=== PATIENT | female | born 1935 | race Caucasian/White ===

== ENCOUNTER → 2016-06-15 | Outpatient (CLI) | payer MEDICARE ==
[~2016-06-15] MED LIST: /ADVA50050 INH; /CELE20CA; /ESOM40CA OR; /LINE60TA; /WARF25TA; ACET65TA; ADVA115A INH; ALBU17IN2 INH; ALLO100T PO; AMLO5TAB2 PO; ASCO500T PO; ASPI1TAB PO; ASPI81TA83 PO; BABY81CH; CALC25TA PO; CALC500T49 OR; CIPR500T19; CLIN300C PO; COLA100C2; DONETAB6 PO; FERR324T5; FURO20TA2 PO; GABA-279 PO; GASTROGRAFIN SOLUTION 30ML (Q9963) As Ordered ONE; GLUC500T; GLUC500T PO; HYDR12.56 PO; HYDR25TA6 PO; ISOVUE-370 76% 100ML VIAL (Q9967) As Ordered ONE; KLON0.5T OR; KLOR10TA; LEVO25TA2 OR; LEVO50TA5 PO; LIDO5DIS TOP; LIPI80TA OR; LIPI80TA PO; LISI-542 PO; LISI2.5T3 PO; LYRI75CA OR; LYSI1000 PO; LYSINE; LYSINE PO; MECL12.575 PO; METF500T PO; MILKSUS; NEXI40CA PO; NORV5TAB OR; OXYB5TAB PO; OXYC10TA12; OXYC10TA56; OXYC10TA97; PAME10CA PO; PAME50CA OR; PERCOCET PO; POTA595T8 PO; POTA75TA PO; POTASSIUM PO; PRED20TA OR; PRED50TA OR; PROA1AER INH; RISE30TA OR; SENN8.6T14; SERT-138 PO; THERGRAN; TRAM37.53 PO; TRAM50TA2; TRAM50TA2 PO; TYL OR; ULTR50TA PO; VALS80CA OR; VICO5TAB OR; VITA-122 PO; VITA100T20 PO; VITA500T OR; ZETI10TA OR; ZETI10TA2 PO; ZOLO100T OR; [UNRECOGNIZED DRUG - OTHER]; dulcolax; tylenol#3
--- NOTE | 2016-06-15 13:27 | REP ---
CT NECK WITH CONTRAST: HISTORY: Lymphoma. CONTRAST: Isovue 370, 100 mL. COMPARISON: 03/04/2016. The naso-, dami-, and hypopharynx, larynx and subglottic trachea are normal in appearance. The patient is status post partial right parotidectomy. The left parotid , submandibular and thyroid glands are normal. Small lymph nodes less than 1 cm in size are present in the internal jugular chains, posterior triangles, and submandibular areas. There is no neck mass or adenopathy. Degenerative change is present in the cervical spine. The lung apices are clear. The visualized sinuses are clear. IMPRESSION: There is no neck mass or adenopathy. Signed by Gage Echavarria MD 06/15/2016 01:54 P
--- NOTE | 2016-06-15 13:56 | REP ---
CT ABDOMEN AND PELVIS WITHOUT AND WITH CONTRAST: 06/15/2016. Clinical history: stage III high-grade follicular non-Hodgkin's lymphoma for follow-up. Comparison: 03/04/2016. Technique: Oral Gastrografin mixture per our protocol and a bolus of 100 mL Isovue 370 scanning through the abdomen and pelvis before and after contrast with delayed views of the abdomen. Coronal and sagittal reconstructions provided. Findings: Small hiatal hernia noted. This is unchanged. There is no hepatomegaly with a 16 cm vertical diameter of the mid clavicular line. There is no splenomegaly or focal splenic lesion. There is no intrahepatic biliary dilatation or ascites. Gallbladder shows no calcified stone or mass. Tiny hypodensity in the dome of the liver represents a 3 mm cyst or small hemangioma but is unchanged from prior studies. Adrenal glands are normal. The aorta shows atherosclerotic calcifications without aneurysm. No periaortic adenopathy. Gallbladder shows no calcified stone or mass. Right kidney is absent. The left kidney shows compensatory hypertrophy. There are cortical cysts in that kidney. No solid renal mass, hydronephrosis or stone. There are small lymph nodes in the mesentery with some infiltration of adjacent fat and all of these are 4 mm or smaller. A few other nodes without associated infiltration of the fat are seen up to 5 mm with improvement in the mesenteric fat infiltration compared to the previous study. The periaortic and peripancreatic fat alike improved in its appearance with less infiltration of that fat. There is no free air or perforation in the abdomen or pelvis on all CT slices reviewed in lung windows. Small bowel loops are grossly intact. Stomach is not abnormally distended. There is some thickening of the wall of the gastric antrum as before and this may reflect some antral gastritis. I do not see other definite areas of wall thickening or mass. Bowel loops do not show wall thickening or infiltration of the pericolonic or mesentery adjacent to the small bowel. No ascites. Bone windows show degenerative disc changes throughout the lumbar spine from the L2-3 through L5- S1 with vacuum phenomenon and showing central canal stenosis only at L5-S1. There is facet arthropathy at multiple levels. Visualized ribs intact. No spondylolysis with a few millimeters of spondylolisthesis of L4 on L5. I do not see dilated left ureter or ureteral stone. CT pelvis: SI joints show sclerosis in their iliac margins. The hips show degenerative changes bilaterally without evidence for AVN, fracture, symphysis pubis, pubic rami and iliac wings intact. 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 Small bowel loops in the pelvis were unremarkable. Distal left colon and sigmoid are collapsed without signs of definite colitis or diverticulitis. The abdominal portion of the colon contrast and fluid-filled without signs of colitis or diverticulitis. There is no ventral or inguinal hernia. Inguinal nodes are seen with the largest on the left about 8 mm in short axis decreased from 11 mm on the previous study. Smaller inguinal nodes on the right up to 6 mm and 8 mm in short axis also decreased. Impression: 1. There is some improvement in mesenteric edema and infiltration of small scattered nodes in the range of 3 to 4 mm and one of up to 5 mm in the left upper quadrant. This suggests improvement in the mesenteric adenopathy and inflammatory changes adjacent to the aorta and pancreatic bed 2. Absent right kidney with the left kidney showing multiple cyst but no stone, hydronephrosis or solid mass. 3. No ureteral stone or bladder stone, ascites or adenopathy. There is no pelvic mass. The vaginal cuff intact. The distal left colon and sigmoid collapsed. No gross evidence for colitis or diverticulitis. Signed by Marco Teran MD 06/15/2016 04:25 P
--- NOTE | 2016-06-15 14:35 | REP ---
CT CHEST WITH CONTRAST: 06/15/2016. COMPARISON: 03/04/2016, 11/30/2015. CLINICAL HISTORY: Stage III high-grade follicular non-Hodgkin's lymphoma. Followup. TECHNIQUE: A bolus of 100 mL Isovue-370 and scanning through the chest. Coronal and sagittal reconstructions were provided. FINDINGS: Lung crystal are mildly hyperinflated with increased AP diameter of the chest and prominence of the retrosternal clear space. Some underlying mild interstitial lung changes are seen. Fibroatelectatic changes again seen in the lung bases, mid posterior lower lung zone, as well as the lingula but stable. There is no pleural effusion evident. No visible lung nodule or mass and no acute infiltrate. I see no pneumothorax or pneumomediastinum. Lateral to the aortic arch is a 2 x 1 x 1.6 cm lesion that previously measured 1.9 x 1.1 by 2.1 cm, slightly decreased in vertical diameter. Heart is not enlarged. There is no pericardial thickening or effusion. There is a hiatal hernia evident. The aorta has no aneurysm or dissection. There is no pathologic sized adenopathy elsewhere in the mediastinum or hilar region. The axilla and supraclavicular regions are intact. The bone windows show sternum, manubrium, medial clavicles and scapula intact. There are degenerative changes of the shoulder joints, left greater than right, with [id number] appearance of the humeral heads indicating chondromalacia on the left. Visualized ribs grossly intact. Appears to be a healing sternal fracture in the mid sternum. Thoracic kyphosis is seen. There is grade 1 superior endplate depression of T12 as a new finding compared to February. There is no malalignment. 3 mm of retropulsion of the superior endplate of T12 into the neural canal is noted with the AP canal diameter 10 mm. Degenerative osteophytes at most levels without other compression deformities or acute change. IMPRESSION: 1. Slightly smaller nick lesion, AP window, prevascular space and now 2.1 x 1.6 x 1 cm, previously 2.1 x 1.9 x 1.1 cm, so slightly smaller. 2. Interval grade 1 superior endplate compression of T12, a few millimeters of retropulsion, and a 10 mm preserved diameter. Spinal stenosis at this level is mild due to that superior endplate depression and slight retropulsion of the posterior-superior margin of the T12. 3. No aortic aneurysm or dissection. Small hiatal hernia, unchanged. COPD and some basilar fibroatelectatic changes noted and stable. Signed by Marco Teran MD 06/15/2016 04:26 P
== END ==
LOC: M RAD 11:02
PROVIDERS: ATTEND Internal Medicine Medical Oncology
DX: C85.90 Non-Hodgkin lymphoma, unspecified, unspecified site (principal); Z90.5 Acquired absence of kidney; N28.1 Cyst of kidney, acquired; K44.9 Diaphragmatic hernia without obstruction or gangrene
CPT/HCPCS: 70491; 71260; 74178; Q9963; Q9967

== ENCOUNTER → 2016-06-22 | Outpatient (REF) | payer MEDICARE ==
[~2016-06-22] MED LIST changes: -GASTROGRAFIN SOLUTION 30ML (Q9963) As Ordered ONE; -ISOVUE-370 76% 100ML VIAL (Q9967) As Ordered ONE
[2016-06-22 15:02] LABS: CORTISOL BASELINE 13.8 UG/DL (4.3-22.4)
== END ==
LOC: M LAB REF 12:50
PROVIDERS: ATTEND Internal Medicine Medical Oncology
DX: Z08 Encounter for follow-up examination after completed treatment for malignant neoplasm (principal); C82.20 Follicular lymphoma grade III, unspecified, unspecified site

== ENCOUNTER → 2016-06-29 | Outpatient (REF) | payer MEDICARE | LOC: M LAB REF 13:02 | PROVIDERS: ATTEND Internal Medicine Medical Oncology | DX: C85.90 Non-Hodgkin lymphoma, unspecified, unspecified site (principal) ==

== ENCOUNTER → 2016-07-13 | Outpatient (CLI) | payer MEDICARE ==
--- NOTE | 2016-07-15 09:02 | DEXA ---
AP SPINE L1 - L4 1.167 -0.2 1.8 LT FEMUR TOTAL 0.851 -1.2 1.1 RT FEMUR TOTAL 0.833 -1.4 0.9 TOTAL BODY TOTAL OTHER DUAL FEMUR FRAX* ASSESSMENT Risk factors: Mother hip fracture, adult fractures, chronic glucocorticoids. 10 year probability of fracture Major osteoporotic fracture 42.8 % Hip fracture 26.8 % COMMENTS: Normal bone densitometry of the spine. There is low bone density of the hips. FOLLOW-UP: Recommendation for the next bone density exam: 2 years. [facility]
== END ==
LOC: M WHC 14:39
PROVIDERS: ATTEND Internal Medicine Medical Oncology
DX: M85.851 Other specified disorders of bone density and structure, right thigh (principal); M85.852 Other specified disorders of bone density and structure, left thigh

== ENCOUNTER → 2016-12-01 | Outpatient (CLI) | payer MEDICARE ==
[~2016-12-01] MED LIST changes: +METF500T13 PO; -PROA1AER INH; +PROAAER10 INH; -ZETI10TA2 PO; +ZETI10TA30 PO
--- NOTE | 2016-12-01 13:39 | REP ---
Left shoulder three views: Comparison is 08/20/2011. There is diffuse demineralization. There is no fracture or dislocation. There are calcifications lateral to the humeral head compatible with calcific tendonitis. This was also present previously. There is glenohumeral osteoarthritis. There is mild acromioclavicular osteoarthritis. Impression: Osteoarthritis. Calcific tendonitis. Demineralization. Signed by David Morgan MD 12/01/2016 01:30 P
== END ==
LOC: M RAD 11:52
PROVIDERS: ATTEND Nurse Practitioner Family
DX: M19.012 Primary osteoarthritis, left shoulder (principal)

== ENCOUNTER → 2017-01-07 | Outpatient (CLI) | payer MEDICARE ==
[~2017-01-07] MED LIST changes: +GASTROGRAFIN SOLUTION 30ML (Q9963) As Ordered ONE; +ISOVUE-370 76% 100ML VIAL (Q9967) As Ordered ONE
--- NOTE | 2017-01-07 15:44 | REP ---
CT NECK WITH CONTRAST: HISTORY: Non-Hodgkin's lymphoma. CONTRAST: Isovue-370, 100 mL COMPARISON: 06/15/2016 The naso-, dami- and hypopharynx, larynx and subglottic trachea are normal in appearance. The patient is status post partial right parotidectomy. The left parotid, submandibular and thyroid glands are normal in density. The submandibular glands are small in size. Small lymph nodes less than 1 cm in size are present in the internal jugular chains, posterior triangles, and submandibular areas. Degenerative change is present in the cervical spine. The visualized sinuses are clear. IMPRESSION: There is no neck mass or adenopathy. Signed by Gage Echavarria MD 01/07/2017 03:49 P
--- NOTE | 2017-01-07 15:50 | REP ---
CT chest with IV contrast: History: Non-Hodgkin's lymphoma, restaging. Comparison chest CT study is from June 15 2016. There is a soft tissue density which appears to be pleural-based, but in the left upper lobe adjacent to the left mediastinum at the level of the aortopulmonary window region. This is felt to be unchanged from multiple comparison studies. It measures 1.8 cm in anteroposterior x 1.3 cm in medial to lateral x 2.3 cm in craniocaudal span. It is felt to be unchanged from June 2016 and November 30, 2015 prior studies. No other significant pulmonary parenchymal opacity is seen. There is a granulomatous calcification in the left upper lobe near by this lesion, unchanged. No hilar or mediastinal mass or adenopathy is seen. There is a moderate sized hiatal hernia. A tiny cyst is seen in the right lobe of the liver, unchanged. No bony destructive lesion is seen. No vascular abnormality is noted in the mediastinum. Impression: Stable chest CT findings. Signed by Norman Jarrett MD 01/08/2017 10:06 A
--- NOTE | 2017-01-07 16:04 | REP ---
CT abdomen and pelvis without and with IV and oral contrast: History: Restaging lymphoma. Comparison CT studies are reviewed from 06/15/2016 and 03/04/2016. CT contrast dose: 100 ml of intravenous Isovue [address] findings: There is a tiny cyst in the right lobe of the liver. No other focal liver lesion is seen. The liver and spleen are normal in size and otherwise normal in texture. A hiatal hernia is seen behind the heart. No adrenal lesion is seen on either side. Pancreas is unremarkable. The gallbladder shows no abnormality. The right kidney is surgically absent. 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 There is some cortical atrophy in the lower pole of the left kidney. The appearance of the left kidney is unchanged. No retroperitoneal mass or adenopathy of the is observed. There is a bladder diverticulum on the left. Urinary bladder is otherwise unremarkable. The appendix is surgically absent as is the uterus. No pelvic mass or adenopathy is seen. No abdominal wall defect is noted. No significant bony abnormality. Impression: Patient status post right nephrectomy and hysterectomy and appendectomy. Multiple cysts and some cortical atrophy left kidney. No mass or adenopathy seen. Hiatal hernia. Signed by Norman Jarrett MD 01/08/2017 10:06 A
== END ==
LOC: M RAD 12:30
PROVIDERS: ATTEND Internal Medicine Medical Oncology
DX: C82.90 Follicular lymphoma, unspecified, unspecified site (principal); K44.9 Diaphragmatic hernia without obstruction or gangrene; K76.89 Other specified diseases of liver; N28.1 Cyst of kidney, acquired
CPT/HCPCS: 70491; 71260; 74178; Q9963; Q9967

== ENCOUNTER → 2018-01-12 | Outpatient (CLI) | payer MEDICARE | LOC: M RAD 10:07 | DX: N28.1 Cyst of kidney, acquired (principal); M47.814 Spondylosis without myelopathy or radiculopathy, thoracic region; M48.02 Spinal stenosis, cervical region; M48.04 Spinal stenosis, thoracic region; M48.061 Spinal stenosis, lumbar region without neurogenic claudication; M54.2 Cervicalgia | CPT/HCPCS: 72148 ==

== ENCOUNTER → 2018-06-07 | Outpatient (CLI) | payer MEDICARE ==
[~2018-06-07] MED LIST changes: -AMLO5TAB2 PO; +AMLO5TAB6 PO; +GABA-1171 PO; -GABA-279 PO; -LISI2.5T3 PO; +LISI2.5T5 PO; +PROAAER10
--- NOTE | 2018-06-07 16:18 | REP ---
Clinical: Follicular non-Hodgkins lymphoma for restaging. Technique: Axial contrast enhanced images from the lung bases to the pubic symphysis using oral (per protocol) and 100 ml Isovue 370 intravenous contrast material with precontrast and delayed images of the abdomen as well as coronal and sagittal re-formations. Comparison: 08/13/2017. Findings: Lung bases are clear. Moderate hiatal hernia is unchanged. Liver, spleen, pancreas, gallbladder, bilateral adrenal glands, and left kidney are essentially normal/stable. Subcentimeter hepatic cyst at the dome of the liver along with small 1 cm cyst in the posterior right lobe and scattered left renal cysts measuring up to approximately 2.0 cm remains stable. Right kidney is absent. Subtle soft tissue surrounding the celiac axis and upper abdominal retroperitoneum is unchanged. No significant intraperitoneal or retroperitoneal adenopathy is appreciated. No mass lesions are identified. Small and large bowel is without obstruction or acute inflammatory process. Normal cecum and terminal ileum are identified in the right lower quadrant. Pelvis demonstrates relatively normal bladder with stable left-sided diverticulum and evidence of prior hysterectomy. No pelvic adenopathy or mass lesion noted. No ascites. No free air. Atherosclerotic changes of the aorta and vasculature noted without aneurysm or dissection. Musculoskeletal structures demonstrate age-related degenerative changes without focal osseous abnormality. Impression: 1. Stable low density surrounding the celiac axis and retroperitoneum of the upper abdomen unchanged. 2. Stable hepatic and left renal cysts. 3. Stable moderate hiatal hernia. 4. No ascites, adenopathy, or mass lesion appreciated to suggest recurrence/metastatic disease. Electronically Signed by Paul Downing MD 06/07/2018 04:09 P
--- NOTE | 2018-06-07 16:23 | REP ---
Clinical: Follicular non-Hodgkins lymphoma for restaging. Technique: Axial contrast enhanced images from the thoracic inlet to the upper abdomen with coronal and sagittal re-formations using 100 ml Isovue 370 intravenous contrast material. Comparison: 08/13/2017, 01/07/2017. Findings: The bilateral lung crystal are well-aerated and without acute consolidation, pleural effusion or pneumothorax. There is a stable soft tissue lesion in the medial/paramediastinal left hemithorax at the level of the thoracic arch measuring approximately 2.0 x 1.0 cm and essentially unchanged compared to examinations through 01/07/2017. No axillary, hilar, or mediastinal adenopathy is appreciated. Atherosclerotic changes to the thoracic aorta and coronary arteries noted without aortic aneurysm/dissection, cardiomegaly or pericardial effusion. Moderate hiatal hernia again noted and unchanged. Surrounding musculoskeletal structures demonstrate age-related changes without focal osseous abnormality. Impression: 1. Stable appearance to the soft tissue density abutting the superior mediastinum in the left hemithorax at the level of the thoracic aortic arch. 2. No adenopathy, consolidation, mass lesion, or effusion. 3. Stable moderate hiatal hernia. Electronically Signed by Paul Downing MD 06/07/2018 04:15 P
== END ==
LOC: M RAD 13:56
PROVIDERS: ATTEND Internal Medicine Medical Oncology
DX: C82.20 Follicular lymphoma grade III, unspecified, unspecified site (principal); K44.9 Diaphragmatic hernia without obstruction or gangrene; N28.1 Cyst of kidney, acquired; K76.89 Other specified diseases of liver
CPT/HCPCS: 71260; 74178; Q9963; Q9967

== ENCOUNTER → 2019-12-12 | Outpatient (CLI) | payer MEDICARE ==
[~2019-12-12] MED LIST changes: -/ADVA50050 INH; -/CELE20CA; -/ESOM40CA OR; -/LINE60TA; -/WARF25TA; +ADVA1AER2 INH; +AMLO1TAB24 PO; -AMLO5TAB6 PO; -ASPI1TAB PO; +ASPI81TA26 PO; +CELE1CAP4; +COUM1TAB18; +IBUP-1114 PO; -ISOVUE-370 76% 100ML VIAL (Q9967) As Ordered ONE; +ISOVUE-370 76% 100ML VIAL As Ordered ONE; +LISI2.5T2 PO; -LISI2.5T5 PO; +MAPA500T2 PO; -MECL12.575 PO; +MECL12.589 PO; +NEXI1CAP3 OR; +OXYB-54 PO; -OXYB5TAB PO; +OXYC1TAB23 PO; -PERCOCET PO; +POTA595T16 PO; -VITA100T20 PO; +VITA100T51 PO; +ZETI10TA16 PO; -ZETI10TA30 PO; +ZYVO100T; +[UNRECOGNIZED DRUG - CODE] PO
--- NOTE | 2020-01-29 10:22 | REP ---
CT OF THE CHEST WITH IV CONTRAST: COMPARISON: CT from 11/29/18 TECHNIQUE: CT of the chest is performed following the intravenous administration of 100 cc of Isovue 370. Sagittal and coronal reconstruction images are performed. FINDINGS: The lungs show no infiltrate or suspicious nodular opacity. There is minor scattered linear fibrotic scarring. The heart is mildly enlarged. The thoracic aorta is normal in caliber with no aneurysm or dissection. There is mild atherosclerotic calcification of the thoracic aorta. There is no pleural or pericardial effusion. There is a large hiatal hernia. There is no axillary adenopathy. There is focal oval soft tissue along the left lateral aspect of the aortic arch, which is stable compared to the prior study. IMPRESSION: Stable oval soft tissue along the lateral aortic arch compared to prior studies of 11/29/18 and 06/07/18. No new findings. Large hiatal hernia. MTDD
--- NOTE | 2020-01-29 10:23 | REP ---
CT OF THE ABDOMEN AND PELVIS WITH ORAL AND IV CONTRAST: COMPARISON: 06/07/18 HISTORY: Follicular lymphoma. TECHNIQUE: CT of the abdomen and pelvis is performed following administration of oral contrast as well as the intravenous administration of 100 cc of Isovue 370. Sagittal and coronal reconstruction images are performed. FINDINGS: Once again in the liver, there is a cyst in the right lobe which is stable. No new liver lesion is seen. The spleen is normal in size with no intrinsic abnormality. The adrenal glands are normal. No pancreatic mass is seen. The patient has had a prior right nephrectomy. There are several left renal cysts present, which appear similar to the prior examination. There is no abdominal aortic aneurysm with scattered atherosclerotic calcification. There is some hazy densities surrounding the aorta, which is stable. However, there is new left inguinal adenopathy. Three enhancing enlarged lymph nodes are seen, the most inferior measures 2.8 x 2.1 cm. Just above this, another lymph node measures 2.7 x 2.7 cm and there is another adjacent more medial lymph node, 1.8 x 1.7 cm. A few smaller lymph nodes are seen a little more superiorly in the left inguinal region. No bowel wall thickening is seen. There is no free air or free fluid. There is no pelvic mass. There is a left bladder diverticulum. There are degenerative changes of the spine. There is an old compression deformity of T12, which is stable. IMPRESSION: New left inguinal adenopathy is suspicious. Otherwise, there is no change in the appearance of the abdomen and pelvis compared to 06/07/18 exam. [facility]
== END ==
LOC: M RAD 16:00
PROVIDERS: ATTEND Internal Medicine Medical Oncology
DX: Z85.72 Personal history of non-Hodgkin lymphomas (principal); K44.9 Diaphragmatic hernia without obstruction or gangrene
CPT/HCPCS: 71260; 74177; Q9963; Q9967

== ENCOUNTER → 2020-03-01 | Outpatient (CLI) | payer MEDICARE ==
[~2020-03-01] MED LIST changes: -GASTROGRAFIN SOLUTION 30ML (Q9963) As Ordered ONE; -ISOVUE-370 76% 100ML VIAL As Ordered ONE
== END ==
LOC: M LABSMTC 12:28
PROVIDERS: ATTEND Anesthesiology
DX: Z01.812 Encounter for preprocedural laboratory examination (principal); Z20.828 Contact with and (suspected) exposure to other viral communicable diseases
CPT/HCPCS: C9803; U0003

== ENCOUNTER 2020-03-06 09:11 | Day surgery (SDC) | payer MEDICARE ==
[~2020-03-06] VITALS: Ht 144.8 cm; Wt 51.7 kg
[~2020-03-06 09:11] MED LIST changes: +ALBUTEROL SULFATE 2.5 MG/0.5 ML INH NEB SOLN INH ONE; +LR 1,000 ML IV ONE
[2020-03-06] MEDS ORDERED: BUPIVACAINE HCL 0.25% 30ML VIAL As Ordered ONE (10:34)
[2020-03-06] MEDS ORDERED: LIDOCAINE 1% SDV 30ML VIAL As Ordered ONE (10:34)
[2020-03-06] MEDS ORDERED: MIDAZOLAM INJ 2MG/2ML VIAL (J2250 PER 1MG) As Ordered ONE (10:36)
[2020-03-06] MEDS ORDERED: fentaNYL 100 MCG/2 ML INJECTION (J3010) As Ordered ONE ×2 (10:37→11:44)
[2020-03-06] MEDS ORDERED: LIDOCAINE 2% 100MG/5ML SDV (FOR ANES.) As Ordered ONE (10:38)
[2020-03-06] MEDS ORDERED: propofoL 200 MG/20 ML VIAL As Ordered ONE (10:38)
[2020-03-06] MEDS ORDERED: ROCURONIUM BROMIDE 50 MG/5 ML VIAL As Ordered ONE (11:43)
[2020-03-06 14:30] VITALS: BP 135/65
== END 2020-03-06 14:30 | disposition home or self-care (01) ==
LOC: M SDC 09:11
PROVIDERS: ATTEND Surgery
DX: C85.95 Non-Hodgkin lymphoma, unspecified, lymph nodes of inguinal region and lower limb (principal); C85.91 Non-Hodgkin lymphoma, unspecified, lymph nodes of head, face, and neck; I10 Essential (primary) hypertension; E11.9 Type 2 diabetes mellitus without complications; E78.00 Pure hypercholesterolemia, unspecified; J45.40 Moderate persistent asthma, uncomplicated; G47.33 Obstructive sleep apnea (adult) (pediatric); E66.3 Overweight; Z79.899 Other long term (current) drug therapy
CPT/HCPCS: 38500; 88305; J2250; J3010

== ENCOUNTER → 2020-04-01 | Outpatient (CLI) | payer MEDICARE ==
[~2020-04-01] MED LIST changes: -ALBUTEROL SULFATE 2.5 MG/0.5 ML INH NEB SOLN INH ONE; -LR 1,000 ML IV ONE
--- NOTE | 2020-04-03 13:17 | REP ---
INDICATION: RESTAGING STAGE III A FOLLICULAR LYMPHOMA. COMPARISON: CT-PET 11/28/2015, CT chest 12/12/2019, CT abdomen and pelvis 12/12/2019. TECHNIQUE: After the intravenous administration of 8.45 mCi of FDG 18 triplane whole-body PET-CT was performed from the skull base to the mid thigh. FINDINGS: The left inguinal lymphadenopathy seen on the prior CT of 12/12/2019 is again noted and is hypermetabolic with the highest SUV value of 6.22 in addition, when today's CT component is compared to the prior CT the lymphadenopathy has increased in number and size with the largest node previously measuring 2.6 cm today measures 3.9 cm. No other areas of abnormal hypermetabolic activity are seen in the neck, chest, abdomen, or pelvis. Patchy hypermetabolism is seen throughout the skeletal musculature secondary to inefficient post injection resting. IMPRESSION: Hypermetabolic lymphadenopathy as described above. No abnormal hypermetabolic activity is seen above the diaphragm. <Electronically signed by Rony Veliz > 04/03/20 [id number]
== END ==
LOC: M PLARAD 09:35
PROVIDERS: ATTEND Internal Medicine Medical Oncology
DX: C85.95 Non-Hodgkin lymphoma, unspecified, lymph nodes of inguinal region and lower limb (principal); C85.91 Non-Hodgkin lymphoma, unspecified, lymph nodes of head, face, and neck
CPT/HCPCS: 78815; A9552

== ENCOUNTER → 2020-04-11 | Outpatient (CLI) | payer MEDICARE ==
[~2020-04-11] MED LIST changes: -MECL12.589 PO; +MECL12.590 PO; +REVL20CA PO
--- NOTE | 2020-04-11 09:00 | REP ---
INDICATION: LT LEG PAIN SWELLING ? DVT COMPARISON: None. TECHNIQUE: Horne scale and color Doppler evaluation of the left lower extremity using linear high frequency transducer. FINDINGS: Ultrasound examination of the left lower extremity deep venous structures from the common femoral vein to the popliteal vein demonstrates normal compressibility flow and wave patterns in response to respiration and augmentation. There is no evidence for deep venous thrombosis. Complex hypoechoic mass lesions in the left groin measure 5.7 x 2.9 x 4.5 cm, 2.8 x 2.3 x 3.0 cm, and 2.2 x 1.2 x 1.4 cm. A mildly vascular isoechoic mass lesion is also identified in the groin measuring 3.7 x 2.0 x 3.1 cm. IMPRESSION: No evidence for deep venous thrombosis. Mass lesions in the left groin highly suspicious for adenopathy/malignancy. Correlation is required. <Electronically signed by Paul Downing > 04/11/20 [id number]
== END ==
LOC: M RAD 08:11
PROVIDERS: ATTEND Internal Medicine Medical Oncology
DX: M79.89 Other specified soft tissue disorders (principal); R19.04 Left lower quadrant abdominal swelling, mass and lump

== ENCOUNTER → 2020-07-31 | Outpatient (CLI) | payer MEDICARE ==
[~2020-07-31] MED LIST changes: -LISI-542 PO; +LISI-898 PO; +MECL-136 PO; -MECL12.590 PO
--- NOTE | 2020-08-03 03:38 | ECWPNPC ---
PATIENT NAME: TOYA AC : 1935 GENDER: FEMALE VISIT DATE: 07/31/2020 DISCHARGE DATE: 07/31/20 1525 VISIT LOCKED DATE TIME: PHYSICIAN: RAMBO YEUNG RESOURCE: RAMBO YEUNG REASON FOR APPOINTMENT 1. NECK, BACK AND SHOULDERS HISTORY OF PRESENT ILLNESS DEPRESSION SCREENING: PHQ-2 (2015 EDITION) LITTLE INTEREST OR PLEASURE IN DOING THINGS?NOT AT ALL FEELING DOWN, DEPRESSED, OR HOPELESS?NOT AT ALL TOTAL SCORE0 GENERAL: 85-YEAR-OLD FEMALE BEING REFERRED BY PRIMARY CARE, /TO EVALUATE PERSISTENT GENERALIZED BACK PAIN. CHIEF AREA OF PAIN IS NECK AND LOW BACK. 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 SHE HAS IV CHEMOTHERAPY ONCE A MONTH AND RECEIVES IS AT [facility] BY DR. GERMAIN. REPORTS A FALL INJURY IN APRIL 2020 WHERE SHE FELL BACKWARD AND LANDED ON HER BUTTOCKS. SHE WAS EVALUATED AFTER THE FALL INJURY. STATES DR. EDWARDS PUT HER ON TRAMADOL BUT SHE TOOK 1 TABLET AND DIDN'T LIKE THE WAY IT MADE HER FEEL AND DIDN'T TAKE ANY MORE. REPORTS TIGHTNESS IN NECK REGION THAT IS AGGRAVATED WITH RANGE OF JOINT MOTION OF THE NECK OR USE OF HER ARMS. PATIENT APPEARS COMFORTABLE. PATIENT IS ALERT AND ORIENTED.-. FALL RISK SCREENING: SCREENING : ONE FALL REPORTED IN THE LAST YEAR WITHOUT INJURY. PAIN SCREENING: PATIENT HAS A COMPLAINT OF ACUTE OR CHRONIC PAIN :YES LOCATION OF PAIN:NECK, BOTH SHOULDERS, LOW BACK INTENSITY OF PAIN (SCALE OF 1 TO 10):6 WHAT DOES YOUR PAIN FEEL LIKE:ACHING DURATION:CONTINOUS, CONSTANT PAIN IS INCREASED BY:ACTIVITIES PAIN IS DECREASED BY: TYLENOL NURSING NOTE: -. PAIN CENTER INTAKE QUESTIONS: DO YOU HAVE A HISTORY OF MRSA? :NO DO YOU TAKE A BLOOD THINNERS? :NO DO YOU HAVE ANY BLEEDING DISORDERS? :NO ANY NEW NUMBNESS OR WEAKNESS IN YOUR LEGS OR ARMS? :NO ANY PACEMAKER,DEFIBRILLATOR, OR DORSAL COLUMN STIMULATOR? :NO DO YOU HAVE ANY RASHES OR OPEN SORES? :NO ARE YOU ALLERGIC TO IV DYE? :NO ARE YOU DIABETIC? :YES ANY NEW PROBLEMS WITH YOUR MEDICATIONS? :NO HAVE YOU RECEIVED A VACCINE IN THE PAST 30 DAYS? :YES IF SO WHAT VACCINE AND WHEN? COVID VACCINE #1 07/2020 DO YOU PLAN TO RECEIVE A VACCINE IN THE NEXT 21 DAYS? :NO COVID VACCINE #2 08/09/20 DO YOU NEED ANY PRESCRIPTION? :NO DO YOU TAKE ANY IMMUNOSUPPRESSIVE MEDICATIONS? :NO DO YOU HAVE ANY KIDNEY OR LIVER DISEASE? :YES PT HAS 1 KIDNEY. 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 :NO ARE YOU BREAST FEEDING? :NO CURRENT MEDICATIONS TAKING TRAMADOL HCL 50 MG TABLET 1 TABLET NEEDED ORALLY ONCE A DAY TAKING ATORVASTATIN CALCIUM 40 MG TABLET 1 TABLET ORALLY ONCE A DAY TAKING DONEPEZIL HCL 10 MG TABLET 1 TABLET AT BEDTIME ORALLY ONCE A DAY TAKING EZETIMIBE 10 MG TABLET 1 TABLET ORALLY ONCE A DAY TAKING AMLODIPINE BESYLATE 5 MG TABLET 1 TABLET ORALLY ONCE A DAY TAKING LEVOTHYROXINE SODIUM 50 MCG TABLET 1 TABLET IN THE MORNING ON AN EMPTY STOMACH ORALLY ONCE A DAY TAKING SHINGRIX 50 MCG/0.5ML SUSPENSION RECONSTITUTED DIRECTED INTRAMUSCULAR TAKING PREVNAR 13 - SUSPENSION DIRECTED INTRAMUSCULAR TAKING ASPERCREME W/LIDOCAINE 4 % CREAM 1 APPLICATION EXTERNALLY THREE TIMES A DAY TAKING ESOMEPRAZOLE MAGNESIUM 40 MG CAPSULE DELAYED RELEASE 1 CAPSULE ORALLY ONCE A DAY TAKING LIDOCAINE REMI 5% OINTMENT BID LOW BACK TAKING ALLOPURINOL 300 MG TABLET 1 TABLET ORALLY ONCE A DAY TAKING VITAMIN B12 1000 MCG TABLET EXTENDED RELEASE 1 TABLET ORALLY ONCE A DAY TAKING POTASSIUM CHLORIDE ER 8 MEQ TABLET EXTENDED RELEASE 2 TABLETS WITH FOOD ORALLY TWICE A DAY TAKING VITAMIN D3 HIGH POTENCY 1000 UNITS TAKING VITAMIN C PLUS 500 MG TABLET DIRECTED ORALLY TAKING PROAIR HFA 108 (90 BASE) MCG/ACT AEROSOL SOLUTION 2 PUFFS NEEDED INHALATION QID PRN TAKING [employer] ULTRA 2 W/DEVICE KIT DIRECTED TAKING ONETOUCH LANCETS BID TAKING LISINOPRIL 2.5 MG TABLET 1 TABLET ORALLY ONCE A DAY TAKING OXYBUTYNIN CHLORIDE ER 5 MG TABLET EXTENDED RELEASE 24 HOUR 1 TABLET ORALLY ONCE A DAY TAKING NEBULIZER COMPRESSOR EVERY 4 HOURS NEEDED TAKING SERTRALINE HCL 100 MG TABLET 1 TABLET ORALLY ONCE A DAY TAKING ASPIRIN 81 81 MG TABLET DELAYED RELEASE 1 TABLET ORALLY ONCE A DAY TAKING LYSINE ACETATE 1 PO QD TAKING FUROSEMIDE 20 MG TABLET 1 TABLET ORALLY ONCE A DAY TAKING BREO ELLIPTA 200-25 MCG/INH AEROSOL POWDER BREATH ACTIVATED 1 PUFF INHALATION ONCE A DAY TAKING FUROSEMIDE 20 MG TABLET 1 TABLET ORALLY ONCE A DAY PAST MEDICAL HISTORY BENIGN ESSENTIAL HYPERTENSION SLEEP APNEA HYPERLIPIDEMIA GASTROESOPHAGEAL REFLUX DISEASE H/O TUBERCULOSIS KIDNEY INFECTION OSTEOARTHRITIS OF KNEE HYPOTHYROIDISM TYPE 2 DIABETES MELLITUS ASTHMA WITHOUT STATUS ASTHMATICUS DISORDER OF THE EYE DUE TO TYPE 2 DIABETES MELLITUS GOUT MILD DEPRESSION ESSENTIAL HYPERTENSION TRICUSPID VALVE REGURGITATION ECHO 2014 NON- HODGKINS 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 SURGICAL HISTORY TONSILLECTOMY W/ ADENOIDECTOMY, APPENDECTOMY 3X C SECTION HYSTERECTOMY REMOVAL RIGHT KIDNEY-SECONDARY TO TB AGE 20 RIGHT KNEE ARTHROPLASTY 2002 REVISION OF RIGHT TKR 2003 BILATERAL CARPAL TUNNEL RELEASE 2007 RIGHT TOTAL KNEE REVISION 11/30/2008 OU CATARACT LENS IMPLANTED 01/2011 LEFT UPPER EYELID-BLEPHAROPLASTY 05/2013 OD 07/2013 ARTHROPLASTY LEFT FIFTH TOE 09/2013 RIGHT- PAROTIDECTOMY 2015 FAMILY HISTORY FATHER: 78 YRS MOTHER: 2 BROTHER(S) . 2 SON(S) , 1 DAUGHTER(S) - HEALTHY. FATHER DUE TO CVA. SOCIAL HISTORY GENERAL: TOBACCO USE ARE YOU A:NONSMOKER LATEX QUESTIONNAIRE LATEX ALLERGY : HAVE YOU EVER DEVELOPED ANY TYPE OF REACTION AFTER HANDLING LATEX PRODUCTS SUCH RUBBER GLOVES, CONDOMS, DIAPHRAGMS, BALLOONS, SOCKS, OR UNDERWEAR?NO LATEX ALLERGY : HAVE YOU EVER DEVELOPED ANY TYPE OF REACTION DURING OR AFTER DENTAL APPOINTMENT, VAGINAL/RECTAL EXAMINATION, SURGICAL PROCEDURE, OR ANY OTHER EXPOSURE?NO LATEX RISK : HAVE YOU EVER HAD ANY DIFFICULTY BREATHING OR HIVES AFTER EATING OR HANDLING ANY FRUITS, OR VEGETABLES; SUCH KIWI, BANANAS, STONE FRUITS, OR CHESTNUTSNO LATEX RISK : DO YOU HAVE A PREVIOUS PERSONAL HISTORY OF MORE THAN NINE SURGERIES, SPINA BIFIDA, OR REPEATED CATHERIZATIONS? NO LATEX RISK : ARE YOU FREQUENTLY EXPOSED TO LATEX PRODUCTS IN YOUR OCCUPATION?NO DATE ASKED : 07/31/2020 ALCOHOL USE: NO. ALCOHOL SCREENING DID YOU HAVE A DRINK CONTAINING ALCOHOL IN THE PAST YEAR?NO POINTS0 INTERPRETATIONNEGATIVE RECREATIONAL DRUG USE DRUG USE?NO LEARNING BARRIERS / SPECIAL NEEDS BARRIERS TO LEARNING?NO HEARING IMPAIRED?YES :HEARING AIDES VISION IMPAIRED?YES :CORRECTIVE LENSES COGNITIVELY IMPAIRED?NO READINESS TO LEARN?YES LEARNING PREFERENCES?NO LEARNING CAPABILITIES PRESENT?YES EMOTIONAL BARRIERS?NO SPECIAL DEVICES?YES :WALKER MARITAL STATUS: . HOSPITALIZATION/MAJOR DIAGNOSTIC PROCEDURE SEE ABOVE REVIEW OF SYSTEMS CONSTITUTIONAL: ANY RECENT FEVER NO . CHILLS NO . WEIGHT CHANGE OF UNKNOWN REASONS NO . GASTROENTEROLOGY: NEW UNEXPLAINABLE CHANGES IN BOWEL CONTROL NO . CONSTIPATION NO . GENITOURINARY: ANY NEW CHANGE IN BLADDER CONTROL? NO . NEUROLOGY: NEW ONSET DIZZINESS OR NEUROLOGICAL CHANGES NOT MENTIONED NO . NEW NUMBNESS OR PAIN PATTERNS NOT MENTIONED AND PERTINENT TO TODAY'S VISIT NO . CARDIOLOGY: NEW CHEST PRESSURE NO . PATIENT DENIES NO . RESPIRATORY: UNEXPLAINABLE COUGH NO . NEW SHORTNESS OF BREATH NO . VITAL SIGNS WT 112 LBS, HT 59 IN, BMI 22.62 INDEX, BP 119/64 MM HG, HR 75 /MIN, RR 18 /MIN, TEMP 98.4 F, OXYGEN SAT % 96%, SAFE IN ENV? (Y/N) Y, NA INITIALS SC 14:28, REVIEWED BY: EM. EXAMINATION GENERAL EXAMINATION: GENERALNO ACUTE DISTRESS, WELL NOURISHED AND HYDRATED. PSYCHAPPROPRIATE MOOD AND AFFECT . FACE:UNREMARKABLE. NECK:NO LYMPHADENOPATHY, SUPPLE. LUNGS:CLEAR TO AUSCULTATION BILATERALLY, NO WHEEZES, RHONCHI, RALES. HEART:NO MURMURS, REGULAR RATE AND RHYTHM. MUSCULOSKELETAL: MUSCLE STRENGTH TESTING 5/5 BILATERAL UPPER AND LOWER EXTREMITY. LUMBAR: TRIGGER POINTS: ELICITED WITH PALPATION OVER LUMBAR PARAVERTEBRAL MUSCLES. PAIN IS AGGRAVATED WITH RANGE OF JOINT MOTION OF THE SPINE.. CERVICAL: TRIGGER POINTS: ELICITED WITH PALPATION OVER CERVICAL SPINOUS PROCESSES AND ACROSS THE TRAPEZIUS MUSCLES BILATERALLY. RESTRICTION OF ROM IS NOTED.. NEUROLOGIC EXAM:INTACT, NO DEFICITS. ASSESSMENTS MYALGIA, OTHER SITE - M79.18 (PRIMARY) ARTHROPATHY - M12.9 TREATMENT MYALGIA, OTHER SITE START MELOXICAM TABLET, 7.5 MG, 1 TABLET, ORALLY, ONCE A DAY, 30 DAY(S), 30, REFILLS 2 NOTES: START PT 2XWK X6WK FOR MYOFASCIAL RELEASE FOR NECK START MELOXICAM 7.5MG TAB ONE DAILY USE TYLENOL ARTHRITIS 1 CAP TWICE DAILY IF NEEDED FOR PAIN CONTINUE WITH USE OF ASPERCREAM NEEDED FOR NECK PAIN/LOW BACK PAIN. REFERRAL TO:PHYSICAL THERAPIST REASON:2XWK X 6 WKS,MASSAGE,MYOFASCIAL RELEASE,EVALUATE AND TREAT OTHERS NOTES: MELOXICAM MATERIAL WAS PRINTED, REVIEWED AND GIVEN TO PT. EM. PROCEDURE CODES FA211 ESTABILISHED PATIENT [facility] CHARGE DISPOSITION & COMMUNICATION FOLLOW UP 10 WKS F/U PT (REASON: NECK PAIN F/U PT/NEW MED MELOXICAM) ELECTRONICALLY SIGNED BY MARCIAL ZAMORA ON 08/02/2020 AT 01:29 PM EDT DISCLAIMER : THIS IS A VISIT SUMMARY EXTRACTED FROM THE [email or web address] CHART. IT IS NOT A COPY OF THE [email or web address] PROGRESS NOTE. KHOA
== END ==
LOC: M PAIN 14:00
PROVIDERS: ATTEND Nurse Practitioner Family
DX: M79.18 Myalgia, other site (principal); M12.9 Arthropathy, unspecified; E11.9 Type 2 diabetes mellitus without complications; G47.30 Sleep apnea, unspecified; K21.9 Gastro-esophageal reflux disease without esophagitis; E03.9 Hypothyroidism, unspecified; J45.40 Moderate persistent asthma, uncomplicated; Z86.59 Personal history of other mental and behavioral disorders; Z96.651 Presence of right artificial knee joint; Z79.51 Long term (current) use of inhaled steroids; Z79.82 Long term (current) use of aspirin; Z79.899 Other long term (current) drug therapy

== ENCOUNTER → 2020-08-19 | Outpatient (CLI) | payer MEDICARE ==
[~2020-08-19] MED LIST changes: +E-Z-GAS II EFFERVESCENT PACKET (SODIUM BICARB./CITRIC ACID/SIMETHICONE) As Ordered ONE; +E-Z-HD 98% w/w 340GM SUSP BTL As Ordered ONE; +E-Z-PAQUE 96% w/w SUSP 176GM BTL As Ordered ONE; +ISOVUE-370 76% 100ML VIAL As Ordered ONE; +MAPA500C PO; +ZOLO100T PO
--- NOTE | 2020-08-19 09:43 | REP ---
INDICATION: CHRONIC LARYNGITIS. COMPARISON: CT neck with contrast 11/29/2018 TECHNIQUE: Axial CT images with multiplanar reformations with contrast. FINDINGS: Nasopharynx: Normal. Oropharynx: Normal. No significant tonsillar enlargement. Hypopharynx: Normal. Larynx: Normal. Normal epiglottis. Retropharyngeal space: Normal. Submandibular/Parotid glands: Normal. Glands are normal in size. Thyroid: Normal. No enlarged or calcified nodules. Lymph nodes: There are small jugular lymph nodes measuring less than 8 mm in short axis. No enlarged lymph nodes. Trachea: Visualized trachea is unremarkable. Lungs: Normal as visualized. Bones/joints: There are degenerative changes of the cervical spine. No fracture. No focal osseous lesion. Soft tissues: Normal. No significant soft tissue swelling. IMPRESSION: Normal examination. No mass lesions or evidence of lymphadenopathy. No significant changes. <Electronically signed by Amandeep Agarwal > 08/19/20 0903
--- NOTE | 2020-08-19 17:23 | REP ---
INDICATION: CHRONIC LARYNGITIS. COMPARISON: None. TECHNIQUE: This procedure was performed under the direct supervision of Dr. Horne. Images were reviewed with Dr. Horne. Liquid barium and gas producing granules were given in the erect position as well as liquid barium in the prone oblique positions in order to perform a double contrast esophagram examination. 0.7 minutes of fluoro time was utilized for this procedure. FINDINGS: A single view PA chest x-ray is submitted as a fixed assets accountant film. There is no change compared to a previous chest x-ray performed on 05/13/2015. During the oral and pharyngeal stages of deglutition there is laryngeal penetration. During esophageal transport are tertiary waves demonstrated. There is no esophagitis stricture mucosal ring. There is a fixed hiatal hernia. There is gastroesophageal reflux demonstrated to the level of the stefano. IMPRESSION: 1. There is laryngeal penetration. 2. Tertiary waves. 3. There is a fixed hiatal hernia. There is gastroesophageal reflux demonstrated to the level of the stefano. <Electronically signed by Sloan Cortes > 08/19/20 1618 <Electronically signed by David Horne > 08/19/20 1725
== END ==
LOC: M RAD 08:45
PROVIDERS: ATTEND Otolaryngology
DX: J37.0 Chronic laryngitis (principal); K21.9 Gastro-esophageal reflux disease without esophagitis; K44.9 Diaphragmatic hernia without obstruction or gangrene
CPT/HCPCS: 70491; 74220; Q9967

== ENCOUNTER → 2020-09-02 | Outpatient (CLI) | payer MEDICARE ==
[~2020-09-02] MED LIST changes: +ALBU8.5H; +BREO1INH3 INH; +COVI100V IM; +DONE10TA90; -E-Z-GAS II EFFERVESCENT PACKET (SODIUM BICARB./CITRIC ACID/SIMETHICONE) As Ordered ONE; -E-Z-HD 98% w/w 340GM SUSP BTL As Ordered ONE; -E-Z-PAQUE 96% w/w SUSP 176GM BTL As Ordered ONE; +ESOM40CA35 PO; +EZET10TA21 PO; -ISOVUE-370 76% 100ML VIAL As Ordered ONE; +MELO7.5T35 PO; +RITU10VLL IV; +ZYLO300T6 PO
== END ==
LOC: M LABSMTC 11:22
PROVIDERS: ATTEND Anesthesiology
DX: Z01.818 Encounter for other preprocedural examination (principal); Z20.822 Contact with and (suspected) exposure to COVID-19

== ENCOUNTER 2020-09-05 06:27 | Day surgery (SDC) | payer MEDICARE ==
[~2020-09-05] VITALS: Ht 144.8 cm; Wt 50.1 kg
[2020-09-05] MEDS ORDERED: LR 1,000 ML IV ONE (07:00)
[2020-09-05] MEDS ORDERED: dexameTHASONE 4 MG/ML 1ML VIAL (J1100 PER 1MG) IV ONE (07:00)
[2020-09-05] MEDS ORDERED: fentaNYL 100 MCG/2 ML INJECTION (J3010) As Ordered ONE (07:59)
[2020-09-05] MEDS ORDERED: ROCURONIUM BROMIDE 50 MG/5 ML VIAL As Ordered ONE (07:59)
[2020-09-05] MEDS ORDERED: LIDOCAINE 2% 100MG/5ML SDV (FOR ANES.) As Ordered ONE (07:59)
[2020-09-05] MEDS ORDERED: propofoL 200 MG/20 ML VIAL As Ordered ONE (07:59)
[2020-09-05] MEDS ORDERED: MIDAZOLAM INJ 2MG/2ML VIAL (J2250 PER 1MG) As Ordered ONE (08:00)
[2020-09-05] MEDS ORDERED: LIDOCAINE W/EPINEPHRINE 1% 20ML VIAL As Ordered ONE (09:02)
[2020-09-05] MEDS ORDERED: CETACAINE SPRAY 5GM As Ordered ONE (09:02)
[2020-09-05] MEDS ORDERED: METHYLENE BLUE 0.5% (5MG/ML) 10 ML AMP (PROVAYBLUE) As Ordered ONE (09:02)
[2020-09-05] MEDS ORDERED: OXYMETAZOLINE 0.05% NASAL SPRAY (AFRIN) As Ordered ONE (09:02)
[2020-09-05] MEDS ORDERED: dexameTHASONE 4 MG/ML 1ML VIAL (J1100 PER 1MG) As Ordered ONE (09:45)
[2020-09-05] MEDS ORDERED: GLYCOPYRROLATE INJ 0.2 MG/ML 2 ML VIAL As Ordered ONE (09:54)
[2020-09-05] MEDS ORDERED: ETOMIDATE INJ 20MG/10ML VIAL As Ordered ONE (10:04)
[2020-09-05] MEDS ORDERED: ONDANSETRON 4MG/2ML VIAL As Ordered ONE (10:07)
[2020-09-05] MEDS ORDERED: fentaNYL 100 MCG/2 ML INJECTION (J3010) IV PRN (11:10)
[2020-09-05] MEDS ORDERED: LR 1,000 ML IV SCH ×2 (11:10→11:15)
[2020-09-05] MEDS ORDERED: ONDANSETRON 4MG/2ML VIAL IV PRN (11:10)
[2020-09-05] MEDS ORDERED: PERCOCET 5MG/325MG TAB PO PRN (11:10)
[2020-09-05] MEDS ORDERED: ACETAMINOPHEN 325 MG/10.15 ML UDC PO ONE (11:50)
[2020-09-05 14:10] VITALS: BP 158/74
== END 2020-09-05 14:35 | disposition home or self-care (01) ==
LOC: M SDC 06:27
PROVIDERS: ATTEND Otolaryngology
DX: J38.1 Polyp of vocal cord and larynx (principal); J37.0 Chronic laryngitis; I10 Essential (primary) hypertension; E78.5 Hyperlipidemia, unspecified; J45.909 Unspecified asthma, uncomplicated; E11.9 Type 2 diabetes mellitus without complications; K21.9 Gastro-esophageal reflux disease without esophagitis; M10.9 Gout, unspecified; F41.9 Anxiety disorder, unspecified; F32.9 Major depressive disorder, single episode, unspecified; Z79.82 Long term (current) use of aspirin; Z79.84 Long term (current) use of oral hypoglycemic drugs; Z79.899 Other long term (current) drug therapy
CPT/HCPCS: 31535; 88305; J1100; J2405; J3010; Q9968

== ENCOUNTER → 2020-09-17 | Outpatient (CLI) | payer MEDICARE ==
[~2020-09-17] MED LIST changes: +GASTROGRAFIN SOLUTION 30ML (Q9963) As Ordered ONE; +ISOVUE-370 76% 100ML VIAL As Ordered ONE
--- NOTE | 2020-09-17 16:34 | REP ---
INDICATION: LYMPHOMA COMPARISON: Multiple the latest 12/12/2019 TECHNIQUE: Standard helical technique after the intravenous administration of 100 cc Isovue 370 FINDINGS: The middle mediastinal soft tissue density seen along the left lateral wall of the aortic arch is unchanged. No new mediastinal mass or hilar adenopathy has developed. There are no pleural or pericardial effusions. Note is again made of a large hiatal hernia. Evaluation of the osseous structures shows no changes from the prior exam. There is an unchanged T12 compression deformity. Evaluation of the lung crystal shows no new abnormal nodules, masses, or opacities. IMPRESSION: Stable CT examination of the chest with findings as described above. <Electronically signed by Rony Veliz > 09/17/20 1912
--- NOTE | 2020-09-17 17:13 | REP ---
INDICATION: LYMPHOMA. COMPARISON: Multiple latest a 420 TECHNIQUE: Standard helical technique after the intravenous administration of 100 cc Isovue 370 and oral bowel preparatory contrast administration FINDINGS: There is a large hiatal hernia status quo. There is no significant change in appearance of the liver, gallbladder, spleen, pancreas, adrenal glands, or left kidney. There is no significant change in appearance of the abdominal aorta or para-aortic regions. Nonenlarged para-aortic lymph nodes are again noted. There is no significant change in appearance of the bowel loops or the mesenteries. Small mesenteric lymph nodes are again noted status quo. There is no free fluid or free air. There is no change in the osseous structures. There is an unchanged low-density oval-shaped structure in the left hemipelvis abutting the left urinary bladder wall. There is a new large low-density 4 cm sized left inguinal cystic appearing mass which has slightly higher than water density Hounsfield unit readings. Just medial to this there is a smaller 1.6 cm sized lesion of same imaging characteristics. There are multiple nonenlarged pelvic sidewall lymph nodes which appear stable. IMPRESSION: 1. New large left inguinal cystic mass with an adjacent new smaller cystic mass as described above. Exact etiology uncertain. Necrotic lymph nodes cannot be ruled out. 2. Unchanged oval-shaped left lindsay pelvic cystic structure abutting the left urinary bladder wall. 3. Other findings and chronic changes as described above. <Electronically signed by Rony Veliz > 09/17/20 [id number]
== END ==
LOC: M RAD 13:43
PROVIDERS: ATTEND Internal Medicine Medical Oncology
DX: D50.9 Iron deficiency anemia, unspecified (principal); K44.9 Diaphragmatic hernia without obstruction or gangrene
CPT/HCPCS: 71260; 74177; Q9963; Q9967

== ENCOUNTER → 2020-10-03 | Outpatient (CLI) | payer MEDICARE ==
[~2020-10-03] MED LIST changes: -GASTROGRAFIN SOLUTION 30ML (Q9963) As Ordered ONE; -ISOVUE-370 76% 100ML VIAL As Ordered ONE
--- NOTE | 2020-10-03 16:05 | REP ---
INDICATION: LT GROIN CYST/LYMPHADENOPATHY COMPARISON: None. TECHNIQUE: Grayscale and color B-mode ultrasound examination using curved array transducer. FINDINGS: Directed ultrasound examination of the left groin demonstrates a 6.4 x 3.4 x 4.1 cm bilobed cystic lesion. IMPRESSION: Large simple appearing cystic lesion in the left groin. Finding is essentially unchanged compared to CT dated 09/17/2020 and is nonspecific. Differential diagnosis includes lymphocele and seroma. <Electronically signed by Paul Downing > 10/03/20 3446
== END ==
LOC: M RAD 13:07
PROVIDERS: ATTEND Internal Medicine Medical Oncology
DX: R59.0 Localized enlarged lymph nodes (principal)

== ENCOUNTER → 2020-10-14 | Outpatient (CLI) | payer MEDICARE ==
[~2020-10-14] MED LIST changes: -ALBU8.5H; +ALBU8.5H INH; +MELA5TAB47 PO
--- NOTE | 2020-10-18 00:57 | ECWPNPC ---
PATIENT NAME: TOYA AC : 1935 GENDER: FEMALE VISIT DATE: 10/14/2020 DISCHARGE DATE: 10/14/20 1437 VISIT LOCKED DATE TIME: PHYSICIAN: RAMBO YEUNG RESOURCE: RAMBO YEUNG REASON FOR APPOINTMENT 1. NECK PAIN F/U PT/NEW MED MELOXICAM HISTORY OF PRESENT ILLNESS GENERAL: HERE FOR FOLLOW-UP OF CHRONIC NECK PAIN. STARTED ON MOBIC 7.5 MG DAILY AT HER LAST VISIT. FINDS IT HELPFUL BUT IT DOESN'T LAST ALL DAY. WILL BE FINISHING UP HER LAST CHEMOTHERAPY FOR LYMPHOMA THIS MONTH. ALSO IS SCHEDULED TO HAVE POLYPS REMOVED FROM HER ESOPHAGUS. ATTENDING PHYSICAL THERAPY WITH SOME IMPROVEMENT PER OUR ORDER. -. FALL RISK SCREENING: SCREENING ONE FALL THIS YEAR NO MAJOR INJURIES, PATIENT STATED THAT SHE DID NOT GO O THE ER. PAIN SCREENING: PATIENT HAS A COMPLAINT OF ACUTE OR CHRONIC PAIN :YES LOCATION OF PAIN:NECK INTENSITY OF PAIN (SCALE OF 1 TO 10):2 WHAT DOES YOUR PAIN FEEL LIKE:INTERMITTENT, SORE DURATION:INTERMITTENT PAIN IS INCREASED BY:ACTIVITIES, PROLONGED STANDING PAIN IS DECREASED BY:USE OF PAIN MEDICATIONS NURSING NOTE: -. PAIN CENTER INTAKE QUESTIONS: DO YOU HAVE A HISTORY OF MRSA? :NO DO YOU TAKE A BLOOD THINNERS? :NO ASPIRIN 81 81 MG DO YOU HAVE ANY BLEEDING DISORDERS? :NO ANY NEW NUMBNESS OR WEAKNESS IN YOUR LEGS OR ARMS? :NO BOTH LEGS, BUT THE LEFT LEG MOSTLY IS SWELLING ANY PACEMAKER,DEFIBRILLATOR, OR DORSAL COLUMN STIMULATOR? :NO DO YOU HAVE ANY RASHES OR OPEN SORES? :NO ARE YOU ALLERGIC TO IV DYE? :NO ARE YOU DIABETIC? :YES ANY NEW PROBLEMS WITH YOUR MEDICATIONS? :NO HAVE YOU RECEIVED A VACCINE IN THE PAST 30 DAYS? :YES IF SO WHAT VACCINE AND WHEN? COVID VACCINE #1 07/2020 DO YOU PLAN TO RECEIVE A VACCINE IN THE NEXT 21 DAYS? :NO COVID VACCINE #2 08/09/20 DO YOU NEED ANY PRESCRIPTION? :NO DO YOU TAKE ANY IMMUNOSUPPRESSIVE MEDICATIONS? :NO DO YOU HAVE ANY KIDNEY OR LIVER DISEASE? :YES PT HAS 1 KIDNEY. OTHER KIDNEY WAS REMOED FOR TUBERCULOSIS OF THE KIDNEY IN 5 IS THERE A CHANCE YOU COULD BE ? :NO ARE YOU BREAST FEEDING? :NO CURRENT MEDICATIONS TAKING ATORVASTATIN CALCIUM 40 MG TABLET 1 TABLET ORALLY ONCE A DAY TAKING DONEPEZIL HCL 10 MG TABLET 1 TABLET AT BEDTIME ORALLY ONCE A DAY TAKING EZETIMIBE 10 MG TABLET 1 TABLET ORALLY ONCE A DAY TAKING AMLODIPINE BESYLATE 5 MG TABLET 1 TABLET ORALLY ONCE A DAY TAKING LEVOTHYROXINE SODIUM 50 MCG TABLET 1 TABLET IN THE MORNING ON AN EMPTY STOMACH ORALLY ONCE A DAY TAKING SHINGRIX 50 MCG/0.5ML SUSPENSION RECONSTITUTED DIRECTED INTRAMUSCULAR TAKING PREVNAR 13 - SUSPENSION DIRECTED INTRAMUSCULAR TAKING ASPERCREME W/LIDOCAINE 4 % CREAM 1 APPLICATION EXTERNALLY THREE TIMES A DAY TAKING ESOMEPRAZOLE MAGNESIUM 40 MG CAPSULE DELAYED RELEASE 1 CAPSULE ORALLY ONCE A DAY TAKING LIDOCAINE REMI 5% OINTMENT BID LOW BACK TAKING ALLOPURINOL 300 MG TABLET 1 TABLET ORALLY ONCE A DAY TAKING VITAMIN B12 1000 MCG TABLET EXTENDED RELEASE 1 TABLET ORALLY ONCE A DAY TAKING POTASSIUM CHLORIDE ER 8 MEQ TABLET EXTENDED RELEASE 2 TABLETS WITH FOOD ORALLY TWICE A DAY TAKING VITAMIN D3 HIGH POTENCY 1000 UNITS TAKING VITAMIN C PLUS 500 MG TABLET DIRECTED ORALLY TAKING PROAIR HFA 108 (90 BASE) MCG/ACT AEROSOL SOLUTION 2 PUFFS NEEDED INHALATION QID PRN TAKING [employer] ULTRA 2 W/DEVICE KIT DIRECTED TAKING ONETOUCH LANCETS BID TAKING LISINOPRIL 2.5 MG TABLET 1 TABLET ORALLY ONCE A DAY TAKING OXYBUTYNIN CHLORIDE ER 5 MG TABLET EXTENDED RELEASE 24 HOUR 1 TABLET ORALLY ONCE A DAY TAKING NEBULIZER COMPRESSOR EVERY 4 HOURS NEEDED TAKING SERTRALINE HCL 100 MG TABLET 1 TABLET ORALLY ONCE A DAY TAKING ASPIRIN 81 81 MG TABLET DELAYED RELEASE 1 TABLET ORALLY ONCE A DAY TAKING LYSINE ACETATE 1 PO QD TAKING FUROSEMIDE 20 MG TABLET 1 TABLET ORALLY ONCE A DAY TAKING BREO ELLIPTA 200-25 MCG/INH AEROSOL POWDER BREATH ACTIVATED 1 PUFF INHALATION ONCE A DAY TAKING FUROSEMIDE 20 MG TABLET 1 TABLET ORALLY ONCE A DAY TAKING MELOXICAM 7.5 MG TABLET 1 TABLET ORALLY ONCE A DAY NOT-TAKING TRAMADOL HCL 50 MG TABLET 1 TABLET NEEDED ORALLY ONCE A DAY MEDICATION LIST REVIEWED AND RECONCILED WITH THE PATIENT PAST MEDICAL HISTORY BENIGN ESSENTIAL HYPERTENSION SLEEP APNEA HYPERLIPIDEMIA GASTROESOPHAGEAL REFLUX DISEASE H/O TUBERCULOSIS KIDNEY INFECTION OSTEOARTHRITIS OF KNEE HYPOTHYROIDISM TYPE 2 DIABETES MELLITUS ASTHMA WITHOUT STATUS ASTHMATICUS DISORDER OF THE EYE DUE TO TYPE 2 DIABETES MELLITUS GOUT MILD DEPRESSION ESSENTIAL HYPERTENSION TRICUSPID VALVE REGURGITATION ECHO 2013 NON- HODGKINS LYMPHOMA CLINICAL MODERATE PERSISTENT ASTHMA NONPROLIFERATIVE DIABETIC RETINOPATHY OU NO MACULAR EDEMA TYPE 2 DIABETES MELLITUS LAST CHEMOTHERAPY FOR LYMPHOMA THIS 10/14/2020 ALLERGIES N.K.D.A. SOCIAL HISTORY GENERAL: TOBACCO USE ARE YOU A:NONSMOKER LATEX QUESTIONNAIRE LATEX ALLERGY : HAVE YOU EVER DEVELOPED ANY TYPE OF REACTION AFTER HANDLING LATEX PRODUCTS SUCH RUBBER GLOVES, CONDOMS, DIAPHRAGMS, BALLOONS, SOCKS, OR UNDERWEAR?NO LATEX ALLERGY : HAVE YOU EVER DEVELOPED ANY TYPE OF REACTION DURING OR AFTER DENTAL APPOINTMENT, VAGINAL/RECTAL EXAMINATION, SURGICAL PROCEDURE, OR ANY OTHER EXPOSURE?NO LATEX RISK : HAVE YOU EVER HAD ANY DIFFICULTY BREATHING OR HIVES AFTER EATING OR HANDLING ANY FRUITS, OR VEGETABLES; SUCH KIWI, BANANAS, STONE FRUITS, OR CHESTNUTSNO LATEX RISK : DO YOU HAVE A PREVIOUS PERSONAL HISTORY OF MORE THAN NINE SURGERIES, SPINA BIFIDA, OR REPEATED CATHERIZATIONS? NO LATEX RISK : ARE YOU FREQUENTLY EXPOSED TO LATEX PRODUCTS IN YOUR OCCUPATION?NO DATE ASKED : 10/14/2020 ALCOHOL USE: NO. ALCOHOL SCREENING DID YOU HAVE A DRINK CONTAINING ALCOHOL IN THE PAST YEAR?NO POINTS0 INTERPRETATIONNEGATIVE RECREATIONAL DRUG USE DRUG USE?NO LANGUAGE LANGUAGES SPOKEN:ARGENTINE LEARNING BARRIERS / SPECIAL NEEDS BARRIERS TO LEARNING?NO HEARING IMPAIRED?YES :HEARING AIDES VISION IMPAIRED?YES :CORRECTIVE LENSES COGNITIVELY IMPAIRED?NO READINESS TO LEARN?YES LEARNING PREFERENCES?NO LEARNING CAPABILITIES PRESENT?YES EMOTIONAL BARRIERS?NO SPECIAL DEVICES?YES :CANE, WALKER DIRECTOR PACKAGING NEEDED?NO MARITAL STATUS: . REVIEW OF SYSTEMS CONSTITUTIONAL: ANY RECENT FEVER NO . CHILLS NO . WEIGHT CHANGE OF UNKNOWN REASONS NO . GASTROENTEROLOGY: NEW UNEXPLAINABLE CHANGES IN BOWEL CONTROL NO . CONSTIPATION NO . GENITOURINARY: ANY NEW CHANGE IN BLADDER CONTROL? NO . NEUROLOGY: NEW ONSET DIZZINESS OR NEUROLOGICAL CHANGES NOT MENTIONED NO . NEW NUMBNESS OR PAIN PATTERNS NOT MENTIONED AND PERTINENT TO TODAY'S VISIT NO . CARDIOLOGY: NEW CHEST PRESSURE NO . PATIENT DENIES NO . RESPIRATORY: UNEXPLAINABLE COUGH NO . NEW SHORTNESS OF BREATH NO . VITAL SIGNS WT 113.8 LBS, HT 59 IN, BMI 22.98 INDEX, BP 142/60 MM HG, HR 62 /MIN, RR 16 /MIN, TEMP 97.9 F, OXYGEN SAT % 95%, SAFE IN ENV? (Y/N) YES, NA INITIALS MT 14:06T.ARNOLDO NUNN. EXAMINATION GENERAL EXAMINATION: GENERALAWAKE,ALERT ,PLEASANT . PSYCHAFFECT NORMAL . LUNGS:LUNG VELASCO ARE CLEAR TO AUSCULTATION BILATERALLY. GOOD MOVEMENT OF AIR . HEART:S1, S2 IN A REGULAR RATE AND RHYTHM. NO SIGNIFICANT MURMURS, RUBS OR GALLOPS NOTED . ASSESSMENTS MYALGIA, OTHER SITE - M79.18 (PRIMARY) ARTHROPATHY - M12.9 TREATMENT MYALGIA, OTHER SITE NOTES: TODAY WE WILL INCREASE MOBIC 7.5MG TO TWICE DAILY WITH FOOD.CONTINUE PT. FOLLOW-UP IS SCHEDULED IN 2 MONTHS. PROCEDURE CODES FA211 ESTABILISHED PATIENT [facility] CHARGE DISPOSITION & COMMUNICATION FOLLOW UP 2 MONTHS (REASON: FOLLOW-UP ON MELOXICAM INCREASE /CONTINUE PHYSICAL THERAPY FOLLOW-UP) ELECTRONICALLY SIGNED BY MARCIAL ZAMORA ON 10/17/2020 AT 08:41 AM EDT DISCLAIMER : THIS IS A VISIT SUMMARY EXTRACTED FROM THE [employer] CHART. IT IS NOT A COPY OF THE [employer] PROGRESS NOTE. KHOA
== END ==
LOC: M PAIN 13:45
PROVIDERS: ATTEND Nurse Practitioner Family
DX: M79.18 Myalgia, other site (principal); M12.9 Arthropathy, unspecified; E11.9 Type 2 diabetes mellitus without complications; G47.30 Sleep apnea, unspecified; K21.9 Gastro-esophageal reflux disease without esophagitis; E03.9 Hypothyroidism, unspecified; J45.909 Unspecified asthma, uncomplicated; Z86.59 Personal history of other mental and behavioral disorders; Z79.51 Long term (current) use of inhaled steroids; Z79.82 Long term (current) use of aspirin; Z79.899 Other long term (current) drug therapy

== ENCOUNTER → 2020-10-19 | Outpatient (CLI) | payer MEDICARE | LOC: M LABSMTC 08:30 | PROVIDERS: ATTEND Anesthesiology | DX: Z20.828 Contact with and (suspected) exposure to other viral communicable diseases (principal); Z11.59 Encounter for screening for other viral diseases ==

== ENCOUNTER 2020-10-24 11:33 | Observation (INO) | payer MEDICARE ==
[~2020-10-24] VITALS: Ht 144.8 cm; Wt 49.8 kg
[~2020-10-24 11:33] MED LIST changes: +LR 1,000 ML IV ONE; +dexameTHASONE 4 MG/ML 1ML VIAL (J1100 PER 1MG) IV ONE
[2020-10-24] MEDS ORDERED: propofoL 200 MG/20 ML VIAL As Ordered ONE (12:39)
[2020-10-24] MEDS ORDERED: LIDOCAINE 2% 100MG/5ML SDV (FOR ANES.) As Ordered ONE (12:39)
[2020-10-24] MEDS ORDERED: ROCURONIUM BROMIDE 50 MG/5 ML VIAL As Ordered ONE (12:40)
[2020-10-24] MEDS ORDERED: dexameTHASONE 4 MG/ML 1ML VIAL (J1100 PER 1MG) As Ordered ONE ×2 (12:40→13:06)
[2020-10-24] MEDS ORDERED: ONDANSETRON 4MG/2ML VIAL As Ordered ONE (12:40)
[2020-10-24] MEDS ORDERED: fentaNYL 100 MCG/2 ML INJECTION (J3010) As Ordered ONE (12:40)
[2020-10-24] MEDS ORDERED: LIDOCAINE W/EPINEPHRINE 1% 20ML VIAL As Ordered ONE (13:06)
[2020-10-24] MEDS ORDERED: EPINEPHrine 1MG/ML INJ 30ML MD-VIAL As Ordered ONE (13:06)
[2020-10-24] MEDS ORDERED: METHYLENE BLUE 0.5% (5MG/ML) 10 ML AMP (PROVAYBLUE) As Ordered ONE ×2 (13:06→13:54)
[2020-10-24] MEDS ORDERED: CETACAINE SPRAY 5GM As Ordered ONE (13:10)
[2020-10-24] MEDS ORDERED: ETOMIDATE INJ 20MG/10ML VIAL As Ordered ONE (13:28)
[2020-10-24] MEDS ORDERED: OXYMETAZOLINE 0.05% NASAL SPRAY (AFRIN) As Ordered ONE (13:38)
[2020-10-24] MEDS ORDERED: ACETAMINOPHEN 1000MG 100ML IV BTL (OFIRMEV) (J0131 PER 10MG) As Ordered ONE (14:07)
[2020-10-24] MEDS ORDERED: SUGAMMADEX SODIUM 500 MG/5 ML VIAL (BRIDION) As Ordered ONE (14:11)
[2020-10-24] MEDS ORDERED: ePHEDrine SULFATE 25 MG/5 ML(5MG/ML) SYRINGE As Ordered ONE (14:37)
[2020-10-24] MEDS ORDERED: ONDANSETRON 4MG/2ML VIAL IV PRN ×2 (15:15→18:00)
[2020-10-24] MEDS ORDERED: fentaNYL 100 MCG/2 ML INJECTION (J3010) IV PRN (15:15)
[2020-10-24] MEDS ORDERED: LR 1,000 ML IV SCH ×2 (15:15)
[2020-10-24] MEDS ORDERED: LEVALBUTEROL 1.25 MG/0.5 ML CONCENTRATE NEB INH ONE (16:20)
[2020-10-24] MEDS ORDERED: IPRATROPIUM 0.5MG/ALBUTEROL 2.5MG INH SOL UD 3ML (DUONEB) NEB PRN (18:00)
[2020-10-24] MEDS ORDERED: ACETAMINOPHEN TAB 650MG DOSE (2X325MG) PO PRN (18:05)
[2020-10-24] MEDS ORDERED: GLUCAGON INJ 1MG VIAL SC PRN (18:10)
[2020-10-24] MEDS ORDERED: GLUCOSE 4GM CHEW TABLET PO PRN (18:10)
[2020-10-24] MEDS ORDERED: DEXTROSE 50% 50 ML SYRINGE IV PRN (18:10)
--- NOTE | 2020-10-24 18:22 | HPEPDOC ---
General Date of Admission Oct 24, 2020 Date of Service: Oct 24, 2020 Chief Complaint The patient is a 85-year-old female admitted with a reason for visit of Direct Suspension Microlaryngoscopy With C02 Laser. Source: Patient History of Present Illness Mr. Medellin is an 85 year old female with COPD and diabetes mellitus had elective CO2 laser ablation of right vocal cord polyp. Patient has been having a husky voice with a sore throat. She was evaluated by ENT who found to her to have vocal cord polyp. Today, she had ablation of the polyp by Dr. Mack, but post surgery she had hypoxia and wheezing. Patient had malaise and hospitalist w as requested for admission. When I saw patient, she did not feel well. She was fatigued and her throat was sore. On examination, I did not hear wheezing but she does have bibasilar crackles. Patient will be place in observation for post op hypoxia and malaise. Home Medications Scheduled Albuterol Sulfate (Albuterol Sulfate Hfa) 8.5 Gm Hfa.aer.ad, INH PRN, (Reported) Allopurinol (Zyloprim) 300 Mg Tablet, 1 TAB PO DAILY, (Reported) Amlodipine Besylate (Amlodipine Besylate) 5 Mg Tab, 5 MG PO DAILY, (Reported) Ascorbic Acid (Ascorbic Acid) 500 Mg Tab, 500 MG PO DAILY, (Reported) Aspirin (Aspirin EC) 81 Mg Tab, 81 MG PO DAILY, (Reported) Atorvastatin Calcium (Lipitor) 80 Mg Tab, 40 MG PO QHS, (Reported) Cholecalciferol (Vitamin D3) (Vitamin D3) 10 Mcg Tab.chew, 25 MCG PO DAILY, (Reported) Cyanocobalamin (Vitamin B-12) (Vitamin B-12) 100 Mcg Tab, 500 MCG PO DAILY, (R eported) Esomeprazole Magnesium (Esomeprazole Magnesium Dr) 40 Mg Capsule.dr, 1 TAB PO DAILY, (Reported) Ezetimibe (Ezetimibe) 10 Mg Tablet, 1 TAB PO DAILY, (Reported) Fluticasone/Vilanterol (Breo Ellipta 200-25 Mcg INH) 1 Each Blst.w.dev, 1 PUFF INH DAILY, (Reported) Furosemide (Furosemide) 20 Mg Tab, 20 MG PO QAM, (Reported) Levothyroxine Sodium (Levothyroxine Sodium) 50 Mcg Tab, 50 MCG PO DAILY, (Reported) Lisinopril (Lisinopril) 2.5 Mg Tablet, 0.5 TAB PO DAILY, (Reported) Lysine (Lysine) 1,000 Mg Tab, 500 MG PO DAILY, (Reported) Melatonin (Melatonin) 5 Mg Tab.chew, 5 MG PO QHS, (Reported) Meloxicam (Meloxicam) 7.5 Mg Tablet, 1 TAB PO DAILY, (Reported) Metformin HCl (Metformin HCl) 500 Mg Tab, 500 MG PO DAILY, (Reported) Oxybutynin Chloride (Oxybutynin Chloride ER) 5 Mg Tab, 5 MG PO QHS, (Reported) Potassium Gluconate (Potassium) 600 Mg Tablet, 1,000 MG PO DAILY, (Reported) Rituximab (Rituxan) 10 Mg/1 Ml Vial, 100 MG IV QMONTH, (Reported) Allergies Coded Allergies: adhesive tape (Verified Allergy, Intermediate, rash, 10/17/20) Past Medical History Medical History 1. Hypertension 2. Sleep apnea 3. Hyperlipidemia 4. GERD 5. Osteoarthritis of the knee 6. History of tuberculosis 7. Hypothyroidism 8. Diabetes mellitus type 2 9. COPD 10. Gout 11. Depression 12. Non-Hodgkin's lymphoma 13. Nonproliferative diabetic retinopathy Surgical History 1. Bilateral cataracts 2. Tonsillectomy and adenoidectomy 3. Hysterectomy 4. C-sections 3 5. Bilateral carpal tunnel 6. Right knee replacement Family History Brother had prostate cancer. A different brother had bone cancer Social History * Smoker: non-smoker Alcohol: Denies Drugs: denies A-FIB/CHADSVASC A-FIB History Current/History of A-Fib/PAF?: No Review of Systems Constitutional: Reports: Malaise Eyes: Denies: Vision change ENT: Reports: Sore Throat Skin: Denies: Rash Pulmonary: Reports: Dyspnea, Cough Cardiovascular: Denies: Chest Pain Gastrointestinal: Denies: Nausea, Abdominal Pain, Diarrhea Genitourinary: Denies: Dysuria Hematologic: Denies: Bruising Neurological: Denies: Numbness Psych: Reports: Anxiety Physical Examination General Exam: Positive: Cooperative, Mild Distress Eye Exam: Positive: EOMI; Negative: Sclera icteric ENT Exam: Positive: Atraumatic Neck Exam: Positive: Supple Chest Exam: Positive: Other (bibasilar crackles) Heart Exam: Positive: Rate Normal, Regular Rhythm Abdomen Exam: Positive: Normal bowel sounds, Soft; Negative: Tenderness Extremity Exam: Positive: Edema (bilateral pitting edema) Neuro Exam: Positive: Normal Speech, Cranial Nerves 3-12 NL Psych Exam: Positive: Mental status NL, Mood NL Vital Signs Vital Signs Date Time Temp Pulse Resp B/P (MAP) Pulse Ox O2 Delivery O2 Flow Rate FiO2 10/24/20 17:15 98.7 62 18 122/58 (79) 91 Room Air 10/24/20 15:05 12.0 Laboratory Data Labs 24H Laboratory Tests 2 10/24/20 13:22: Bedside Glucose (Misc Panel) 93 Assessment/Plan Mr. Medellin is an 85 year old female with COPD and diabetes mellitus had elective CO2 laser ablation of right vocal cord polyp. After surgery she had hypoxia and was not feeling well. ENT recommended overnight observation with Decadron 8mg q8hrs x3. Plan / VTE VTE Prophylaxis Ordered?: Yes Plan Plan 1. Post op hypoxia and dyspnea -Patient has history of COPD -Will order CXR to evaluate -ENT recommended Decadron 8mg q8hs x3 2. COPD -Continue ICS/LAMA -Added duonebs as needed -On Decadron 3. Diabetes mellitus -Sliding scale insulin 4. Gout -Continue allopurinol 5. Hypertension -Hold lisinopril -Continue amlodipine 6. Gout -Continue allopurinol 7. Hypothyroidism -Continue levothyroxine 8. GERD -Switch esomeprazole to Protonix 9. DVT ppx -SCD and TEDs Disposition: Pending clinical improvement KVNG BROWER DO Oct 24, 2020 18:22
[2020-10-24 18:26] LABS: HEMATOCRIT 39.5 % (36.0-47.0); HEMOGLOBIN 12.7 g/dl (12.0-15.5); MEAN CORPUSCULAR HEMOGLOBIN 29.3 pg (27.0-33.0); MEAN CORPUSCULAR HGB CONC 32.2 g/dl (32.0-36.5); PLATELET COUNT, AUTOMATED 174 10^3/uL (150-450); RED BLOOD COUNT 4.34 10^6/uL (4.00-5.40); WHITE BLOOD COUNT 8.5 10^3/uL (4.0-10.0)
[2020-10-24 18:40] LABS: INR 1.12; PROTHROMBIN TIME 14.6 SECONDS (12.5-14.3)
[2020-10-24 18:41] LABS: PARTIAL THROMBOPLASTIN TIME 29.6 SECONDS (24.2-38.5)
[2020-10-24 18:42] LABS: ALBUMIN 3.6 GM/DL (3.2-5.2); ALT/SGPT 39 U/L (12-78); BILIRUBIN,TOTAL 0.3 MG/DL (0.2-1.0); BLOOD UREA NITROGEN 25 MG/DL (7-18); CALCIUM LEVEL 9.3 MG/DL (8.8-10.2); CARBON DIOXIDE LEVEL 27 MEQ/L (21-32); CHLORIDE LEVEL 109 MEQ/L (98-107); GLOMERULAR FILTRATION RATE > 60.0 (>32); GLUCOSE, FASTING 157 MG/DL (70-100); POTASSIUM SERUM 4.1 MEQ/L (3.5-5.1); SODIUM LEVEL 141 MEQ/L (136-145); TOTAL PROTEIN 5.7 GM/DL (6.4-8.2)
[2020-10-24 18:50] VITALS: BP 116/59
[2020-10-24] MEDS ORDERED: ADVAIR HFA 115/21MCG INHALER INH SCH (20:00)
[2020-10-24 21:00] VITALS: O2SAT 96
[2020-10-24] MEDS ORDERED: ATORVASTATIN 20 MG TAB PO SCH (21:00)
[2020-10-24] MEDS ORDERED: HumaLOG INSULIN (NovoLOG) PER UNIT SC SCH (21:00)
[2020-10-24 21:06] VITALS: BP 124/64
[2020-10-24] MEDS: dexameTHASONE 4 MG/ML 1ML VIAL (J1100 PER 1MG) IV SCH (22:36)
[2020-10-25 01:49] VITALS: BP 123/72
[2020-10-25 04:38] VITALS: BP 138/66
[2020-10-25] MEDS: dexameTHASONE 4 MG/ML 1ML VIAL (J1100 PER 1MG) IV SCH ×2 (05:07→13:24)
[2020-10-25] MEDS ORDERED: LEVOTHYROXINE 50MCG TABLET (0.05MG) PO SCH (06:00)
[2020-10-25 07:14] LABS: HEMATOCRIT 37.9 % (36.0-47.0); HEMOGLOBIN 12.2 g/dl (12.0-15.5); MEAN CORPUSCULAR HEMOGLOBIN 28.9 pg (27.0-33.0); MEAN CORPUSCULAR HGB CONC 32.2 g/dl (32.0-36.5); MEAN CORPUSCULAR VOLUME 89.8 fl (80.0-96.0); PLATELET COUNT, AUTOMATED 170 10^3/uL (150-450); RED BLOOD COUNT 4.22 10^6/uL (4.00-5.40); WHITE BLOOD COUNT 6.6 10^3/uL (4.0-10.0)
[2020-10-25 07:30] LABS: BLOOD UREA NITROGEN 22 MG/DL (7-18); CALCIUM LEVEL 9.1 MG/DL (8.8-10.2); CARBON DIOXIDE LEVEL 27 MEQ/L (21-32); CHLORIDE LEVEL 109 MEQ/L (98-107); CREATININE FOR GFR 0.53 MG/DL (0.55-1.30); GLOMERULAR FILTRATION RATE > 60.0 (>32); GLUCOSE, FASTING 146 MG/DL (70-100); POTASSIUM SERUM 4.4 MEQ/L (3.5-5.1); SODIUM LEVEL 142 MEQ/L (136-145)
[2020-10-25] MEDS: HumaLOG INSULIN (NovoLOG) PER UNIT SC SCH ×2 (08:59→13:24)
[2020-10-25 09:00] VITALS: BP 130/72
[2020-10-25] MEDS ORDERED: ASPIRIN 81MG ENTERIC TABLET PO SCH (09:00)
[2020-10-25] MEDS ORDERED: allopurinoL 300 MG TAB PO SCH (09:00)
[2020-10-25] MEDS ORDERED: PANTOPRAZOLE 40MG TAB (PROTONIX) PO SCH (09:00)
[2020-10-25] MEDS ORDERED: ASCORBIC ACID 500 MG TAB PO SCH (09:00)
[2020-10-25] MEDS ORDERED: EZETIMIBE 10 MG TAB (ZETIA) PO SCH (09:00)
[2020-10-25] MEDS ORDERED: amLODIPine 5 MG TAB PO SCH (09:00)
[2020-10-25] MEDS ORDERED: FUROSEMIDE 20 MG TAB PO SCH (09:00)
--- NOTE | 2020-10-25 09:52 | REP ---
INDICATION: hypoxia and dyspnea. COMPARISON: 05/13/2015. TECHNIQUE: Single portable AP view of the chest was performed. FINDINGS: There is mild cardiomegaly. There is mild left base atelectasis/infiltrate with small left effusion. The right lung is clear. The mediastinal silhouette is unchanged. There are degenerative changes at the left shoulder with high riding humeral head consistent with a rotator cuff tear. IMPRESSION: Mild cardiomegaly. Mild left base atelectasis/infiltrate and small left effusion. <Electronically signed by David Horne > 10/25/20 0949
[2020-10-25 10:00] VITALS: BP 121/51
--- NOTE | 2020-10-25 11:02 | ECGEPIP ---
[facility] Test Date: 2020-10-25 Pat Name: TOYA AC Department: Room: [place] [address] Gender: Female Clinical Data Abstractor: adela : [id number] Requested By: KVNG Irvin Order Number: [id number] Reading MD: Elizabeth Foreman Measurements Intervals [place] Rate: 66 P: 44 DC: 130 QRS: -20 QRSD: 74 T: 21 QT: 432 QTc: 452 Interpretive Statements Sinus rhythm with premature atrial complexes PRWP LEFT AXIS DEVIATION SHORT DC NEW BORDERLINE LOW VOLTAGE LIMB LEADS // PAC NEW C/W 05/23/15 Electronically Signed on 10-25-2020 11:01:49 EDT by Elizabeth Foreman
[2020-10-25 14:00] VITALS: BP 121/52
--- NOTE | 2020-10-25 22:57 | DS.PDOC ---
Discharge Summary General Date of Admission Oct 24, 2020 Date of Discharge Oct 25, 2020 Discharge Summary PROCEDURES PERFORMED DURING STAY: CO2 laser ablation of right vocal cord polyp on 10/24/[address] Mack ADMITTING DIAGNOSES: 1. Post op hypoxia and dyspnea 2. COPD 3. Diabetes mellitus 4. Gout 5. Hypertension 6. Gout 7. Hypothyroidism 8. GERD DISCHARGE DIAGNOSES: 1. Post op hypoxia and dyspnea 2. COPD 3. Diabetes mellitus 4. Gout 5. Hypertension 6. Gout 7. Hypothyroidism 8. GERD COMPLICATIONS/CHIEF COMPLAINT: Direct Suspension Microlaryngoscopy With C02 Laser. HISTORY OF PRESENT ILLNESS: Mr. Medellin is an 85 year old female with COPD and diabetes mellitus had elective CO2 laser ablation of right vocal cord polyp. Patient has been having a husky voice with a sore throat. She was evaluated by ENT who found to her to have vocal cord polyp. Today, she had ablation of the polyp by Dr. Mack, but post surgery she had hypoxia and wheezing. Patient had malaise and hospitalist was requested for admission. When I saw patient, she did not feel well. She was fatigued and her throat was sore. On examination, I did not hear wheezing but she does have bibasilar crackles. Patient will be place in observation for post op hypoxia and malaise. HOSPITAL COURSE: Patient was started on Decadron. The following morning, she was feeling much better. The soreness of her throat was improved and her voice was sounding better. She felt ready for home and was subsequently discharged home. DISCHARGE MEDICATIONS: Please see below. ALLERGIES: Please see below. PHYSICAL EXAMINATION ON DISCHARGE: VITAL SIGNS: Please see below. GENERAL: Comfortable, in no apparent distress HEENT: Head normocephalic, atraumatic NECK: Supple CARDIOVASCULAR EXAMINATION: Regular rate and rhythm RESPIRATORY EXAMINATION: Lungs clear to auscultation bilaterally ABDOMINAL EXAMINATION: Soft, non-tender, normal bowel sounds EXTREMITIES: Bilateral pitting edema NEUROLOGICAL EXAMINATION: CN 3-12 grossly intact PSYCHIATRIC EXAMINATION: Normal mood and affect LABORATORY DATA: Please see below. PROGNOSIS: Good ACTIVITY: As tolerated. DIET: Consistent carbohydrate DISCHARGE PLAN: Home DISPOSITION: Home DISCHARGE INSTRUCTIONS: 1. Follow up with ENT on 10/31/20 2. Follow up with your PCP in 1 week DISCHARGE CONDITION: Stable Total time spent on discharge planning, discharge summary, and medication reconciliation: 40 minutes Vital Signs/I&Os Vital Signs Date Time Temp Pulse Resp B/P (MAP) Pulse Ox O2 Delivery O2 Flow Rate FiO2 10/25/20 14:00 98.8 75 16 121/52 (75) 92 Nasal Cannula 2.0 I&O- Last 24 Hours up to 6 AM 10/25/20 06:00 Intake Total 1260 ml Output Total 250 ml Balance 1010 ml Laboratory Data Labs 24H Laboratory Tests 2 10/25/20 06:02: Bedside Glucose (Misc Panel) 144H 10/25/20 06:33: Nucleated Red Blood Cells % (auto) 0.0, Anion Gap 6L, Glomerular Filtration Rate > 60.0, Calcium Level 9.1 10/25/20 11:38: Bedside Glucose (Misc Panel) 207H CBC/BMP Laboratory Tests 10/25/20 06:33 FSBS Laboratory Tests Test 10/25/20 06:02 10/25/20 11:38 Range/Units Bedside Glucose (Misc Panel) 144 207 83-110 MG/DL Discharge Medications Scheduled Albuterol Sulfate (Albuterol Sulfate Hfa) 8.5 Gm Hfa.aer.ad, INH PRN, (Reported) Allopurinol (Zyloprim) 300 Mg Tablet, 1 TAB PO DAILY, (Reported) Amlodipine Besylate (Amlodipine Besylate) 5 Mg Tab, 5 MG PO DAILY, (Reported) Ascorbic Acid (Ascorbic Acid) 500 Mg Tab, 500 MG PO DAILY, (Reported) Aspirin (Aspirin EC) 81 Mg Tab, 81 MG PO DAILY, (Reported) Atorvastatin Calcium (Lipitor) 80 Mg Tab, 40 MG PO QHS, (Reported) Cholecalciferol (Vitamin D3) (Vitamin D3) 10 Mcg Tab.chew, 25 MCG PO DAILY, ( Reported) Cyanocobalamin (Vitamin B-12) (Vitamin B-12) 100 Mcg Tab, 500 MCG PO DAILY, (Reported) Esomeprazole Magnesium (Esomeprazole Magnesium Dr) 40 Mg Capsule.dr, 1 TAB PO DAILY, (Reported) Ezetimibe (Ezetimibe) 10 Mg Tablet, 1 TAB PO DAILY, (Reported) Fluticasone/Vilanterol (Breo Ellipta 200-25 Mcg INH) 1 Each Blst.w.dev, 1 PUFF INH DAILY, (Reported) Furosemide (Furosemide) 20 Mg Tab, 20 MG PO QAM, (Reported) Levothyroxine Sodium (Levothyroxine Sodium) 50 Mcg Tab, 50 MCG PO DAILY, (Reported) Lisinopril (Lisinopril) 2.5 Mg Tablet, 0.5 TAB PO DAILY, (Reported) Lysine (Lysine) 1,000 Mg Tab, 500 MG PO DAILY, (Reported) Melatonin (Melatonin) 5 Mg Tab.chew, 5 MG PO QHS, (Reported) Meloxicam (Meloxicam) 7.5 Mg Tablet, 1 TAB PO DAILY, (Reported) Metformin HCl (Metformin HCl) 500 Mg Tab, 500 MG PO DAILY, (Reported) Oxybutynin Chloride (Oxybutynin Chloride ER) 5 Mg Tab, 5 MG PO QHS, (Reported) Potassium Gluconate (Potassium) 600 Mg Tablet, 1,000 MG PO DAILY, (Reported) Rituximab (Rituxan) 10 Mg/1 Ml Vial, 100 MG IV QMONTH, (Reported) Allergies Coded Allergies: adhesive tape (Verified Allergy, Intermediate, rash, 10/17/20) KVNG BROWER DO Oct 25, 2020 22:57
== END 2020-10-25 15:30 | disposition home or self-care (01) ==
LOC: M SDC 11:33 → M MS5PR 17:55 → M SDC 10-25 15:30
PROVIDERS: ADMIT Internal Medicine; ATTEND Otolaryngology
DX: J38.1 Polyp of vocal cord and larynx (principal); J95.821 Acute postprocedural respiratory failure; E03.9 Hypothyroidism, unspecified; E11.319 Type 2 diabetes mellitus with unspecified diabetic retinopathy without macular edema; E78.5 Hyperlipidemia, unspecified; F32.9 Major depressive disorder, single episode, unspecified; I10 Essential (primary) hypertension; J44.9 Chronic obstructive pulmonary disease, unspecified; G47.30 Sleep apnea, unspecified; M10.9 Gout, unspecified; M17.9 Osteoarthritis of knee, unspecified; Z79.890 Hormone replacement therapy; Z79.899 Other long term (current) drug therapy; Z80.42 Family history of malignant neoplasm of prostate; Z80.8 Family history of malignant neoplasm of other organs or systems; Z86.11 Personal history of tuberculosis; Z91.048 Other nonmedicinal substance allergy status; Z96.1 Presence of intraocular lens; Z96.653 Presence of artificial knee joint, bilateral; K21.9 Gastro-esophageal reflux disease without esophagitis; C85.99 Non-Hodgkin lymphoma, unspecified, extranodal and solid organ sites; Z79.84 Long term (current) use of oral hypoglycemic drugs; Z79.82 Long term (current) use of aspirin
CPT/HCPCS: 31541; 36415; 71045; 80048; 80053; 85027; 85610; 85730; 93005; 94664; 96374; 96376; G0378; J0131; J1100; J2405; J3010; Q9968

== ENCOUNTER → 2020-11-18 | Outpatient (CLI) | payer MEDICARE ==
[~2020-11-18] MED LIST changes: -LR 1,000 ML IV ONE; -dexameTHASONE 4 MG/ML 1ML VIAL (J1100 PER 1MG) IV ONE
--- NOTE | 2020-11-19 09:24 | REP ---
INDICATION: RESTAGING LYMPHOMA. Follicular lymphoma. Non-Hodgkin's lymphoma diagnosed November 2015 treated with chemotherapy COMPARISON: Comparison PET-CT studies are dated November 28, 2015 and April 01, 2020.. TECHNIQUE: Sixty-eight minutes following the intravenous injection of a 8.14 mCi dose of F-18 FDG, three-dimensional PET scintigraphy is acquired from the skull base to the proximal thighs. Triplanar noncontrast CT scanning is acquired through the same anatomic range for attenuation correction, and image registration with scan parameters optimized to minimize radiation exposure to the patient. PET scintigraphy and CT datasets were fused and displayed on a workstation with multiplanar and projection display capability. FINDINGS: HEAD AND NECK SOFT TISSUES ARE UNREMARKABLE. NO ABNORMAL MARYANN UPTAKE. There is no abnormal hypermetabolic uptake within the thorax. No abnormal uptake is seen in the pulmonary parenchyma or in hilar or mediastinal maryann foci. In the abdomen and pelvis, normal hepatic, splenic, gastrointestinal, and genitourinary uptake is seen. No abnormal hypermetabolic uptake is seen in the abdomen or pelvis. There is a thin walled homogeneous cystic structure in the left groin measuring 6.1 cm in greatest craniocaudal diameter by 3.9 cm in greatest transverse dimension. This is the location where patient originally had a lymphadenectomy and is felt to consider be consistent with a lymphocele. It is a little larger than on the April 01, 2020 prior PET-CT but not a new finding. There is no abnormal uptake associated with this or adjacent to this. There is a normal-sized lymph node in the left inguinal lymph node chain on today's PET-CT. However, this is not hypermetabolic. Maximum standard uptake value is 1.11. Maximum standard uptake value in the cystic lesion is 1.01. No abnormal skeletal uptake. Incidental findings include prior right nephrectomy, hiatal hernia, and vascular calcification. IMPRESSION: No abnormal hypermetabolic uptake. 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 No abnormal uptake is seen associated with this. <Electronically signed by Slade Jarrett > 11/19/20 [id number]
== END ==
LOC: M PLARAD 13:31
PROVIDERS: ATTEND Internal Medicine Medical Oncology
DX: R59.0 Localized enlarged lymph nodes (principal); C82.80 Other types of follicular lymphoma, unspecified site
CPT/HCPCS: 78815; A9552

== ENCOUNTER 2020-12-02 13:10 | Outpatient (RCR) | payer MEDICARE ==
[~2020-12-02 13:10] MED LIST changes: +DONE-1 PO; -DONETAB6 PO; -LISI-898 PO; -LISI2.5T2 PO; +LISI2.5T9 PO; +LISI5TAB11 PO
[2020-12-23] MEDS ORDERED: ALLO300T2 PO (11:24)
== END 2020-12-07 | disposition still patient (30) ==
LOC: M PT 13:10
PROVIDERS: ATTEND Family Medicine
DX: I89.0 Lymphedema, not elsewhere classified (principal)

== ENCOUNTER → 2020-12-18 | Outpatient (CLI) | payer MEDICARE ==
[~2020-12-18] MED LIST changes: +BARIUM SULFATE 700 MG TABLET (E-Z-DISK) As Ordered ONE; -DONE-1 PO; +DONETAB6 PO; +E-Z-PAQUE 96% w/w SUSP 176GM BTL As Ordered ONE; +LISI-898 PO; -LISI5TAB11 PO; +VARIBAR NECTAR 40% w/v 240ML SUSP BTL As Ordered ONE; +VARIBAR PUDDING 40% w/v 230ML TUBE As Ordered ONE
--- NOTE | 2020-12-19 08:50 | REP ---
INDICATION: DYSPHAGIA, UNSPECIFIED. COMPARISON: NONE TECHNIQUE: The procedure was performed under the direct supervision of . The procedure was performed with Davida Zheng from speech pathology present. 1.5 minutes of fluoroscopy time was utilized for this procedure. FINDINGS: The patient was assessed upon entering the room. The patient is in an upright position and conversing appropriately. A video pharyngo esophagram was then performed. Various consistencies of barium were then given. Thin consistency: Patient was directed to take a drink from a cup. Patient was able to form a bolus by cupping the tongue and initiating deglutition without delay. There is minimal delayed triggering. The patient was then instructed to take another swallow from the cup. There is delayed triggering with pooling in the vallecula and flash laryngeal penetration. This clears immediately. The patient was then instructed to take a smaller drink from a cup. There is minimal delayed triggering with pooling in the vallecula and laryngeal penetration. Again, this clears immediately. With all attempts of the thin liquid, Passavant's pad huang slightly and failed to adequately shift posteriorly which caused barium to advanced to the level of the apex of Passavant's pad causing near pharyngo nasal reflux. [place] consistency: The patient was instructed to take a drink from the cup. Again the patient was able to formal bolus by cupping of the tongue and manipulated the bolus well. Passavant's pad huang slightly and failed to adequately shift posteriorly which caused barium to advanced to the level of the apex of Passavant's pad causing near pharyngo nasal reflux. Pudding consistency: A 5 cc aliquot was given with a spoon. The patient was able to form a bolus by cupping of the tongue and manipulated the bolus well. There is delayed triggering and pooling in the vallecular. There is no evidence of laryngeal penetration. Passavant's pad huang slightly and failed to adequately shift posteriorly which cause barium to advanced to the level of the apex of Passavant's pad causing near pharyngo nasal reflux. Soft consistency: The patient was then instructed to take a bite of a piece of bread with barium paste. The patient was able to form a bolus by cupping of the tongue and manipulated the bolus well. There is minimal delay in triggering..Passavant's pad huang slightly and failed to adequately shift posteriorly which cause barium to advanced to the level of the apex of Passavant's pad causing near pharyngo nasal reflux. Mixed fruit consistency: The patient was able to form a bolus by cupping of the tongue and manipulated the bolus well. There is delayed triggering and pooling in the vallecular. There is no evidence of laryngeal penetration. Passavant's pad huang slightly and failed to adequately shift posteriorly which cause barium to advanced to the level of the apex of Passavant's pad causing near pharyngo nasal reflux. Solid consistency: The patient was then given a short bread cookie with barium paste. The patient was able to form a bolus by cupping of the tongue and manipulated the bolus well. There is a delay in triggering. There is no evidence of laryngeal penetration. Passavant's pad huang slightly and failed to adequately shift posteriorly which cause barium to advanced to the level of the apex of Passavant's pad causing near pharyngo nasal reflux. Thin consistency: The patient was then instructed to take another drink from the cup. There is minimal delay of triggering with pooling in the vallecula and laryngeal penetration. This clears immediately. Passavant's pad huang slightly and failed to adequately shift posteriorly which cause barium to advanced to the level of the apex of Passavant's pad causing near pharyngo nasal reflux. The patient was then given a barium pill with applesauce. Patient chewed the pill and was able to form a bolus by cup in the tongue and initiating deglutition without delay. There is minimum delay in triggering. Passavant's pad huang slightly and failed to adequately shift posteriorly which cause barium to advanced to the level of the apex of Passavant's pad causing near pharyngo nasal reflux. IMPRESSION: The patient is able to have all consistencies of food. However the patient is at risk due to intermittent delayed triggering and pooling in the vallecular. With all consistencies of barium Passavant's pad huang slightly and failed to adequately shift posteriorly which caused barium to advanced to the level of the apex of Passavant's pad causing near pharyngo nasal reflux. . RECOMMENDATION: As above <Electronically signed by Sloan Cortes > 12/18/20 [id number] <Electronically signed by Rony Veliz > 12/19/20 [id number]
== END ==
LOC: M RAD 12-13 11:59
PROVIDERS: ATTEND Otolaryngology
DX: R13.10 Dysphagia, unspecified (principal)

== ENCOUNTER 2021-01-12 14:58 | Inpatient (IN) | payer MEDICARE ==
[~2021-01-12] VITALS: Ht 144.8 cm; Wt 50.0 kg
[~2021-01-12 14:58] MED LIST changes: +ALLO300T2 PO; -BARIUM SULFATE 700 MG TABLET (E-Z-DISK) As Ordered ONE; +DONE-1 PO; -DONETAB6 PO; -E-Z-PAQUE 96% w/w SUSP 176GM BTL As Ordered ONE; -LISI-898 PO; +LISI5TAB11 PO; -VARIBAR NECTAR 40% w/v 240ML SUSP BTL As Ordered ONE; -VARIBAR PUDDING 40% w/v 230ML TUBE As Ordered ONE
[2021-01-12] MEDS ORDERED: ONDANSETRON 4MG/2ML VIAL IV ONE (15:15)
[2021-01-12] MEDS ORDERED: MORPHINE 2 MG/ML 1ML VIAL (J2270) IV PRN (15:15)
[2021-01-12 17:29] LABS: BASO % 0.4 % (0.0-1.0); EOS # 0.2 10^3/uL (0.0-0.5); EOS % 1.8 % (0.0-3.0); HEMATOCRIT 36.6 % (36.0-47.0); HEMOGLOBIN 12.1 g/dl (12.0-15.5); LYMPH % 9.9 % (24.0-44.0); MEAN CORPUSCULAR HGB CONC 33.1 g/dl (32.0-36.5); MEAN CORPUSCULAR VOLUME 93.8 fl (80.0-96.0); MONO # 1.1 10^3/uL (0.0-0.8); MONO % 10.8 % (2.0-8.0); NEUTROPHILS % 76.8 % (36.0-66.0); PLATELET COUNT, AUTOMATED 181 10^3/uL (150-450); WHITE BLOOD COUNT 10.4 10^3/uL (4.0-10.0)
[2021-01-12] MEDS ORDERED: ONDANSETRON 4MG/2ML VIAL IV PRN (17:45)
[2021-01-12 17:47] LABS: INR 1.19; PROTHROMBIN TIME 15.5 SECONDS (12.7-14.5)
[2021-01-12] MEDS ORDERED: ZOLO100T PO (17:48)
[2021-01-12] MEDS ORDERED: DONE10TA90 PO (17:48)
[2021-01-12 17:51] LABS: BLOOD UREA NITROGEN 28 MG/DL (7-18); CALCIUM LEVEL 9.3 MG/DL (8.8-10.2); CARBON DIOXIDE LEVEL 28 MEQ/L (21-32); CHLORIDE LEVEL 109 MEQ/L (98-107); CREATININE FOR GFR 0.66 MG/DL (0.55-1.30); GLOMERULAR FILTRATION RATE > 60.0 (>32); GLUCOSE, FASTING 111 MG/DL (70-100); POTASSIUM SERUM 3.8 MEQ/L (3.5-5.1); SODIUM LEVEL 142 MEQ/L (136-145)
[2021-01-12] MEDS ORDERED: D 10CHW PO (18:05)
[2021-01-12] MEDS ORDERED: HOME MED LIST COMPLETE! XX SCH (18:05)
[2021-01-12 18:14] LABS: RSV AMPLIFICATION NEGATIVE (NEGATIVE)
[2021-01-12] MEDS ORDERED: ALBUTEROL 90 MCG/ACT 8GM HFA INHALER INH PRN (18:15)
[2021-01-12 19:30] VITALS: BP 118/65
[2021-01-12] MEDS: oxyBUTYnin *DITROPAN XL* 5 MG TABCR PO SCH (21:06)
[2021-01-12] MEDS: ATORVASTATIN 20 MG TAB PO SCH (21:06)
[2021-01-12] MEDS: MORPHINE 2 MG/ML 1ML VIAL (J2270) IV PRN (21:07)
[2021-01-12] MEDS: amLODIPine 5 MG TAB PO SCH (21:07)
[2021-01-13] MEDS: LEVOTHYROXINE 50MCG TABLET (0.05MG) PO SCH (05:42)
[2021-01-13] MEDS: MORPHINE 2 MG/ML 1ML VIAL (J2270) IV PRN ×2 (05:51→20:29)
[2021-01-13 06:00] VITALS: BP 110/58
[2021-01-13 07:03] LABS: HEMATOCRIT 36.1 % (36.0-47.0); HEMOGLOBIN 12.2 g/dl (12.0-15.5); MEAN CORPUSCULAR HGB CONC 33.8 g/dl (32.0-36.5); MEAN CORPUSCULAR VOLUME 94.8 fl (80.0-96.0); PLATELET COUNT, AUTOMATED 187 10^3/uL (150-450); RED BLOOD COUNT 3.81 10^6/uL (4.00-5.40); WHITE BLOOD COUNT 8.4 10^3/uL (4.0-10.0)
[2021-01-13 07:22] LABS: BLOOD UREA NITROGEN 28 MG/DL (7-18); CALCIUM LEVEL 9.4 MG/DL (8.8-10.2); CARBON DIOXIDE LEVEL 28 MEQ/L (21-32); CHLORIDE LEVEL 109 MEQ/L (98-107); CREATININE FOR GFR 0.72 MG/DL (0.55-1.30); GLOMERULAR FILTRATION RATE > 60.0 (>32); GLUCOSE, FASTING 103 MG/DL (70-100); POTASSIUM SERUM 4.3 MEQ/L (3.5-5.1); SODIUM LEVEL 141 MEQ/L (136-145)
[2021-01-13] MEDS: allopurinoL 300 MG TAB PO SCH (08:17)
[2021-01-13] MEDS: ASCORBIC ACID 500 MG TAB PO SCH (08:17)
[2021-01-13] MEDS: amLODIPine 5 MG TAB PO SCH (08:31)
[2021-01-13] MEDS: EZETIMIBE 10MG TABLET (ZETIA) PO SCH (08:33)
[2021-01-13 14:00] VITALS: BP 122/64
[2021-01-13 20:08] VITALS: BP 101/50
[2021-01-13] MEDS: oxyBUTYnin *DITROPAN XL* 5 MG TABCR PO SCH (20:28)
[2021-01-13] MEDS: ATORVASTATIN 20 MG TAB PO SCH (20:28)
[2021-01-13 23:00] VITALS: BP 110/52
[2021-01-14] MEDS: LEVOTHYROXINE 50MCG TABLET (0.05MG) PO SCH (05:32)
[2021-01-14] MEDS: MORPHINE 2 MG/ML 1ML VIAL (J2270) IV PRN (05:32)
[2021-01-14 06:33] VITALS: BP 112/52
[2021-01-14 06:37] LABS: HEMOGLOBIN 11.2 g/dl (12.0-15.5); MEAN CORPUSCULAR HEMOGLOBIN 30.9 pg (27.0-33.0); MEAN CORPUSCULAR HGB CONC 32.9 g/dl (32.0-36.5); MEAN CORPUSCULAR VOLUME 93.9 fl (80.0-96.0); PLATELET COUNT, AUTOMATED 163 10^3/uL (150-450); RED BLOOD COUNT 3.62 10^6/uL (4.00-5.40); WHITE BLOOD COUNT 8.6 10^3/uL (4.0-10.0)
[2021-01-14 07:01] LABS: BLOOD UREA NITROGEN 26 MG/DL (7-18); CALCIUM LEVEL 8.8 MG/DL (8.8-10.2); CARBON DIOXIDE LEVEL 28 MEQ/L (21-32); CHLORIDE LEVEL 110 MEQ/L (98-107); CREATININE FOR GFR 0.57 MG/DL (0.55-1.30); GLOMERULAR FILTRATION RATE > 60.0 (>32); GLUCOSE, FASTING 99 MG/DL (70-100); POTASSIUM SERUM 4.2 MEQ/L (3.5-5.1); SODIUM LEVEL 143 MEQ/L (136-145)
[2021-01-14] MEDS: EZETIMIBE 10MG TABLET (ZETIA) PO SCH (08:36)
[2021-01-14] MEDS: ENOXAPARIN 40MG/0.4ML SYRINGE (J1650 PER 10MG) SC SCH (08:36)
[2021-01-14] MEDS: ASCORBIC ACID 500 MG TAB PO SCH (08:38)
[2021-01-14] MEDS: amLODIPine 5 MG TAB PO SCH (08:38)
[2021-01-14] MEDS: allopurinoL 300 MG TAB PO SCH (08:38)
[2021-01-14] MEDS: LISINOPRIL *2.5 MG* TAB PO SCH (11:00)
[2021-01-14] MEDS: FUROSEMIDE 20 MG TAB PO SCH (11:00)
[2021-01-14] MEDS ORDERED: PILL CUTTER 1 EACH XX PRN (11:30)
[2021-01-14 14:00] VITALS: BP 111/55
[2021-01-14] MEDS: PERCOCET 5MG/325MG TAB PO PRN ×2 (18:25→22:28)
[2021-01-14] MEDS: oxyBUTYnin *DITROPAN XL* 5 MG TABCR PO SCH (20:00)
[2021-01-14] MEDS: ATORVASTATIN 20 MG TAB PO SCH (20:01)
[2021-01-15] MEDS: LEVOTHYROXINE 50MCG TABLET (0.05MG) PO SCH (05:12)
[2021-01-15] MEDS: PERCOCET 5MG/325MG TAB PO PRN ×2 (05:18→23:53)
[2021-01-15 06:00] VITALS: BP 119/53
[2021-01-15 06:14] LABS: HEMATOCRIT 34.4 % (36.0-47.0); HEMOGLOBIN 11.1 g/dl (12.0-15.5); MEAN CORPUSCULAR HEMOGLOBIN 30.8 pg (27.0-33.0); MEAN CORPUSCULAR HGB CONC 32.3 g/dl (32.0-36.5); MEAN CORPUSCULAR VOLUME 95.6 fl (80.0-96.0); PLATELET COUNT, AUTOMATED 169 10^3/uL (150-450); WHITE BLOOD COUNT 7.9 10^3/uL (4.0-10.0)
[2021-01-15 06:39] LABS: BLOOD UREA NITROGEN 31 MG/DL (7-18); CALCIUM LEVEL 8.9 MG/DL (8.8-10.2); CARBON DIOXIDE LEVEL 29 MEQ/L (21-32); CHLORIDE LEVEL 107 MEQ/L (98-107); CREATININE FOR GFR 0.55 MG/DL (0.55-1.30); GLOMERULAR FILTRATION RATE > 60.0 (>32); GLUCOSE, FASTING 108 MG/DL (70-100); MAGNESIUM LEVEL 2.1 MG/DL (1.8-2.4); POTASSIUM SERUM 4.4 MEQ/L (3.5-5.1); SODIUM LEVEL 139 MEQ/L (136-145)
[2021-01-15] MEDS: LISINOPRIL *2.5 MG* TAB PO SCH (09:00)
[2021-01-15] MEDS: FUROSEMIDE 20 MG TAB PO SCH (09:00)
[2021-01-15] MEDS: amLODIPine 5 MG TAB PO SCH (09:00)
[2021-01-15] MEDS: ASCORBIC ACID 500 MG TAB PO SCH (09:57)
[2021-01-15] MEDS: ENOXAPARIN 40MG/0.4ML SYRINGE (J1650 PER 10MG) SC SCH (09:57)
[2021-01-15] MEDS: allopurinoL 300 MG TAB PO SCH (09:57)
[2021-01-15] MEDS: EZETIMIBE 10MG TABLET (ZETIA) PO SCH (09:57)
[2021-01-15 14:00] VITALS: BP 109/58
[2021-01-15] MEDS: oxyBUTYnin *DITROPAN XL* 5 MG TABCR PO SCH (21:36)
[2021-01-15] MEDS: ATORVASTATIN 20 MG TAB PO SCH (21:36)
[2021-01-15] MEDS: ACETAMINOPHEN TAB 650MG DOSE (2X325MG) PO PRN (21:41)
[2021-01-15 22:00] VITALS: BP 114/60
[2021-01-16 06:00] VITALS: BP 121/61
[2021-01-16] MEDS: LEVOTHYROXINE 50MCG TABLET (0.05MG) PO SCH (06:16)
[2021-01-16] MEDS: ENOXAPARIN 40MG/0.4ML SYRINGE (J1650 PER 10MG) SC SCH (07:47)
[2021-01-16] MEDS: LISINOPRIL *2.5 MG* TAB PO SCH (07:49)
[2021-01-16] MEDS: PERCOCET 5MG/325MG TAB PO PRN ×3 (07:49→21:18)
[2021-01-16] MEDS: EZETIMIBE 10MG TABLET (ZETIA) PO SCH (07:50)
[2021-01-16] MEDS: ASCORBIC ACID 500 MG TAB PO SCH (07:50)
[2021-01-16] MEDS: allopurinoL 300 MG TAB PO SCH (07:50)
[2021-01-16] MEDS: FUROSEMIDE 20 MG TAB PO SCH (07:51)
[2021-01-16] MEDS: amLODIPine 5 MG TAB PO SCH (07:51)
[2021-01-16 09:23] LABS: HEMATOCRIT 33.8 % (36.0-47.0); HEMOGLOBIN 11.1 g/dl (12.0-15.5); MEAN CORPUSCULAR HEMOGLOBIN 31.1 pg (27.0-33.0); MEAN CORPUSCULAR HGB CONC 32.8 g/dl (32.0-36.5); MEAN CORPUSCULAR VOLUME 94.7 fl (80.0-96.0); PLATELET COUNT, AUTOMATED 186 10^3/uL (150-450); RED BLOOD COUNT 3.57 10^6/uL (4.00-5.40); WHITE BLOOD COUNT 7.7 10^3/uL (4.0-10.0)
[2021-01-16 09:52] LABS: BLOOD UREA NITROGEN 24 MG/DL (7-18); CALCIUM LEVEL 9.3 MG/DL (8.8-10.2); CARBON DIOXIDE LEVEL 29 MEQ/L (21-32); CHLORIDE LEVEL 112 MEQ/L (98-107); CREATININE FOR GFR 0.51 MG/DL (0.55-1.30); GLOMERULAR FILTRATION RATE > 60.0 (>32); GLUCOSE, FASTING 115 MG/DL (70-100); MAGNESIUM LEVEL 2.1 MG/DL (1.8-2.4); POTASSIUM SERUM 3.9 MEQ/L (3.5-5.1); SODIUM LEVEL 144 MEQ/L (136-145)
[2021-01-16 14:00] VITALS: BP 112/75
[2021-01-16 20:59] VITALS: BP 124/73
[2021-01-16] MEDS: ATORVASTATIN 20 MG TAB PO SCH (21:17)
[2021-01-16] MEDS: oxyBUTYnin *DITROPAN XL* 5 MG TABCR PO SCH (21:17)
[2021-01-17 05:25] VITALS: BP 133/73
[2021-01-17] MEDS: LEVOTHYROXINE 50MCG TABLET (0.05MG) PO SCH (06:09)
[2021-01-17 07:28] LABS: HEMATOCRIT 35.1 % (36.0-47.0); HEMOGLOBIN 11.5 g/dl (12.0-15.5); MEAN CORPUSCULAR HEMOGLOBIN 31.2 pg (27.0-33.0); MEAN CORPUSCULAR HGB CONC 32.8 g/dl (32.0-36.5); MEAN CORPUSCULAR VOLUME 95.1 fl (80.0-96.0); PLATELET COUNT, AUTOMATED 198 10^3/uL (150-450); RED BLOOD COUNT 3.69 10^6/uL (4.00-5.40); WHITE BLOOD COUNT 6.4 10^3/uL (4.0-10.0)
[2021-01-17 07:40] LABS: BLOOD UREA NITROGEN 23 MG/DL (7-18); CALCIUM LEVEL 9.1 MG/DL (8.8-10.2); CARBON DIOXIDE LEVEL 27 MEQ/L (21-32); CHLORIDE LEVEL 113 MEQ/L (98-107); CREATININE FOR GFR 0.47 MG/DL (0.55-1.30); GLOMERULAR FILTRATION RATE > 60.0 (>32); GLUCOSE, FASTING 89 MG/DL (70-100); POTASSIUM SERUM 4.5 MEQ/L (3.5-5.1); SODIUM LEVEL 144 MEQ/L (136-145)
[2021-01-17] MEDS: PERCOCET 5MG/325MG TAB PO PRN ×3 (08:04→22:04)
[2021-01-17] MEDS: ASCORBIC ACID 500 MG TAB PO SCH (08:04)
[2021-01-17] MEDS: allopurinoL 300 MG TAB PO SCH (08:04)
[2021-01-17] MEDS: FUROSEMIDE 20 MG TAB PO SCH (08:04)
[2021-01-17] MEDS: ENOXAPARIN 40MG/0.4ML SYRINGE (J1650 PER 10MG) SC SCH (08:09)
[2021-01-17] MEDS: EZETIMIBE 10MG TABLET (ZETIA) PO SCH (08:09)
[2021-01-17] MEDS: amLODIPine 5 MG TAB PO SCH (08:09)
[2021-01-17] MEDS: LISINOPRIL *2.5 MG* TAB PO SCH (08:10)
[2021-01-17] MEDS: oxyBUTYnin *DITROPAN XL* 5 MG TABCR PO SCH (20:10)
[2021-01-17] MEDS: ATORVASTATIN 20 MG TAB PO SCH (20:10)
[2021-01-17 22:00] VITALS: BP 141/63
[2021-01-18] MEDS: LEVOTHYROXINE 50MCG TABLET (0.05MG) PO SCH (05:53)
[2021-01-18 06:00] VITALS: BP 131/73
[2021-01-18] MEDS: PERCOCET 5MG/325MG TAB PO PRN ×2 (06:00→20:18)
[2021-01-18] MEDS: ENOXAPARIN 40MG/0.4ML SYRINGE (J1650 PER 10MG) SC SCH (08:44)
[2021-01-18] MEDS: allopurinoL 300 MG TAB PO SCH (08:44)
[2021-01-18] MEDS: ASCORBIC ACID 500 MG TAB PO SCH (08:45)
[2021-01-18] MEDS: FUROSEMIDE 20 MG TAB PO SCH (08:46)
[2021-01-18] MEDS: EZETIMIBE 10MG TABLET (ZETIA) PO SCH (08:46)
[2021-01-18] MEDS: LISINOPRIL *2.5 MG* TAB PO SCH (08:47)
[2021-01-18] MEDS: amLODIPine 5 MG TAB PO SCH (08:47)
[2021-01-18 10:09] LABS: HEMATOCRIT 34.3 % (36.0-47.0); HEMOGLOBIN 11.3 g/dl (12.0-15.5); MEAN CORPUSCULAR HEMOGLOBIN 30.7 pg (27.0-33.0); MEAN CORPUSCULAR HGB CONC 32.9 g/dl (32.0-36.5); MEAN CORPUSCULAR VOLUME 93.2 fl (80.0-96.0); PLATELET COUNT, AUTOMATED 226 10^3/uL (150-450); RED BLOOD COUNT 3.68 10^6/uL (4.00-5.40); WHITE BLOOD COUNT 7.7 10^3/uL (4.0-10.0)
[2021-01-18 10:28] LABS: BLOOD UREA NITROGEN 25 MG/DL (7-18); CALCIUM LEVEL 9.2 MG/DL (8.8-10.2); CARBON DIOXIDE LEVEL 29 MEQ/L (21-32); CHLORIDE LEVEL 109 MEQ/L (98-107); CREATININE FOR GFR 0.58 MG/DL (0.55-1.30); GLOMERULAR FILTRATION RATE > 60.0 (>32); GLUCOSE, FASTING 100 MG/DL (70-100); POTASSIUM SERUM 4.2 MEQ/L (3.5-5.1); SODIUM LEVEL 142 MEQ/L (136-145)
[2021-01-18] MEDS: oxyBUTYnin *DITROPAN XL* 5 MG TABCR PO SCH (20:16)
[2021-01-18] MEDS: ATORVASTATIN 20 MG TAB PO SCH (20:16)
[2021-01-18] MEDS: OMEPRAZOLE 20MG CAP PO SCH (20:33)
[2021-01-19] MEDS: LEVOTHYROXINE 50MCG TABLET (0.05MG) PO SCH (05:47)
[2021-01-19 06:00] VITALS: BP 146/65
[2021-01-19 07:04] LABS: HEMATOCRIT 32.2 % (36.0-47.0); HEMOGLOBIN 10.8 g/dl (12.0-15.5); MEAN CORPUSCULAR HEMOGLOBIN 31.4 pg (27.0-33.0); MEAN CORPUSCULAR HGB CONC 33.5 g/dl (32.0-36.5); MEAN CORPUSCULAR VOLUME 93.6 fl (80.0-96.0); PLATELET COUNT, AUTOMATED 217 10^3/uL (150-450); RED BLOOD COUNT 3.44 10^6/uL (4.00-5.40); WHITE BLOOD COUNT 7.7 10^3/uL (4.0-10.0)
[2021-01-19 07:30] LABS: BLOOD UREA NITROGEN 26 MG/DL (7-18); CALCIUM LEVEL 9.4 MG/DL (8.8-10.2); CARBON DIOXIDE LEVEL 29 MEQ/L (21-32); CHLORIDE LEVEL 108 MEQ/L (98-107); CREATININE FOR GFR 0.59 MG/DL (0.55-1.30); GLOMERULAR FILTRATION RATE > 60.0 (>32); GLUCOSE, FASTING 88 MG/DL (70-100); MAGNESIUM LEVEL 2.1 MG/DL (1.8-2.4); POTASSIUM SERUM 4.3 MEQ/L (3.5-5.1); SODIUM LEVEL 141 MEQ/L (136-145)
[2021-01-19] MEDS: ENOXAPARIN 40MG/0.4ML SYRINGE (J1650 PER 10MG) SC SCH (08:43)
[2021-01-19] MEDS: PERCOCET 5MG/325MG TAB PO PRN ×2 (08:44→20:29)
[2021-01-19] MEDS: EZETIMIBE 10MG TABLET (ZETIA) PO SCH (08:45)
[2021-01-19] MEDS: amLODIPine 5 MG TAB PO SCH (08:45)
[2021-01-19] MEDS: OMEPRAZOLE 20MG CAP PO SCH (08:45)
[2021-01-19] MEDS: allopurinoL 300 MG TAB PO SCH (08:46)
[2021-01-19] MEDS: ASCORBIC ACID 500 MG TAB PO SCH (08:46)
[2021-01-19] MEDS: FUROSEMIDE 20 MG TAB PO SCH (08:46)
[2021-01-19] MEDS: LISINOPRIL *2.5 MG* TAB PO SCH (08:47)
[2021-01-19] MEDS: ATORVASTATIN 20 MG TAB PO SCH (20:28)
[2021-01-19] MEDS: oxyBUTYnin *DITROPAN XL* 5 MG TABCR PO SCH (20:28)
[2021-01-19] MEDS: ACETAMINOPHEN TAB 650MG DOSE (2X325MG) PO PRN (22:05)
[2021-01-20] MEDS: PERCOCET 5MG/325MG TAB PO PRN (05:23)
[2021-01-20] MEDS: LEVOTHYROXINE 50MCG TABLET (0.05MG) PO SCH (05:23)
[2021-01-20 06:00] VITALS: BP 104/55
[2021-01-20] MEDS: amLODIPine 5 MG TAB PO SCH (09:00)
[2021-01-20] MEDS: LISINOPRIL *2.5 MG* TAB PO SCH (09:00)
[2021-01-20] MEDS: FUROSEMIDE 20 MG TAB PO SCH (09:00)
[2021-01-20] MEDS: ASCORBIC ACID 500 MG TAB PO SCH (09:26)
[2021-01-20] MEDS: EZETIMIBE 10MG TABLET (ZETIA) PO SCH (09:26)
[2021-01-20] MEDS: allopurinoL 300 MG TAB PO SCH (09:28)
[2021-01-20] MEDS: OMEPRAZOLE 20MG CAP PO SCH (09:28)
[2021-01-20] MEDS: ENOXAPARIN 40MG/0.4ML SYRINGE (J1650 PER 10MG) SC SCH (09:28)
[2021-01-20 09:31] VITALS: BP 109/58
[2021-01-20 20:26] VITALS: BP 120/64
[2021-01-20] MEDS: ATORVASTATIN 20 MG TAB PO SCH (21:46)
[2021-01-20] MEDS: oxyBUTYnin *DITROPAN XL* 5 MG TABCR PO SCH (21:46)
[2021-01-20] MEDS: ACETAMINOPHEN TAB 650MG DOSE (2X325MG) PO PRN (21:47)
[2021-01-21 05:06] VITALS: BP 115/55
[2021-01-21] MEDS: LEVOTHYROXINE 50MCG TABLET (0.05MG) PO SCH (05:18)
[2021-01-21] MEDS: LISINOPRIL *2.5 MG* TAB PO SCH (09:00)
[2021-01-21] MEDS: amLODIPine 5 MG TAB PO SCH (09:00)
[2021-01-21] MEDS: ENOXAPARIN 40MG/0.4ML SYRINGE (J1650 PER 10MG) SC SCH (09:13)
[2021-01-21] MEDS: FUROSEMIDE 20 MG TAB PO SCH (09:14)
[2021-01-21] MEDS: OMEPRAZOLE 20MG CAP PO SCH (09:14)
[2021-01-21] MEDS: ASCORBIC ACID 500 MG TAB PO SCH (09:14)
[2021-01-21] MEDS: allopurinoL 300 MG TAB PO SCH (09:15)
[2021-01-21] MEDS: EZETIMIBE 10MG TABLET (ZETIA) PO SCH (09:15)
[2021-01-21] MEDS: PERCOCET 5MG/325MG TAB PO PRN ×2 (09:15→22:12)
[2021-01-21] MEDS: oxyBUTYnin *DITROPAN XL* 5 MG TABCR PO SCH (19:56)
[2021-01-21] MEDS: ATORVASTATIN 20 MG TAB PO SCH (19:57)
[2021-01-21 20:00] VITALS: BP 115/74
[2021-01-21 22:00] VITALS: BP 115/74
[2021-01-22] MEDS: PERCOCET 5MG/325MG TAB PO PRN ×2 (03:53→21:02)
[2021-01-22] MEDS: LEVOTHYROXINE 50MCG TABLET (0.05MG) PO SCH (05:36)
[2021-01-22 06:30] VITALS: BP 115/56
[2021-01-22] MEDS: ENOXAPARIN 40MG/0.4ML SYRINGE (J1650 PER 10MG) SC SCH (08:05)
[2021-01-22] MEDS: EZETIMIBE 10MG TABLET (ZETIA) PO SCH (08:05)
[2021-01-22] MEDS: LISINOPRIL *2.5 MG* TAB PO SCH (08:06)
[2021-01-22] MEDS: FUROSEMIDE 20 MG TAB PO SCH (08:06)
[2021-01-22] MEDS: OMEPRAZOLE 20MG CAP PO SCH (08:06)
[2021-01-22] MEDS: amLODIPine 5 MG TAB PO SCH (08:06)
[2021-01-22] MEDS: allopurinoL 300 MG TAB PO SCH (08:06)
[2021-01-22] MEDS: ASCORBIC ACID 500 MG TAB PO SCH (08:06)
[2021-01-22 08:50] LABS: BASO # 0.1 10^3/uL (0.0-0.2); BASO % 0.6 % (0.0-1.0); EOS # 0.3 10^3/uL (0.0-0.5); EOS % 3.5 % (0.0-3.0); HEMATOCRIT 37.6 % (36.0-47.0); HEMOGLOBIN 12.3 g/dl (12.0-15.5); LYMPH # 1.8 10^3/uL (1.5-5.0); LYMPH % 21.3 % (24.0-44.0); MEAN CORPUSCULAR HEMOGLOBIN 31.1 pg (27.0-33.0); MEAN CORPUSCULAR HGB CONC 32.7 g/dl (32.0-36.5); MEAN CORPUSCULAR VOLUME 94.9 fl (80.0-96.0); MONO # 0.9 10^3/uL (0.0-0.8); MONO % 10.2 % (2.0-8.0); NEUTROPHILS # 5.3 10^3/uL (1.5-8.5); NEUTROPHILS % 63.7 % (36.0-66.0); PLATELET COUNT, AUTOMATED 272 10^3/uL (150-450); RED BLOOD COUNT 3.96 10^6/uL (4.00-5.40); WHITE BLOOD COUNT 8.4 10^3/uL (4.0-10.0)
[2021-01-22 09:13] LABS: ALT/SGPT 54 U/L (12-78); BILIRUBIN,TOTAL 0.4 MG/DL (0.2-1.0); BLOOD UREA NITROGEN 27 MG/DL (7-18); CALCIUM LEVEL 9.8 MG/DL (8.8-10.2); CARBON DIOXIDE LEVEL 27 MEQ/L (21-32); CHLORIDE LEVEL 109 MEQ/L (98-107); CREATININE FOR GFR 0.61 MG/DL (0.55-1.30); GLOMERULAR FILTRATION RATE > 60.0 (>32); GLUCOSE, FASTING 119 MG/DL (70-100); MAGNESIUM LEVEL 2.1 MG/DL (1.8-2.4); POTASSIUM SERUM 4.4 MEQ/L (3.5-5.1); SODIUM LEVEL 141 MEQ/L (136-145); TOTAL PROTEIN 5.6 GM/DL (6.4-8.2)
[2021-01-22] MEDS: oxyBUTYnin *DITROPAN XL* 5 MG TABCR PO SCH (21:02)
[2021-01-22] MEDS: ATORVASTATIN 20 MG TAB PO SCH (21:02)
[2021-01-23 06:00] VITALS: BP 113/58
[2021-01-23] MEDS: LEVOTHYROXINE 50MCG TABLET (0.05MG) PO SCH (06:09)
[2021-01-23] MEDS: amLODIPine 5 MG TAB PO SCH (09:00)
[2021-01-23] MEDS: OMEPRAZOLE 20MG CAP PO SCH (09:33)
[2021-01-23] MEDS: FUROSEMIDE 20 MG TAB PO SCH (09:33)
[2021-01-23] MEDS: allopurinoL 300 MG TAB PO SCH (09:34)
[2021-01-23] MEDS: EZETIMIBE 10MG TABLET (ZETIA) PO SCH (09:34)
[2021-01-23] MEDS: ENOXAPARIN 40MG/0.4ML SYRINGE (J1650 PER 10MG) SC SCH (09:35)
[2021-01-23] MEDS: ASCORBIC ACID 500 MG TAB PO SCH (09:35)
[2021-01-23] MEDS: PERCOCET 5MG/325MG TAB PO PRN ×3 (09:36→22:04)
[2021-01-23] MEDS: LISINOPRIL *2.5 MG* TAB PO SCH (09:36)
[2021-01-23] MEDS: oxyBUTYnin *DITROPAN XL* 5 MG TABCR PO SCH (20:01)
[2021-01-23] MEDS: ATORVASTATIN 20 MG TAB PO SCH (20:01)
[2021-01-24] MEDS: PERCOCET 5MG/325MG TAB PO PRN (05:13)
[2021-01-24] MEDS: LEVOTHYROXINE 50MCG TABLET (0.05MG) PO SCH (05:14)
[2021-01-24 09:00] VITALS: BP 121/59
[2021-01-24] MEDS: amLODIPine 5 MG TAB PO SCH (09:00)
[2021-01-24] MEDS: LISINOPRIL *2.5 MG* TAB PO SCH (09:00)
[2021-01-24] MEDS: EZETIMIBE 10MG TABLET (ZETIA) PO SCH (09:33)
[2021-01-24] MEDS: ENOXAPARIN 40MG/0.4ML SYRINGE (J1650 PER 10MG) SC SCH (09:33)
[2021-01-24] MEDS: OMEPRAZOLE 20MG CAP PO SCH (09:33)
[2021-01-24] MEDS: FUROSEMIDE 20 MG TAB PO SCH (09:34)
[2021-01-24] MEDS: ASCORBIC ACID 500 MG TAB PO SCH (09:34)
[2021-01-24] MEDS: allopurinoL 300 MG TAB PO SCH (09:34)
[2021-01-24] MEDS ORDERED: ALBU8.5H INH (10:37)
[2021-01-24] MEDS ORDERED: ACET1TAB55 PO (10:37)
[2021-01-24] MEDS ORDERED: BREO1INH3 INH (10:37)
[2021-01-24] MEDS ORDERED: PERCOCET PO (10:37)
== END 2021-01-24 14:00 | disposition home health service (06) | DRG 536 ==
LOC: M ED 14:58 → EDBD 14:58 → M ED INP 17:41 → ENRESERVDT 18:23 → ENRESERVTM 18:23 → M MS5PR 18:50
PROVIDERS: ADMIT Family Medicine; ATTEND Family Medicine
DX: S72.115A Nondisplaced fracture of greater trochanter of left femur, initial encounter for closed fracture (principal); Z85.72 Personal history of non-Hodgkin lymphomas; W01.0XXA Fall on same level from slipping, tripping and stumbling without subsequent striking against object, initial encounter; Y92.009 Unspecified place in unspecified non-institutional (private) residence as the place of occurrence of the external cause; I10 Essential (primary) hypertension; G47.33 Obstructive sleep apnea (adult) (pediatric); E78.5 Hyperlipidemia, unspecified; K21.9 Gastro-esophageal reflux disease without esophagitis; M17.0 Bilateral primary osteoarthritis of knee; E03.9 Hypothyroidism, unspecified; J44.9 Chronic obstructive pulmonary disease, unspecified; M10.9 Gout, unspecified; F32.9 Major depressive disorder, single episode, unspecified; E11.3299 Type 2 diabetes mellitus with mild nonproliferative diabetic retinopathy without macular edema, unspecified eye; Z98.41 Cataract extraction status, right eye; Z98.42 Cataract extraction status, left eye; Z90.49 Acquired absence of other specified parts of digestive tract; Z90.79 Acquired absence of other genital organ(s); Z96.651 Presence of right artificial knee joint; Z20.822 Contact with and (suspected) exposure to COVID-19; Z79.82 Long term (current) use of aspirin; Z79.84 Long term (current) use of oral hypoglycemic drugs; Z79.899 Other long term (current) drug therapy; Z91.040 Latex allergy status

== ENCOUNTER → 2021-02-21 | Outpatient (CLI) | payer MEDICARE ==
[~2021-02-21] MED LIST changes: +ACET1TAB55 PO; +D 10CHW PO; -DONE-1 PO; +DONE10TA90 PO; +DONETAB6 PO; +LISI-898 PO; -LISI5TAB11 PO; +PERCOCET PO
--- NOTE | 2021-02-21 14:54 | REP ---
INDICATION: UNSP TROCHANTERIC FX OF LT FEMUR COMPARISON: None. TECHNIQUE: AP and frog-lateral views of the left hip FINDINGS: Known nondisplaced fracture of the greater trochanter is again appreciated and essentially unchanged. Underlying age-related osteopenia and degenerative changes including sclerosis to the acetabular roof with joint space narrowing again noted. IMPRESSION: Stable appearance to the nondisplaced greater trochanter fracture and underlying age-related degenerative changes. <Electronically signed by Paul Downing > 02/21/21 [id number]
== END ==
LOC: M SOG 11:53
PROVIDERS: ATTEND Orthopaedic Surgery Adult Reconstructive Orthopaedic Surgery
DX: S72.102A Unspecified trochanteric fracture of left femur, initial encounter for closed fracture (principal); X58.XXXA Exposure to other specified factors, initial encounter; Y92.89 Other specified places as the place of occurrence of the external cause; Y93.9 Activity, unspecified; Y99.9 Unspecified external cause status

== ENCOUNTER → 2021-04-08 | Outpatient (RCR) | payer MEDICARE ==
[~2021-04-08] MED LIST changes: +DONE-1 PO; -DONETAB6 PO; -LISI-898 PO; +LISI5TAB11 PO
== END | disposition still patient (30) ==
LOC: M ST 03-24 10:10
PROVIDERS: ATTEND Otolaryngology
DX: R13.10 Dysphagia, unspecified (principal)

== ENCOUNTER → 2021-04-08 | Outpatient (RCR) | payer MEDICARE | LOC: M PT 03-21 15:03 | PROVIDERS: ATTEND Surgery | DX: I89.0 Lymphedema, not elsewhere classified (principal) ==

== ENCOUNTER 2021-04-15 15:29 | Emergency (ER) | payer MEDICARE ==
[~2021-04-15] VITALS: Ht 144.8 cm; Wt 50.0 kg
[~2021-04-15 15:29] MED LIST changes: -DONE-1 PO; +DONETAB6 PO; +LISI-898 PO; -LISI5TAB11 PO
[2021-04-15 17:39] LABS: BASO % 0.4 % (0.0-1.0); EOS # 0.2 10^3/uL (0.0-0.5); EOS % 2.1 % (0.0-3.0); HEMATOCRIT 42.6 % (36.0-47.0); HEMOGLOBIN 13.8 g/dl (12.0-15.5); LYMPH # 1.2 10^3/uL (1.5-5.0); LYMPH % 12.7 % (24.0-44.0); MEAN CORPUSCULAR HEMOGLOBIN 30.6 pg (27.0-33.0); MEAN CORPUSCULAR HGB CONC 32.4 g/dl (32.0-36.5); MEAN CORPUSCULAR VOLUME 94.5 fl (80.0-96.0); MONO # 0.9 10^3/uL (0.0-0.8); MONO % 9.6 % (2.0-8.0); NEUTROPHILS % 74.8 % (36.0-66.0); PLATELET COUNT, AUTOMATED 240 10^3/uL (150-450); RED BLOOD COUNT 4.51 10^6/uL (4.00-5.40); WHITE BLOOD COUNT 9.4 10^3/uL (4.0-10.0)
[2021-04-15 18:04] LABS: CK-MB VALUE MASS 1.9 NG/ML (<3.6); MB/CK RELATIVE INDEX 1.6 (< OR =4)
[2021-04-15 18:10] LABS: RSV AMPLIFICATION NEGATIVE (NEGATIVE)
[2021-04-15 18:11] LABS: ALBUMIN 3.6 GM/DL (3.2-5.2); ALT/SGPT 30 U/L (12-78); BILIRUBIN,DIRECT 0.1 MG/DL (0.0-0.2); BILIRUBIN,TOTAL 0.3 MG/DL (0.2-1.0); BLOOD UREA NITROGEN 23 MG/DL (7-18); CALCIUM LEVEL 10.2 MG/DL (8.8-10.2); CARBON DIOXIDE LEVEL 29 MEQ/L (21-32); CHLORIDE LEVEL 110 MEQ/L (98-107); CREATININE FOR GFR 0.66 MG/DL (0.55-1.30); FREE T4 0.97 NG/DL (0.76-1.46); GLOMERULAR FILTRATION RATE > 60.0 (>32); GLUCOSE, FASTING 102 MG/DL (70-100); POTASSIUM SERUM 4.5 MEQ/L (3.5-5.1); SODIUM LEVEL 143 MEQ/L (136-145); TOTAL PROTEIN 6.4 GM/DL (6.4-8.2)
[2021-04-15] MEDS ORDERED: ISOVUE-370 76% 100ML VIAL As Ordered ONE (18:18)
--- NOTE | 2021-04-15 19:12 | REPVR ---
PROCEDURE INFORMATION: Exam: CT Head Without Contrast Exam date and time: 04/15/2021 6:43 PM Age: 86 years old Clinical indication: Injury or trauma; Fall; Blunt trauma (contusions or hematomas) TECHNIQUE: Imaging protocol: Computed tomography of the head without contrast. Radiation optimization: All CT scans at this facility use at least one of these dose optimization techniques: automated exposure control; mA and/or kV adjustment per patient size (includes targeted exams where dose is matched to clinical indication); or iterative reconstruction. COMPARISON: MRI-Brain W/O FOLL BY WITH 12/04/2015 6:17 PM FINDINGS: Brain: Decreased attenuation of the supratentorial white matter is likely secondary to chronic microvascular ischemia. Superior right cerebral convexity acute subdural hemorrhage measures up to 6 mm. Left cerebral convexity mixed density subdural hemorrhage measures up to 6 mm. Mild hyperdense blood products are demonstrated on the coronal images. No significant midline shift. Cerebral ventricles: Ventricular and subarachnoid spaces are age appropriate. Paranasal sinuses: Visualized sinuses are unremarkable. No fluid levels. Mastoid air cells: Visualized mastoid air cells are well aerated. Vasculature: Intracranial vascular calcification. Bones/joints: See "Brain" finding. Soft tissues: Unremarkable. IMPRESSION: 1. Superior right cerebral convexity acute subdural hemorrhage measures up to 6 mm. 2. Mixed density left cerebral convexity subdural hemorrhage measures 6 mm with predominately hypodense/chronic blood products and small volume of hyperdense acute blood products best demonstrated on the coronal images. Electronically signed by: Margarito Saenz On 04/15/2021 19:12:06 PM
--- NOTE | 2021-04-15 19:15 | REPVR ---
PROCEDURE INFORMATION: Exam: CT Cervical Spine Without Contrast Exam date and time: 04/15/2021 6:43 PM Age: 86 years old Clinical indication: Injury or trauma; Fall; Blunt trauma TECHNIQUE: Imaging protocol: Computed tomography images of the cervical spine without contrast. Radiation optimization: All CT scans at this facility use at least one of these dose optimization techniques: automated exposure control; mA and/or kV adjustment per patient size (includes targeted exams where dose is matched to clinical indication); or iterative reconstruction. COMPARISON: PT PET/CT Skull/mid thigh 11/18/2020 3:35 PM FINDINGS: Bones/joints: Moderate to severe levoconvex scoliosis. Trace retrolisthesis of C3 on C4. Grade 1 anterolisthesis of C6 on C7. Vertebral body heights are preserved. Moderate degenerative change about the dens. Mild to moderate prevertebral osteophytosis. There are bilateral facet joint degenerative changes. No acute cervical spine fracture. Discs/Spinal canal/Neural foramina: No definite high-grade central canal stenosis within limitations of technique. Multilevel cervical foraminal stenoses. Lungs: Lung apices are normal. Pleural spaces: No visible pneumothorax. Vasculature: Vascular calcification. Soft tissues: Unremarkable. IMPRESSION: No acute cervical spine fracture. Electronically signed by: Margarito Saenz On 04/15/2021 19:14:31 PM
--- NOTE | 2021-04-15 19:26 | REPVR ---
PROCEDURE INFORMATION: Exam: CT Lumbar Spine Without Contrast Exam date and time: 04/15/2021 6:43 PM Age: 86 years old Clinical indication: Injury or trauma; Fall; Blunt trauma (contusions or hematomas) TECHNIQUE: Imaging protocol: Computed tomography images of the lumbar spine without contrast. Radiation optimization: All CT scans at this facility use at least one of these dose optimization techniques: automated exposure control; mA and/or kV adjustment per patient size (includes targeted exams where dose is matched to clinical indication); or iterative reconstruction. COMPARISON: PT PET/CT Skull/mid thigh 11/18/2020 3:35 PM FINDINGS: Vertebrae: Fracture of the left L2 transverse process, with minimal cortical step-off. Cortical discontinuity of the right L4 transverse process, and nondisplaced fracture is considered. There is mild cortical regularity of the right L1 transverse process, although fracture is not definitive. The lumbar vertebral bodies are normal in height. A moderate compression fracture is again visualized at the T12 vertebral level. Mild retropulsion. Mild retrolisthesis of L1 on L2 and L2 on L3. Grade 1 anterolisthesis of L5 on S1. Discs/Spinal canal/Neural foramina: Vacuum disc phenomena are identified diffusely within the lumbar and visualized lower thoracic spine. Degenerative changes are identified diffusely within the lumbar spine, with disc bulge/osteophyte complexes. Additional degenerative changes are seen within the lower thoracic spine. Moderate spinal canal stenosis at L3-L4, with severe spinal canal stenosis at L4-L5 and L5-S1. Mild spinal canal stenosis at L2-L3. Varying degrees of neural foraminal narrowing seen bilaterally at these levels. Sacrum/coccyx: Bilateral sacroiliac arthropathy. A vacuum phenomena is seen within the sacroiliac joints. Soft tissues: Soft tissue swelling posteriorly. Posterior paraspinal muscle atrophy of the level of the lower lumbar and sacral spine. Other findings: For discussion of findings involving the abdomen and pelvis, refer to the abdomen/pelvis CT report from the same day. IMPRESSION: 1. Fracture of the left L2 transverse process. Cortical discontinuity of the right L4 transverse process, and nondisplaced fracture is considered. Clinical correlation recommended. 2. A moderate chronic compression fracture is again visualized at the T12 vertebral level. Mild retropulsion. 3. Mild retrolisthesis of L1 on L2 and L2 on L3. Grade 1 anterolisthesis of L5 on S1. 4. Degenerative changes are identified diffusely within the lumbar spine. Additional degenerative changes are seen within the lower thoracic spine. 5. Moderate spinal canal stenosis at L3-L4, with severe spinal canal stenosis at L4-L5 and L5-S1. Mild spinal canal stenosis at L2-L3. Varying degrees of neural foraminal narrowing seen bilaterally at these levels. These findings can be further evaluated with MRI. 6. Soft tissue swelling posteriorly. 7. Additional findings described above. Electronically signed by: Rober Nrei On 04/15/2021 19:25:46 PM
--- NOTE | 2021-04-15 19:28 | REPVR ---
PROCEDURE INFORMATION: Exam: CT Abdomen And Pelvis With Contrast Exam date and time: 04/15/2021 6:43 PM Age: 86 years old Clinical indication: Injury or trauma; Fall; Blunt; Generalized TECHNIQUE: Imaging protocol: Computed tomography of the abdomen and pelvis with contrast. Radiation optimization: All CT scans at this facility use at least one of these dose optimization techniques: automated exposure control; mA and/or kV adjustment per patient size (includes targeted exams where dose is matched to clinical indication); or iterative reconstruction. Contrast material: ISO 370; Contrast volume: 100 ml; Contrast route: INTRAVENOUS (IV); COMPARISON: 1. PT PET/CT Skull/mid thigh 11/18/2020 3:35 PM 2. MRI-Hip WITHOUT CONTRAST 01/13/2021 12:40:[address] ABD PELVIS WITH CONTRAST 09/17/2020 3:38:43 PM FINDINGS: Diaphragm: Large hiatal hernia again visualized. Liver: There is hypodense fatty infiltration of the liver. No visualized hepatic laceration. Gallbladder and bile ducts: No calcified stones. No ductal dilation. Pancreas: Atrophy of the body of the pancreas. Spleen: No visualized splenic laceration. No splenomegaly. Adrenal glands: No mass. Kidneys and ureters: The right kidney is absent. There is enlargement/hypertrophy of the left kidney. A mildly complex cyst is identified at the lower pole of the left kidney with mild wall thickening. This measures 1.7 cm in diameter. Additional simple appearing left renal cysts are visualized. No hydronephrosis of the left kidney. Stomach and bowel: Significant fecal material within the right hemicolon and rectum. Evaluation of bowel is limited by the absence of oral contrast. No visualized small bowel obstruction. Appendix: The appendix is not visualized. Intraperitoneal space: No free air. Vasculature: No aneurysm or dissection of the abdominal aorta. There is atherosclerotic calcification of the abdominal aorta and iliac arteries. Lymph nodes: No significantly enlarged lymph nodes. Urinary bladder: Abnormal contour of the bladder, likely contributed by the adjacent cecum. Within the left side of the pelvis, there is a cystic collection of fluid again visualized abutting the bladder. A diverticulum is within the differential. This measures 2.6 x 1.9 cm. Reproductive: The uterus is small in size or absent. Bones/joints: Comminuted fracture of the left greater trochanter, with displacement. A similar finding is visualized on the previous MRI left hip. Vacuum phenomenon within the bilateral sacroiliac joints. For discussion of findings involving the lumbar spine, refer to the CT lumbar spine report from the same day. Mild levoscoliosis of the lumbar spine. Hypertrophic degenerative changes are noted involving the spine. Soft tissues: A multiloculated fluid collection is identified within the left inguinal region measuring 4.0 x 2.9 cm. This has slightly decreased in size compared to the previous CT. Soft tissue swelling posteriorly. Other findings: For discussion of findings within the chest, refer to the chest CT report from the same day. IMPRESSION: 1. Comminuted fracture of the left greater trochanter, with displacement. A similar finding is visualized on the previous MRI left hip. 2. Soft tissue swelling posteriorly. 3. A multiloculated fluid collection is identified within the left inguinal region measuring 4.0 x 2.9 cm. This has slightly decreased in size compared to the previous CT. 4. Large hiatal hernia again visualized. 5. The right kidney is absent. There is enlargement/hypertrophy of the left kidney. A mildly complex cyst is identified at the lower pole of the left kidney with mild wall thickening. This is stable in size compared to the previous CT. Additional simple appearing left renal cysts are visualized. Follow-up ultrasonography recommended. 6. There is hypodense fatty infiltration of the liver. 7. Within the left side of the pelvis, there is a cystic collection of fluid again visualized abutting the bladder. A diverticulum is within the differential. 8. Additional findings described above. COMMENTS: Consistent with the [employer]'s Incidental Findings Committee white paper (J Am Yumiko Radiol 2018): Any incidental renal lesion less than 1 cm or classified as too small to characterize, or any incidental cystic renal lesion characterized as simple-appearing, is likely benign. No follow-up imaging is recommended for these lesions per consensus recommendations based on imaging criteria. Electronically signed by: Rober Neri On 04/15/2021 19:28:26 PM
--- OUTSIDE RECORDS SUMMARY | 2021-04-15 19:47 | CCD | Continuity of Care Document ---
Author Author Allyn NEWMAN MD Organization Unknown Address [address] , [facility] [place] [address] Phone [phone] Care Team Providers Care Die Baker Name Role Phone Myles Leon D.O. AUTM [phone] Mahnaz Farah M.D. 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 Onset: 09/30/2016 Cough Rickie Live D.O. Onset: 4 Chest pain Rickie Live D.O. Onset: 4 Body mass index 25-29 - overweight Rickie Live D.O. O nset: 08/24/2012 Overweight Rickie Live D.O. Onset: 3 Dyspnea Rickie Live D.O. Onset: 2 Obstructive sleep apnea syndrome Rickie Live D.O. Ons et: 03/24/2010 Allergic rhinitis Rickie Live D.O. Onset: 0 Type 2 diabetes mellitus Jono Martin MD Onset: 03/05 Dysphonia Silvestre Mack MD Onset: 08/02/2020 Social History Type Date Description Comments Sex Unknown ETOH Use Denies alcohol use Recreational Drug Use Denies Drug Use Tobacco Use Start: Unknown Denies Smoking Smoking Status Reviewed: 02/21/21 Denies Smoking Allergies and adverse reactions Active Allergies Criticality Reaction | Severity Comments Date NKDA Unable to assess criticality 09/18/2015 Adhesives Unable to assess criticality SKIN RASH Large Amount s 02/21/2013 Medications Active Medications SIG Qnty Indications Ordering Provide r Date Albuterol Sulfate HFA 108(90Base) mcg/Act Aerosol 2 puffs four times a day as needed 25.5gm Rickie Live D.O 12/10/2020 Breo Ellipta 200-25mcg/Inh Aerosol one inhalation daily 60units Rickie Live D.O 6 Ezetimibe-Simvastatin 10-10mg Tabl ets 1 by mouth every day Unknown Metformin HCL 500mg Tablets Myles Leon D.O. Meloxicam 7.5mg Tablets Aniyah Villegas N.P. Vitamin D3 25mcg (1000 Ut) Tablets 2 Tabs PO qd Unknown Vitamin C 500mg Tablets every day Unknown Melatonin 5mg Capsules 1 tab by mouth at bedtime Unknown Vitamin B-12 500mcg Tablets 2 by mouth every day Unknown Lisinopril 2.5mg Tablets 1/2 tab every day Unknown Oxybutynin Chloride 5mg Tablets 1 by mouth every day Unknown Zoloft 100mg Tablets 1 po qd Unknown Nexium 40mg Capsules DR 1 po qd 30caps Unknown Norvasc 5mg Tablets 1 po qd Unknown Lipitor 40mg Tablets 1 po qd Unknown L-Lysine 500mg Tablets 1 po q d Unknown Levothyroxine Sodium 50mcg Tablets 1 po qd Unknown Zetia 10mg Tablets 1 po qd 30tabs Unknown Aspirin 81mg Tablets 1 po qd Unknown Potassium Gluconate 595(99K) mg Ta blets 1 po every day Unknown Allopurinol 300mg Tablets 1 p o qd Unknown Furosemide 20mg Tablets 1 by mouth every day Unknown Immunizations CPT Code Status Date Vaccine Lot # [id number] Given 03/04/2016 Influenza Virus Split 3 Yrs And Above For Intramuscular Use 42167 Given 03/13/2015 Influenza Virus Split 3 Yrs And Above For Intramuscular Use 70931 Given 03/21/2014 Influenza Virus Split 3 Yrs And Above For Intramuscular Use Q2036 Given 02/15/2013 Influenza Vaccine 3 Years Of Age Or Older (Flulaval) Q2036 Given 02/09/2012 Influenza Vaccine 3 Years Of Age Or Older (Flulaval) Q2036 Given 04/01/2011 Influenza Vaccine 3 Years Of Age Or Older (Flulaval) 39751 Given 03/18/2011 Pneumococcal PPSV23 62151 Given 02/19/2010 Influenza Virus Split 3 Yrs And Above For Intramuscular Use Vital Signs Date Vital Result Comment 02/21/2021 1:54pm Body Temperature 97.5 F 01/09/2021 10:38am BP Systolic 104 mmHg BP Diastolic 58 mmHg Heart Rate 81 /min O2 % BldC Oximetry 97 % Height 57 inches 4'9" Weight 114.00 lb BMI (Body Mass Index) 24.7 kg/m2 [place] Body Weight 100 lb Weight 51.710 kg BSA (Body Surface Area) 1.42 m2 Results Test Acquired Date Facility Test Result H/L Range Note FVL/Neche 01/09/2021 [employer] [facility]eport SEE IMAGE FVC-Pred 1.48 L FVC-Pre 1.29 L FVC-%Pred-Pre 87 L FVC-LLN 0.93 L Fev1-Pred 1.06 L Fev1-Pre 1.07 L Fev1-%Pred-Pre 101 L Fev1-LLN 0.60 L Fev6-Pred 1.36 L Fev6-Pre 1.28 L Fev6-%Pred-Pre 93 L Fev6-LLN 0.82 L Dad2eup-Wvrq 72 % Cuj9iaz-Zna 83 % Qrs0pdk-%Pred-Pre 114 % Fug4gaf-LTC 62 % Tua3xqg-Vgpz 92 % Jht4mor-Zqj 99 % Ipr2qpe-%Pred-Pre 107 % FEFMax-Pred 3.05 L/E/sec FEFMax-Pre 2.00 L/E/sec FEFMax-%Pred-Pre 65 L/E/sec FEFMax-LLN 1.69 L/E/sec Ckr1216-Xyer 0.66 L/E/sec Peg6067-Onw 1.16 L/E/sec Qtv2582-%Pred-Pre 176 L/E/sec Aqw1866-QNE -0.32 L/E/sec ExpTime-Pre 6.54 sec Cke2ypn1-Zzjd 77 % Iug7bzr5-Cyt 84 % Woy1lbu0-%Pred-Pre 109 % Gdv3ofk1-KQQ 68 % Laboratory test finding 10/25/2020 [facility] [address] [place] [address] [id number] [phone] Bedside Glucose 207 mg/dL High 83-110 Complete Blood Count 10/25/2020 [facility] [address] [place] [address] [phone] White Blood Count 6.6 10 Normal 4.0-10.0 Red Blood Count 4.22 10 Normal 4.00-5.40 Hemoglobin 12.2 g/dL Normal 12.0-15.5 Hematocrit 37.9 % Normal 36.0-47.0 Mean Corpuscular Volume 89.8 fl Normal 80.0-96.0 Mean Corpuscular Hemoglobin 28.9 pg Normal 27.0-33.0 Mean Corpuscular HGB Conc 32.2 g/dL Normal 32.0-36.5 Red Cell Distribution Width 21.2 % High 11.5-14.5 Platelet Count, Automated 170 10 Normal 150-450 Nucleated Red Blood Cell % 0.0 % Normal 0-0 Basic Metabolic Profile 10/25/2020 [facility] [address] [place] [address] [phone] Glucose, Fasting 146 mg/dL High 70-100 Blood Urea Nitrogen 22 mg/dL High 7-18 Creatinine For GFR 0.53 mg/dL Low 0.55-1.30 Glomerular Filtration Rate > 60.0 Normal >32 1 Sodium Level 142 mEq/L Normal 136-145 Potassium Serum 4.4 mEq/L Normal 3.5-5.1 Chloride Level 109 mEq/L High 98-107 Carbon Dioxide Level 27 mEq/L Normal 21-32 Anion Gap 6 mEq/L Low 8-16 Calcium Level 9.1 mg/dL Normal 8.8-10.2 Laboratory test finding 10/25/2020 [facility] [address] [place], [place] [phone] [phone] Bedside Glucose 144 mg/dL High 83-110 Laboratory test finding 10/24/2020 [facility] [address] [place] [phone] Bedside Glucose 141 mg/dL High 83-110 Complete Blood Count 10/24/2020 [facility] [address] [place] [phone] White Blood Count 8.5 10 Normal 4.0-10.0 Red Blood Count 4.34 10 Normal 4.00-5.40 Hemoglobin 12.7 g/dL Normal 12.0-15.5 Hematocrit 39.5 % Normal 36.0-47.0 Mean Corpuscular Volume 91.0 fl Normal 80.0-96.0 Mean Corpuscular Hemoglobin 29.3 pg Normal 27.0-33.0 Mean Corpuscular HGB Conc 32.2 g/dL Normal 32.0-36.5 Red Cell Distribution Width 21.1 % High 11.5-14.5 Platelet Count, Automated 174 10 Normal 150-450 Nucleated Red Blood Cell % 0.0 % Normal 0-0 Prothrombin Time/Inr 10/24/2020 [facility] [address] [place] [address] [phone] Prothrombin Time 14.6 seconds High 12.5-14.3 Inr 1.12 Normal 2 Laboratory test finding 10/24/2020 [facility] [address] [place] [phone] Partial Thromboplastin Time 29.6 seconds Normal 24 .2-38.5 3 Comprehensive Metabolic Profil 10/24/2020 [facility] [address] [place], [place] [phone] Glucose, Fasting 157 mg/dL High 70-100 Blood Urea Nitrogen 25 mg/dL High 7-18 Creatinine For GFR 0.60 mg/dL Normal 0.55-1.30 Glomerular Filtration Rate > 60.0 Normal >32 4 Sodium Level 141 mEq/L Normal 136-145 Potassium Serum 4.1 mEq/L Normal 3.5-5.1 Chloride Level 109 mEq/L High 98-107 Carbon Dioxide Level 27 mEq/L Normal 21-32 Anion Gap 5 mEq/L Low 8-16 Calcium Level 9.3 mg/dL Normal 8.8-10.2 Ast/Sgot 19 U/L Normal 7-37 Alt/SGPT 39 U/L Normal 12-78 Alkaline Phosphatase 110 U/L Normal 45-117 Bilirubin,Total 0.3 mg/dL Normal 0.2-1.0 Total Protein 5.7 GM/DL Low 6.4-8.2 Albumin 3.6 GM/DL Normal 3.2-5.2 Albumin/Globulin Ratio 1.7 Normal 1.2-2.2 Laboratory test finding 10/24/2020 [facility] [address] [place], [place] [phone] Bedside Glucose 93 mg/dL Normal 83-110 Laboratory test finding 09/05/2020 [facility] [address] [place], [place] [phone] Bedside Glucose 103 mg/dL Normal 83-110 5 Laboratory test finding 09/04/2020 [facility] [address] [place] [address] [phone] Pathology Request For Service (SEE NOTE) 6 1 Units are mL/min/1.73 m2 Chronic Kidney Disease Staging per NKF: Stage I & II GFR >=60 Normal to Mildly Decreased Stage III GFR 30-59 Moderately Decreased Stage IV GFR 15-29 Severely Decreased Stage V GFR <15 Very Little GFR Left ESRD GFR <15 on CANDY STARCH MOLD PRINTER 2 THERAPUTIC HUMAN INR VALUES INDICATIONS NORMAL RANGES PROPHYLAXIS/TREATMENT OF: VENOUS THROMBOSIS 2.0-3.0 PULMONARY EMBOLISM 2.0-3.0 PREVENTION OF SYSTEMIC EMBOLISM FROM: TISSUE HEART VALVES 2.0-3.0 ACUTE MYOCARDIAL INFARCTION 2.0-3.0 VALVULAR HEART DISEASE 2.0-3.0 ATRIAL FIBRILLATION 2.0-3.0 MECHANICAL VALVES(HIGH RISK) 2.5-3.5 RECURRENT MYOCARDIAL INFARCTION 2.5-3.5 3 *Is patient on Anticoagulant s? N 4 Units are mL/min/1.73 m2 Chronic Kidney Disease Staging per NKF: Stage I & II GFR >=60 Normal to Mildly Decreased Stage III GFR 30-59 Moderately Decreased Stage IV GFR 15-29 Severely Decreased Stage V GFR <15 Very Little GFR Left ESRD GFR <15 on CANDY STARCH MOLD PRINTER 5 Doctor Notified 6 FINAL DIAGNOSIS Vocal cord, right, biopsy: Fragments of vocal cord polyp. No evidence for malignancy. 09/06/2020 - 1111 CLINICAL DIAGNOSIS Dysphonia, chronic laryngitis 09/05/2020 - 1430 GROSS DIAGNOSIS Received in formalin labeled "right vocal cord biopsy" and consists of multiple minute fragments of jacinto tissue measuring 0.2 x 0.1 x 0.1 cm. in aggregate. All in one. -SV 09/05/2020 - 1430 Signed RADHA DE LUNA MD 09/06/2020 1151 Procedures Date Code Description Status 02/21/2021 10738 Office/Outpatient New Low MDM 30 -44 Minutes Completed 01/09/2021 34026 Office/Outpatient Established Lo w MDM 20-29 Min Completed 01/09/2021 82228 Spirometry Completed 12/24/2020 77767 Office/Outpatient Established Lo w MDM 20-29 Min Completed 11/12/2020 73339 Office/Outpatient Established Lo w MDM 20-29 Min Completed 11/12/2020 50748 Fine Needle Aspiration Biopsy In lcd Ultrasound Guidance Completed 11/01/2020 25201 Office/Outpatient Established Lo w MDM 20-29 Min Completed 10/24/2020 37398 Laryngoscopy Flexibl e W/ Ablation/Destruct Lesion(S) Laser Unilat Completed 09/16/2020 17395 Office/Outpatient Established Lo w MDM 20-29 Min Completed 09/05/2020 79567 Laryngoscopy Direct Biopsy W/Ope rating Microscope Completed Medical Devices Description No Information Available Encounters Type Date Location Provider Dx Diagnosis Office Visit 02/21/2021 2:00p [facility] Rickie Newman MD S72.102A Unsp trochanteric fracture of left femur, init for clos fx Office Visit 01/09/2021 10:30a [facility] Pulmonary/Thoracic Piero JeffreyO J45.40 Moderate persistent asthma, uncomplicated Office Visit 12/24/2020 1:00p [facility] Surgery Practice Fransisco Martin MD L76.34 Postproc seroma of skin, sub cu following other procedure Office Visit 11/01/2020 11:00a [facility] ENT Practice Silvestre Mack MD R13.10 Dysphagia, unspecified R49.0 Dysphonia K21.9 Gastro-esophageal reflux dis ease without esophagitis Office Visit 09/16/2020 2:30p [facility]NT [facility] Silvestre Mack MD R13.10 Dysphagia, unspecified R49.0 Dysphonia R07.0 Pain in throat Assessments Date Code Description Provider 02/21/2021 S72.102A Unspecified trochant zeke fracture of left femur, initial encounter for closed fracture Rickie Nemwan MD 01/09/2021 J45.40 Moderate persistent asthma, unco mplicated Piero WileyO 12/24/2020 L76.34 Postprocedural serom a of skin and subcutaneous tissue following other procedure Jono Martin MD 11/12/2020 L76.34 Postprocedural serom a of skin and subcutaneous tissue following other procedure Jono Martin MD 11/01/2020 R13.10 Dysphagia, unspecified Silevstre laws MD 11/01/2020 R49.0 Dysphonia Silvestre Mack MD 11/01/2020 K21.9 Gastro-esophageal reflux disease without esophagitis Silvestre Mack MD 10/24/2020 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 T janneth Mack MD 09/16/2020 R13.10 Dysphagia, unspecified Silvestre laws MD 09/16/2020 R49.0 Dysphonia Silvestre Mack MD 09/16/2020 R07.0 Pain in throat Silvestre Mack MD 09/05/2020 J37.0 Chronic laryngitis Silvestre Mack MD 09/05/2020 R49.0 Dysphonia Silvestre Mack MD 09/05/2020 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 There is been no significant displacement. The patient will continue with weightbearing as tolerated and able to fully weigh t-bear. She was advised to utilize her walker at all times for balance. She may have a Trendelenburg type gait as a result of hip abductor weakness. I would not begin strengthening at this point as the fracture is still healing. * Follow up:* 2 months with repeat x-ray imaging left hip greater trochanteric fracture Functional Status Description No Information Available Mental Status Description No Information Available Referrals Description No Information Available
--- OUTSIDE RECORDS SUMMARY | 2021-04-15 19:47 | CCD | Continuity of Care Document ---
Author Author Allyn MACK MD Organization Unknown Address [address] [facility] [address] [place] [address] Phone [phone] Care Team Providers Care Director Of Sales Name Role Phone Edward Myles Wan D.O. AUTM [phone] Mahnaz Farah M.D. AUTM [phone] Central Scheduling AUTM [phone] Sdio AUTM [phone] [facility]PT,Oc,St AUTM AUTM Unavailable Problems Active Problems Provider Date [...] Comments Date NKDA Unable to assess criticality 03/17/2021 Adhesives Unable to assess criticality SKIN RASH Large Amount s 02/21/2013 Inactive Allergies NKDA Unable to assess criticality 09/18/2015 Medications Active Medications SIG Qnty Indications Ordering [...] CPT Code Status Date Vaccine Lot # 40061 Given 03/04/2016 Influenza Virus Split 3 Yrs And Above For Intramuscular Use 69299 Given 03/13/2015 Influenza Virus Split 3 Yrs And Above For Intramuscular Use 91236 Given 03/21/2014 Influenza Virus Split 3 Yrs And Above For Intramuscular Use Q2036 Given 02/15/2013 Influenza Vaccine 3 Years Of Age Or Older (Flulaval) Q2036 Given 02/09/2012 Influenza Vaccine 3 Years Of Age Or Older (Flulaval) Q2036 Given 04/01/2011 Influenza Vaccine 3 Years Of Age Or Older (Flulaval) 44585 Given 03/18/2011 Pneumococcal PPSV23 55837 Given 02/19/2010 Influenza Virus Split 3 Yrs And Above For Intramuscular Use Vital Signs Date Vital Result Comment 03/17/2021 9:18am Weight 115.00 lb Weight 52.164 kg 02/21/2021 1:54pm Body Temperature 97.5 F Results Test Acquired Date Facility Test Result H/L Range Note FVL/[place] 01/09/2021 [facility] SEE IMAGE FVC-Pred 1.48 L FVC-Pre 1.29 L FVC-%Pred-Pre 87 L FVC-LLN 0.93 L Fev1-Pred 1.06 L Fev1-Pre 1.07 L Fev1-%Pred-Pre 101 L Fev1-LLN 0.60 L Fev6-Pred 1.36 L Fev6-Pre 1.28 L Fev6-%Pred-Pre 93 L Fev6-LLN 0.82 L Fpv9sxz-Ceif 72 % Jqe9mhr-Iil 83 % Vbq5kcx-%Pred-Pre 114 % Sqx6jfw-FWL 62 % Med7msk-Fnch 92 % Gxy3mqf-Pgg 99 % Wir0jki-%Pred-Pre 107 % FEFMax-Pred 3.05 L/E/sec FEFMax-Pre 2.00 L/E/sec FEFMax-%Pred-Pre 65 L/E/sec FEFMax-LLN 1.69 L/E/sec Fvg9492-Xncc 0.66 L/E/sec Smz6456-Kll 1.16 L/E/sec Utd8644-%Pred-Pre 176 L/E/sec Npc4017-WWN -0.32 L/E/sec ExpTime-Pre 6.54 sec Jlw8zvs1-Oitr 77 % Nbo3kis7-Lgq 84 % Kbx1ldq4-%Pred-Pre 109 % Gmv2khl2-BJT 68 % Laboratory test finding 10/25/2020 [facility] Main Lab [address] [place] [address] [id number] [phone] Bedside Glucose 207 mg/dL High 83-110 Complete Blood Count 10/25/2020 [facility] Main Lab [address] [place] [address] [id number] [phone] White Blood Count 6.6 10 Normal 4.0-10.0 [...] % Normal 0-0 Basic Metabolic Profile 10/25/2020 [facility] Main Lab [address] [place] [address] [id number] [phone] Glucose, Fasting 146 mg/dL High 70-100 Blood [...] mg/dL Normal 8.8-10.2 Laboratory test finding 10/25/2020 [facility] Main Lab [address] [place], [place] 4175358 [phone] Bedside Glucose 144 mg/dL High 83-110 Laboratory test finding 10/24/2020 [facility] Main Lab [address] [place], [place] 2887546 [phone] Bedside Glucose 141 mg/dL High 83-110 Complete Blood Count 10/24/2020 [facility] Main Lab [address] [place] [address] [id number] [phone] White Blood Count 8.5 10 Normal 4.0-10.0 [...] 0.0 % Normal 0-0 Prothrombin Time/Inr 10/24/2020 [facility] Main Lab [address] [place] [address] [id number] [phone] Prothrombin Time 14.6 seconds High 12.5-14.3 Inr 1.12 Normal 2 Laboratory test finding 10/24/2020 [facility] Main Lab [address] [place] [address] 90752 [phone] Partial Thromboplastin Time 29.6 seconds Normal 24 .2-38.5 3 Comprehensive Metabolic Profil 10/24/2020 [facility] Main Lab [address] [place] [address] 7417608 [phone] Glucose, Fasting 157 mg/dL High 70-100 Blood [...] 1.7 Normal 1.2-2.2 Laboratory test finding 10/24/2020 [facility] Main Lab [address] [place], [place] [id number] [phone] Bedside Glucose 93 mg/dL Normal 83-110 1 Units are mL/min/1.73 m2 Chronic Kidney Disease Staging per NKF: Stage I & II GFR >=60 Normal to Mildly Decreased Stage III GFR 30-59 Moderately Decreased Stage IV GFR 15-29 Severely Decreased Stage V GFR <15 Very Little GFR Left ESRD GFR <15 on FIRE BOSS 2 THERAPUTIC HUMAN INR VALUES INDICATIONS NORMAL [...] Little GFR Left ESRD GFR <15 on FIRE BOSS Procedures Date Code Description Status 03/17/2021 05192 Office/Outpatient Established Mo d MDM 30-39 Min Completed 03/17/2021 49470 Laryngoscopy Flexible Fiberoptic Diagnostic Completed 02/21/2021 09366 Office/Outpatient New Low MDM 30 -44 Minutes Completed 01/09/2021 43842 Office/Outpatient Established Lo w MDM 20-29 Min Completed 01/09/2021 09875 Spirometry Completed 12/24/2020 91164 Office/Outpatient Established Lo w MDM 20-29 Min Completed 11/12/2020 82875 Office/Outpatient Established Lo w MDM 20-29 Min Completed 11/12/2020 27108 Fine Needle Aspiration Biopsy In lcd Ultrasound Guidance Completed 11/01/2020 82392 Office/Outpatient Established Lo w MDM 20-29 Min Completed 10/24/2020 44496 Laryngoscopy Flexibl e W/ Ablation/Destruct Lesion(S) Laser Unilat Completed Medical Devices Description No Information Available Encounters Type Date Location Provider Dx Diagnosis Office Visit 03/17/2021 9:15a [facility] ENT Practice Silvestre Mack MD R49.0 Dysphonia K21.9 Gastro-esophageal reflux dis ease without esophagitis R13.10 Dysphagia, unspecified Office Visit 02/21/2021 2:00p [facility] Orthopedics Rickie Shukla MD S72.102A Unsp trochanteric fracture of left femur, init for clos fx Office Visit 01/09/2021 10:30a [facility] Pulmonary/Thoracic D christopher Live D.O J45.40 Moderate persistent asthma, uncomplicated Office Visit 12/24/2020 1:00p [facility] Surgery Practice Fransisco Martin MD L76.34 Postproc seroma of skin, sub cu following other procedure Office Visit 11/12/2020 1:45p [facility] Surgery Practice Fransisco Martin MD L76.34 Postproc seroma of skin, sub cu following other procedure Office Visit 11/01/2020 11:00a [facility] ENT Practice Silvestre Mack MD R13.10 Dysphagia, unspecified R49.0 Dysphonia K21.9 Gastro-esophageal reflux dis ease without esophagitis Assessments Date Code Description Provider 03/17/2021 R49.0 Dysphonia Silvestre Mack MD 03/17/2021 K21.9 Gastro-esophageal reflux disease without esophagitis Silvestre Mack MD 03/17/2021 R13.10 Dysphagia, unspecified Silvestre laws MD 02/21/2021 S72.102A Unspecified trochant zeke fracture of left femur, initial encounter for closed fracture Rickie Shukla MD 01/09/2021 J45.40 Moderate persistent asthma, unco mplicated Rickie Live D.O 12/24/2020 L76.34 Postprocedural serom a of skin and subcutaneous tissue following other procedure Jono Martin MD 11/12/2020 L76.34 Postprocedural serom a of skin and subcutaneous tissue following other procedure Jono Martin MD 11/01/2020 R13.10 Dysphagia, unspecified Silvestre laws MD 11/01/2020 R49.0 Dysphonia Silvestre Mack MD 11/01/2020 K21.9 Gastro-esophageal reflux disease without esophagitis Silvestre Mack MD 10/24/2020 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 T janneth Mack MD Plan of Treatment Future Appointment(s):* 01/13/2022 10:00 am - Rickie Live D.O at [facility] Pulmonary/Thoracic * 04/23/2021 2:30 pm - Rickie Shukla MD at [facility] Orthopedics 03/17/2021 - Silvestre Mack MD* R49.0 Dysphonia* Follow up:* 3 months * K21.9 Gastro-esophageal reflux disease without esophagitis * R13.10 Dysphagia, unspecified* Referral:* [facility] Rehab, Functional Status Description No Information Available Mental Status Description No Information Available Referrals Refer to Reason for Referral Status Appt Date [facility] Rehab pls provide rehab for voice and swallowing. Chandra justice PT/OT/Rehab [address] [place] [address] [phone]"
--- OUTSIDE RECORDS SUMMARY | 2021-04-15 19:47 | CCD | Continuity of Care Document ---
Author Author JOHN SPENCER, Allyn Mclaughlin Organization Unknown Address [address] [facility] [address] [place] [address] Phone [phone] Care Team Providers Care Product Craftsman Name Role Phone Edward Myles Wan D.O. AUTM [phone] Mahnaz Farah M.D. AUTM [phone] Central Scheduling AUTM [phone] Sdio AUTM [phone] [facility] Rehab/PT,Oc,St AUTM [phone] AUTM Unavailable Problems Active Problems Provider [...] Live D.O. Onset: 3 Dyspnea Rickie Live D.OReal Onset: 2 Obstructive sleep apnea syndrome Rickie [...] CPT Code Status Date Vaccine Lot # 54986 Given 03/04/2016 Influenza Virus Split 3 Yrs And Above For Intramuscular Use 67435 Given 03/13/2015 Influenza Virus Split 3 Yrs And Above For Intramuscular Use 08345 Given 03/21/2014 Influenza Virus Split 3 Yrs And Above For Intramuscular Use Q2036 Given 02/15/2013 Influenza Vaccine 3 Years Of Age Or Older (Flulaval) Q2036 Given 02/09/2012 Influenza Vaccine 3 Years Of Age Or Older (Flulaval) Q2036 Given 04/01/2011 Influenza Vaccine 3 Years Of Age Or Older (Flulaval) 68381 Given 03/18/2011 Pneumococcal PPSV23 92054 Given 02/19/2010 Influenza Virus Split 3 Yrs And Above For Intramuscular Use Vital Signs Date Vital Result Comment 02/21/2021 1:54pm Body Temperature 97.5 F 01/09/2021 10:38am BP Systolic 104 mmHg BP Diastolic 58 mmHg Heart Rate 81 /min O2 % BldC Oximetry 97 % Height 57 inches 4'9" Weight 114.00 lb BMI (Body Mass Index) 24.7 kg/m2 [place] Body Weight 100 lb Weight 51.710 kg BSA (Body Surface Area) 1.42 m2 Results Test Acquired Date Facility Test Result H/L Range Note FVL/[place] 01/09/2021 [facility] PD[facility] SEE IMAGE FVC-Pred 1.48 L FVC-Pre 1.29 L FVC-%Pred-Pre 87 L FVC-LLN 0.93 L Fev1-Pred 1.06 L Fev1-Pre 1.07 L Fev1-%Pred-Pre 101 L Fev1-LLN 0.60 L Fev6-Pred 1.36 L Fev6-Pre 1.28 L Fev6-%Pred-Pre 93 L Fev6-LLN 0.82 L Wmr6dmt-Fsyj 72 % Sga8cbh-Jxe 83 % Dxu7bjf-%Pred-Pre 114 % Odj4tcu-KZI 62 % Rig5fqr-Afxs 92 % Zjv0ubm-Kwa 99 % Btx9llb-%Pred-Pre 107 % FEFMax-Pred 3.05 L/E/sec FEFMax-Pre 2.00 L/E/sec FEFMax-%Pred-Pre 65 L/E/sec FEFMax-LLN 1.69 L/E/sec Zxv9873-Hsqf 0.66 L/E/sec Dzy8837-Pzu 1.16 L/E/sec Tak6651-%Pred-Pre 176 L/E/sec Uky5864-SRR -0.32 L/E/sec ExpTime-Pre 6.54 sec Fsa2hln7-Vycf 77 % Omv4kgw5-Gkr 84 % Zce8gvi0-%Pred-Pre 109 % Cyg0skr6-SKF 68 % Laboratory test finding 10/25/2020 [facility] Main Lab [address] [place], [place] 2416898 [phone] Bedside Glucose 207 mg/dL High 83-110 Complete Blood Count 10/25/2020 [facility] Main Lab [address] [place] [address] [id number] [phone] White Blood Count 6.6 10 Normal 4.0-10.0 [...] % Normal 0-0 Basic Metabolic Profile 10/25/2020 [facility] Main Lab [address] [place] [address] [phone] Glucose, Fasting 146 mg/dL High 70-100 Blood [...] mg/dL Normal 8.8-10.2 Laboratory test finding 10/25/2020 [facility] Main Lab [address] [place], [place] [id number] [phone] Bedside Glucose 144 mg/dL High 83-110 Laboratory test finding 10/24/2020 [facility] Main Lab [address] [place] [address] 35713 [phone] Bedside Glucose 141 mg/dL High 83-110 Complete Blood Count 10/24/2020 [facility] Main Lab [address] [place] [address] 80261 [phone] White Blood Count 8.5 10 Normal 4.0-10.0 [...] 0.0 % Normal 0-0 Prothrombin Time/Inr 10/24/2020 [facility] Main Lab [address] [place] [address] 01051 [phone] Prothrombin Time 14.6 seconds High 12.5-14.3 Inr 1.12 Normal 2 Laboratory test finding 10/24/2020 [facility] Main Lab [address] [place] [address] 05534 [phone] Partial Thromboplastin Time 29.6 seconds Normal 24 .2-38.5 3 Comprehensive Metabolic Profil 10/24/2020 [facility] Main Lab [address] [place], [place] 3656478 [phone] Glucose, Fasting 157 mg/dL High 70-100 Blood [...] 1.7 Normal 1.2-2.2 Laboratory test finding 10/24/2020 [facility] Main Lab [address] [place], [place] 3360222 [phone] Bedside Glucose 93 mg/dL Normal 83-110 Laboratory test finding 09/05/2020 [facility] Main Lab [address] [place] [address] 9889496 [phone] Bedside Glucose 103 mg/dL Normal 83-110 5 Laboratory test finding 09/04/2020 [facility] Main Lab [address] [place] [address] [id number] [phone] Pathology Request For Service (SEE NOTE) 6 1 Units are mL/min/1.73 m2 Chronic Kidney Disease Staging per NKF: Stage I & II GFR >=60 Normal to Mildly Decreased Stage III GFR 30-59 Moderately Decreased Stage IV GFR 15-29 Severely Decreased Stage V GFR <15 Very Little GFR Left ESRD GFR <15 on A AND P MECHANIC 2 THERAPUTIC HUMAN INR VALUES INDICATIONS NORMAL [...] Little GFR Left ESRD GFR <15 on A AND P MECHANIC 5 Doctor Notified 6 FINAL DIAGNOSIS Vocal [...] 1151 Procedures Date Code Description Status 02/21/2021 19383 Office/Outpatient New Low MDM 30 -44 Minutes Completed 01/09/2021 72661 Office/Outpatient Established Lo w MDM 20-29 Min Completed 01/09/2021 82485 Spirometry Completed 12/24/2020 95887 Office/Outpatient Established Lo w MDM 20-29 Min Completed 11/12/2020 71324 Office/Outpatient Established Lo w MDM 20-29 Min Completed 11/12/2020 26178 Fine Needle Aspiration Biopsy In lcd Ultrasound Guidance Completed 11/01/2020 92604 Office/Outpatient Established Lo w MDM 20-29 Min Completed 10/24/2020 68798 Laryngoscopy Flexibl e W/ Ablation/Destruct Lesion(S) Laser Unilat Completed 09/16/2020 73925 Office/Outpatient Established Lo w MDM 20-29 Min Completed 09/05/2020 88564 Laryngoscopy Direct Biopsy W/Ope rating Microscope Completed Medical Devices Description No Information Available Encounters Type Date Location Provider Dx Diagnosis Office Visit 02/21/2021 2:00p [facility] Shukla, MD S72.102A Unsp trochanteric fracture of left femur, init for clos fx Office Visit 01/09/2021 10:30a [facility] Pulmonary/Thoracic D Piero CornellO J45.40 Moderate persistent asthma, uncomplicated Office Visit 12/24/2020 1:00p [facility] Surgery Practice Fransisco Martin MD L76.34 Postproc seroma of skin, sub cu following other procedure Office Visit 11/12/2020 1:45p [facility] Surgery Practice Fransisco Martin MD L76.34 Postproc seroma of skin, sub cu following other procedure Office Visit 11/01/2020 11:00a [facility] ENT Practice Silvestre Mack MD R13.10 Dysphagia, unspecified R49.0 Dysphonia K21.9 Gastro-esophageal reflux dis ease without esophagitis Office Visit 09/16/2020 2:30p [facility] ENT Practice Silvestre Mack MD R13.10 [...] Future Appointment(s):* 04/23/2021 2:30 pm - Rickie Shkula MD at [facility] 02/21/2021 - Rickie Shukla MD* S72.102A Unspecified trochanteric fracture of left [...]
--- OUTSIDE RECORDS SUMMARY | 2021-04-15 19:47 | CCD | Continuity of Care Document ---
Author Author Allyn MACK MD Organization Unknown Address [address] [facility] [address] [place] [address] Phone [phone] Care Team Providers Care Clinical Services Assistant Name Role Phone Edward Myles Wan D.O. AUTM [phone] Mahnaz Farah M.D. AUTM [phone] Central Scheduling AUTM [phone] Sdio AUTM [phone] [facility] - Rehab/PT,Oc,St AUTM AUTM Unavailable [...] CPT Code Status Date Vaccine Lot # 48396 Given 03/04/2016 Influenza Virus Split 3 Yrs And Above For Intramuscular Use 10759 Given 03/13/2015 Influenza Virus Split 3 Yrs And Above For Intramuscular Use 08281 Given 03/21/2014 Influenza Virus Split 3 Yrs And Above For Intramuscular Use Q2036 Given 02/15/2013 Influenza Vaccine 3 Years Of Age Or Older (Flulaval) Q2036 Given 02/09/2012 Influenza Vaccine 3 Years Of Age Or Older (Flulaval) Q2036 Given 04/01/2011 Influenza Vaccine 3 Years Of Age Or Older (Flulaval) 74185 Given 03/18/2011 Pneumococcal PPSV23 25972 Given 02/19/2010 Influenza Virus Split 3 Yrs And Above For Intramuscular Use Vital Signs Date Vital Result Comment 03/17/2021 10:29am Height 60 inches 5'0" Weight 357.00 lb BMI (Body Mass Index) 69.7 kg/m2 [place] Body Weight 100 lb Weight 161.935 kg BSA (Body Surface Area) 2.45 m2 03/17/2021 9:18am Weight 115.00 lb Weight 52.164 kg Results Test Acquired Date Facility Test Result H/L Range Note FVL/[place] 01/09/2021 [facility] PD[facility] SEE IMAGE FVC-Pred 1.48 L FVC-Pre 1.29 L FVC-%Pred-Pre 87 L FVC-LLN 0.93 L Fev1-Pred 1.06 L Fev1-Pre 1.07 L Fev1-%Pred-Pre 101 L Fev1-LLN 0.60 L Fev6-Pred 1.36 L Fev6-Pre 1.28 L Fev6-%Pred-Pre 93 L Fev6-LLN 0.82 L Mjm0mvm-Pysi 72 % Ghf1xce-Bsk 83 % Vnw0dag-%Pred-Pre 114 % Pin2gfh-JSK 62 % Poi0cbq-Pogt 92 % Wvk9uwd-Bfl 99 % Dwz2tmj-%Pred-Pre 107 % FEFMax-Pred 3.05 L/E/sec FEFMax-Pre 2.00 L/E/sec FEFMax-%Pred-Pre 65 L/E/sec FEFMax-LLN 1.69 L/E/sec Sbm8366-Ulte 0.66 L/E/sec Taq9724-Ayb 1.16 L/E/sec Loo5055-%Pred-Pre 176 L/E/sec Bhu1546-RCM -0.32 L/E/sec ExpTime-Pre 6.54 sec Frw9lon1-Vcty 77 % Qdc8fyc7-Oig 84 % Tol0igb2-%Pred-Pre 109 % Rfz2iln1-WBK 68 % Laboratory test finding 10/25/2020 [facility] Main Lab [address] [place] [address] [phone] Bedside Glucose 207 mg/dL High 83-110 Complete Blood Count 10/25/2020 [facility] Main Lab [address] [place] [address] [phone] White Blood Count 6.6 10 Normal 4.0-10.0 [...] % Normal 0-0 Basic Metabolic Profile 10/25/2020 [facility] Main Lab [address] [place] [address] 1634231 [phone] Glucose, Fasting 146 mg/dL High 70-100 Blood [...] mg/dL Normal 8.8-10.2 Laboratory test finding 10/25/2020 [facility] Main Lab [address] [place] [address] [phone] Bedside Glucose 144 mg/dL High 83-110 Laboratory test finding 10/24/2020 [facility] Main Lab [address] [place] [address] [id number] [phone] Bedside Glucose 141 mg/dL High 83-110 Complete Blood Count 10/24/2020 [facility] enter Main Lab [address] [place] [address] [phone] White Blood Count 8.5 10 Normal 4.0-10.0 [...] 0.0 % Normal 0-0 Prothrombin Time/Inr 10/24/2020 [facility] enter Main Lab [address] [place], [place] 2570801 [phone] Prothrombin Time 14.6 seconds High 12.5-14.3 Inr 1.12 Normal 2 Laboratory test finding 10/24/2020 [facility] Main Lab [address] [place], [place] 7998159 [phone] Partial Thromboplastin Time 29.6 seconds Normal 24 .2-38.5 3 Comprehensive Metabolic Profil 10/24/2020 [facility] Main Lab [address] [place], [place] 7373923 [phone] Glucose, Fasting 157 mg/dL High 70-100 Blood [...] 1.7 Normal 1.2-2.2 Laboratory test finding 10/24/2020 [facility] Main Lab [address] [place] [address] [phone] Bedside Glucose 93 mg/dL Normal 83-110 1 Units are mL/min/1.73 m2 Chronic Kidney Disease Staging per NKF: Stage I & II GFR >=60 Normal to Mildly Decreased Stage III GFR 30-59 Moderately Decreased Stage IV GFR 15-29 Severely Decreased Stage V GFR <15 Very Little GFR Left ESRD GFR <15 on INSURANCE UNDERWRITING ASSISTANT 2 THERAPUTIC HUMAN INR VALUES INDICATIONS NORMAL [...] Little GFR Left ESRD GFR <15 on INSURANCE UNDERWRITING ASSISTANT Procedures Date Code Description Status 03/17/2021 59894 Office/Outpatient Established Mo d MDM 30-39 Min Completed 03/17/2021 58971 Laryngoscopy Flexible Fiberoptic Diagnostic Completed 02/21/2021 23030 Office/Outpatient New Low MDM 30 -44 Minutes Completed 01/09/2021 92707 Office/Outpatient Established Lo w MDM 20-29 Min Completed 01/09/2021 78134 Spirometry Completed 12/24/2020 00873 Office/Outpatient Established Lo w MDM 20-29 Min Completed 11/12/2020 29406 Office/Outpatient Established Lo w MDM 20-29 Min Completed 11/12/2020 48662 Fine Needle Aspiration Biopsy In lcd Ultrasound Guidance Completed 11/01/2020 64636 Office/Outpatient Established Lo w MDM 20-29 Min Completed 10/24/2020 33595 Laryngoscopy Flexibl e W/ Ablation/Destruct Lesion(S) Laser Unilat Completed 09/16/2020 02605 Office/Outpatient Established Lo w MDM 20-29 Min Completed Medical Devices Description No Information Available Encounters Type Date Location Provider Dx Diagnosis Office Visit 03/17/2021 9:15a [facility] ENT Practice Silvestre Mack MD R49.0 Dysphonia K21.9 Gastro-esophageal reflux dis ease without esophagitis R13.10 Dysphagia, unspecified Office Visit 02/21/2021 2:00p [facility] Orthopedics Rickie Shukla MD S72.102A Unsp trochanteric fracture of left femur, init for clos fx Office Visit 01/09/2021 10:30a [facility] Pulmonary/Thoracic D christopher Live D.O J45.40 Moderate persistent asthma, uncomplicated Office Visit 12/24/2020 1:00p [facility] Surgery Practice Fransisco Martin MD L76.34 Postproc seroma of skin, sub cu following other procedure Office Visit 11/12/2020 1:45p [facility] Surgery Practice Fransisco Martin MD L76.34 Postproc seroma of skin, sub cu following other procedure Office Visit 11/01/2020 11:00a [facility] ENT Practice Silvestre Mack MD R13.10 Dysphagia, unspecified R49.0 Dysphonia K21.9 Gastro-esophageal reflux dis ease without esophagitis Office Visit 09/16/2020 2:30p [facility] ENT Practice Silvestre Mack MD R13.10 Dysphagia, unspecified R49.0 Dysphonia R07.0 Pain in throat Assessments Date Code Description Provider 03/17/2021 R49.0 Jaunonia Silvestre Mack MD 03/17/2021 K21.9 Gastro-esophageal reflux [...] R07.0 Pain in throat Silvestre Mack MD Plan of Treatment Future Appointment(s):* 01/13/2022 10:00 am - Piero WileyO at [facility] Pulmonary/Thoracic * 04/23/2021 2:30 pm - Rickie Shukla MD at [facility] Orthopedics 03/17/2021 - Silvestre Mack MD* R49.0 Dysphonia* Follow up:* 3 months * K21.9 Gastro-esophageal reflux disease without esophagitis * R13.10 Dysphagia, unspecified* Referral:* [facility] Rehab, Functional Status Description No Information Available Mental Status Description No Information Available Referrals Refer to Reason for Referral Status Appt Date [facility] Rehab pls provide rehab for voice and swallowing. [facility]Re[facility] [address] [place] [address] [phone]
--- OUTSIDE RECORDS SUMMARY | 2021-04-15 19:48 | CCD | Continuity of Care Document ---
Author Author Allyn NEWMAN MD Organization Unknown Address [address] , [facility] [place] [address] Phone [phone] Care Team Providers Care Composite Mechanic Name Role Phone Myles Leon D.O. AUTM [phone] Mahnaz Farah M.D. AUTM [phone] Central Scheduling AUTM [phone] Sdio AUTM [phone] [facility]St AUTM AUTM Unavailable [...] CPT Code Status Date Vaccine Lot # [id number] Given 03/04/2016 Influenza Virus Split 3 Yrs And Above For Intramuscular Use 80303 Given 03/13/2015 Influenza Virus Split 3 Yrs And Above For Intramuscular Use 15175 Given 03/21/2014 Influenza Virus Split 3 Yrs And Above For Intramuscular Use Q2036 Given 02/15/2013 Influenza Vaccine 3 Years Of Age Or Older (Flulaval) Q2036 Given 02/09/2012 Influenza Vaccine 3 Years Of Age Or Older (Flulaval) Q2036 Given 04/01/2011 Influenza Vaccine 3 Years Of Age Or Older (Flulaval) 62171 Given 03/18/2011 Pneumococcal PPSV23 80131 Given 02/19/2010 Influenza Virus Split 3 Yrs And Above For Intramuscular Use Vital Signs Date Vital Result Comment 02/21/2021 1:54pm Body Temperature 97.5 F 01/09/2021 10:38am BP Systolic 104 mmHg BP Diastolic 58 mmHg Heart Rate 81 /min O2 % BldC Oximetry 97 % Height 57 inches 4'9" Weight 114.00 lb BMI (Body Mass Index) 24.7 kg/m2 [place] Body Weight 100 lb Weight 51.710 kg BSA (Body Surface Area) 1.42 m2 Results Test Acquired Date Facility Test Result H/L Range Note FVL/[place] 01/09/2021 [facility] PD[facility] SEE IMAGE FVC-Pred 1.48 L FVC-Pre 1.29 L FVC-%Pred-Pre 87 L FVC-LLN 0.93 L Fev1-Pred 1.06 L Fev1-Pre 1.07 L Fev1-%Pred-Pre 101 L Fev1-LLN 0.60 L Fev6-Pred 1.36 L Fev6-Pre 1.28 L Fev6-%Pred-Pre 93 L Fev6-LLN 0.82 L Mvt6eub-Vvgt 72 % Szk4eet-Ydi 83 % Nqs4buw-%Pred-Pre 114 % Mfz8yko-PRL 62 % Gaj8hjn-Ulwj 92 % Ajg0snz-Tpa 99 % Bhe1mxs-%Pred-Pre 107 % FEFMax-Pred 3.05 L/E/sec FEFMax-Pre 2.00 L/E/sec FEFMax-%Pred-Pre 65 L/E/sec FEFMax-LLN 1.69 L/E/sec Tab6189-Dmmt 0.66 L/E/sec Qdh5189-Lhj 1.16 L/E/sec Gbz2064-%Pred-Pre 176 L/E/sec Hwj9462-KRR -0.32 L/E/sec ExpTime-Pre 6.54 sec Jaa6aor2-Nvgl 77 % Ysv5ked9-Hxs 84 % Nbe4hvk0-%Pred-Pre 109 % Est7zta8-KEZ 68 % Laboratory test finding 10/25/2020 [facility] Main Lab [address] [place] [address] [id number] [phone] Bedside Glucose 207 mg/dL High 83-110 Complete Blood Count 10/25/2020 [facility] Main Lab [address] [place] [address] [phone] [phone] White Blood Count 6.6 10 Normal 4.0-10.0 [...] % Normal 0-0 Basic Metabolic Profile 10/25/2020 [facility] Main Lab [address] [place] [address] [id number] [phone] Glucose, Fasting 146 mg/dL High 70-100 Blood [...] mg/dL Normal 8.8-10.2 Laboratory test finding 10/25/2020 [facility] Main Lab [address] [place], [place] 8841261 [phone] Bedside Glucose 144 mg/dL High 83-110 Laboratory test finding 10/24/2020 [facility] Main Lab [address] [place] [address] 329[address] [phone] Bedside Glucose 141 mg/dL High 83-110 Complete Blood Count 10/24/2020 [facility] Main Lab [address] [place] [address] [phone] White Blood Count 8.5 10 Normal 4.0-10.0 [...] 0.0 % Normal 0-0 Prothrombin Time/Inr 10/24/2020 [facility] Main Lab [address] [place] [address] [phone] Prothrombin Time 14.6 seconds High 12.5-14.3 Inr 1.12 Normal 2 Laboratory test finding 10/24/2020 [facility] Main Lab [address] [place] [address] 95493 [phone] Partial Thromboplastin Time 29.6 seconds Normal 24 .2-38.5 3 Comprehensive Metabolic Profil 10/24/2020 [facility] Main Lab [address] [place], [place] 2840035 [phone] Glucose, Fasting 157 mg/dL High 70-100 Blood [...] 1.7 Normal 1.2-2.2 Laboratory test finding 10/24/2020 [facility] Main Lab [address] [place], [place] 3073595 [phone] Bedside Glucose 93 mg/dL Normal 83-110 Laboratory test finding 09/05/2020 [facility] Main Lab [address] [place], [place] 0389233 [phone] Bedside Glucose 103 mg/dL Normal 83-110 5 Laboratory test finding 09/04/2020 [facility] Main Lab [address] [place] [address] [id number] [phone] Pathology Request For Service (SEE NOTE) 6 1 Units are mL/min/1.73 m2 Chronic Kidney Disease Staging per NKF: Stage I & II GFR >=60 Normal to Mildly Decreased Stage III GFR 30-59 Moderately Decreased Stage IV GFR 15-29 Severely Decreased Stage V GFR <15 Very Little GFR Left ESRD GFR <15 on CISCO CERTIFIED NETWORK PROFESSIONAL 2 THERAPUTIC HUMAN INR VALUES INDICATIONS NORMAL [...] Little GFR Left ESRD GFR <15 on [employer] CERTIFIED NETWORK PROFESSIONAL 5 Doctor Notified 6 FINAL DIAGNOSIS Vocal [...] 1151 Procedures Date Code Description Status 02/21/2021 11469 Office/Outpatient New Moderate M DM 45-59 Minutes Completed 01/09/2021 68581 Office/Outpatient Established Lo w MDM 20-29 Min Completed 01/09/2021 71822 Spirometry Completed 12/24/2020 04300 Office/Outpatient Established Lo w MDM 20-29 Min Completed 11/12/2020 39056 Office/Outpatient Established Lo w MDM 20-29 Min Completed 11/01/2020 47186 Office/Outpatient Established Lo w MDM 20-29 Min Completed 10/24/2020 88155 Laryngoscopy Flexibl e W/ Ablation/Destruct Lesion(S) Laser Unilat Completed 09/16/2020 16132 Office/Outpatient Established Lo w MDM 20-29 Min Completed 09/05/2020 35820 Laryngoscopy Direct Biopsy W/Ope rating Microscope Completed Medical Devices Description No Information Available Encounters Type Date Location Provider Dx Diagnosis Office Visit 02/21/2021 2:00p [facility] Rickie Newman MD S72.102A Unsp trochanteric fracture of left femur, init for clos fx Office Visit 01/09/2021 10:30a [facility] Pulmonary/Thoracic D Piero CornellO J45.40 Moderate persistent asthma, uncomplicated Office Visit 12/24/2020 1:00p [facility] Fransisco Martin MD L76.34 Postproc seroma of skin, sub cu following other procedure Office Visit 11/01/2020 11:00a [facility] Silvestre Mack MD R13.10 Dysphagia, unspecified R49.0 Dysphonia K21.9 Gastro-esophageal reflux dis ease without esophagitis Office Visit 09/16/2020 2:30p [facility] Silvestre Mack MD R13.10 Dysphagia, unspecified R49.0 Dysphonia R07.0 Pain in throat Assessments Date Code Description Provider 02/21/2021 S72.102A Unspecified trochant zeke fracture of left femur, initial encounter for closed fracture Rickie Newman MD 01/09/2021 J45.40 Moderate persistent asthma, unco [...] 2:30 pm - Rickie Newman MD at [facility] 02/21/2021 - Rickie Newman MD* S72.102A Unspecified trochanteric fracture of left femur, initial encounter for closed fracture* New Xrays:* XR Hip 2-3 Views Left, Ordered: 02/21/21 * Comments:* The patient demonstrates a minimally displaced left greater trochanteric hip fracture with some mild comminution. There is been no significant displacement. The patient will continue with weightbearing as tolerated and able to fully weight-bear. She was advised to utilize her walker [...]
--- OUTSIDE RECORDS SUMMARY | 2021-04-15 19:48 | CCD ---
Continuity of Care Document (CCD) Created on: 01/21/2021 ChavaAllyn External Reference #: [id number] : [id number] Sex: Female Author Author Allyn LIVE DO Organization Unknown Address [address] [place] [address] Phone [phone] Care Team Providers Care Dramatic Agent Name Role Phone Myles Leon D.O. AUTM [phone] Mahnaz Farah M.D. AUTM [phone] Central Scheduling AUTM [phone] Sdio AUTM [phone] [facility]St AUTM [phone] Problems Active Problems Provider Date Allergic asthma [...] Start: Unknown Denies Smoking Smoking Status Reviewed: 01/10/20 Denies Smoking Allergies, Adverse Reactions, Alerts Active Allergies Criticality Reaction | Severity Comments Date NKDA Unable to assess criticality 09/18/2015 Adhesives Unable to assess criticality SKIN RASH Large Amount s 02/21/2013 Medications Active Medications SIG Qnty Indications Ordering Provide r Date Albuterol Sulfate HFA 108(90Base) mcg/Act Aerosol 2 puffs four times a day as needed 25.5gm Rickie Live, DO 12/10/2020 Breo Ellipta 200-25mcg/Inh Aerosol one inhalation daily 60units Rickie Live, DO 03/23/2016 Vitamin D3 25mcg (1000 Ut) Tablets 2 [...] CPT Code Status Date Vaccine Lot # [id number] Given 03/04/2016 Influenza Virus Split 3 Yrs And Above For Intramuscular Use 85318 Given 03/13/2015 Influenza Virus Split 3 Yrs And Above For Intramuscular Use 51060 Given 03/21/2014 Influenza Virus Split 3 Yrs And Above For Intramuscular Use Q2036 Given 02/15/2013 Influenza Vaccine 3 Years Of Age Or Older (Flulaval) Q2036 Given 02/09/2012 Influenza Vaccine 3 Years Of Age Or Older (Flulaval) Q2036 Given 04/01/2011 Influenza Vaccine 3 Years Of Age Or Older (Flulaval) 17618 Given 03/18/2011 Pneumococcal PPSV23 46801 Given 02/19/2010 Influenza Virus Split 3 Yrs And Above For Intramuscular Use Vital Signs Date Vital Result Comment 01/09/2021 10:38am BP Systolic 104 mmHg BP Diastolic 58 mmHg Heart Rate 81 /min O2 % BldC Oximetry 97 % Height 57 inches 4'9" Weight 114.00 lb BMI (Body Mass Index) 24.7 kg/m2 [place] Body Weight 100 lb Weight 51.710 kg BSA (Body Surface Area) 1.42 m2 12/24/2020 1:08pm BP Systolic 120 mmHg BP Diastolic 73 mmHg Body Temperature 98.7 F Height 57 inches 4'9" Weight 114.38 lb BMI (Body Mass Index) 24.7 kg/m2 [place] Body Weight 100 lb Weight 51.880 kg BSA (Body Surface Area) 1.42 m2 Results Test Acquired Date Facility Test Result H/L Range Note FVL/[place] 01/09/2021 [employer] PD[facility]eport SEE IMAGE FVC-Pred 1.48 L FVC-Pre 1.29 L FVC-%Pred-Pre 87 L FVC-LLN 0.93 L Fev1-Pred 1.06 L Fev1-Pre 1.07 L Fev1-%Pred-Pre 101 L Fev1-LLN 0.60 L Fev6-Pred 1.36 L Fev6-Pre 1.28 L Fev6-%Pred-Pre 93 L Fev6-LLN 0.82 L Vbc7brs-Xtba 72 % Jva2cdk-Csy 83 % Pfj0zvh-%Pred-Pre 114 % Txc0elo-OJO 62 % Kbp8isj-Tlvu 92 % Mym0mng-Ipb 99 % Rom8ufy-%Pred-Pre 107 % FEFMax-Pred 3.05 L/E/sec FEFMax-Pre 2.00 L/E/sec FEFMax-%Pred-Pre 65 L/E/sec FEFMax-LLN 1.69 L/E/sec Iph2908-Qnik 0.66 L/E/sec Dyy2158-Lie 1.16 L/E/sec Giu8485-%Pred-Pre 176 L/E/sec Ffw5173-EUJ -0.32 L/E/sec ExpTime-Pre 6.54 sec Hvs0aro8-Ctns 77 % Oxw7klw2-Zkn 84 % Fyl0lrj7-%Pred-Pre 109 % Rbn1epv8-DKK 68 % Laboratory test finding 10/25/2020 [facility] Main Lab [address] [place] [address] [phone] [phone] Bedside Glucose 207 mg/dL High 83-110 Complete Blood Count 10/25/2020 [facility] Main Lab [address] [place] [address] [id number] [phone] White Blood Count 6.6 10 Normal 4.0-10.0 [...] % Normal 0-0 Basic Metabolic Profile 10/25/2020 [facility] Main Lab [address] [place] [address] [phone] Glucose, Fasting 146 mg/dL High 70-100 Blood [...] mg/dL Normal 8.8-10.2 Laboratory test finding 10/25/2020 [facility] Main Lab [address] [place] [address] [phone] Bedside Glucose 144 mg/dL High 83-110 Laboratory test finding 10/24/2020 [facility] Main Lab [address] [place] [address] [phone] [phone] Bedside Glucose 141 mg/dL High 83-110 Complete Blood Count 10/24/2020 [facility] Main Lab [address] [place] [address] [phone] White Blood Count 8.5 10 Normal 4.0-10.0 [...] 0.0 % Normal 0-0 Prothrombin Time/Inr 10/24/2020 [facility] Main Lab [address] [place], [place] [phone] Prothrombin Time 14.6 seconds High 12.5-14.3 Inr 1.12 Normal 2 Laboratory test finding 10/24/2020 [facility] Main Lab [address] [place] [address] [phone] Partial Thromboplastin Time 29.6 seconds Normal 24 .2-38.5 3 Comprehensive Metabolic Profil 10/24/2020 [facility] Main Lab [address] [place], [place] 0679566 [phone] Glucose, Fasting 157 mg/dL High 70-100 Blood [...] 1.7 Normal 1.2-2.2 Laboratory test finding 10/24/2020 [facility] Main Lab [address] [place], [place] 0960650 [phone] Bedside Glucose 93 mg/dL Normal 83-110 Laboratory test finding 09/05/2020 [facility] Main Lab [address] [place], [place] 4641171 [phone] Bedside Glucose 103 mg/dL Normal 83-110 5 Laboratory test finding 09/04/2020 [facility] Main Lab [address] [place] [address] [phone] Pathology Request For Service (SEE NOTE) 6 1 Units are mL/min/1.73 m2 Chronic Kidney Disease Staging per NKF: Stage I & II GFR >=60 Normal to Mildly Decreased Stage III GFR 30-59 Moderately Decreased Stage IV GFR 15-29 Severely Decreased Stage V GFR <15 Very Little GFR Left ESRD GFR <15 on SHEARER OPERATOR 2 THERAPUTIC HUMAN INR VALUES INDICATIONS NORMAL [...] Little GFR Left ESRD GFR <15 on SHEARER OPERATOR 5 Doctor Notified 6 FINAL DIAGNOSIS Vocal [...] 09/06/2020 1151 Procedures Date Code Description Status 01/09/2021 74653 Office/Outpatient Established Lo w MDM 20-29 Min Completed 01/09/2021 33488 Spirometry Completed 11/01/2020 18357 Office/Outpatient Established Lo w MDM 20-29 Min Completed 10/24/2020 51113 Laryngoscopy Flexibl e W/ Ablation/Destruct Lesion(S) Laser Unilat Completed 09/16/2020 14356 Office/Outpatient Established Lo w MDM 20-29 Min Completed 09/05/2020 18520 Laryngoscopy Direct Biopsy W/Ope rating Microscope Completed 08/02/2020 30512 Office/Outpatient New Moderate M DM 45-59 Minutes Completed 08/02/2020 95039 Laryngoscopy Flexible Fiberoptic Diagnostic Completed Medical Devices Description No Information Available Encounters Type Date Location Provider Dx Diagnosis Office Visit 01/09/2021 10:30a [facility] Pulmonary/Thoracic D christopher Live DO J45.40 Moderate persistent asthma, uncomplicated Office Visit 11/01/2020 11:00a [facility] Silvestre Mack MD R13.10 Dysphagia, unspecified R49.0 Dysphonia K21.9 Gastro-esophageal reflux dis ease without esophagitis Office Visit 09/16/2020 2:30p [facility] Silvestre Mack MD R13.10 Dysphagia, unspecified R49.0 Dysphonia R07.0 Pain in throat Office Visit 08/02/2020 1:00p [facility] Silvestre Mack MD R49.0 Dysphonia K21.9 Gastro-esophageal reflux dis ease without esophagitis J37.0 Chronic laryngitis R05 Cough Assessments Date Code Description Provider 01/09/2021 J45.40 Moderate persistent asthma, unco mplicated Rickie Live, 11/12/2020 L76.34 Postprocedural serom a of skin and subcutaneous tissue following other procedure Jono Martin MD 11/01/2020 R13.10 Dysphagia, unspecified Silvestre laws MD 11/01/2020 R49.0 Dysphonia Silvestre Mack MD 11/01/2020 K21.9 Gastro-esophageal reflux disease without esophagitis Silvestre Mack MD 10/24/2020 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 Katelynn Mack MD 09/16/2020 R13.10 Dysphagia, unspecified Silvestre laws MD 09/16/2020 R49.0 Dysphonia Silvestre Mack MD 09/16/2020 R07.0 Pain in throat Silvestre Mack MD 09/05/2020 J37.0 Chronic laryngwaylon Mack MD 09/05/2020 R49.0 Shante Mack MD 09/05/2020 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 We discussed the importance of infection surveillance. She is fully vaccinated against COVID- 19, and will obtain a flu shot in the fall. Follow-up will be scheduled in one year. She will call earlier if new symptoms intervene. * Follow up:* 01/09/21 OFFICE VISIT (page 2 of 2) Follow up in a year with Spirometry/FVL please. HIPPA to send notes to Dr. Farah. Functional Status Description No Information Available Mental Status Description No Information Available Referrals Description No Information Available
--- OUTSIDE RECORDS SUMMARY | 2021-04-15 19:48 | CCD | Continuity of Care Document ---
Author Author Allyn NEWMAN MD Organization Unknown Address [address] , [facility] [place] [address] Phone [phone] Care Team Providers Care Woodworking Bench Carpenter Name Role Phone Myles Leon D.O. AUTM [phone] Mahnaz Farah M.D. AUTM [phone] Central Scheduling AUTM [phone] Sdio AUTM [phone] [facility]PT[facility]Oc,St AUTM AUTM Unavailable [...] CPT Code Status Date Vaccine Lot # [id number] Given 03/04/2016 Influenza Virus Split 3 Yrs And Above For Intramuscular Use 31989 Given 03/13/2015 Influenza Virus Split 3 Yrs And Above For Intramuscular Use 00015 Given 03/21/2014 Influenza Virus Split 3 Yrs And Above For Intramuscular Use Q2036 Given 02/15/2013 Influenza Vaccine 3 Years Of Age Or Older (Flulaval) Q2036 Given 02/09/2012 Influenza Vaccine 3 Years Of Age Or Older (Flulaval) Q2036 Given 04/01/2011 Influenza Vaccine 3 Years Of Age Or Older (Flulaval) 92648 Given 03/18/2011 Pneumococcal PPSV23 13160 Given 02/19/2010 Influenza Virus Split 3 Yrs And Above For Intramuscular Use Vital Signs Date Vital Result Comment 02/21/2021 1:54pm Body Temperature 97.5 F 01/09/2021 10:38am BP Systolic 104 mmHg BP Diastolic 58 mmHg Heart Rate 81 /min O2 % BldC Oximetry 97 % Height 57 inches 4'9" Weight 114.00 lb BMI (Body Mass Index) 24.7 kg/m2 [place] Body Weight 100 lb Weight 51.710 kg BSA (Body Surface Area) 1.42 m2 Results Test Acquired Date Facility Test Result H/L Range Note FVL/[place] 01/09/2021 [employer] PD[facility]eport SEE IMAGE FVC-Pred 1.48 L FVC-Pre 1.29 L FVC-%Pred-Pre 87 L FVC-LLN 0.93 L Fev1-Pred 1.06 L Fev1-Pre 1.07 L Fev1-%Pred-Pre 101 L Fev1-LLN 0.60 L Fev6-Pred 1.36 L Fev6-Pre 1.28 L Fev6-%Pred-Pre 93 L Fev6-LLN 0.82 L Rfb0wfx-Wlfh 72 % Wtk6evz-Hro 83 % Xri3fzp-%Pred-Pre 114 % Qss0vgs-MES 62 % Pre6fdj-Doqe 92 % Add5grs-Nyj 99 % Nsp1ifm-%Pred-Pre 107 % FEFMax-Pred 3.05 L/E/sec FEFMax-Pre 2.00 L/E/sec FEFMax-%Pred-Pre 65 L/E/sec FEFMax-LLN 1.69 L/E/sec Ott4672-Yrkd 0.66 L/E/sec Icl5900-Usq 1.16 L/E/sec Vow2265-%Pred-Pre 176 L/E/sec Mel1650-YSC -0.32 L/E/sec ExpTime-Pre 6.54 sec Hqj0xdk5-Bszz 77 % Vkl0lcw6-Gxv 84 % Nov1urr9-%Pred-Pre 109 % Gvo6sfp5-APN 68 % Laboratory test finding 10/25/2020 [facility] Main Lab [address] [place] [address] [phone] Bedside Glucose 207 mg/dL High 83-110 Complete Blood Count 10/25/2020 [facility] Main Lab [address] [place] [address] [id number] [phone] White Blood Count 6.6 10 Normal 4.0-10.0 [...] % Normal 0-0 Basic Metabolic Profile 10/25/2020 [facility] Main Lab [address] [place] [address] [id number] [phone] Glucose, Fasting 146 mg/dL High 70-100 Blood [...] mg/dL Normal 8.8-10.2 Laboratory test finding 10/25/2020 [facility] Main Lab [address] [place], [place] [id number] [phone] Bedside Glucose 144 mg/dL High 83-110 Laboratory test finding 10/24/2020 [facility] Main Lab [address] [place] [address] 02364 [phone] Bedside Glucose 141 mg/dL High 83-110 Complete Blood Count 10/24/2020 [facility] Main Lab [address] [place] [address] 76957 [phone] White Blood Count 8.5 10 Normal 4.0-10.0 [...] 0.0 % Normal 0-0 Prothrombin Time/Inr 10/24/2020 [facility] Main Lab [address] [place] [address] [phone] Prothrombin Time 14.6 seconds High 12.5-14.3 Inr 1.12 Normal 2 Laboratory test finding 10/24/2020 [facility] Main Lab [address] [place] [address] 77574 [phone] Partial Thromboplastin Time 29.6 seconds Normal 24 .2-38.5 3 Comprehensive Metabolic Profil 10/24/2020 [facility] Main Lab [address] [place], [place] [id number] [phone] Glucose, Fasting 157 mg/dL High 70-100 Blood [...] 1.7 Normal 1.2-2.2 Laboratory test finding 10/24/2020 [facility] Main Lab [address] [place], [place] 2142904 [phone] Bedside Glucose 93 mg/dL Normal 83-110 Laboratory test finding 09/05/2020 [facility] Main Lab [address] [place], [place] 0570350 [phone] Bedside Glucose 103 mg/dL Normal 83-110 5 Laboratory test finding 09/04/2020 [facility] Main Lab [address] [place] [address] [id number] [phone] Pathology Request For Service (SEE NOTE) 6 1 Units are mL/min/1.73 m2 Chronic Kidney Disease Staging per NKF: Stage I & II GFR >=60 Normal to Mildly Decreased Stage III GFR 30-59 Moderately Decreased Stage IV GFR 15-29 Severely Decreased Stage V GFR <15 Very Little GFR Left ESRD GFR <15 on SUPERVISOR LUMP ROOM 2 THERAPUTIC HUMAN INR VALUES INDICATIONS NORMAL [...] Little GFR Left ESRD GFR <15 on SUPERVISOR LUMP ROOM 5 Doctor Notified 6 FINAL DIAGNOSIS Vocal [...] 1151 Procedures Date Code Description Status 02/21/2021 43873 Office/Outpatient New Moderate M DM 45-59 Minutes Completed 01/09/2021 95717 Office/Outpatient Established Lo w MDM 20-29 Min Completed 01/09/2021 95017 Spirometry Completed 12/24/2020 12812 Office/Outpatient Established Lo w MDM 20-29 Min Completed 11/12/2020 87382 Office/Outpatient Established Lo w MDM 20-29 Min Completed 11/01/2020 74514 Office/Outpatient Established Lo w MDM 20-29 Min Completed 10/24/2020 28961 Laryngoscopy Flexibl e W/ Ablation/Destruct Lesion(S) Laser Unilat Completed 09/16/2020 91627 Office/Outpatient Established Lo w MDM 20-29 Min Completed 09/05/2020 39220 Laryngoscopy Direct Biopsy W/Ope rating Microscope Completed Medical Devices Description No Information Available Encounters Type Date Location Provider Dx Diagnosis Office Visit 02/21/2021 2:00p [facility] Rickie Newman MD S72.102A Unsp trochanteric fracture of left femur, init for clos fx Office Visit 01/09/2021 10:30a [facility] Pulmonary/Thoracic D Piero CornellO J45.40 Moderate persistent asthma, uncomplicated Office Visit 12/24/2020 1:00p [facility] Fransisco Martin MD L76.34 Postproc seroma of skin, sub cu following other procedure Office Visit 11/01/2020 11:00a [facility] Silvestre Mack MD R13.10 Dysphagia, unspecified R49.0 Dysphonia K21.9 Gastro-esophageal reflux dis ease without esophagitis Office Visit 09/16/2020 2:30p [facility] Silvestre Mack MD R13.10 [...] 2:30 pm - Rickie Newman MD at [facility] 02/21/2021 - Rickie Newman MD* S72.102A Unspecified [...]
--- OUTSIDE RECORDS SUMMARY | 2021-04-15 19:48 | CCD | Continuity of Care Document ---
Author Author JOHN SPENCER, Allyn Mclaughlin Organization Unknown Address [address] [place] [address] Phone [phone] Care Team Providers Care Internet Marketing Coordinator Name Role Phone Myles Leon D.O. AUTM [phone] Mahnaz Farah M.D. AUTM [phone] Central Scheduling AUTM [phone] Sdio AUTM [phone] [facility]St AUTM [phone] Problems Active Problems Provider Date Allergic asthma [...] Smoking Smoking Status Reviewed: 01/10/20 Denies Smoking Allergies and adverse reactions Active [...] inhalation daily 60units Rickie Live D.O 6 Vitamin D3 25mcg (1000 Ut) Tablets 2 [...] CPT Code Status Date Vaccine Lot # 29622 Given 03/04/2016 Influenza Virus Split 3 Yrs And Above For Intramuscular Use 34071 Given 03/13/2015 Influenza Virus Split 3 Yrs And Above For Intramuscular Use 26129 Given 03/21/2014 Influenza Virus Split 3 Yrs And Above For Intramuscular Use Q2036 Given 02/15/2013 Influenza Vaccine 3 Years Of Age Or Older (Flulaval) Q2036 Given 02/09/2012 Influenza Vaccine 3 Years Of Age Or Older (Flulaval) Q2036 Given 04/01/2011 Influenza Vaccine 3 Years Of Age Or Older (Flulaval) 90212 Given 03/18/2011 Pneumococcal PPSV23 92879 Given 02/19/2010 Influenza Virus Split 3 Yrs And Above For Intramuscular Use Vital Signs Date Vital Result Comment 01/09/2021 10:38am BP Systolic 104 mmHg BP Diastolic 58 mmHg Heart Rate 81 /min O2 % BldC Oximetry 97 % Height 57 inches 4'9" Weight 114.00 lb BMI (Body Mass Index) 24.7 kg/m2 [place] Body Weight 100 lb Weight 51.710 kg BSA (Body Surface Area) 1.42 m2 12/24/2020 1:08pm BP Systolic 120 mmHg BP Diastolic 73 mmHg Body Temperature 98.7 F Height 57 inches 4'9" Weight 114.38 lb BMI (Body Mass Index) 24.7 kg/m2 [place] Body Weight 100 lb Weight 51.880 kg BSA (Body Surface Area) 1.42 m2 Results Test Acquired Date Facility Test Result H/L Range Note FVL/Ty 01/09/2021 [facility] PD[facility]eport SEE IMAGE FVC-Pred 1.48 L FVC-Pre 1.29 L FVC-%Pred-Pre 87 L FVC-LLN 0.93 L Fev1-Pred 1.06 L Fev1-Pre 1.07 L Fev1-%Pred-Pre 101 L Fev1-LLN 0.60 L Fev6-Pred 1.36 L Fev6-Pre 1.28 L Fev6-%Pred-Pre 93 L Fev6-LLN 0.82 L Mqd2cth-Zlvp 72 % Gxz3hth-Vnc 83 % Vcn1kvl-%Pred-Pre 114 % Lbk8fwa-AZK 62 % Wgl3xqt-Ucqu 92 % Dkp2dyv-Ycc 99 % Zgl3vdp-%Pred-Pre 107 % FEFMax-Pred 3.05 L/E/sec FEFMax-Pre 2.00 L/E/sec FEFMax-%Pred-Pre 65 L/E/sec FEFMax-LLN 1.69 L/E/sec Thd3313-Vbbw 0.66 L/E/sec Srp6795-Zdw 1.16 L/E/sec Oui3071-%Pred-Pre 176 L/E/sec Xwq7023-VRN -0.32 L/E/sec ExpTime-Pre 6.54 sec Iig4una9-Lymy 77 % Ynv5pnr1-Fed 84 % Trj3avp1-%Pred-Pre 109 % Xwg5ymk3-BEK 68 % Laboratory test finding 10/25/2020 [facility] Main Lab [address] [place] [address] [id number] [phone] Bedside Glucose 207 mg/dL High 83-110 Complete Blood Count 10/25/2020 [facility] Main Lab [address] [place] [address] [id number] [phone] White Blood Count 6.6 10 Normal 4.0-10.0 [...] % Normal 0-0 Basic Metabolic Profile 10/25/2020 [facility] Main Lab [address] [place] [address] [id number] [phone] Glucose, Fasting 146 mg/dL High 70-100 Blood [...] mg/dL Normal 8.8-10.2 Laboratory test finding 10/25/2020 [facility] Main Lab [address] [place], [place] 7777773 [phone] Bedside Glucose 144 mg/dL High 83-110 Laboratory test finding 10/24/2020 [facility] Main Lab [address] [place], [place] 2299504 [phone] Bedside Glucose 141 mg/dL High 83-110 Complete Blood Count 10/24/2020 [facility] enter Main Lab [address] [place], [place] 3305385 [phone] White Blood Count 8.5 10 Normal 4.0-10.0 [...] 0.0 % Normal 0-0 Prothrombin Time/Inr 10/24/2020 [facility] enter Main Lab [address] [place], [place] 2312293 [phone] Prothrombin Time 14.6 seconds High 12.5-14.3 Inr 1.12 Normal 2 Laboratory test finding 10/24/2020 [facility] Main Lab [address] [place] [address] [phone] Partial Thromboplastin Time 29.6 seconds Normal 24 .2-38.5 3 Comprehensive Metabolic Profil 10/24/2020 [facility] Main Lab [address] [place], [place] 4778827 [phone] Glucose, Fasting 157 mg/dL High 70-100 Blood [...] 1.7 Normal 1.2-2.2 Laboratory test finding 10/24/2020 [facility] Main Lab [address] [place], [place] 2944134 [phone] Bedside Glucose 93 mg/dL Normal 83-110 Laboratory test finding 09/05/2020 [facility] Main Lab [address] [place], [place] 7518862 [phone] Bedside Glucose 103 mg/dL Normal 83-110 5 Laboratory test finding 09/04/2020 [facility] Main Lab [address] [place] [address] [id number] [phone] Pathology Request For Service (SEE NOTE) 6 1 Units are mL/min/1.73 m2 Chronic Kidney Disease Staging per NKF: Stage I & II GFR >=60 Normal to Mildly Decreased Stage III GFR 30-59 Moderately Decreased Stage IV GFR 15-29 Severely Decreased Stage V GFR <15 Very Little GFR Left ESRD GFR <15 on ASSISTANT FITNESS MANAGER 2 THERAPUTIC HUMAN INR VALUES INDICATIONS NORMAL [...] Little GFR Left ESRD GFR <15 on ASSISTANT FITNESS MANAGER 5 Doctor Notified 6 FINAL DIAGNOSIS Vocal [...] 1151 Procedures Date Code Description Status 01/09/2021 17074 Office/Outpatient Established Lo w MDM 20-29 Min Completed 01/09/2021 28687 Spirometry Completed 12/24/2020 77777 Office/Outpatient Established Lo w MDM 20-29 Min Completed 11/12/2020 83451 Office/Outpatient Established Lo w MDM 20-29 Min Completed 11/01/2020 47126 Office/Outpatient Established Lo w MDM 20-29 Min Completed 10/24/2020 21444 Laryngoscopy Flexibl e W/ Ablation/Destruct Lesion(S) Laser Unilat Completed 09/16/2020 37118 Office/Outpatient Established Lo w MDM 20-29 Min Completed 09/05/2020 76106 Laryngoscopy Direct Biopsy W/Ope rating Microscope Completed Medical Devices Description No Information Available Encounters Type Date Location Provider Dx Diagnosis Office Visit 01/09/2021 10:30a [facility] Pulmonary/Thoracic D christopher Live D.O J45.40 Moderate persistent asthma, uncomplicated Office Visit 12/24/2020 1:00p [facility] Surgery Practice Edu tiana Martin MD L76.34 Postproc seroma of skin, sub cu following other procedure Office Visit 11/01/2020 11:00a [facility] ENT Practice Silvestre Mack MD R13.10 Dysphagia, unspecified R49.0 Dysphonia K21.9 Gastro-esophageal reflux dis ease without esophagitis Office Visit 09/16/2020 2:30p [facility] ENT Practice Silvestre Mack MD R13.10 Dysphagia, unspecified R49.0 Dysphonia R07.0 Pain in throat Assessments Date Code Description Provider 01/09/2021 J45.40 [...] K21.9 Gastro-esophageal reflux disease without esophagitis Silvestre Makc MD 10/24/2020 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
--- OUTSIDE RECORDS SUMMARY | 2021-04-15 19:48 | CCD ---
Continuity of Care Document (CCD) Created on: 02/21/2021 Allyn Larsen External Reference #: [id number] : [id number] Sex: Female Author Author Allyn NEWMAN MD Organization Unknown Address [address] , [facility] [address] Phone [phone] Care Team Providers Care Manager Administrative Services Name Role Phone Myles Leon D.O. AUTM [phone] Mahnaz Farah M.D. AUTM [phone] Central Scheduling AUTM [phone] Sdio AUTM [phone] [facility]PT[facility],St AUTM AUTM Unavailable [...] CPT Code Status Date Vaccine Lot # 20951 Given 03/04/2016 Influenza Virus Split 3 Yrs And Above For Intramuscular Use 08423 Given 03/13/2015 Influenza Virus Split 3 Yrs And Above For Intramuscular Use 44409 Given 03/21/2014 Influenza Virus Split 3 Yrs And Above For Intramuscular Use Q2036 Given 02/15/2013 Influenza Vaccine 3 Years Of Age Or Older (Flulaval) Q2036 Given 02/09/2012 Influenza Vaccine 3 Years Of Age Or Older (Flulaval) Q2036 Given 04/01/2011 Influenza Vaccine 3 Years Of Age Or Older (Flulaval) 00059 Given 03/18/2011 Pneumococcal PPSV23 41319 Given 02/19/2010 Influenza Virus Split 3 Yrs And Above For Intramuscular Use Vital Signs Date Vital Result Comment 02/21/2021 1:54pm Body Temperature 97.5 F 01/09/2021 10:38am BP Systolic 104 mmHg BP Diastolic 58 mmHg Heart Rate 81 /min O2 % BldC Oximetry 97 % Height 57 inches 4'9" Weight 114.00 lb BMI (Body Mass Index) 24.7 kg/m2 [place] Body Weight 100 lb Weight 51.710 kg BSA (Body Surface Area) 1.42 m2 Results Test Acquired Date Facility Test Result H/L Range Note FVL/[place] 01/09/2021 [facility] PDFReport SEE IMAGE FVC-Pred 1.48 L FVC-Pre 1.29 L FVC-%Pred-Pre 87 L FVC-LLN 0.93 L Fev1-Pred 1.06 L Fev1-Pre 1.07 L Fev1-%Pred-Pre 101 L Fev1-LLN 0.60 L Fev6-Pred 1.36 L Fev6-Pre 1.28 L Fev6-%Pred-Pre 93 L Fev6-LLN 0.82 L Kja4yky-Kgxx 72 % Lvs5des-Yvv 83 % Abh6mtn-%Pred-Pre 114 % Nuc4bgc-LYS 62 % Veb7oyv-Qwpu 92 % Qvo6tnn-Jxi 99 % Zxj5ddo-%Pred-Pre 107 % FEFMax-Pred 3.05 L/E/sec FEFMax-Pre 2.00 L/E/sec FEFMax-%Pred-Pre 65 L/E/sec FEFMax-LLN 1.69 L/E/sec Bmv7986-Zzyz 0.66 L/E/sec Hde9635-Cvm 1.16 L/E/sec Zsc7803-%Pred-Pre 176 L/E/sec Msz0515-BBC -0.32 L/E/sec ExpTime-Pre 6.54 sec Sor0jlb9-Oiti 77 % Eza8kru0-Iyk 84 % Snz9vdu3-%Pred-Pre 109 % Obo4rph8-YWW 68 % Laboratory test finding 10/25/2020 [facility] Main Lab [address] [place] [address] 7502471 [phone] Bedside Glucose 207 mg/dL High 83-110 Complete Blood Count 10/25/2020 [facility] Main Lab [address] [place] [address] 4170090 [phone] White Blood Count 6.6 10 Normal 4.0-10.0 [...] % Normal 0-0 Basic Metabolic Profile 10/25/2020 [facility] Main Lab [address] [place] [address] 1653777 [phone] Glucose, Fasting 146 mg/dL High 70-100 Blood [...] mg/dL Normal 8.8-10.2 Laboratory test finding 10/25/2020 [facility] Main Lab [address] [place], [place] 5251882 [phone] Bedside Glucose 144 mg/dL High 83-110 Laboratory test finding 10/24/2020 [facility] Main Lab [address] [place] [address] [phone] Bedside Glucose 141 mg/dL High 83-110 Complete Blood Count 10/24/2020 [facility] Main Lab [address] [place] [address] 67146 [phone] White Blood Count 8.5 10 Normal 4.0-10.0 [...] 0.0 % Normal 0-0 Prothrombin Time/Inr 10/24/2020 [facility] Main Lab [address] [place] [address] [phone] Prothrombin Time 14.6 seconds High 12.5-14.3 Inr 1.12 Normal 2 Laboratory test finding 10/24/2020 [facility] Main Lab [address] [place] [address] 52863 [phone] Partial Thromboplastin Time 29.6 seconds Normal 24 .2-38.5 3 Comprehensive Metabolic Profil 10/24/2020 [facility] Main Lab [address] [place], [place] 4584856 [phone] Glucose, Fasting 157 mg/dL High 70-100 Blood [...] 1.7 Normal 1.2-2.2 Laboratory test finding 10/24/2020 [facility] Main Lab [address] [place], [place] 8342434 [phone] Bedside Glucose 93 mg/dL Normal 83-110 Laboratory test finding 09/05/2020 [facility] Main Lab [address] [place], [place] 9222566 [phone] Bedside Glucose 103 mg/dL Normal 83-110 5 Laboratory test finding 09/04/2020 [facility] Main Lab [address] [place] [address] [id number] [phone] Pathology Request For Service (SEE NOTE) 6 1 Units are mL/min/1.73 m2 Chronic Kidney Disease Staging per NKF: Stage I & II GFR >=60 Normal to Mildly Decreased Stage III GFR 30-59 Moderately Decreased Stage IV GFR 15-29 Severely Decreased Stage V GFR <15 Very Little GFR Left ESRD GFR <15 on STREETCAR DISPATCHER 2 THERAPUTIC HUMAN INR VALUES INDICATIONS NORMAL [...] Little GFR Left ESRD GFR <15 on STREETCAR DISPATCHER 5 Doctor Notified 6 FINAL DIAGNOSIS Vocal [...] 1151 Procedures Date Code Description Status 02/21/2021 69737 Office/Outpatient New Moderate M DM 45-59 Minutes Completed 01/09/2021 38445 Office/Outpatient Established Lo w MDM 20-29 Min Completed 01/09/2021 41533 Spirometry Completed 12/24/2020 77099 Office/Outpatient Established Lo w MDM 20-29 Min Completed 11/12/2020 30718 Office/Outpatient Established Lo w MDM 20-29 Min Completed 11/01/2020 96549 Office/Outpatient Established Lo w MDM 20-29 Min Completed 10/24/2020 25107 Laryngoscopy Flexibl e W/ Ablation/Destruct Lesion(S) Laser Unilat Completed 09/16/2020 93171 Office/Outpatient Established Lo w MDM 20-29 Min Completed 09/05/2020 34736 Laryngoscopy Direct Biopsy W/Ope rating Microscope Completed Medical Devices Description No Information Available Encounters Type Date Location Provider Dx Diagnosis Office Visit 02/21/2021 2:00p [facility] Orthopedics Rickie Newman MD S72.102A Unsp trochanteric fracture of left femur, init for clos fx Office Visit 01/09/2021 10:30a [facility] Pulmonary/Thoracic D Piero CornellO J45.40 Moderate persistent asthma, uncomplicated Office Visit 12/24/2020 1:00p [facility] Surgery Practice Fransisco Martin MD L76.34 Postproc seroma of skin, sub cu following other procedure Office Visit 11/01/2020 11:00a [facility] ENT Practice Silvestre Mack MD R13.10 Dysphagia, unspecified R49.0 Dysphonia K21.9 Gastro-esophageal reflux dis ease without esophagitis Office Visit 09/16/2020 2:30p [facility] ENT Practice Silvestre Mack MD R13.10 Dysphagia, [...] Polyp of vocal cord and larynx T ajnneth Mack MD 09/16/2020 R13.10 Dysphagia, unspecified Silvestre laws MD 09/16/2020 R49.0 Dysphonia Silvestre Mack MD 09/16/2020 R07.0 Pain in throat Silvestre Mack MD 09/05/2020 J37.0 Chronic laryngitis Silvestre Mack MD 09/05/2020 R49.0 Dysphonia Silvestre Mack MD 09/05/2020 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
--- OUTSIDE RECORDS SUMMARY | 2021-04-15 19:48 | CCD | Continuity of Care Document ---
Author Author Allyn NEWMAN MD Organization Unknown Address [address] , [facility] [place] [address] Phone [phone] Care Team Providers Care Skiing Teacher Name Role Phone Myles Leon D.O. AUTM [phone] Mahnaz Farah M.D. AUTM [phone] Central Scheduling AUTM [phone] Sdio AUTM [phone] [facility]hab[facility]PT,Oc,St AUTM AUTM Unavailable [...] CPT Code Status Date Vaccine Lot # [id number] Given 03/04/2016 Influenza Virus Split 3 Yrs And Above For Intramuscular Use 01591 Given 03/13/2015 Influenza Virus Split 3 Yrs And Above For Intramuscular Use 58128 Given 03/21/2014 Influenza Virus Split 3 Yrs And Above For Intramuscular Use Q2036 Given 02/15/2013 Influenza Vaccine 3 Years Of Age Or Older (Flulaval) Q2036 Given 02/09/2012 Influenza Vaccine 3 Years Of Age Or Older (Flulaval) Q2036 Given 04/01/2011 Influenza Vaccine 3 Years Of Age Or Older (Flulaval) 83688 Given 03/18/2011 Pneumococcal PPSV23 57533 Given 02/19/2010 Influenza Virus Split 3 Yrs And Above For Intramuscular Use Vital Signs Date Vital Result Comment 02/21/2021 1:54pm Body Temperature 97.5 F 01/09/2021 10:38am BP Systolic 104 mmHg BP Diastolic 58 mmHg Heart Rate 81 /min O2 % BldC Oximetry 97 % Height 57 inches 4'9" Weight 114.00 lb BMI (Body Mass Index) 24.7 kg/m2 [place] Body Weight 100 lb Weight 51.710 kg BSA (Body Surface Area) 1.42 m2 Results Test Acquired Date Facility Test Result H/L Range Note FVL/[place] 01/09/2021 [place] PDFReport SEE IMAGE FVC-Pred 1.48 L FVC-Pre 1.29 L FVC-%Pred-Pre 87 L FVC-LLN 0.93 L Fev1-Pred 1.06 L Fev1-Pre 1.07 L Fev1-%Pred-Pre 101 L Fev1-LLN 0.60 L Fev6-Pred 1.36 L Fev6-Pre 1.28 L Fev6-%Pred-Pre 93 L Fev6-LLN 0.82 L Hry6sqn-Ncgl 72 % Wte1dtc-Naa 83 % Wys9xck-%Pred-Pre 114 % Wra0wke-RGJ 62 % Kpy0smg-Xrij 92 % Iog0hin-Gha 99 % Jjl1nnx-%Pred-Pre 107 % FEFMax-Pred 3.05 L/E/sec FEFMax-Pre 2.00 L/E/sec FEFMax-%Pred-Pre 65 L/E/sec FEFMax-LLN 1.69 L/E/sec Osz8378-Xswn 0.66 L/E/sec Nnu5227-Uxs 1.16 L/E/sec Bjg4348-%Pred-Pre 176 L/E/sec Vcf9749-NJO -0.32 L/E/sec ExpTime-Pre 6.54 sec Xzo5ukt7-Qpwx 77 % Yan6wxj1-Dwq 84 % Soq9taw8-%Pred-Pre 109 % Rhn1dek8-BBQ 68 % Laboratory test finding 10/25/2020 [facility] Main Lab [address] [place] [address] [id number] [phone] Bedside Glucose 207 mg/dL High 83-110 Complete Blood Count 10/25/2020 [facility] Main Lab [address] [place] [address] [id number] [phone] White Blood Count 6.6 10 Normal 4.0-10.0 [...] % Normal 0-0 Basic Metabolic Profile 10/25/2020 [facility] Main Lab [address] [place] [address] [id number] [phone] Glucose, Fasting 146 mg/dL High 70-100 Blood [...] mg/dL Normal 8.8-10.2 Laboratory test finding 10/25/2020 [facility] Main Lab [address] [place], [place] 6434498 [phone] Bedside Glucose 144 mg/dL High 83-110 Laboratory test finding 10/24/2020 [facility] Main Lab [address] [place] [address] 46[address] [phone] Bedside Glucose 141 mg/dL High 83-110 Complete Blood Count 10/24/2020 [facility] Main Lab [address] [place] [address] 34085 [phone] White Blood Count 8.5 10 Normal 4.0-10.0 [...] 0.0 % Normal 0-0 Prothrombin Time/Inr 10/24/2020 [facility] Main Lab [address] [place] [address] [phone] Prothrombin Time 14.6 seconds High 12.5-14.3 Inr 1.12 Normal 2 Laboratory test finding 10/24/2020 [facility] Main Lab [address] [place] [address] 46789 [phone] Partial Thromboplastin Time 29.6 seconds Normal 24 .2-38.5 3 Comprehensive Metabolic Profil 10/24/2020 [facility] Main Lab [address] [place], [place] 9116278 [phone] Glucose, Fasting 157 mg/dL High 70-100 Blood [...] 1.7 Normal 1.2-2.2 Laboratory test finding 10/24/2020 [facility] Main Lab [address] [place], [place] 0603588 [phone] Bedside Glucose 93 mg/dL Normal 83-110 Laboratory test finding 09/05/2020 [facility] Main Lab [address] [place], [place] 7652080 [phone] Bedside Glucose 103 mg/dL Normal 83-110 5 Laboratory test finding 09/04/2020 [facility] Main Lab [address] [place] [address] [id number] [phone] Pathology Request For Service (SEE NOTE) 6 1 Units are mL/min/1.73 m2 Chronic Kidney Disease Staging per NKF: Stage I & II GFR >=60 Normal to Mildly Decreased Stage III GFR 30-59 Moderately Decreased Stage IV GFR 15-29 Severely Decreased Stage V GFR <15 Very Little GFR Left ESRD GFR <15 on OPERATOR GROUND BASED AIR DEFENCE 2 THERAPUTIC HUMAN INR VALUES INDICATIONS NORMAL [...] Little GFR Left ESRD GFR <15 on OPERATOR GROUND BASED AIR DEFENCE 5 Doctor Notified 6 FINAL DIAGNOSIS Vocal [...] 1151 Procedures Date Code Description Status 02/21/2021 66358 Office/Outpatient New Moderate M DM 45-59 Minutes Completed 01/09/2021 93650 Office/Outpatient Established Lo w MDM 20-29 Min Completed 01/09/2021 51358 Spirometry Completed 12/24/2020 66077 Office/Outpatient Established Lo w MDM 20-29 Min Completed 11/12/2020 90042 Office/Outpatient Established Lo w MDM 20-29 Min Completed 11/01/2020 55349 Office/Outpatient Established Lo w MDM 20-29 Min Completed 10/24/2020 95269 Laryngoscopy Flexibl e W/ Ablation/Destruct Lesion(S) Laser Unilat Completed 09/16/2020 48620 Office/Outpatient Established Lo w MDM 20-29 Min Completed 09/05/2020 73633 Laryngoscopy Direct Biopsy W/Ope rating Microscope Completed Medical Devices Description No Information Available Encounters Type Date Location Provider Dx Diagnosis Office Visit 02/21/2021 2:00p [facility] Orthopedics Rickie Newman MD S72.102A Unsp trochanteric fracture of left femur, init for clos fx Office Visit 01/09/2021 10:30a [facility] Pulmonary/Thoracic D Piero CornellO J45.40 Moderate persistent asthma, uncomplicated Office Visit 12/24/2020 1:00p [facility] Surgery Practice Fransisco Martin MD L76.34 Postproc seroma of skin, sub cu following other procedure Office Visit 11/01/2020 11:00a [facility] ENT Practice Silvestre Mack MD R13.10 Dysphagia, unspecified R49.0 Dysphonia K21.9 Gastro-esophageal reflux dis ease without esophagitis Office Visit 09/16/2020 2:30p [facility] ENT Practice Silvestre Mack MD [...] 2:30 pm - Rickie Newman MD at [facility] 02/21/2021 - Rickie Newman MD* S72.102A [...]
--- OUTSIDE RECORDS SUMMARY | 2021-04-15 19:48 | CCD | Continuity of Care Document ---
Author Author Allyn LIVE DO Organization Unknown Address [address] [place] [address] Phone [phone] Care Team Providers Care Receiving Barn Custodian Name Role Phone Myles Leon D.O. AUTM [phone] Mahnaz Farah M.D. AUTM [phone] Central Scheduling AUTM [phone] Sdio AUTM [phone] [facility]PT[facility]c,St AUTM Problems Active Problems Provider Date Allergic asthma [...] CPT Code Status Date Vaccine Lot # 97570 Given 03/04/2016 Influenza Virus Split 3 Yrs And Above For Intramuscular Use 01277 Given 03/13/2015 Influenza Virus Split 3 Yrs And Above For Intramuscular Use 74137 Given 03/21/2014 Influenza Virus Split 3 Yrs And Above For Intramuscular Use Q2036 Given 02/15/2013 Influenza Vaccine 3 Years Of Age Or Older (Flulaval) Q2036 Given 02/09/2012 Influenza Vaccine 3 Years Of Age Or Older (Flulaval) Q2036 Given 04/01/2011 Influenza Vaccine 3 Years Of Age Or Older (Flulaval) 40350 Given 03/18/2011 Pneumococcal PPSV23 47380 Given 02/19/2010 Influenza Virus Split 3 Yrs And Above For Intramuscular Use Vital Signs Date Vital Result Comment 01/09/2021 10:38am BP Systolic 104 mmHg BP Diastolic 58 mmHg Heart Rate 81 /min O2 % BldC Oximetry 97 % Height 57 inches 4'9" Weight 114.00 lb BMI (Body Mass Index) 24.7 kg/m2 [place] Body Weight 100 lb Weight 51.710 kg BSA (Body Surface Area) 1.42 m2 12/24/2020 1:08pm BP Systolic 120 mmHg BP Diastolic 73 mmHg Body Temperature 98.7 F Height 57 inches 4'9" Weight 114.38 lb BMI (Body Mass Index) 24.7 kg/m2 [place] Body Weight 100 lb Weight 51.880 kg BSA (Body Surface Area) 1.42 m2 Results Test Acquired Date Facility Test Result H/L Range Note FVL/[place] 01/09/2021 [employer] PDFReport SEE IMAGE FVC-Pred 1.48 L FVC-Pre 1.29 L FVC-%Pred-Pre 87 L FVC-LLN 0.93 L Fev1-Pred 1.06 L Fev1-Pre 1.07 L Fev1-%Pred-Pre 101 L Fev1-LLN 0.60 L Fev6-Pred 1.36 L Fev6-Pre 1.28 L Fev6-%Pred-Pre 93 L Fev6-LLN 0.82 L Mcm0icb-Dplk 72 % Vqf1pot-Awz 83 % Wuc6nlq-%Pred-Pre 114 % Wrr7hfo-JYM 62 % Cqi9aos-Dwpl 92 % Fwq6srt-Tuk 99 % Dcd6iee-%Pred-Pre 107 % FEFMax-Pred 3.05 L/E/sec FEFMax-Pre 2.00 L/E/sec FEFMax-%Pred-Pre 65 L/E/sec FEFMax-LLN 1.69 L/E/sec Hoi2833-Zunb 0.66 L/E/sec Zfi2619-Xiq 1.16 L/E/sec Kbh4070-%Pred-Pre 176 L/E/sec Qpt1549-XEO -0.32 L/E/sec ExpTime-Pre 6.54 sec Amx0pnw1-Pjzu 77 % Fdd5orj0-Twb 84 % Dwn8tce9-%Pred-Pre 109 % Szx8wrv8-HFO 68 % Laboratory test finding 10/25/2020 [facility] Main [facility] [address] [place] [address] [id number] [phone] Bedside Glucose 207 mg/dL High 83-110 Complete Blood Count 10/25/2020 [facility] Main Lab [address] [place] [address] [id number] [phone] White Blood Count 6.6 10 Normal 4.0-10.0 [...] % Normal 0-0 Basic Metabolic Profile 10/25/2020 [facility] [address] [place] [address] [id number] [phone] Glucose, Fasting 146 mg/dL High 70-100 Blood [...] mg/dL Normal 8.8-10.2 Laboratory test finding 10/25/2020 [facility] Lab [address] [place] [address] [phone] Bedside Glucose 144 mg/dL High 83-110 Laboratory test finding 10/24/2020 [facility] [address] [place] [address] [id number] [phone] Bedside Glucose 141 mg/dL High 83-110 Complete Blood Count 10/24/2020 [facility] Main Lab [address] [place] [address] [id number] [phone] White Blood Count 8.5 10 Normal 4.0-10.0 [...] Prothrombin Time/Inr 10/24/2020 [facility] enter Main Lab [address] [place], [place] [id number] [phone] Prothrombin Time 14.6 seconds High 12.5-14.3 Inr 1.12 Normal 2 Laboratory test finding 10/24/2020 [facility] [address] [place] [address] [id number] [phone] Partial Thromboplastin Time 29.6 seconds Normal 24 .2-38.5 3 Comprehensive Metabolic Profil 10/24/2020 [facility] Lab [address] [place], [place] [id number] [phone] Glucose, Fasting 157 mg/dL High 70-100 Blood [...] 1.7 Normal 1.2-2.2 Laboratory test finding 10/24/2020 [facility] Lab [address] [place], [place] [id number] [phone] Bedside Glucose 93 mg/dL Normal 83-110 Laboratory test finding 09/05/2020 [facility] Lab [address] [place], [place] [id number] [phone] Bedside Glucose 103 mg/dL Normal 83-110 5 Laboratory test finding 09/04/2020 [facility] [address] [place] [address] [id number] [phone] Pathology Request For Service (SEE NOTE) 6 1 Units are mL/min/1.73 m2 Chronic Kidney Disease Staging per NKF: Stage I & II GFR >=60 Normal to Mildly Decreased Stage III GFR 30-59 Moderately Decreased Stage IV GFR 15-29 Severely Decreased Stage V GFR <15 Very Little GFR Left ESRD GFR <15 on PIT TANNER 2 THERAPUTIC HUMAN INR VALUES INDICATIONS NORMAL [...] Little GFR Left ESRD GFR <15 on PIT TANNER 5 Doctor Notified 6 FINAL DIAGNOSIS Vocal [...] 1151 Procedures Date Code Description Status 01/09/2021 17729 Office/Outpatient Established Mo d MDM 30-39 Min Completed 01/09/2021 22935 Spirometry Completed 11/01/2020 32025 Office/Outpatient Established Lo w MDM 20-29 Min Completed 10/24/2020 40325 Laryngoscopy Flexibl e W/ Ablation/Destruct Lesion(S) Laser Unilat Completed 09/16/2020 24851 Office/Outpatient Established Lo w MDM 20-29 Min Completed 09/05/2020 81221 Laryngoscopy Direct Biopsy W/Ope rating Microscope Completed 08/02/2020 35007 Office/Outpatient New Moderate M DM 45-59 Minutes Completed 08/02/2020 03578 Laryngoscopy Flexible Fiberoptic Diagnostic Completed Medical Devices Description No Information Available Encounters Type Date Location Provider Dx Diagnosis Office Visit 11/01/2020 11:00a [facility] Silvestre Mack MD R13.10 Dysphagia, unspecified R49.0 Dysphonia K21.9 Gastro-esophageal reflux dis ease without esophagitis Office Visit 09/16/2020 2:30p [facility] Silvestre Mack MD R13.10 Dysphagia, unspecified R49.0 Dysphonia R07.0 Pain in throat Office Visit 08/02/2020 1:00p [facility] Silvestre Mack MD R49.0 Dysphonia K21.9 Gastro-esophageal reflux dis ease without esophagitis J37.0 Chronic laryngitis R05 Cough Assessments Date Code Description Provider 01/09/2021 J45.40 Moderate persistent asthma, unco mplicated Rickie Live, 11/01/2020 R13.10 Dysphagia, unspecified Silvestre laws MD [...] and larynx Katelynn Mack MD 08/02/2020 R49.0 Shante Mack MD 08/02/2020 K21.9 Gastro-esophageal reflux disease without esophagitis Silvestre Mack MD 08/02/2020 J37.0 Chronic laryngitis Silvestre Mack MD 08/02/2020 R05 Cough Silvestre Mack MD Plan of Treatment Future Appointment(s):* 01/20/2021 1:15 pm - Silvestre Mack MD at [facility] 01/09/2021 - Rickie Live, DO* J45.40 Moderate persistent asthma, uncomplicated * * New Labs:* FVL/[place], Ordered: 01/09/21 * Follow up:* Follow up in a year with Spirometry/FVL please. HIPPA to send notes to Dr. Farah Functional Status Description No Information Available Mental Status Description No Information Available Referrals Refer to Dr Reason for Referral Status Appt Date Silvestre Mack MD voice hoarseness Closed [address] [place] [address] [phone]
--- OUTSIDE RECORDS SUMMARY | 2021-04-15 19:48 | CCD | Continuity of Care Document ---
Author Author Allyn NEWMAN MD Organization Unknown Address [address] , [facility] [place] [address] Phone [phone] Care Team Providers Care Fur Scraper Name Role Phone Myles Leon D.O. AUTM [phone] Mahnaz Farah M.D. AUTM [phone] Central Scheduling AUTM [phone] Sdio AUTM [phone] [facility]PT,[facility],St AUTM AUTM Unavailable [...] CPT Code Status Date Vaccine Lot # 60555 Given 03/04/2016 Influenza Virus Split 3 Yrs And Above For Intramuscular Use 71265 Given 03/13/2015 Influenza Virus Split 3 Yrs And Above For Intramuscular Use 72521 Given 03/21/2014 Influenza Virus Split 3 Yrs And Above For Intramuscular Use Q2036 Given 02/15/2013 Influenza Vaccine 3 Years Of Age Or Older (Flulaval) Q2036 Given 02/09/2012 Influenza Vaccine 3 Years Of Age Or Older (Flulaval) Q2036 Given 04/01/2011 Influenza Vaccine 3 Years Of Age Or Older (Flulaval) 63430 Given 03/18/2011 Pneumococcal PPSV23 23174 Given 02/19/2010 Influenza Virus Split 3 Yrs And Above For Intramuscular Use Vital Signs Date Vital Result Comment 02/21/2021 1:54pm Body Temperature 97.5 F 01/09/2021 10:38am BP Systolic 104 mmHg BP Diastolic 58 mmHg Heart Rate 81 /min O2 % BldC Oximetry 97 % Height 57 inches 4'9" Weight 114.00 lb BMI (Body Mass Index) 24.7 kg/m2 [place] Body Weight 100 lb Weight 51.710 kg BSA (Body Surface Area) 1.42 m2 Results Test Acquired Date Facility Test Result H/L Range Note FVL/[place] 01/09/2021 [employer] PDFReport SEE IMAGE FVC-Pred 1.48 L FVC-Pre 1.29 L FVC-%Pred-Pre 87 L FVC-LLN 0.93 L Fev1-Pred 1.06 L Fev1-Pre 1.07 L Fev1-%Pred-Pre 101 L Fev1-LLN 0.60 L Fev6-Pred 1.36 L Fev6-Pre 1.28 L Fev6-%Pred-Pre 93 L Fev6-LLN 0.82 L Gpr4cyg-Ejzl 72 % Eta5bdm-Jna 83 % Aax1dar-%Pred-Pre 114 % Axa1vjm-MJJ 62 % Byi6dot-Bxds 92 % Kwy7quj-Hce 99 % Ipq8tpn-%Pred-Pre 107 % FEFMax-Pred 3.05 L/E/sec FEFMax-Pre 2.00 L/E/sec FEFMax-%Pred-Pre 65 L/E/sec FEFMax-LLN 1.69 L/E/sec Tap4548-Lwtb 0.66 L/E/sec Nyv4152-Rrr 1.16 L/E/sec Fgi9686-%Pred-Pre 176 L/E/sec Nfp6580-RNJ -0.32 L/E/sec ExpTime-Pre 6.54 sec Alm2unj7-Eerx 77 % Cwi1buz3-Wlt 84 % Dlp9isp1-%Pred-Pre 109 % Rzh1rqb4-OZU 68 % Laboratory test finding 10/25/2020 [facility] Main Lab [address] [place] [address] [id number] [phone] Bedside Glucose 207 mg/dL High 83-110 Complete Blood Count 10/25/2020 [facility] Main Lab [address] [place] [address] [id number] [phone] White Blood Count 6.6 10 Normal 4.0-10.0 [...] % Normal 0-0 Basic Metabolic Profile 10/25/2020 [facility] [address] [place] [address] [phone] [phone] Glucose, Fasting 146 mg/dL High 70-100 Blood [...] mg/dL Normal 8.8-10.2 Laboratory test finding 10/25/2020 [facility] Main Lab [address] [place], [place] [id number] [phone] Bedside Glucose 144 mg/dL High 83-110 Laboratory test finding 10/24/2020 [facility] [address] [place] [address] [phone] Bedside Glucose 141 mg/dL High 83-110 Complete Blood Count 10/24/2020 [facility] Lab [address] [place] [address] [phone] White Blood Count 8.5 10 Normal 4.0-10.0 [...] 0.0 % Normal 0-0 Prothrombin Time/Inr 10/24/2020 [facility] Main Lab [address] [place] [address] [phone] Prothrombin Time 14.6 seconds High 12.5-14.3 Inr 1.12 Normal 2 Laboratory test finding 10/24/2020 [facility] [address] [place] [address] [phone] Partial Thromboplastin Time 29.6 seconds Normal 24 .2-38.5 3 Comprehensive Metabolic Profil 10/24/2020 [facility] Lab [address] [place], [place] [id number] [phone] Glucose, Fasting 157 mg/dL High 70-100 Blood [...] 1.7 Normal 1.2-2.2 Laboratory test finding 10/24/2020 [facility] Lab [address] [place], [place] [id number] [phone] Bedside Glucose 93 mg/dL Normal 83-110 Laboratory test finding 09/05/2020 [facility] [address] [place], [place] [id number] [phone] Bedside Glucose 103 mg/dL Normal 83-110 5 Laboratory test finding 09/04/2020 [facility] Lab [address] [place] [address] [id number] [phone] Pathology Request For Service (SEE NOTE) 6 1 Units are mL/min/1.73 m2 Chronic Kidney Disease Staging per NKF: Stage I & II GFR >=60 Normal to Mildly Decreased Stage III GFR 30-59 Moderately Decreased Stage IV GFR 15-29 Severely Decreased Stage V GFR <15 Very Little GFR Left ESRD GFR <15 on IC DESIGNER STANDARD CELLS 2 THERAPUTIC HUMAN INR VALUES INDICATIONS NORMAL [...] Little GFR Left ESRD GFR <15 on IC DESIGNER STANDARD CELLS 5 Doctor Notified 6 FINAL DIAGNOSIS Vocal [...] 1151 Procedures Date Code Description Status 02/21/2021 82965 Office/Outpatient New Moderate M DM 45-59 Minutes Completed 01/09/2021 68041 Office/Outpatient Established Lo w MDM 20-29 Min Completed 01/09/2021 96805 Spirometry Completed 12/24/2020 14317 Office/Outpatient Established Lo w MDM 20-29 Min Completed 11/12/2020 79401 Office/Outpatient Established Lo w MDM 20-29 Min Completed 11/01/2020 96217 Office/Outpatient Established Lo w MDM 20-29 Min Completed 10/24/2020 98491 Laryngoscopy Flexibl e W/ Ablation/Destruct Lesion(S) Laser Unilat Completed 09/16/2020 33114 Office/Outpatient Established Lo w MDM 20-29 Min Completed 09/05/2020 83696 Laryngoscopy Direct Biopsy W/Ope rating Microscope Completed Medical Devices Description No Information Available Encounters Type Date Location Provider Dx Diagnosis Office Visit 02/21/2021 2:00p [facility] Rickie Newman MD S72.102A Unsp trochanteric fracture of left femur, init for clos fx Office Visit 01/09/2021 10:30a [facility] Pulmonary/Thoracic D Piero CornellO J45.40 Moderate persistent asthma, uncomplicated Office Visit 12/24/2020 1:00p [facility] Fransisco Martin MD L76.34 Postproc seroma of skin, sub cu following other procedure Office Visit 11/01/2020 11:00a [facility] Silvestre Mack MD R13.10 Dysphagia, unspecified R49.0 Dysphonia K21.9 Gastro-esophageal reflux dis ease without esophagitis Office Visit 09/16/2020 2:30p [facility] Silvestre Mack MD R13.10 Dysphagia, [...] 2:30 pm - Rickie Newman MD at [facility] 02/21/2021 - Rickie Newman MD* [...]
--- OUTSIDE RECORDS SUMMARY | 2021-04-15 19:49 | CCD ---
Author Author [facility] Organization [facility] Address Unknown Phone Unavailable Care Team Providers Care Stringed Instrument Tuner Name Role Phone Jason Damon MD Unavailable Unavailable Jason Damon MD Unavailable Unavailable Jason Damon MD Unavailable Unavailable Jason Damon MD Unavailable Unavailable Jason Damon MD Unavailable Unavailable Jason Damon MD Unavailable Unavailable Christina LOPEZ MD Unavailable Unavailable Christina LOPEZ MD Unavailable Unavailable Christina LOPEZ MD Unavailable Unavailable Christina LOPEZ MD Unavailable Unavailable Christina LOPEZ MD Unavailable Unavailable Christina LOPEZ MD Unavailable Unavailable Christina LOPEZ MD Unavailable Unavailable Christina LOPEZ MD Unavailable Unavailable Christina LOPEZ MD Unavailable Unavailable Christina LOPEZ MD Unavailable Unavailable Christina LOPEZ MD Unavailable Unavailable Christina LOPEZ MD Unavailable Unavailable Christina LOPEZ MD Unavailable Unavailable Christina LOPEZ MD Unavailable Unavailable Christina LOPEZ MD Unavailable Unavailable Christina LOPEZ MD Unavailable Unavailable Christina LOPEZ MD Unavailable Unavailable Christina LOPEZ MD Unavailable Unavailable Christina LOPEZ MD Unavailable Unavailable Christina LOPEZ MD Unavailable Unavailable Christina LOPEZ MD Unavailable Unavailable Christina LOPEZ MD Unavailable Unavailable Christina LOPEZ MD Unavailable Unavailable Christina LOPEZ MD Unavailable Unavailable Christina LOPEZ MD Unavailable Unavailable Christina LOPEZ MD Unavailable Unavailable Christina LOPEZ MD Unavailable Unavailable Christina LOPEZ MD Unavailable Unavailable Christina LOPEZ MD Unavailable Unavailable Christina LOPEZ MD Unavailable Unavailable Christina LOPEZ MD Unavailable Unavailable Christina LOPEZ MD Unavailable Unavailable Christina LOPEZ MD Unavailable Unavailable Christina LOPEZ MD Unavailable Unavailable Christina LOPEZ MD Unavailable Unavailable CHARITYUGAChristina MD Unavailable Unavailable Barraclough, M Ruth PA Unavailable Unavailable Barraclough, M Ruth PA Unavailable Unavailable Barraclough, M Ruth PA Unavailable Unavailable Barraclough, M Ruth PA Unavailable Unavailable Barraclough, M Ruth PA Unavailable Unavailable Barraclough, M Ruth PA Unavailable Unavailable Barraclough, M Ruth PA Unavailable Unavailable Katelynn DAS MD Unavailable Unavailable Katelynn DAS MD Unavailable Unavailable Katelynn DAS MD Unavailable Unavailable Katelynn DAS MD Unavailable Unavailable Katelynn DAS MD Unavailable Unavailable Katelynn DAS MD Unavailable Unavailable Katelynn DAS MD Unavailable Unavailable Katelynn DAS MD Unavailable Unavailable Katelynn DAS MD Unavailable Unavailable Katelynn DAS MD Unavailable Unavailable Katelynn DAS MD Unavailable Unavailable Katelynn DAS MD Unavailable Unavailable Katelynn DAS MD Unavailable Unavailable Katelynn DAS MD Unavailable Unavailable Katelynn DAS MD Unavailable Unavailable Katelynn DAS MD Unavailable Unavailable Katelynn DAS MD Unavailable Unavailable Katelynn DAS MD Unavailable Unavailable Katelynn DAS MD Unavailable Unavailable Katelynn DAS MD Unavailable Unavailable Katelynn DAS MD Unavailable Unavailable Katelynn DAS MD Unavailable Unavailable DAS, Katelynn NEGRO MD Unavailable Unavailable DAS, Katelynn NEGRO MD Unavailable Unavailable DAS, Katelynn NEGRO MD Unavailable Unavailable DAS, Katelynn NEGRO MD Unavailable Unavailable DAS, Katelynn NEGRO MD Unavailable Unavailable DAS, Katelynn NEGRO MD Unavailable Unavailable DAS, Katelynn NEGRO MD Unavailable Unavailable DAS, Katelynn NEGRO MD Unavailable Unavailable DAS, Katelynn NEGRO MD Unavailable Unavailable DAS, Katelynn NEGRO MD Unavailable Unavailable DAS, Katelynn NEGRO MD Unavailable Unavailable DAS, Katelynn NEGRO MD Unavailable Unavailable DAS, Katelynn NEGRO MD Unavailable Unavailable DAS, Katelynn NEGRO MD Unavailable Unavailable DAS, Katelynn NEGRO MD Unavailable Unavailable DAS, Katelynn NEGRO MD Unavailable Unavailable DAS, Katelynn NEGRO MD Unavailable Unavailable DAS, Katelynn NEGRO MD Unavailable Unavailable DAS, Katelynn NEGRO MD Unavailable Unavailable DAS, Katelynn NEGRO MD Unavailable Unavailable DAS, Katelynn NEGRO MD Unavailable Unavailable DAS, Katelynn NEGRO MD Unavailable Unavailable DAS, Katelynn NEGRO MD Unavailable Unavailable DAS, Katelynn NEGRO MD Unavailable Unavailable DAS, Katelynn NEGRO MD Unavailable Unavailable DAS, Katelynn NEGRO MD Unavailable Unavailable DAS, Katelynn NEGRO MD Unavailable Unavailable DAS, Katelynn NEGRO MD Unavailable Unavailable DAS, Katelynn NEGRO MD Unavailable Unavailable DAS, Katelynn NEGRO MD Unavailable Unavailable DAS, Katelynn NEGRO MD Unavailable Unavailable DAS, Katelynn NEGRO MD Unavailable Unavailable DAS, Katelynn NEGRO MD Unavailable Unavailable DAS, Katelynn NEGRO MD Unavailable Unavailable DAS, Katelynn NEGRO MD Unavailable Unavailable DAS, Katelynn NEGRO MD Unavailable Unavailable DAS, Katelynn NEGRO MD Unavailable Unavailable DAS, Katelynn NEGRO MD Unavailable Unavailable DAS, Katelynn NEGRO MD Unavailable Unavailable DAS, Katelynn NEGRO MD Unavailable Unavailable DAS, Katelynn NEGRO MD Unavailable Unavailable DAS, Katelynn NEGRO MD Unavailable Unavailable DAS, Katelynn NEGRO MD Unavailable Unavailable DAS, Katelynn NEGRO MD Unavailable Unavailable DAS, Katelynn NEGRO MD Unavailable Unavailable DAS, Katelynn NEGRO MD Unavailable Unavailable DAS, Katelynn NEGRO MD Unavailable Unavailable DAS, Katelynn NEGRO MD Unavailable Unavailable ADS, Katelynn NEGRO MD Unavailable Unavailable DAS, Katelynn NEGRO MD Unavailable Unavailable DAS, Katelynn NEGRO MD Unavailable Unavailable DAS, Katelynn NEGRO MD Unavailable Unavailable DAS, Katelynn NEGRO MD Unavailable Unavailable DAS, Katelynn NEGRO MD Unavailable Unavailable DAS, Katelynn NEGRO MD Unavailable Unavailable DAS, Katelynn NEGRO MD Unavailable Unavailable DAS, Katelynn NEGRO MD Unavailable Unavailable DAS, Katelynn NEGRO MD Unavailable Unavailable DAS, Katelynn NEGRO MD Unavailable Unavailable DAS, Katelynn NEGRO MD Unavailable Unavailable DAS, Katelynn NEGRO MD Unavailable Unavailable DAS, Katelynn NEGRO MD Unavailable Unavailable DAS, Katelynn NEGRO MD Unavailable Unavailable DAS, Katelynn NEGRO MD Unavailable Unavailable DAS, Katelynn NEGRO MD Unavailable Unavailable DAS, Katelynn NEGRO MD Unavailable Unavailable DAS, Katelynn NEGRO MD Unavailable Unavailable DAS, Katelynn NEGRO MD Unavailable Unavailable DAS, Katelynn NEGRO MD Unavailable Unavailable DAS, Katelynn NEGRO MD Unavailable Unavailable DAS, Katelynn NEGRO MD Unavailable Unavailable DAS, Katelynn NEGRO MD Unavailable Unavailable DAS, Katelynn NEGRO MD Unavailable Unavailable DAS, Katelynn NEGRO MD Unavailable Unavailable DAS, Katelynn NEGRO MD Unavailable Unavailable DAS, Katelynn NEGRO MD Unavailable Unavailable DAS, Katelynn NEGRO MD Unavailable Unavailable DAS, Katelynn NEGRO MD Unavailable Unavailable DAS, Katelynn NEGRO MD Unavailable Unavailable DAS, Katelynn NEGRO MD Unavailable Unavailable DAS, Katelynn NEGRO MD Unavailable Unavailable DAS, Katelynn NEGRO MD Unavailable Unavailable DAS, Katelynn NEGRO MD Unavailable Unavailable DAS, Katelynn NEGRO MD Unavailable Unavailable DAS, Katelynn NEGRO MD Unavailable Unavailable DAS, Katelynn NEGRO MD Unavailable Unavailable DAS, Katelynn NEGRO MD Unavailable Unavailable DAS, Katelynn NEGRO MD Unavailable Unavailable DAS, Katleynn NEGRO MD Unavailable Unavailable DAS, Katelynn NEGRO MD Unavailable Unavailable DAS, Katelynn NEGRO MD Unavailable Unavailable DAS, Katelynn NEGRO MD Unavailable Unavailable DAS, Katelynn NEGRO MD Unavailable Unavailable DAS, Katelynn NEGRO MD Unavailable Unavailable DAS, Katelynn NEGRO MD Unavailable Unavailable Rounds, M ASHLEY BELT WEAVER Unavailable Unavailable Rounds, M ASHLEY BELT WEAVER Unavailable Unavailable Rounds, M ASHLEY BELT WEAVER Unavailable Unavailable Rounds, M ASHLEY BELT WEAVER Unavailable Unavailable Rounds, M ASHLEY BELT WEAVER Unavailable Unavailable Rounds, M ASHLEY BELT WEAVER Unavailable Unavailable Rounds, M ASHLEY BELT WEAVER Unavailable Unavailable Rounds, M ASHLEY BELT WEAVER Unavailable Unavailable Rounds, M ASHLEY BELT WEAVER Unavailable Unavailable Rounds, M ASHLEY BELT WEAVER Unavailable Unavailable Rounds, M ASHLEY BELT WEAVER Unavailable Unavailable Rounds, M ASHLEY BELT WEAVER Unavailable Unavailable Rounds, M ASHLEY BELT WEAVER Unavailable Unavailable Rounds, M ASHLEY BELT WEAVER Unavailable Unavailable Rounds, M ASHLEY BELT WEAVER Unavailable Unavailable Rounds, M ASHLEY BELT WEAVER Unavailable Unavailable Rounds, M ASHLEY BELT WEAVER Unavailable Unavailable Rounds, M ASHLEY BELT WEAVER Unavailable Unavailable Rounds, M ASHLEY BELT WEAVER Unavailable Unavailable Rounds, M ASHLEY BELT WEAVER Unavailable Unavailable Rounds, M ASHLEY BELT WEAVER Unavailable Unavailable Rounds, M ASHLEY BELT WEAVER Unavailable Unavailable Rounds, M ASHLEY BELT WEAVER Unavailable Unavailable Rounds, M ASHLEY BELT WEAVER Unavailable Unavailable Rounds, M ASHLEY BELT WEAVER Unavailable Unavailable Rounds, M ASHLEY BELT WEAVER Unavailable Unavailable Rounds, M ASHLEY BELT WEAVER Unavailable Unavailable Rounds, M ASHLEY BELT WEAVER Unavailable Unavailable Rounds, M ASHLEY BELT WEAVER Unavailable Unavailable Rounds, M ASHLEY BELT WEAVER Unavailable Unavailable Rounds, M ASHLEY BELT WEAVER Unavailable Unavailable Rounds, M ASHLEY BELT WEAVER Unavailable Unavailable Rounds, M ASHLEY BELT WEAVER Unavailable Unavailable Rounds, M ASHLEY BELT WEAVER Unavailable Unavailable Rounds, M ASHLEY BELT WEAVER Unavailable Unavailable Rounds, M ASHLEY BELT WEAVER Unavailable Unavailable Rounds, M ASHLEY BELT WEAVER Unavailable Unavailable Rounds, M ASHLEY BELT WEAVER Unavailable Unavailable Rounds, M ASHLEY BELT WEAVER Unavailable Unavailable Rounds, M ASHLEY BELT WEAVER Unavailable Unavailable Rounds, M ASHLEY BELT WEAVER Unavailable Unavailable Rounds, M ASHLEY BELT WEAVER Unavailable Unavailable Rounds, M ASHLEY BELT WEAVER Unavailable Unavailable Rounds, M ASHLEY BELT WEAVER Unavailable Unavailable Rounds, M ASHLEY BELT WEAVER Unavailable Unavailable Rounds, M ASHLEY BELT WEAVER Unavailable Unavailable Rounds, M ASHLEY BELT WEAVER Unavailable Unavailable Rounds, M ASHLEY BELT WEAVER Unavailable Unavailable Rounds, M ASHLEY BELT WEAVER Unavailable Unavailable Rounds, M ASHLEY BELT WEAVER Unavailable Unavailable Rounds, M ASHLEY BELT WEAVER Unavailable Unavailable Rounds, M ASHLEY BELT WEAVER Unavailable Unavailable Rounds, M ASHLEY BELT WEAVER Unavailable Unavailable Rounds, M ASHLEY BELT WEAVER Unavailable Unavailable Rounds, M ASHLEY BELT WEAVER Unavailable Unavailable Rounds, M ASHLEY BELT WEAVER Unavailable Unavailable Rounds, M ASHLEY BELT WEAVER Unavailable Unavailable Rounds, M ASHLEY BELT WEAVER Unavailable Unavailable Rounds, M ASHLEY BELT WEAVER Unavailable Unavailable Rounds, M ASHLEY BELT WEAVER Unavailable Unavailable Rounds, M ASHLEY BELT WEAVER Unavailable Unavailable Rounds, M ASHLEY BELT WEAVER Unavailable Unavailable Rounds, M ASHLEY BELT WEAVER Unavailable Unavailable Shukla, Rickie SPENCER Unavailable Unavailable Shukla, Rickie SPENCER Unavailable Unavailable Shukla, Rickie SPENCER Unavailable Unavailable Shukla, Rickie SPENCER Unavailable Unavailable Shukla, Rickie SPENCER Unavailable Unavailable Shukla, Rickie SPENCER Unavailable Unavailable Shukla, Rickie SPENCER Unavailable Unavailable Shukla, Rickie SPENCER Unavailable Unavailable Shukla, Rickie SPENCER Unavailable Unavailable Shukla, Rickie SPENCER Unavailable Unavailable Shukla, Rickie SPENCER Unavailable Unavailable Rechlin, P Rickie DO Unavailable Unavailable Rechlin, P Rickie DO Unavailable Unavailable Rechlin, P Rickie DO Unavailable Unavailable Rechlin, P Rickie DO Unavailable Unavailable Rechlin, P Rickie DO Unavailable Unavailable Rechlin, P Rickie DO Unavailable Unavailable Rechlin, P Rickie DO Unavailable Unavailable Rechlin, P Rickie DO Unavailable Unavailable Rechlin, P Rickie DO Unavailable Unavailable Rechlin, P Rickie DO Unavailable Unavailable Rechlin, P Rickie DO Unavailable Unavailable Rechlin, P Rickie DO Unavailable Unavailable Rechlin, P Rickie DO Unavailable Unavailable Rechlin, P Rickie DO Unavailable Unavailable Rechlin, P Rickie DO Unavailable Unavailable Rechlin, P Rickie DO Unavailable Unavailable Rechlin, P Rickie DO Unavailable Unavailable Rechlin, P Rickie DO Unavailable Unavailable Rechlin, P Rickie DO Unavailable Unavailable Rechlin, P Rickie DO Unavailable Unavailable Rechlin, P Rickie DO Unavailable Unavailable Rechlin, P Rickie DO Unavailable Unavailable Rechlin, P Rickie DO Unavailable Unavailable Rechlin, P Rickie DO Unavailable Unavailable Rechlin, P Rickie DO Unavailable Unavailable Rechlin, P Rickie DO Unavailable Unavailable Rechlin, P Rickie DO Unavailable Unavailable Rechlin, P Rickie DO Unavailable Unavailable Rechlin, P Rickie DO Unavailable Unavailable Rechlin, P Rickie DO Unavailable Unavailable Rechlin, P Rickie DO Unavailable Unavailable Rechlin, P Rickie DO Unavailable Unavailable Rechlin, P Rickie DO Unavailable Unavailable Rechlin, P Rickie DO Unavailable Unavailable Rechlin, P Rickie DO Unavailable Unavailable Rechlin, P Rickie DO Unavailable Unavailable Rechlin, P Rickie DO Unavailable Unavailable Rechlin, P Rickie DO Unavailable Unavailable Rechlin, P Rickie DO Unavailable Unavailable Rechlin, P Rickie DO Unavailable Unavailable Rechlin, P Rickie DO Unavailable Unavailable Rechlin, P Rickie DO Unavailable Unavailable Rechlin, P Rickie DO Unavailable Unavailable Rechlin, P Rickie DO Unavailable Unavailable Rechlin, P Rickie DO Unavailable Unavailable Rechlin, P Rickie DO Unavailable Unavailable Rechlin, P Rickie DO Unavailable Unavailable Rechlin, P Rickie DO Unavailable Unavailable Rechlin, P Rickie DO Unavailable Unavailable Rechlin, P Rickie DO Unavailable Unavailable Rechlin, P Rickie DO Unavailable Unavailable Scozzari, K Briseida PA Unavailable Unavailable Scozzari, K Briseida PA Unavailable Unavailable Scozzari, K Briseida PA Unavailable Unavailable Scozzari, K Briseida PA Unavailable Unavailable Scozzari, K Briseida PA Unavailable Unavailable Scozzari, K Briseida PA Unavailable Unavailable Scozzari, K Briseida PA Unavailable Unavailable Scozzari, K Briseida PA Unavailable Unavailable Scozzari, K Briseida PA Unavailable Unavailable Scozzari, K Briseida PA Unavailable Unavailable Scozzari, K Briseida PA Unavailable Unavailable Scozzari, K Briseida PA Unavailable Unavailable Scozzari, K Briseida PA Unavailable Unavailable Scozzari, K Briseida PA Unavailable Unavailable Scozzari, K Briseida PA Unavailable Unavailable Scozzari, K Briseida PA Unavailable Unavailable Scozzari, K Briseida PA Unavailable Unavailable Scozzari, K Briseida PA Unavailable Unavailable Scozzari, K Briseida PA Unavailable Unavailable Scozzari, K Briseida PA Unavailable Unavailable Scozzari, K Briseida PA Unavailable Unavailable Scozzari, K Briseida PA Unavailable Unavailable Scozzari, K Briseida PA Unavailable Unavailable Scozzari, K Briseida PA Unavailable Unavailable Scozzari, K Briseida PA Unavailable Unavailable Scozzari, K Briseida PA Unavailable Unavailable Scozzari, K Briseida PA Unavailable Unavailable Scozzari, K Briseida PA Unavailable Unavailable Scozzari, K Briseida PA Unavailable Unavailable Scozzari, K Briseida PA Unavailable Unavailable Scozzari, K Briseida PA Unavailable Unavailable Scozzari, K Briseida PA Unavailable Unavailable Scozzari, K Briseida PA Unavailable Unavailable Scozzari, K Briseida PA Unavailable Unavailable Scozzari, K Briseida PA Unavailable Unavailable Scozzari, K Briseida PA Unavailable Unavailable Scozzari, K Briseida PA Unavailable Unavailable Scozzari, K Briseida PA Unavailable Unavailable Scozzari, K Briseida PA Unavailable Unavailable Scozzari, K Briseida PA Unavailable Unavailable Scozzari, K Briseida PA Unavailable Unavailable Scozzari, K Briseida PA Unavailable Unavailable Scozzari, K Briseida PA Unavailable Unavailable Scozzari, K Briseida PA Unavailable Unavailable Scozzari, K Briseida PA Unavailable Unavailable Scozzari, K Briseida PA Unavailable Unavailable Scozzari, K Briseida PA Unavailable Unavailable Shukla, Jeff Dougherty MD Unavailable Unavailable Shukla, Jeff Dougherty MD Unavailable Unavailable Shukla, Jeff Dougherty MD Unavailable Unavailable Shukla, Jeff oDugherty MD Unavailable Unavailable Shukla, Jeff Dougherty MD Unavailable Unavailable Shukla, Jeff Dougherty MD Unavailable Unavailable Shukla, Jeff Dougherty MD Unavailable Unavailable Shukla, Jeff Dougherty MD Unavailable Unavailable Shukla, Jeff Dougherty MD Unavailable Unavailable Shukla, Jeff Dougherty MD Unavailable Unavailable Shukla, Jeff Dougherty MD Unavailable Unavailable Shukla, Jeff Dougherty MD Unavailable Unavailable Shukla, Jeff Dougherty MD Unavailable Unavailable Shukla, Jeff Dougherty MD Unavailable Unavailable Shukla, Jeff Dougherty MD Unavailable Unavailable Shukla, Jeff Dougherty MD Unavailable Unavailable Shukla, Jeff Dougherty MD Unavailable Unavailable Shukla, Jeff Dougherty MD Unavailable Unavailable Shukla, Jeff Dougherty MD Unavailable Unavailable Shukla, Jeff Dougherty MD Unavailable Unavailable Shukla, Jeff Dougherty MD Unavailable Unavailable Shukla, Jeff Dougherty MD Unavailable Unavailable Shukla, Jeff Dougherty MD Unavailable Unavailable Shukla, Jeff P Unavailable Unavailable Shukla, Jeff Dougherty MD Unavailable Unavailable Shukla, Jeff Dougherty MD Unavailable Unavailable Shukla, Jeff Dougherty MD Unavailable Unavailable Shukla, Jeff Dougherty MD Unavailable Unavailable Shukla, Jeff Dougherty MD Unavailable Unavailable Shukla, Jeff Dougherty MD Unavailable Unavailable Shukla, Jeff Dougherty MD Unavailable Unavailable Shukla, Jeff Dougherty MD Unavailable Unavailable Shukla, Jeff Dougherty MD Unavailable Unavailable Shukla, Jeff Dougherty MD Unavailable Unavailable Shukla, Jeff Dougherty MD Unavailable Unavailable Shukla, Jeff Dougherty MD Unavailable Unavailable Shukla, Jeff Dougherty MD Unavailable Unavailable Shukla, Jeff Dougherty MD Unavailable Unavailable Shukla, Jeff Dougherty MD Unavailable Unavailable Shukla, Jeff Dougherty MD Unavailable Unavailable Shukla, Jeff Dougherty MD Unavailable Unavailable Shukla, Jeff P MD Unavailable Unavailable Shukla, Jeff P MD Unavailable Unavailable Shukla, Jeff P MD Unavailable Unavailable Shukla, Jeff P MD Unavailable Unavailable Shukla, Jeff P MD Unavailable Unavailable Shukla, Jeff P MD Unavailable Unavailable Shukla, Jeff P MD Unavailable Unavailable Shukla, Jeff P MD Unavailable Unavailable Shukla, Jeff P MD Unavailable Unavailable Shukla, Jeff P MD Unavailable Unavailable Hsukla, Jeff P MD Unavailable Unavailable Shukla, Jeff P MD Unavailable Unavailable Shukla, Jeff P MD Unavailable Unavailable Shukla, Jeff P MD Unavailable Unavailable Shukla, Jeff P MD Unavailable Unavailable Shukla, Jeff P MD Unavailable Unavailable Shukla, Jeff P MD Unavailable Unavailable Shukla, Jeff P MD Unavailable Unavailable Shukla, Jeff P MD Unavailable Unavailable Shukla, Jeff P MD Unavailable Unavailable Shukla, Jeff P MD Unavailable Unavailable Shukla, Jeff P MD Unavailable Unavailable Shukla, Jeff P MD Unavailable Unavailable Shukla, Jeff P MD Unavailable Unavailable Shukla, Jeff P MD Unavailable Unavailable Shukla, Jeff P MD Unavailable Unavailable Shukla, Jeff P MD Unavailable Unavailable Shukla, Jeff P MD Unavailable Unavailable Shukla, Jeff P MD Unavailable Unavailable Shukla, Jeff P MD Unavailable Unavailable Shukla, Jeff P MD Unavailable Unavailable Shukla, Jeff P MD Unavailable Unavailable Howard Walter, Lynne Damian MD, FACS Unavailable Unavailable Howard Walter, Lynne Damian MD, FACS Unavailable Unavailable Howard Walter, Lynne Damian MD, FACS Unavailable Unavailable Howard Walter, Lynne Damian MD, FACS Unavailable Unavailable Howard Walter, Lynne Damian MD, FACS Unavailable Unavailable Howard Walter, Lynne Damian MD, FACS Unavailable Unavailable Howard Walter, Lynne Damian MD, FACS Unavailable Unavailable Howard Walter, Lynne Damian MD, FACS Unavailable Unavailable Howard Walter, Lynne Damian MD, FACS Unavailable Unavailable Howard Walter, Lynne Damian MD, FACS Unavailable Unavailable Howard Walter, Lynne Damian MD, FACS Unavailable Unavailable Howard Walter, Lynne Damian MD, FACS Unavailable Unavailable Howard Walter, Lynne Damian MD, FACS Unavailable Unavailable Howard Walter, Lynne Damian MD, FACS Unavailable Unavailable Howard Walter, Lynne Damian MD, FACS Unavailable Unavailable Howard Walter, Lynne Damian MD, FACS Unavailable Unavailable Howard Walter, Lynne Damian MD, FACS Unavailable Unavailable Howard Walter, Lynne Damian MD, FACS Unavailable Unavailable Howard Walter, Lynne Damian MD, FACS Unavailable Unavailable Howard Walter, Lynne Damian MD, FACS Unavailable Unavailable Howard Walter, Lynne Damian MD, FACS Unavailable Unavailable Howard Walter, Lynne Damian MD, FACS Unavailable Unavailable Howard Walter, Lynne Damian MD, FACS Unavailable Unavailable Howard Walter, Lynne Damian MD, FACS Unavailable Unavailable Howard Walter, Lynne Damian MD, FACS Unavailable Unavailable Howard Walter, Lynne Damian MD, FACS Unavailable Unavailable Howard Walter, Lynne Damian MD, FACS Unavailable Unavailable Howard Walter, Lynne Damian MD, FACS Unavailable Unavailable Howard Walter, Lynne Damian MD, FACS Unavailable Unavailable Howard Walter, Lynne Damian MD, FACS Unavailable Unavailable Howard Walter, Lynne Damian MD, FACS Unavailable Unavailable Howard Walter, Lynne Damian MD, FACS Unavailable Unavailable Howard Walter, Lynne Damian MD, FACS Unavailable Unavailable Howard Walter, Lynne Damian MD, FACS Unavailable Unavailable Howard Walter, Lynne Damina MD, FACS Unavailable Unavailable Howard Walter, Lynne Damian MD, FACS Unavailable Unavailable Howard Walter, Lynne Damian MD, FACS Unavailable Unavailable Howard Walter, Lynne Damian MD, FACS Unavailable Unavailable Howard Walter, Lynne Damian MD, FACS Unavailable Unavailable Fish, J Myles Unavailable Unavailable Fish, J Myles Unavailable Unavailable Fish, J Myles Unavailable Unavailable Fish, J Myles Unavailable Unavailable Fish, J Myles Unavailable Unavailable Fish, J Myles Unavailable Unavailable Fish, J Myles Unavailable Unavailable Fish, J Myles Unavailable Unavailable Fish, J Myles Unavailable Unavailable Fish, J Myles Unavailable Unavailable Fish, J Myles Unavailable Unavailable Fish, J Myles Unavailable Unavailable Fish, J Myles Unavailable Unavailable Fish, J Myles Unavailable Unavailable Fish, J Myles Unavailable Unavailable Fish, J Myles Unavailable Unavailable Fish, J Myles Unavailable Unavailable Fish, J Myles Unavailable Unavailable Fish, J Myles Unavailable Unavailable Fish, J Myles Unavailable Unavailable Fish, J Myles Unavailable Unavailable Fish, J Myles Unavailable Unavailable Fish, J Myles Unavailable Unavailable Fish, J Myles Unavailable Unavailable Fish, J Myles Unavailable Unavailable Fish, J Myles Unavailable Unavailable Fish, J Myles Unavailable Unavailable Fish, J Myles Unavailable Unavailable Fish, J Myles Unavailable Unavailable Fish, J Myles Unavailable Unavailable Fish, J Myles Unavailable Unavailable Fish, J Myles Unavailable Unavailable Fish, J Myles Unavailable Unavailable Fish, J Myles Unavailable Unavailable Fish, J Myles Unavailable Unavailable Fish, J Myles Unavailable Unavailable Fish, J Myles Unavailable Unavailable Fish, J Myles Unavailable Unavailable Fish, J Myles Unavailable Unavailable Fish, J Myles Unavailable Unavailable Fish, J Myles Unavailable Unavailable Fish, J Myles Unavailable Unavailable Fish, J Myles Unavailable Unavailable Fish, J Myles Unavailable Unavailable Fish, J Myles Unavailable Unavailable Fish, J Myles Unavailable Unavailable Fish, J Myles Unavailable Unavailable Fish, J Myles Unavailable Unavailable Fish, J Myles Unavailable Unavailable Fish, J Myles Unavailable Unavailable Fish, J Myles Unavailable Unavailable Fish, J Myles Unavailable Unavailable Fish, J Myles Unavailable Unavailable Fish, J Myles Unavailable Unavailable Fish, J Myles Unavailable Unavailable Fish, J Myles Unavailable Unavailable Fish, J Myles Unavailable Unavailable Fish, J Myles Unavailable Unavailable Fish, J Myles Unavailable Unavailable Fish, J Myles Unavailable Unavailable Fish, J Myles Unavailable Unavailable Fish, J Myles Unavailable Unavailable Fish, J Myles Unavailable Unavailable Fish, J Myles Unavailable Unavailable Fish, J Myles Unavailable Unavailable Fish, J Myles Unavailable Unavailable Fish, J Myles Unavailable Unavailable Fish, J Myles Unavailable Unavailable Fish, J Myles Unavailable Unavailable Fish, J Myles Unavailable Unavailable Fish, J Myles Unavailable Unavailable Fish, J Myles Unavailable Unavailable Fish, J Myles Unavailable Unavailable Fish, J Myles Unavailable Unavailable Fish, J Mylse Unavailable Unavailable Fish, J Myles Unavailable Unavailable Fish, J Myles Unavailable Unavailable Fish, J Myles Unavailable Unavailable Fish, J Myles Unavailable Unavailable Fish, J Myles Unavailable Unavailable Fish, J Myles Unavailable Unavailable Fish, J Myles Unavailable Unavailable Fish, J Myles Unavailable Unavailable Fish, J Myles Unavailable Unavailable Fish, J Myles Unavailable Unavailable Fish, J Myles Unavailable Unavailable Nazanin MACK MD Unavailable Unavailable Nazanin MACK MD Unavailable Unavailable Nazanin MACK MD Unavailable Unavailable Nazanin MACK MD Unavailable Unavailable Nazanin MACK MD Unavailable Unavailable Nazanin MACK MD Unavailable Unavailable Nazanin MACK MD Unavailable Unavailable Nazanin MACK MD Unavailable Unavailable Nazanin MACK MD Unavailable Unavailable Nazanin MACK MD Unavailable Unavailable Nazanin MACK MD Unavailable Unavailable Nazanin MACK MD Unavailable Unavailable Nazanin MACK MD Unavailable Unavailable Nazanin MACK MD Unavailable Unavailable Nazanin MACK MD Unavailable Unavailable Nazanin MCAK MD Unavailable Unavailable Nazanin MACK MD Unavailable Unavailable Nazanin MACK MD Unavailable Unavailable Nazanin MACK MD Unavailable Unavailable Nazanin MACK MD Unavailable Unavailable Nazanin MACK MD Unavailable Unavailable Nazanin MACK MD Unavailable Unavailable IVANA, C JOSÉ MIGUEL MD Unavailable Unavailable IVANA, C JOSÉ MIGUEL MD Unavailable Unavailable IVANA, C JOSÉ MIGUEL MD Unavailable Unavailable IVANA, C JOSÉ MIGUEL MD Unavailable Unavailable IVANA, C JOSÉ MIGUEL MD Unavailable Unavailable IVANA, C JOSÉ MIGUEL MD Unavailable Unavailable IVANA, C JOSÉ MIGUEL MD Unavailable Unavailable IVANA, C JOSÉ MIGUEL MD Unavailable Unavailable IVANA, C JOSÉ MIGUEL MD Unavailable Unavailable IVANA, C JOSÉ MIGUEL MD Unavailable Unavailable IVANA, C JOSÉ MIGUEL MD Unavailable Unavailable IVANA, C JOSÉ MIGUEL MD Unavailable Unavailable Re-disclosure Warning The records that you are about to access may contain information from federally-assisted alcohol or drug abuse programs. If such information is present, then the following federally mandated warning applies: This information has been disclosed to you from records protected by federal confidentiality rules (42 CFR part 2). The federal rules prohibit you from making any further disclosure of this information unless further disclosure is expressly permitted by the written consent of the person to whom it pertains or as otherwise permitted by 42 CFR part 2. A general authorization for the release of medical or other information is NOT sufficient for this purpose. The Federal rules restrict any use of the information to criminally investigate or prosecute any alcohol or drug abuse patient.The records that you are about to access may contain highly sensitive health information, the redisclosure of which is protected by Article 27-F of the [facility] Public [facility] law. If you continue you may have access to information: Regarding HIV / AIDS; Provided by facilities licensed or operated by the [facility] Office of Mental Health; or Provided by the [facility] Office for People With Developmental Disabilities. If such information is present, then the following [facility] mandated warning applies: This information has been disclosed to you from confidential records which are protected by state law. State law prohibits you from making any further disclosure of this information without the specific written consent of the person to whom it pertains, or as otherwise permitted by law. Any unauthorized further disclosure in violation of state law may result in a fine or skilled nursing sentence or both. A general authorization for the release of medical or other information is NOT sufficient authorization for further disc losure. Family History Family Member Name Family Member Gender Family Member Status Date o f Status Description Data Source(s) Unknown Unknown Problem MED[facility] ([facility] passed due to natural causes. Unknown Male Problem [facility] ([facility] () Unknown Male Problem MED[facility] ([facility] () - age 76 Unknown Unknown Problem MED[facility] ([facility]) Encounters Encounter Providers Location Date Indications Data Source(s ) Outpatient Attender: JOSÉ MIGUEL Mack/Cristofer/Anthony/Reind l 03/17/2021 08:15:00 AM EST MED[facility] ([facility]) Outpatient Attender: Rickie Mack/Cristofer/Anthony/Rein dl 02/21/2021 02:00:00 PM EDT MED[facility] ([facility]) Outpatient Attender: Rickie Reynolds/Cristofer/Anthony/Andrea ndl 01/09/2021 10:30:00 AM EDT MED[facility] ([facility]) Outpatient Attender: Briseida Mattson PAReferrer: Farhat Shukla MD 01/02/2021 01:34:58 PM EDT [facility] Recurring Patient Attender: SRUTHI DAS MDReferrer: Myles Hui luis 12/31/2020 01:29:24 PM EDT [facility] Recurring Patient Attender: SRUTHI DAS MDReferrer: Myles Hui luis 12/31/2020 01:16:13 PM EDT [facility] Recurring Patient Attender: SRUTHI DAS MDReferrer: Myles Hui luis 12/31/2020 01:16:00 PM EDT [facility] Outpatient Attender: CLAUDETTE Mack/Cristofer/Anthony/ Reindl 12/24/2020 01:00:00 PM EDT MED[facility] ([facility]) Recurring Patient Attender: SRUTHI ALEGRIAeferrrodney: Myles Hui luis 12/19/2020 09:28:25 AM EDT [facility] Recurring Patient Attender: SRUTHI DAS MDReferrer: Myles Hui luis 12/19/2020 09:27:25 AM EDT [facility] Unknown [address] [place] [address] 12/03/2020 12:00:00 AM EDT eCW1 ([facility]) Outpatient Attender: CLAUDETTE Mack/Cristofer/Anthony/ Megan 11/12/2020 01:45:00 PM EDT [facility] ([facility] Outpatient Attender: JOSÉ MIGUEL Mack/Cristofer/Anthony/Joanna reaves 11/01/2020 11:00:00 AM EDT [facility] ([facility] ) Outpatient<td ID="encounterTypeDescripti onID0">7 Month Follow-Up</td><td>Rickie Coker MD, FACS</td><td>Rickie Coker MD [facility]</td><td>10/22/2020</td><td>11:50AM</td><td>12:24PM</td><td><content ID="encounterDiagnosisID0-0">Assessment of Taking Medication For Diabetes Long- term Use of Oral Hypoglycemics</content>, <content ID="encounterDiagnosisID0- 1">Dry Eye Syndrome Both Eyes</content>, <content ID="encounterDiagnosisID0- 2">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</content>, <content ID="encounterDiagnosisID0-3">Corneal Dystrophy Endothelial Fuchs' Bilateral Eyes</content></td> Attender: Rickie Walter MD, FACS Rickie Coker MD [facility] 10/22/2020 11:50:00 AM EDT - 10/22/2020 12:24:00 PM EDT Corneal Dystrophy Endothelial Fuchs' Riccardo ateral EyesCorneal Dystrophy Endothelial Fuchs' Bilateral EyesAssessment of Taking Medication For Diabetes Long-term Use of Oral HypoglycemicsAssessment of Taking Medication For Diabetes Long-term Use of Oral Hypoglycemics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Dry Eye Syndrome Both EyesDry Eye Syndrome Both Eyes [facility] (Rickie Walter MD [facility]) 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 Assessment of Taking Medication For Diab etes Long-term Use of Oral Hypoglycemics Assessment of Taking Medication For Diab etes Long-term Use of Oral Hypoglycemics 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 Non prolif Without Macular 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 Non prolif Without Macular Edema Dry Eye Syndrome Both Eyes Dry Eye Syndrome Both Eyes Outpatient [address] [facility] [id number] 10/14/2020 12:00:00 AM EDT eCW1 ([facility]) Outpatient Attender: JOSÉ MIGUEL Mack/Cristofer/Anthony/Reind l 09/16/2020 02:30:00 PM EDT MED[facility] ([facility] Unknown [address] [place] [address] [place] [address] 08/05/2020 12:00:00 AM EDT eCW1 ([facility]) Outpatient Attender: JOSÉ MIGUEL Mack/Cristofer/Anthony/Reind l 08/02/2020 01:00:00 PM EDT MED[facility] ([facility]) Outpatient [address] [place] [id number] 07/31/2020 12:00:00 AM EDT eCW1 ([facility]) Outpatient Attender: Myles Leon [place] [facility] 05/09/2020 01:45:0 0 PM EST MED[facility] ([facility] Outpatient Attender: ASHLEY Martin NP [place] [facility] 04/08/2020 1 0:30:00 AM EST MED[facility] ([facility] 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</content>, <content ID="encounterDiagnosisID1-3">Corneal Dystrophy Endothelial Fuchs' Bilateral Eyes</content></td> Attender: Rickie Walter MD, FACS Rickie Coker MD [facility] 03/25/2020 02:57:00 PM EST - 03/25/2020 04:24:00 PM EST Corneal Dystrophy Endothelial Fuchs' Riccardo ateral EyesCorneal Dystrophy Endothelial Fuchs' Bilateral EyesAssessment of Taking Medication For Diabetes Long-term Use of Oral HypoglycemicsAssessment of Taking Medication For Diabetes Long-term Use of Oral Hypoglycemics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Dry Eye Syndrome Both EyesDry Eye Syndrome Both Eyes [facility] (Rickie Walter MD [facility]) 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 Assessment of Taking Medication For Diab etes Long-term Use of Oral Hypoglycemics Assessment of Taking Medication For Diab etes Long-term Use of Oral Hypoglycemics 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 Unspecified B-cell lymphoma, unspecified site Outpatient Attender: Ruth mac 02/29/2020 01:00:00 PM EDT MED[facility] ([facility] Outpatient Attender: CLAUDETTE Flores/ Megan 02/27/2020 01:15:00 PM EDT MED[facility] ([facility] Immunizations Vaccine Date Status Description Data Source(s) COVID-19 VACCINE Moderna 03/10/2021 12:00:00 AM EDT completed [facility] Vaccine Series Complete: YESThis Data wa s Submitted to [facility] [employer]. COVID-19 VACCINE Moderna 08/09/2020 12:00:00 AM EDT completed [facility] Vaccine Series Complete: YESThis Data wa s Submitted to [facility] [employer]. COVID-19 VACCINE, MRNA-[id number], LNP-S (MODERNA)/PF 08/09/2020 1 2:00:00 AM EDT completed [facility] COVID-19 VACCINE Moderna 07/12/2020 12:00:00 AM EST completed [facility] Vaccine Series Complete: NOThis Data was Submitted to [facility] [employer]. COVID-19 VACCINE, [id number], LNP-S (MODERNA)/PF 07/12/2020 1 2:00:00 AM EST completed [facility] Medications Medication Brand Name Start Date Product Form Dose Route Admi nistrative Instructions Pharmacy Instructions Status Indications Reaction Description Data Source(s) 10 mg 04/01/2021 12:00:00 AM EST tablet 90 TAKE ONE TABLET BY MOUTH EVERY DAY TAKE ONE TABLET BY MOUTH EVERY DAY SOLD: 04/01/2021 [facility] 5 mg 03/24/2021 12:00:00 AM EST tablet 90 TAKE ONE TABLET BY MOUTH EVERY DAY TAKE ONE TABLET BY MOUTH EVERY DAY SOLD: 03/24/2021 [facility] atorvastatin 40 MG Oral Tablet ATORVASTATIN CALCIUM 03/18/2021 1 2:00:00 AM EST tablet 90 TAKE ONE TABLET BY MOUTH EVERY D AY TAKE ONE TABLET BY MOUTH EVERY DAY SOLD: 03/18/2021 [facility] 100 mcg/0.5 mL 03/10/2021 12:00:00 AM EDT suspension 0 BOOSTER BOOSTER SOLD: 03/10/2021 [facility] 500 mg 02/12/2021 12:00:00 AM EDT tablet 90 TAKE ONE TABLET BY MOUTH EVERY DAY TAKE ONE TABLET BY MOUTH EVERY DAY SOLD: 02/12/2021 [facility] 20 mg 02/07/2021 12:00:00 AM EDT tablet 90 TAKE ONE TABLET BY MOUTH EVERY DAY TAKE ONE TABLET BY MOUTH EVERY DAY SOLD: 02/07/2021 [facility] 50 mcg 02/05/2021 12:00:00 AM EDT tablet 90 TAKE ONE TABLET BY MOUTH EVERY DAY TAKE ONE TABLET BY MOUTH EVERY DAY SOLD: 02/05/2021 [facility] 240 mcg/0.7 mL 02/02/2021 12:00:00 AM EDT syringe 0 INJECT DIRECTED INJECT DIRECTED SOLD: 02/02/2021 [facility] 90 mcg/actuation 01/24/2021 12:00:00 AM EDT HFA aerosol inha ler 8 INHALE 2 PUFFS BY MOUTH EVERY 4 HOURS NEEDED FOR SHORTNESS OF BREATH / WHEEZING INHALE 2 PUFFS BY MOUTH EVERY 4 HOURS NEEDED FOR SHORTNESS OF BREATH / WHEEZING SOLD: 01/24/2021 [facility] 5-325 mg 01/24/2021 12:00:00 AM EDT tablet 15 TAKE ONE TABLET BY MOUTH EVERY 6 HOURS NEEDED FOR MODERATE PAIN (PAIN SCALE 5-7) MAXIMUM DAILY DOSE = 4 TABLETS TAKE ONE TABLET BY MOUTH EVERY 6 HOURS A S NEEDED FOR MODERATE PAIN (PAIN SCALE 5-7) MAXIMUM DAILY DOSE = 4 TABLETS SOLD: 01/24/2021 [facility] 100 mg 01/24/2021 12:00:00 AM EDT tablet 90 TAKE ONE TABLET BY MOUTH EVERY DAY TAKE ONE TABLET BY MOUTH EVERY DAY SOLD: 01/24/2021 [facility] 2.5 mg 01/24/2021 12:00:00 AM EDT tablet 45 TAKE ONE-HALF TABLET BY MOUTH EVERY DAY TAKE ONE-HALF TABLET BY MOUTH EVERY DAY SOLD: 01/24/2021 [facility] 10 mg 12/23/2020 12:00:00 AM EDT tablet 90 TAKE ONE TABLET BY MOUTH EVERY DAY TAKE ONE TABLET BY MOUTH EVERY DAY SOLD: 12/23/2020 [facility] 10 mg 12/23/2020 12:00:00 AM EDT tablet 90 TAKE ONE TABLET BY MOUTH EVERY DAY TAKE ONE TABLET BY MOUTH EVERY DAY SOLD: 03/21/2021 [facility] 30 ACTUAT fluticasone furoate 0.2 MG/ACT UAT / vilanterol 0.025 MG/ACTUAT Dry Powder Inhaler [Breo] 200-25 mcg/dose FLUTICASONE/VILANTEROL 12/16/2020 12:00 :00 AM EDT blister with device 60 INHALE ONE PUFF BY MO UTH EVERY DAY INHALE ONE PUFF BY MOUTH EVERY DAY SOLD: 03/20/2021 [facility] 30 ACTUAT fluticasone furoate 0.2 MG/ACT UAT / vilanterol 0.025 MG/ACTUAT Dry Powder Inhaler [Breo] 200-25 mcg/dose FLUTICASONE/VILANTEROL 12/16/2020 12:00 :00 AM EDT blister with device 60 INHALE ONE PUFF BY MO UTH EVERY DAY INHALE ONE PUFF BY MOUTH EVERY DAY SOLD: 12/16/2020 [facility] 30 ACTUAT fluticasone furoate 0.2 MG/ACT UAT / vilanterol 0.025 MG/ACTUAT Dry Powder Inhaler [Breo] 200-25 mcg/dose FLUTICASONE/VILANTEROL 12/16/2020 12:00 :00 AM EDT blister with device 60 INHALE ONE PUFF BY MO UT EVERY DAY INHALE ONE PUFF BY MOUTH EVERY DAY SOLD: 01/13/2021 [facility] 30 ACTUAT fluticasone furoate 0.2 MG/ACT UAT / vilanterol 0.025 MG/ACTUAT Dry Powder Inhaler [Breo] 200-25 mcg/dose FLUTICASONE/VILANTEROL 12/16/2020 12:00 :00 AM EDT blister with device 60 INHALE ONE PUFF BY MO UT EVERY DAY INHALE ONE PUFF BY MOUTH EVERY DAY SOLD: 02/20/2021 [facility] 30 ACTUAT fluticasone furoate 0.2 MG/ACT UAT / vilanterol 0.025 MG/ACTUAT Dry Powder Inhaler [Breo] 200-25 mcg/dose FLUTICASONE/VILANTEROL 12/16/2020 12:00 :00 AM EDT blister with device 60 INHALE ONE PUFF BY MO UTH EVERY DAY INHALE ONE PUFF BY MOUTH EVERY DAY SOLD: 01/24/2021 [facility] 90 mcg/actuation 12/11/2020 12:00:00 AM EDT HFA aerosol inha ler 25 INHALE TWO PUFFS BY MOUTH FOUR TIMES A DAY NEEDED INHALE TWO PUFFS BY MOUTH FOUR TIMES A DAY NEEDED SOLD: 12/11/2020 [facility] 60 ACTUAT Albuterol 0.09 MG/ACTUAT Metered Dose Inhaler Albu terol Sulfate HFA 12/10/2020 12:00:00 AM EDT RESPIRATORY active MED[facility] ([facility], ) meloxicam 7.5 MG Oral Tablet MELOXICAM 12/04/2020 12:00:00 AM EDT tabl et 30 TAKE ONE TABLET BY MOUTH EVERY DAY TAKE ONE TABLET BY MOUTH EVERY DAY SOLD: 01/01/2021 [facility] meloxicam 7.5 MG Oral Tablet MELOXICAM 12/04/2020 12:00:00 AM EDT tabl et 30 TAKE ONE TABLET BY MOUTH EVERY DAY TAKE ONE TABLET BY MOUTH EVERY DAY SOLD: 12/04/2020 [facility] meloxicam 7.5 MG Oral Tablet MELOXICAM 12/04/2020 12:00:00 AM EDT tabl et 30 TAKE ONE TABLET BY MOUTH EVERY DAY TAKE ONE TABLET BY MOUTH EVERY DAY SOLD: 01/29/2021 [facility] atorvastatin 40 MG Oral Tablet ATORVASTATIN CALCIUM 12/02/2020 1 2:00:00 AM EDT tablet 90 TAKE ONE TABLET BY MOUTH EVERY D AY TAKE ONE TABLET BY MOUTH EVERY DAY SOLD: 12/02/2020 [facility] 40 mg 11/02/2020 12:00:00 AM EDT capsule,delayed release (DR/EC) 90 TAKE ONE CAPSULE BY MOUTH EVERY DAY TAKE ONE CAPSULE BY MOUTH EVERY DAY SOLD: 01/29/2021 [facility] 40 mg 11/02/2020 12:00:00 AM EDT capsule,delayed release (DR/EC) 90 TAKE ONE CAPSULE BY MOUTH EVERY DAY TAKE ONE CAPSULE BY MOUTH EVERY DAY SOLD: 11/02/2020 [facility] 10 mg 10/08/2020 12:00:00 AM EDT tablet 90 TAKE ONE TABLET BY MOUTH EVERY DAY TAKE ONE TABLET BY MOUTH EVERY DAY SOLD: 01/04/2021 [facility] 10 mg 10/08/2020 12:00:00 AM EDT tablet 90 TAKE ONE TABLET BY MOUTH EVERY DAY TAKE ONE TABLET BY MOUTH EVERY DAY SOLD: 10/08/2020 [facility] 300 mg 10/06/2020 12:00:00 AM EDT tablet 90 TAKE ONE TABLET BY MOUTH EVERY DAY TAKE ONE TABLET BY MOUTH EVERY DAY SOLD: 01/02/2021 [facility] 300 mg 10/06/2020 12:00:00 AM EDT tablet 90 TAKE ONE TABLET BY MOUTH EVERY DAY TAKE ONE TABLET BY MOUTH EVERY DAY SOLD: 04/01/2021 [facility] 300 mg 10/06/2020 12:00:00 AM EDT tablet 90 TAKE ONE TABLET BY MOUTH EVERY DAY TAKE ONE TABLET BY MOUTH EVERY DAY SOLD: 10/07/2020 [facility] 5 mg 09/30/2020 12:00:00 AM EDT tablet 90 TAKE ONE TABLET BY MOUTH EVERY DAY TAKE ONE TABLET BY MOUTH EVERY DAY SOLD: 12/27/2020 [facility] 5 mg 09/30/2020 12:00:00 AM EDT tablet 90 TAKE ONE TABLET BY MOUTH EVERY DAY TAKE ONE TABLET BY MOUTH EVERY DAY SOLD: 09/30/2020 [facility] atorvastatin 40 MG Oral Tablet ATORVASTATIN CALCIUM 08/23/2020 1 2:00:00 AM EDT tablet 90 TAKE ONE TABLET BY MOUTH EVERY D AY TAKE ONE TABLET BY MOUTH EVERY DAY SOLD: 08/23/2020 [facility] 50 mcg 08/13/2020 12:00:00 AM EDT tablet 90 TAKE ONE TABLET BY MOUTH EVERY DAY TAKE ONE TABLET BY MOUTH EVERY DAY SOLD: 11/10/2020 [facility] 50 mcg 08/13/2020 12:00:00 AM EDT tablet 90 TAKE ONE TABLET BY MOUTH EVERY DAY TAKE ONE TABLET BY MOUTH EVERY DAY SOLD: 08/13/2020 [facility] meloxicam 7.5 MG Oral Tablet MELOXICAM 08/06/2020 12:00:00 AM EDT tabl et 30 TAKE ONE TABLET BY MOUTH EVERY DAY TAKE ONE TABLET BY MOUTH EVERY DAY SOLD: 08/06/2020 [facility] meloxicam 7.5 MG Oral Tablet MELOXICAM 08/06/2020 12:00:00 AM EDT tabl et 30 TAKE ONE TABLET BY MOUTH EVERY DAY TAKE ONE TABLET BY MOUTH EVERY DAY SOLD: 09/30/2020 [facility] 100 mg 08/02/2020 12:00:00 AM EDT tablet 90 TAKE ONE TABLET BY MOUTH EVERY DAY TAKE ONE TABLET BY MOUTH EVERY DAY SOLD: 10/28/2020 [facility] 100 mg 08/02/2020 12:00:00 AM EDT tablet 90 TAKE ONE TABLET BY MOUTH EVERY DAY TAKE ONE TABLET BY MOUTH EVERY DAY SOLD: 08/02/2020 [facility] meloxicam 7.5 MG Oral Tablet Meloxicam 7.5 MG Meloxicam 7.5 MG 07/31/2020 12:00:00 AM EDT 1.0 {tablet} active Me loxicam 7.5 MG eCW1 ([facility]) meloxicam 7.5 MG Oral Tablet Meloxicam 7.5 MG Meloxicam 7.5 MG 07/31/2020 12:00:00 AM EDT 1.0 {tablet} active Me loxicam 7.5 MG eCW1 ([facility]) meloxicam 7.5 MG Oral Tablet Meloxicam 7.5 MG Meloxicam 7.5 MG 07/31/2020 12:00:00 AM EDT 1.0 {tablet} active Me loxicam 7.5 MG eCW1 ([facility]) meloxicam 7.5 MG Oral Tablet Meloxicam 7.5 MG Meloxicam 7.5 MG 07/31/2020 12:00:00 AM EDT 1.0 {tablet} active Me loxicam 7.5 MG eCW1 ([facility]) meloxicam 7.5 MG Oral Tablet Meloxicam 7.5 MG Meloxicam 7.5 MG 07/31/2020 12:00:00 AM EDT 1.0 {tablet} active Me loxicam 7.5 MG eCW1 ([facility]) 5 mg 07/08/2020 12:00:00 AM EST tablet extended release 24hr 90 TAKE ONE TABLET BY MOUTH EVERY DAY TAKE ONE TABLET BY MOUTH EVERY DAY SOLD: 10/04/2020 [facility] 5 mg 07/08/2020 12:00:00 AM EST tablet extended release 24hr 90 TAKE ONE TABLET BY MOUTH EVERY DAY TAKE ONE TABLET BY MOUTH EVERY DAY SOLD: 07/08/2020 [facility] 30 ACTUAT fluticasone furoate 0.2 MG/ACT UAT / vilanterol 0.025 MG/ACTUAT Dry Powder Inhaler [Breo] 200-25 mcg/dose FLUTICASONE/VILANTEROL 07/01/2020 12:00 :00 AM EST blister with device 60 INHALE 1 PUFF BY MOUT H ONCE DAILY INHALE 1 PUFF BY MOUTH ONCE DAILY SOLD: 09/23/2020 [facility] 30 ACTUAT fluticasone furoate 0.2 MG/ACT UAT / vilanterol 0.025 MG/ACTUAT Dry Powder Inhaler [Breo] 200-25 mcg/dose FLUTICASONE/VILANTEROL 07/01/2020 12:00 :00 AM EST blister with device 60 INHALE 1 PUFF BY MOUT H ONCE DAILY INHALE 1 PUFF BY MOUTH ONCE DAILY SOLD: 11/18/2020 [facility] 200-25 mcg/dose 07/01/2020 12:00:00 AM EST blister with julio ce 60 INHALE 1 PUFF BY MOUTH ONCE DAILY INHALE 1 PUFF BY MOUTH ONCE DAILY SOLD: 07/29/2020 [facility] 30 ACTUAT fluticasone furoate 0.2 MG/ACT UAT / vilanterol 0.025 MG/ACTUAT Dry Powder Inhaler [Breo] 200-25 mcg/dose FLUTICASONE/VILANTEROL 07/01/2020 12:00 :00 AM EST blister with device 60 INHALE 1 PUFF BY MOUT H ONCE DAILY INHALE 1 PUFF BY MOUTH ONCE DAILY SOLD: 08/26/2020 [facility] 30 ACTUAT fluticasone furoate 0.2 MG/ACT UAT / vilanterol 0.025 MG/ACTUAT Dry Powder Inhaler [Breo] 200-25 mcg/dose FLUTICASONE/VILANTEROL 07/01/2020 12:00 :00 AM EST blister with device 60 INHALE 1 PUFF BY MOUT H ONCE DAILY INHALE 1 PUFF BY MOUTH ONCE DAILY SOLD: 10/21/2020 [facility] 200-25 mcg/dose 07/01/2020 12:00:00 AM EST blister with julio ce 60 INHALE 1 PUFF BY MOUTH ONCE DAILY INHALE 1 PUFF BY MOUTH ONCE DAILY SOLD: 07/01/2020 [facility] 20 mg 06/11/2020 12:00:00 AM EST tablet 90 TAKE ONE TABLET BY MOUTH EVERY DAY TAKE ONE TABLET BY MOUTH EVERY DAY SOLD: 06/11/2020 [facility] 10 mg 06/01/2020 12:00:00 AM EST tablet 90 TAKE ONE TABLET BY MOUTH EVERY DAY TAKE ONE TABLET BY MOUTH EVERY DAY SOLD: 06/01/2020 [facility] Esomeprazole 40 MG Delayed Release Oral Capsule ESOMEPRAZOLE MAGNESIUM 06/01/2020 12:00:00 AM EST capsule,delayed release(DR/EC) 90 TAKE ONE CAPSULE BY MOUTH EVERY DAY TAKE ONE CAPSULE BY MOUTH EVERY DAY SOLD: 06/01/2020 [facility] 40 mg 06/01/2020 12:00:00 AM EST capsule,delayed release (DR/EC) 90 TAKE ONE CAPSULE BY MOUTH EVERY DAY TAKE ONE CAPSULE BY MOUTH EVERY DAY SOLD: 08/28/2020 [facility] atorvastatin 40 MG Oral Tablet ATORVASTATIN CALCIUM 05/12/2020 1 2:00:00 AM EST tablet 90 TAKE ONE TABLET BY MOUTH EVERY D AY TAKE ONE TABLET BY MOUTH EVERY DAY SOLD: 05/12/2020 [facility] tramadol hydrochloride 50 MG Oral Tablet Tramadol HCL 05/09/2020 12:00:00 AM EST active [facility] ([facility] 50 mg 05/09/2020 12:00:00 AM EST tablet 7 TAKE ONE-HALF TABLET BY MOUTH TWICE A DAY MAXIMUM DAILY DOSE = 1 TABLET TAKE ONE-HALF TABLET BY MOUTH TWICE A DAY MAXIMUM DAILY DOSE = 1 TABLET SOLD: 05/09/2020 [facility] 2.5 mg 05/06/2020 12:00:00 AM EST tablet 45 TAKE ONE-HALF TABLET BY MOUTH EVERY DAY TAKE ONE-HALF TABLET BY MOUTH EVERY DAY SOLD: 10/28/2020 [facility] 2.5 mg 05/06/2020 12:00:00 AM EST tablet 45 TAKE ONE-HALF TABLET BY MOUTH EVERY DAY TAKE ONE-HALF TABLET BY MOUTH EVERY DAY SOLD: 05/06/2020 [facility] 2.5 mg 05/06/2020 12:00:00 AM EST tablet 45 TAKE ONE-HALF TABLET BY MOUTH EVERY DAY TAKE ONE-HALF TABLET BY MOUTH EVERY DAY SOLD: 08/01/2020 [facility] 50 mcg 04/25/2020 12:00:00 AM EST tablet 90 TAKE ONE TABLET BY MOUTH EVERY DAY TAKE ONE TABLET BY MOUTH EVERY DAY SOLD: 04/25/2020 [facility] 300 mg 04/14/2020 12:00:00 AM EST tablet 90 TAKE ONE TABLET BY MOUTH EVERY DAY TAKE ONE TABLET BY MOUTH EVERY DAY SOLD: 07/11/2020 [facility] 300 mg 04/14/2020 12:00:00 AM EST tablet 90 TAKE ONE TABLET BY MOUTH EVERY DAY TAKE ONE TABLET BY MOUTH EVERY DAY SOLD: 04/14/2020 [facility] Metformin hydrochloride 500 MG Oral Tablet METFORMIN HCL 02/28/2020 12:00:00 AM EDT tablet 90 TAKE ONE TABLET BY MOUTH JUSTICE DAY TAKE ONE TABLET BY MOUTH EVERY DAY SOLD: 05/26/2020 [facility] 500 mg 02/28/2020 12:00:00 AM EDT tablet 90 TAKE ONE TABLET BY MOUTH EVERY DAY TAKE ONE TABLET BY MOUTH EVERY DAY SOLD: 11/16/2020 [facility] Metformin hydrochloride 500 MG Oral Tablet METFORMIN HCL 02/28/2020 12:00:00 AM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 DESIRABLE: <200 MG/DL <170 MG/DL BORDER-LINE HIGH RISK: 200-239 MG/DL 170-199 MG/DL HIGH RISK: >240 MG/DL >200 MG/DL CLASS. FOR PRIMARY LDL CHOL PREVENTION: LDL CHOL-CHILD/ADOLESCENTS* DESIRABLE: <130 MG/DL <110 MG/DL BORDERLINE-HIGH RISK: 130-159 MG/DL 110-129 MG/DL HIGH RISK: >160 MG/DL >130 MG/DL *CHILDREN AND ADOLESCENTS REPRESENTS INDIVIDUALA AGED 2-19 YEARS EXCLUSIVE. Cholesterol in HDL [Mass/volume] in Serum or Plasma 54 mg/dL 45-65 [facility] ([facility] CLASSIFICATION CHOLESTEROL FO R ADULTS CHILDREN/ADOLESCENTS* DESIRABLE: <200 MG/DL <170 MG/DL BORDER-LINE HIGH RISK: 200-239 MG/DL 170-199 MG/DL HIGH RISK: >240 MG/DL >200 MG/DL CLASS. FOR PRIMARY LDL CHOL PREVENTION: LDL CHOL-CHILD/ADOLESCENTS* DESIRABLE: <130 MG/DL <110 MG/DL BORDERLINE-HIGH RISK: 130-159 MG/DL 110-129 MG/DL HIGH RISK: >160 MG/DL >130 MG/DL *CHILDREN AND ADOLESCENTS REPRESENTS INDIVIDUALA AGED 2-19 YEARS EXCLUSIVE. Cho/HDL Ratio 1.9 CALC [facility] ([facility] CLASSIFICATION CHOLESTEROL FO R ADULTS CHILDREN/ADOLESCENTS* DESIRABLE: <200 MG/DL <170 MG/DL BORDER-LINE HIGH RISK: 200-239 MG/DL 170-199 MG/DL HIGH RISK: >240 MG/DL >200 MG/DL CLASS. FOR PRIMARY LDL CHOL PREVENTION: LDL CHOL-CHILD/ADOLESCENTS* DESIRABLE: <130 MG/DL <110 MG/DL BORDERLINE-HIGH RISK: 130-159 MG/DL 110-129 MG/DL HIGH RISK: >160 MG/DL >130 MG/DL *CHILDREN AND ADOLESCENTS REPRESENTS INDIVIDUALA AGED 2-19 YEARS EXCLUSIVE. ID Date Data Source [id number] 05/09/2020 03:53:00 PM EST [facility] ([facility] Name Value Range Interpretation Code Description Data Margaret rce(s) Supporting Document(s) Hemoglobin A1c/Hemoglobin.total in Blood 6.3 % 4.8-5.6 Above high normal [facility] ([facility] <content>Prediabetes: 5.7 - 6.4</content >
<content>Diabetes: >6.4</content>
<content>Glycemic control for adults with diabetes: <7.0</content>
<content></content> ID Date Data Source [id number] 05/09/2020 03:53:00 PM EST [facility] ([facility] Name Value Range Interpretation Code Description Data Margaret rce(s) Supporting Document(s) Thyrotropin [Units/volume] in Serum or Plasma 5.348 ulU/mL 0. 60-4.8 Above high normal [facility] ([facility] ) Thyroxine (T4) free [Mass/volume] in Serum or Plasma 1.31 ng/dL 0.75- 1.54 [facility] ([facility] ID Date Data Source [id number] 05/07/2020 07:52:00 AM EST [facility] ([facility] Name Value Range Interpretation Code Description Data Margaret rce(s) Supporting Document(s) White Blood Count 13.1 10 4.0-10.0 Above high normal [facility] ([facility] Red Blood Count 4.24 10 4.00-5.40 Normal (applies to non-numeric results) [facility] ([facility] Hematocrit 34.7 % 36.0-47.0 Below low normal [facility] ( [facility] Hemoglobin 10.5 g/dL 12.0-15.5 Below low normal [facility] ( [facility] Mean Corpuscular Hemoglobin 24.8 pg 27.0-33.0 Below low normal [facility] ([facility] Mean Corpuscular Volume 81.8 fl 80.0-96.0 Normal ( applies to non-numeric results) [facility] ([facility] ) Mean Corpuscular HGB Conc 30.3 g/dL 32.0-36.5 Below low normal [facility] ([facility] Neutrophils % 68.1 % 36.0-66.0 Above high normal [facility] ([facility] Red Cell Distribution Width 18.4 % 11.5-14.5 Above high normal [facility] ([facility] Platelet Count, Automated 248 10 150-450 Normal (applies to non-numeric results) [facility] ([facility] ) Eos % 5.0 % 0.0-3.0 Above high normal [facility] ([facility] Lymph % 9.6 % 24.0-44.0 Below low normal [facility] ( [facility] [place] % 15.9 % 0.0-5.0 Above high normal [facility] ([facility] Baso % 0.3 % 0.0-1.0 Normal (applies to non-numeric resul ts) [facility] ([facility] Immature Granulocyte % 1.1 % 0-3.0 Normal (applies to non-n umeric results) [facility] ([facility] Nucleated Red Blood Cell % 0.0 % 0-0 Normal (applies to n on-numeric results) [facility] ([facility] Neutrophils # 8.9 10 1.5-8.5 Above high normal [facility] ([facility] [place] # 2.1 10 0.0-0.8 Above high normal [facility] ([facility] Lymph # 1.3 10 1.5-5.0 Below low normal [facility] ( [facility] Baso # 0.0 10 0.0-0.2 Normal (applies to non-numeric resul ts) [facility] ([facility] Eos # 0.7 10 0.0-0.5 Above high normal [facility] ([facility] ID Date Data Source [id number] 05/07/2020 07:52:00 AM EST [facility] Name Value Range Interpretation Code Description Data Margaret rce(s) Supporting Document(s) Glucose, Fasting 153 mg/dL 70-100 Above high normal [facility] ([facility] Blood Urea Nitrogen 18 mg/dL 7-18 Normal (applies to non-nume jean results) [facility] ([facility] Glomerular Filtration Rate Laboratory test result Normal (applies to non- numeric results) [facility] ([facility] ) <content>Units are mL/min/1.73 m2</content>
<content></content>
<content>Chronic Kidney Disease Staging per NKF:</content>
<content></content>
<content>Stage I & II GFR >=60 Normal to Mildly Decreased</content>
<content>Stage III GFR 30- 59 Moderately Decreased</content>
<content>Stage IV GFR 15-29 Severely Decreased</content>
<content>Stage V GFR <15 Very Little GFR Left</content>
<content>ESRD GFR <15 on PHARMACISTS</content>
<content></content> Creatinine For GFR 0.88 mg/dL 0.55-1.30 Normal (applies to non -numeric results) [facility] ([facility] Sodium Level 140 meq/L 136-145 Normal (applies to non-numeric res ults) [facility] ([facility] Potassium Serum 4.0 meq/L 3.5-5.1 Normal (applies to non-numeric results) [facility] ([facility] Carbon Dioxide Level 24 meq/L 21-32 Normal (applies to non-num zeke results) [facility] ([facility] Anion Gap 9 meq/L 8-16 Normal (applies to non-numeric resul ts) [facility] ([facility] Chloride Level 107 meq/L 98-107 Normal (applies to non-numeric r esults) [facility] ([facility] Ast/Sgot 10 U/L 7-37 Normal (applies to non-numeric resul ts) [facility] ([facility] Alt/SGPT 19 U/L 12-78 Normal (applies to non-numeric resul ts) [facility] ([facility] Calcium Level 8.7 mg/dL 8.8-10.2 Below low normal [facility] ([facility] Alkaline Phosphatase 107 U/L 45-117 Normal (applies to non-num zeke results) [facility] ([facility] Bilirubin,Total 0.6 mg/dL 0.2-1.0 Normal (applies to non-numeric results) [facility] ([facility] Total Protein 5.7 GM/DL 6.4-8.2 Below low normal [facility] ([facility] Albumin 3.1 GM/DL 3.2-5.2 Below low normal [facility] ( [facility] Albumin/Globulin Ratio 1.2 1.2-2.2 Normal (applies to non-n umeric results) [facility] ([facility] ID Date Data Source [id number] 04/30/2020 08:26:00 AM EST [facility] ([facility] Name Value Range Interpretation Code Description Data Margaret rce(s) Supporting Document(s) Glucose, Fasting 94 mg/dL 70-100 Normal (applies to non-numeric results) [facility] ([facility] Creatinine For GFR 0.74 mg/dL 0.55-1.30 Normal (applies to non -numeric results) [facility] ([facility] Blood Urea Nitrogen 24 mg/dL 7-18 Above high normal [facility] ([facility] Glomerular Filtration Rate Laboratory test result Normal (applies to non- numeric results) [facility] ([facility] ) <content>Units are mL/min/1.73 m2</content>
<content></content>
<content>Chronic Kidney Disease Staging per NKF:</content>
<content></content>
<content>Stage I & II GFR >=60 Normal to Mildly Decreased</content>
<content>Stage III GFR 30- 59 Moderately Decreased</content>
<content>Stage IV GFR 15-29 Severely Decreased</content>
<content>Stage V GFR <15 Very Little GFR Left</content>
<content>ESRD GFR <15 on PHARMACISTS</content>
<content></content> Sodium Level 142 meq/L 136-145 Normal (applies to non-numeric res ults) [facility] ([facility] Chloride Level 109 meq/L 98-107 Above high normal [facility] ([facility] Potassium Serum 3.2 meq/L 3.5-5.1 Below low normal [facility] ([facility] Anion Gap 6 meq/L 8-16 Below low normal [facility] ( [facility] Calcium Level 9.1 mg/dL 8.8-10.2 Normal (applies to non-numeric re sults) [facility] ([facility] Carbon Dioxide Level 27 meq/L 21-32 Normal (applies to non-num zeke results) [facility] ([facility] Ast/Sgot 11 U/L 7-37 Normal (applies to non-numeric resul ts) [facility] ([facility] Alt/SGPT 22 U/L 12-78 Normal (applies to non-numeric resul ts) [facility] ([facility] Total Protein 6.2 GM/DL 6.4-8.2 Below low normal [facility] ([facility] Alkaline Phosphatase 107 U/L 45-117 Normal (applies to non-num zeke results) [facility] ([facility] Bilirubin,Total 0.4 mg/dL 0.2-1.0 Normal (applies to non-numeric results) [facility] ([facility] Albumin 3.3 GM/DL 3.2-5.2 Normal (applies to non-numeric resul ts) [facility] ([facility] Albumin/Globulin Ratio 1.1 1.2-2.2 Below low normal [facility] ([facility] ID Date Data Source [id number] 04/30/2020 08:26:00 AM EST [facility] ([facility] Name Value Range Interpretation Code Description Data Margaret rce(s) Supporting Document(s) White Blood Count 8.6 10 4.0-10.0 Normal (applies to non-numeri c results) [facility] ([facility] Red Blood Count 4.44 10 4.00-5.40 Normal (applies to non-numeric results) [facility] ([facility] Hemoglobin 11.2 g/dL 12.0-15.5 Below low normal [facility] ( [facility] Hematocrit 36.6 % 36.0-47.0 Normal (applies to non-numeric resul ts) [facility] ([facility] Mean Corpuscular Volume 82.4 fl 80.0-96.0 Normal ( applies to non-numeric results) [facility] ([facility] ) Mean Corpuscular Hemoglobin 25.2 pg 27.0-33.0 Below low normal [facility] ([facility] Red Cell Distribution Width 18.0 % 11.5-14.5 Above high normal [facility] ([facility] Mean Corpuscular HGB Conc 30.6 g/dL 32.0-36.5 Below low normal [facility] ([facility] Neutrophils % 67.6 % 36.0-66.0 Above high normal [facility] ([facility] Platelet Count, Automated 228 10 150-450 Normal (applies to non-numeric results) [facility] ([facility] ) Lymph % 12.8 % 24.0-44.0 Below low normal [facility] ( [facility] Eos % 11.3 % 0.0-3.0 Above high normal [facility] ([facility] [place] % 7.3 % 0.0-5.0 Above high normal [facility] ([facility] Immature Granulocyte % 0.5 % 0-3.0 Normal (applies to non-n umeric results) [facility] ([facility] Baso % 0.5 % 0.0-1.0 Normal (applies to non-numeric resul ts) [facility] ([facility] Neutrophils # 5.8 10 1.5-8.5 Normal (applies to non-numeric re sults) [facility] ([facility] Nucleated Red Blood Cell % 0.0 % 0-0 Normal (applies to n on-numeric results) [facility] ([facility] Lymph # 1.1 10 1.5-5.0 Below low normal [facility] ( [facility] Eos # 1.0 10 0.0-0.5 Above high normal [facility] ([facility] [place] # 0.6 10 0.0-0.8 Normal (applies to non-numeric resul ts) [facility] ([facility] Baso # 0.0 10 0.0-0.2 Normal (applies to non-numeric resul ts) [facility] ([facility] ID Date Data Source [id number] 04/23/2020 07:37:00 AM EST [facility] ([facility] Name Value Range Interpretation Code Description Data Margaret rce(s) Supporting Document(s) Hepatitis B virus core Ab [Presence] in Serum Laboratory test re sult Normal (applies to non-numeric results) [facility] Performed at: RN - [facility] [place] [id number] Blast Setter: Samara Cheney MD, Phone: [phone] Hepatitis B virus surface Ag [Presence] in Serum or Pl asma by Immunoassay Laboratory test result Normal (applies to non-numeric results) [facility] ([facility] ID Date Data Source [id number] 04/23/2020 07:37:00 AM EST [facility] ([facility] Name Value Range Interpretation Code Description Data Margaret rce(s) Supporting Document(s) Glucose, Fasting 121 mg/dL 70-100 Above high normal [facility] ([facility] Blood Urea Nitrogen 20 mg/dL 7-18 Above high normal [facility] ([facility] Glomerular Filtration Rate Laboratory test result Normal (applies to non- numeric results) [facility] ([facility] ) <content>Units are mL/min/1.73 m2</content>
<content></content>
<content>Chronic Kidney Disease Staging per NKF:</content>
<content></content>
<content>Stage I & II GFR >=60 Normal to Mildly Decreased</content>
<content>Stage III GFR 30- 59 Moderately Decreased</content>
<content>Stage IV GFR 15-29 Severely Decreased</content>
<content>Stage V GFR <15 Very Little GFR Left</content>
<content>ESRD GFR <15 on PHARMACISTS</content>
<content></content> Sodium Level 143 meq/L 136-145 Normal (applies to non-numeric res ults) [facility] ([facility] Creatinine For GFR 0.75 mg/dL 0.55-1.30 Normal (applies to non -numeric results) [facility] ([facility] Potassium Serum 3.4 meq/L 3.5-5.1 Below low normal [facility] ([facility] Carbon Dioxide Level 27 meq/L 21-32 Normal (applies to non-num zeke results) [facility] ([facility] Chloride Level 109 meq/L 98-107 Above high normal [facility] ([facility] Anion Gap 7 meq/L 8-16 Below low normal [facility] ( [facility] Ast/Sgot 14 U/L 7-37 Normal (applies to non-numeric resul ts) [facility] ([facility] Calcium Level 9.7 mg/dL 8.8-10.2 Normal (applies to non-numeric re sults) [facility] ([facility] Alt/SGPT 21 U/L 12-78 Normal (applies to non-numeric resul ts) [facility] ([facility] Alkaline Phosphatase 113 U/L 45-117 Normal (applies to non-num zeke results) [facility] ([facility] Bilirubin,Total 0.4 mg/dL 0.2-1.0 Normal (applies to non-numeric results) [facility] ([facility] Total Protein 6.5 GM/DL 6.4-8.2 Normal (applies to non-numeric re sults) [facility] ([facility] Albumin/Globulin Ratio 1.2 1.2-2.2 Normal (applies to non-n umeric results) [facility] ([facility] Albumin 3.5 GM/DL 3.2-5.2 Normal (applies to non-numeric resul ts) [facility] ([facility] ID Date Data Source [id number] 04/23/2020 07:37:00 AM EST [facility] ([facility] Name Value Range Interpretation Code Description Data Margaret rce(s) Supporting Document(s) White Blood Count 7.8 10 4.0-10.0 Normal (applies to non-numeri c results) [facility] ([facility] Red Blood Count 4.59 10 4.00-5.40 Normal (applies to non-numeric results) [facility] ([facility] Hematocrit 37.8 % 36.0-47.0 Normal (applies to non-numeric resul ts) [facility] ([facility] Hemoglobin 11.8 g/dL 12.0-15.5 Below low normal [facility] ( [facility] Mean Corpuscular Volume 82.4 fl 80.0-96.0 Normal ( applies to non-numeric results) [facility] ([facility] ) Mean Corpuscular HGB Conc 31.2 g/dL 32.0-36.5 Below low normal [facility] ([facility] Mean Corpuscular Hemoglobin 25.7 pg 27.0-33.0 Below low normal [facility] ([facility] Platelet Count, Automated 285 10 150-450 Normal (applies to non-numeric results) [facility] ([facility] ) Red Cell Distribution Width 17.9 % 11.5-14.5 Above high normal [facility] ([facility] Neutrophils % 61.0 % 36.0-66.0 Normal (applies to non-numeric re sults) [facility] ([facility] Lymph % 20.1 % 24.0-44.0 Below low normal [facility] ( [facility] [place] % 10.8 % 0.0-5.0 Above high normal [facility] ([facility] Eos % 7.1 % 0.0-3.0 Above high normal [facility] ([facility] Immature Granulocyte % 0.4 % 0-3.0 Normal (applies to non-n umeric results) [facility] ([facility] Baso % 0.6 % 0.0-1.0 Normal (applies to non-numeric resul ts) [facility] ([facility] Nucleated Red Blood Cell % 0.0 % 0-0 Normal (applies to n on-numeric results) [facility] ([facility] Neutrophils # 4.7 10 1.5-8.5 Normal (applies to non-numeric re sults) [facility] ([facility] Lymph # 1.6 10 1.5-5.0 Normal (applies to non-numeric resul ts) [facility] ([facility] Baso # 0.1 10 0.0-0.2 Normal (applies to non-numeric resul ts) [facility] ([facility] [place] # 0.8 10 0.0-0.8 Normal (applies to non-numeric resul ts) MEDENT ([facility] Eos # 0.6 10 0.0-0.5 Above high normal MEDENT ([facility] ID Date Data Source [id number] 04/08/2020 12:00:00 AM EST [facility] [place] Patient Name: SYDNIE LARSEN [facility] Date of : 1935[address] [facility]: [facility] [place] [id number] Fax: [phone] EXAM: HAND LEFT (COMPLETE) X-RAYCLINICAL INFORMATION: Atraumatic pain.Four views. These images were obtained using digital radiography.There are no prior left hand xrays for comparison.There is oyizpjvl-lo-oxdxvh asymmetric intradigital joint space narrowing.There is moderate metacarpal phalangeal joint space narrowing. There is noprominent marginal osteophytosis. There is some evidence of periarticularosteopenia and possible early marginal erosions involving all DIP jointsand the PIP joints of digits 3 and 4. Marginal erosions also may bedeveloping involving the heads of the 2nd and 3rd metacarpals.Advanc ed degenerative changes are seen throughout the wrist. There is noevidence of an acute fracture.IMPRESSION:Chronic changes as described above.SOFÍA Elmore/Sage you for referring TOYA LARSEN to our office. Electronically Signed - JOHNNIE HURST DO 04/08/20 16:26 Name Value Range Interpretation Code Description Data Margaret rce(s) Supporting Document(s) ID Date Data Source [id number] 04/08/2020 09:22:00 AM EST [facility] ([facility] Name Value Range Interpretation Code Description Data Margaret rce(s) Supporting Document(s) Laboratory test finding (navigational concept) Laboratory test result MED[facility] ([facility] Hand Left Laboratory test result ME DENT ([facility] ID Date Data Source [id number] 03/14/2020 02:42:00 PM EST [facility] ([facility] Name Value Range Interpretation Code Description Data Margaret rce(s) Supporting Document(s) Glucose, Fasting 114 mg/dL 70-100 Above high normal M EDENT ([facility] Blood Urea Nitrogen 24 mg/dL 7-18 Above high normal MED[facility] ([facility] Sodium Level 141 meq/L 136-145 Normal (applies to non-numeric res ults) [facility] ([facility] Creatinine For GFR 0.67 mg/dL 0.55-1.30 Normal (applies to non -numeric results) [facility] ([facility] Glomerular Filtration Rate Laboratory test result Normal (applies to non- numeric results) [facility] ([facility] ) <content>Units are mL/min/1.73 m2</content>
<content></content>
<content>Chronic Kidney Disease Staging per NKF:</content>
<content></content>
<content>Stage I & II GFR >=60 Normal to Mildly Decreased</content>
<content>Stage III GFR 30- 59 Moderately Decreased</content>
<content>Stage IV GFR 15-29 Severely Decreased</content>
<content>Stage V GFR <15 Very Little GFR Left</content>
<content>ESRD GFR <15 on PHARMACISTS</content>
<content></content> Chloride Level 108 meq/L 98-107 Above high normal MED ENT ([facility] Potassium Serum 4.0 meq/L 3.5-5.1 Normal (applies to non-numeric results) MED[facility] ([facility] Carbon Dioxide Level 27 meq/L 21-32 Normal (applies to non-num zeke results) [facility] ([facility] Ast/Sgot 14 U/L 7-37 Normal (applies to non-numeric resul ts) [facility] ([facility] Calcium Level 9.6 mg/dL 8.8-10.2 Normal (applies to non-numeric re sults) [facility] ([facility] Anion Gap 6 meq/L 8-16 Below low normal MED[facility] ( [facility] Alt/SGPT 23 U/L 12-78 Normal (applies to non-numeric resul ts) [facility] ([facility] Alkaline Phosphatase 134 U/L 45-117 Above high normal MED[facility] ([facility] Bilirubin,Total 0.4 mg/dL 0.2-1.0 Normal (applies to non-numeric results) [facility] ([facility] Albumin/Globulin Ratio 1.5 1.2-2.2 Normal (applies to non-n umeric results) MED[facility] ([facility] Total Protein 6.1 GM/DL 6.4-8.2 Below low normal MEDEN T ([facility] Albumin 3.7 GM/DL 3.2-5.2 Normal (applies to non-numeric resul ts) [facility] ([facility] ID Date Data Source [id number] 03/14/2020 02:42:00 PM EST MEDENT ([facility] Name Value Range Interpretation Code Description Data Margaret rce(s) Supporting Document(s) Lactate dehydrogenase [Enzymatic activity/volume] in Serum o r Plasma 194 U/L 84-246 Normal (applies to non-numeric results) [facility] ([facility] ID Date Data Source [id number] 03/14/2020 02:42:00 PM EST MEDENT ([facility] Name Value Range Interpretation Code Description Data Margaret rce(s) Supporting Document(s) Iron (Fe) 29 ug/dL 50-170 Below low normal MED[facility] ( [facility] Total Iron Binding Capacity 409 ug/dL 250-450 Norm al (applies to non-numeric results) [facility] ([facility] ) Percent Saturation 7.1 % 13.2-45.0 Below low normal MED[facility] ([facility] ID Date Data Source [id number] 03/14/2020 02:42:00 PM EST MEDENT ([facility] Name Value Range Interpretation Code Description Data Margaret rce(s) Supporting Document(s) Laboratory test finding (navigational concept) Laboratory test r esult Normal (applies to non-numeric results) [facility] ([facility] It Serum Interpretation Laboratory test result N ormal (applies to non-numeric results) [facility] ([facility] ) NO MONOCLONAL BANDS NOTED. ID Date Data Source [id number] 03/14/2020 02:42:00 PM EST [facility] ([facility] Name Value Range Interpretation Code Description Data Margaret rce(s) Supporting Document(s) Ahgqe-7-[place] % 6.0 % 2.9-4.9 Above high normal MED[facility] ([facility] Yhezn-0-Djcnoumym % 14.5 % 7.1-11.8 Above high normal MED[facility] ([facility] Albumin % 62.7 % 55.8-66.1 Normal (applies to non-numeric resul ts) [facility] ([facility] Uhyy-5-Msodgpwhk % 3.9 % 3.2-6.5 Normal (applies to non-numer ic results) [facility] ([facility] Gamma Globulin % 5.1 % 11.1-18.8 Below low normal ME DENT ([facility] Ihbx-6-Vicbpnwmm % 7.8 % 4.7-7.2 Above high normal MED[facility] ([facility] Albumin 3.82 GM/DL 3.29-5.55 Normal (applies to non-numeric resul ts) MED[facility] ([facility] Mdjkk-7-Wveuaolfo 0.88 GM/DL 0.42-0.99 Normal (applies to non- numeric results) [facility] ([facility] Teune-1-Ueqheqbml 0.37 GM/DL 0.17-0.41 Normal (applies to non- numeric results) [facility] ([facility] Gamma Globulins 0.31 GM/DL 0.65-1.58 Below low normal MED ENT ([facility] Urtj-4-Zgwunrmqr 0.48 GM/DL 0.28-0.60 Normal (applies to non-numeric results) [facility] ([facility] Odbw-4-Bzrpplmmo 0.24 GM/DL 0.19-0.55 Normal (applies to non-numeric results) [facility] ([facility] Spep Interpretation Laboratory test result Marlys l (applies to non-numeric results) [facility] ([facility] ) HYPOGAMMAGLOBULINEMIA. SUGGEST SERUM AND URINE IMMUNOTYPING. Laboratory test finding (navigational concept) Laboratory test r esult Normal (applies to non-numeric results) MED[facility] ([facility] Total Protein 6.1 GM/DL 6.4-8.2 Below low normal MEDEN T ([facility] ID Date Data Source [id number] 03/14/2020 02:42:00 PM EST MEDENT ([facility] Name Value Range Interpretation Code Description Data Margaret rce(s) Supporting Document(s) Ferritin [Mass/volume] in Serum or Plasma 17 ng/mL 8-252 Normal (applies to non- numeric results) [facility] ([facility] ) ID Date Data Source [id number] 03/14/2020 02:42:00 PM EST MED[facility] ([facility] Name Value Range Interpretation Code Description Data Margaret rce(s) Supporting Document(s) Reticulocytes/100 erythrocytes in Blood by Automated c ount Laboratory test result MEDENT ([facility] Haptoglobin [Mass/volume] in Serum or Plasma 191 mg/dL 41- 333 Normal (applies to non-numeric results) [facility] ([facility] Performed at: RN - [facility] [place] [id number] Blast Setter: Samara Cheney MD, Phone: [phone] ID Date Data Source [id number] 03/14/2020 02:42:00 PM EST MED[facility] ([facility] Name Value Range Interpretation Code Description Data Margaret rce(s) Supporting Document(s) Reticulocyte % 1.1 % 0.5-1.5 Normal (applies to non-numeric r esults) [facility] ([facility] Reticulocyte # 46.1 10 17-77 Normal (applies to non-numeric r esults) [facility] ([facility] Retic Hemoglobin Equivalent 29.3 pg 24-36 Norm al (applies to non-numeric results) [facility] ([facility] ) ID Date Data Source [id number] 03/14/2020 02:42:00 PM EST [facility] ([facility] Name Value Range Interpretation Code Description Data Margaret rce(s) Supporting Document(s) White Blood Count 10.2 10 4.0-10.0 Above high normal [facility] ([facility] Red Blood Count 4.35 10 4.00-5.40 Normal (applies to non-numeric results) [facility] ([facility] Mean Corpuscular Volume 83.0 fl 80.0-96.0 Normal ( applies to non-numeric results) [facility] ([facility] ) Hemoglobin 11.2 g/dL 12.0-15.5 Below low normal [facility] ( [facility] Hematocrit 36.1 % 36.0-47.0 Normal (applies to non-numeric resul ts) [facility] ([facility] Mean Corpuscular HGB Conc 31.0 g/dL 32.0-36.5 Below low normal [facility] ([facility] Mean Corpuscular Hemoglobin 25.7 pg 27.0-33.0 Below low normal [facility] ([facility] Red Cell Distribution Width 17.6 % 11.5-14.5 Above high normal [facility] ([facility] Platelet Count, Automated 286 10 150-450 Normal (applies to non-numeric results) [facility] ([facility] ) Neutrophils % 73.9 % 36.0-66.0 Above high normal MEDE NT ([facility] [place] % 8.7 % 0.0-5.0 Above high normal [facility] ([facility] Lymph % 14.3 % 24.0-44.0 Below low normal [facility] ( [facility] Immature Granulocyte % 0.4 % 0-3.0 Normal (applies to non-n umeric results) [facility] ([facility] Eos % 2.2 % 0.0-3.0 Normal (applies to non-numeric resul ts) [facility] ([facility] Baso % 0.5 % 0.0-1.0 Normal (applies to non-numeric resul ts) [facility] ([facility] Neutrophils # 7.5 10 1.5-8.5 Normal (applies to non-numeric re sults) [facility] ([facility] Nucleated Red Blood Cell % 0.0 % 0-0 Normal (applies to n on-numeric results) [facility] ([facility] [place] # 0.9 10 0.0-0.8 Above high normal [facility] ([facility] Lymph # 1.5 10 1.5-5.0 Normal (applies to non-numeric resul ts) [facility] ([facility] Eos # 0.2 10 0.0-0.5 Normal (applies to non-numeric resul ts) [facility] ([facility] Baso # 0.1 10 0.0-0.2 Normal (applies to non-numeric resul ts) [facility] ([facility] ID Date Data Source [id number] 03/06/2020 11:22:00 AM EDT [facility] ([facility], ) Name Value Range Interpretation Code Description Data Margaret rce(s) Supporting Document(s) Surgical pathology study Laboratory test result [facility] ([facility]) Addendum 2 Entered: 03/25/2020-1416 See complete addendum report from [facility] with FISH result, diagnosis remains unchanged. 03/25/20201415 Addendum Signed____ Jason Damon MD 03/25/2020 141 Addendum 1 Entered: 03/14/2020-0546 Left groin lymph node. 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 The case was also seen at [facility] hematopathology, see report [id number]. FISH results are pending, addendum will follow. 4/TR 03/14/2020545 Addendum Signed____ Jason Damon MD 03/14/2020 0547 FINAL DIAGNOSIS Left groin lymph node. Biopsy for lymphoma protocol: Malignant lymphoma, C/W history of follicular lymphoma. The fresh tissue in RPMI and slides and blocks will be sent to [facility] hematopathology for immunophenotyping and an addendum will follow. 4/TR 03/07/2020 - 101 CLINICAL DIAGNOSIS Left groin lymphadenopathy 03/06/2020 - 140 GROSS DIAGNOSIS Received fresh labeled "left groin lymph node/lymphoma protocol" is a 4.5 x 3 x 2.5 cm. ovoid lymph node. The cut surface is pink homogenous. [employer] soft tissue is submitted in RPMI for flow cytometry. Touch preps are prepared. Multiple commissary representative sections are submitted in four blocks. - 03/06/2020 - 1401 Signed Jason Damon MD 03/07/2020 1012 ID Date Data Source [id number] 03/06/2020 10:12:00 AM EDT [facility] ([facility], ) Name Value Range Interpretation Code Description Data Margaret rce(s) Supporting Document(s) Glucose [Mass/volume] in Capillary blood by Glucometer 91 mg/dL 83-110 Normal (applies to non-numeric results) [facility] ([facility]) ID Date Data Source [id number] 03/06/2020 10:12:00 AM EDT [facility] ([facility] Name Value Range Interpretation Code Description Data Margaret rce(s) Supporting Document(s) Glucose [Mass/volume] in Capillary blood by Glucometer 91 mg/dL 83-110 Normal (applies to non-numeric results) [facility] ID Date Data Source [id number] 03/13/2020 03:05:00 PM [facility] Hematopathology Report See Addendum Neha Valenzuela: TOYA LARSENMRN: [id number] Number: [id number] Date: 03/06/2020 00:00Received Date: 03/07/2020 15:23Physician(s): JASON DAMON MD HAGHIR, SHAHANDEH F,MDCopy To:[facility]) ReceivedA: Slides received for consultation, SB; Received 5 slides and [address] biopsy labeled [id number] collected on 03/06/2020 from [facility] inconsultation with Dr. Sandoval: Lymph Node, Flow Cytometry; [facility] HistoryHistory of follicular lymphoma, now with enlarged node in left groin.TEST REQUESTED/PERFORMED: Hematopathology Consultation and flow cytometryanalysis DiagnosisLeft groin lymph node, biopsy: Follicular lymphoma, grade 2, with focaldiffuse follicular lymphoma (~20%). CD21 and FISH for t(14;18) arepending and will be reported in an addendum. Any Bosch MD;Resident PathologistElectronically Signed By TOMMY ANDINO M.D. Attending Pathologist 03/13/202015:05:14The attending pathologist named above attests that he/she has personallyreviewed the relevant preparation(s) for the specimen(s) and rendered thefinal diagnosis. Addendum 03/15/2020 Anatomic Molecular Pathology Report [id number] shows the following:TEST PANEL BY FISH (fluorescence in situ hybridization): 1. 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 RESULTS: 1. Ratio of IGH-BCL2 gene fusion rearrangement is 0.019. ISCN - nuc luis (IGH,BCL2)x1~4[36/40]INTERPRETATION: NEGATIVE FOR IGH- BCL2 GENE REARRANGEMENT.0.1 is used for a cutoff for IGH-BCL2. d0.1 is positive while <0.1 is negative. This finding is similar to previous findings and since there ismorphologic and phenotypic evidence of follicular and diffuse lymphoma,diagnosis remains unchanged.Diffuse follicular lymphoma is characterized by the absence of t(14;18)and even though there seems to be only minor component of this type in thecurrent specimen, sampling issue might be the reason for t(14;18) beingnegative.Diagnosis remains unchanged. Addendum Electronically Signed By: TOMMY ANDINO M.D. 03/15/2020 11:40 Addendum 03/14/2020 CD21 highlights follicular dendritic cells in part of the specimen and therest of the lymph node, showing more diffuse pattern is negative. Ki-67 ispositive on ~30% of the cells. The diagnosis remains unchanged. Addendum Electronically Signed By: TOMMY ANDINO M.D. 03/14/2020 10:32 Microscopic DescriptionSections show lymph node tissue composed of several lymphoid follicleswith small residual mantle zones. These follicles are composed mostly ofsmall lymphocytes and scattered histiocytes. Frequent mitotic figures arepresent. Immunostains performed at [facility] show most of thelymphocytes positive for CD20 with frequent CD3 positive T cells. CD10 andBCL6 show positive germinal centers also positive for BCL2. CD23 showsonly rare scattered positive cells and rare follicular dendritic cellmeshwork. Diffuse areas also stain for CD10 and Bcl-6. Stains performed at [facility]: CD3, CD20, BCL6, CD10,BCL2, CD23, and CD21. ProceduresFlow Cytometry Date Ordered:03/07/2020 Status: Signed Out03/12/2020 InterpretationA cytospin and touch imprint are reviewed. Sheets of small sizedlymphocytes admixed with histocytes are noted.Lymphoid Panel: Chava Gruber [id number] following markers were assayed: CD45 (gate), CD2, CD3, CD4, CD5, CD7,CD8, CD10, CD11c, CD19, CD20, CD22, CD23, CD25, CD38, CD56, CD57, CD103,[place], Lambda, and FMC7.# events: [id number]: 74%NOTE: Results are based on a sample that was partially compromised due tothe presence of greater than 20% non-viable leukocytes.Flow Cytometry Differential (CD45/SSC)Lymphocyte Mcint[place]: 93%CD45 dim [place]: 1%Monocyte Mcintire: 0%Granulocyte Gat e: 0%Nucleated/Erythroid Mcintire: 1%The lymphocyte gate showsB-cells (CD19): 66%[place]/Lambda Ratio: 20.5T-cells (CD3): 32%NK-cells (CD3-/CD56+): 1%CD4/CD8 Ratio: 6.3Results: (expressed as % of lymphocyte gate)T-cell Markers: CD2 = 33, CD3 = 32, CD3/CD4 = 27, CD3/CD8 = 5, CD5 = 30,CD7 = 32, CD3/57 = 8B-cell markers: [place] = 64, Lambda = 3, CD19 = 67, CD20 = 71, CD19/10 =58, CD19/CD5 = 1, CD38/CD20 = 69, CD22 = 65, CD19/CD23 = 13, FMC7 = 45Light chain as % of B- Cells: CD19/[place] = 94, CD19/Lambda = 5CD19/CD5/[place] = 2, CD19/CD5/Lambda = 0CD19/CD10/[place] = 88, CD19/CD10/Lambda = 1CD38 on CD19/5 positive cells: 100%NK cell Markers: CD56 = 4, CD57 = 9Other Markers: CD25 = 9, CD103 = 3, CD11c = 13, CD103/CD11c = 1, CD103/25= 0, CD103/22 = 1 CD10 = 60, CD38 = 87Results: (expressed as % of CD45 dim gate)T-cell Markers: CD2 = 14, CD3 = 6, CD3/CD4 = 0, CD3/CD8 = 1, CD5 = 10, CD7= 20, CD3/57 = 0B-cell markers: [place] = 0, Lambda = 0, CD19 = 1, CD20 = 0, CD19/10 = 0,CD19/CD5 = 0, CD38/CD20 = 0, CD22 = 3, CD19/C D23 = 0, FMC7 = 0Light chain as % of B-Cells: CD19/[place] = 0, CD19/Lambda = 0CD19/CD5/[place] = 0, CD19/CD5/Lambda = 0CD19/CD10/[place] = 0, CD19/CD10/Lambda = 0NK cell Markers: CD56 = 15, CD57 = 0Other Markers: CD10 = 30, CD38 = 66, CD25 = 0, CD103 = 3, CD11c = 17,CD103/CD11c = 1, CD103/25 = 0, CD103/22 = 0Results- CommentsLymphocytes consist predominantly of kappa-restricted B cells alxinhinqrSJ06, CD19, CD20, CD22, CD23, CD38, and FMC7. Small population of T- cellswith slightly increased CD4/CD8 ratio and normal number of NK andcytotoxic T-cells is also noted.Procedure Electronically Signed By:TOMMY ANDINO M.D.03/12/2020 This report may include one or more immunohistochemical stain/fluorochromeconjugated monoclonal antibody results that use analyte specific reagents.All positive and negative controls have been reviewed by the attendingpathologist and are satisfactory. The tests were developed and theirperformance characteristics determined by [facility] Pathology department.They have not been cleared or approved by the US Food and DrugAdministration. The FDA has determined that such clearance or approval isnot necessary. Name Value Range Interpretation Code Description Data Margaret rce(s) Supporting Document(s) ID Date Data Source [id number] 03/14/2020 07:21:00 AM [facility] Anatomic Molecular Pathology ReportName: TOYA LARSENMRN: [id number] Number: [id number] Date: 03/06/2020 00:00Received Date: 03/11/2020 13:57Physician(s): JASON DAMON MD HAGHIR, SHAHANDEH F,MDCopy To:[facility]imen(s) ReceivedA: Slides received for consultation, Formalin Block [id number] [facility]from [facility] [place], [place], IGH- BCL2 by FISHDiagnosisTEST PANEL BY FISH (fluorescence in situ hybridization): 1. 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 RESULTS: 1. Ratio of IGH-BCL2 gene fusion rearrangement is 0.019. ISCN - nuc luis (IGH,BCL2)x1~4[36/40]INTERPRETATION: NEGATIVE FOR IGH-BCL2 GENE REARRANGEMENT.0.1 is used for a cutoff for IGH-BCL2. d0.1 is positive while < 0.1 isnegative. /ldElectronically Signed By David Lerner M.D. Attending Pathologist 03/14/2020 07:21:01Gross DescriptionMETHODOLOGY:Interphase FISH is performed on paraffin embedded lymphoma tissueutilizing dual color dual fusion probes for IGH-BCL2, analyte specificreagents of [employer] Hybridizations are carried out as perthe stated protocol with no significant background or random probehybridization. A total of 40 -100 interphase tumor nuclei are examined byone or two scorers, depending on initial evaluation. Less than 10% tumorcells in samples may not be detected by the assay. Test development and their performance characteristics were determined bythe [facility], and have beenauthorized for clinical use by [facility]. Thetests have not been cleared or approved by the U.S. Food and DrugAdministration. The analyte specific reagents used in this assay do notrequire FDA approval. REFERENCES: 1. Jagjit N, Guillermo Batista, Michael Ellington, et al. Prognostic significance of MYC,BCL2, and BCL6 rearrangements in patients with diffuse large B-celllymphoma treated with cyclophosphamide, doxorubicin, vincristine, andprednisone plus rituximab. Cancer 2012;118:0085-6703.2. Martínez Y, Anabella M, Shaye P, et al. Double hit lymphoma: the [facility] clinical experience. [place] Journal of Djuntmhfyvq0700;166:960094.3. Silvano Batista, Hammad ROSALES, Pelon Rodriguez, et al. Rearrangements of MYC genefacilitate risk stratification in diffuse large B-cell lymphoma patientstreated with rituximab-[facility]. Modern Pathology 2014;27:020083. This report may include one or more immunohistochemical stain results thatuse analyte specific reagents. All positive and negative controls havebeen reviewed by the attending pathologist and are satisfactory. The testswere developed and their performance characteristics determined by [facility] Pathology department. They have not been cleared or approved by the USFood and Drug Administration. The FDA has determined that such clearanceor approval is not necessary. Name Value Range Interpretation Code Description Data Margaret rce(s) Supporting Document(s) ID Date Data Source [id number] 03/01/2020 11:00:00 AM EDT [facility] Name Value Range Interpretation Code Description Data [facility] rce(s) Supporting Document(s) SARS coronavirus 2 RNA [facility] This lab was ordered by [facility] and reported by [facility]. Procedure Social History Code Duration Value Status Description Data Source(s ) Smoking 12/26/2020 03:10:36 PM EDT Never smoked tobacco (mal laws) completed Never smoked tobacco (finding) [facility] (Rickie Walter MD [facility]) Smoking 10/22/2020 01:28:34 PM EDT Never smoked tobacco (findi ng) completed Never smoked tobacco (finding) [facility] (Rickie Walter MD [facility]) Smoking 10/14/2020 12:00:00 AM EDT Never Smoker completed Never S moker eCW1 ([facility]) Smoking 10/14/2020 12:00:00 AM EDT Never Smoker completed Never S moker eCW1 ([facility]) Smoking 07/31/2020 12:00:00 AM EDT Never Smoker completed Never S moker eCW1 ([facility]) Smoking 07/31/2020 12:00:00 AM EDT Never Smoker completed Never S moker eCW1 ([facility]) Smoking 07/31/2020 12:00:00 AM EDT Never Smoker completed Never S moker eCW1 ([facility]) Vital Signs ID Date Data Source UNK Name Value Range Interpretation Code Description Data Source(s) Body height 60 [in_i] 60 [in_i] [facility] ([facility]) 5'0" Body weight 357.00 [lb_av] 357.00 [lb_av] [facility] ([facility]) Body mass index (BMI) [Ratio] 69.7 kg/m2 69.7 k g/m2 [facility] ([facility]) [place] body weight 100 [lb_av] 100 [lb_av] [facility] Body weight 161.935 kg 161.935 kg [facility] ([facility]) Body surface area Derived from formula 2.45 m2 2.45 m2 [facility] ([facility]) Body weight 115.00 [lb_av] 115.00 [lb_av] [facility] Body weight 52.164 kg 52.164 kg [facility] ([facility]) Body temperature 97.5 [degF] 97.5 [degF] [facility] ([facility]) Systolic blood pressure 104 mm[Hg] 104 mm[Hg] [facility] ([facility]) Diastolic blood pressure 58 mm[Hg] 58 mm[Hg] [facility] ([facility]) Heart rate 81 /min 81 /min [facility] ([facility]) Body mass index (BMI) [Ratio] 24.7 kg/m2 24.7 k g/m2 [facility] ([facility]) [place] body weight 100 [lb_av] 100 [lb_av] [facility] ([facility]) Body weight 51.710 kg 51.710 kg [facility] ([facility]) Body surface area Derived from formula 1.42 m2 1.42 m2 [facility] ([facility]) Oxygen saturation in Arterial blood by Pulse oximetry 97 % 97 % [facility] ([facility]) Body height 57 [in_i] 57 [in_i] [facility] ([facility]) 4'9" Body weight 114.00 [lb_av] 114.00 [lb_av] [facility] ([facility]) Systolic blood pressure 120 mm[Hg] 120 mm[Hg] M [facility] ([facility]) Body height 57 [in_i] 57 [in_i] [facility] ([facility]) 4'9" Body weight 114.38 [lb_av] 114.38 [lb_av] [facility] ([facility]) Body mass index (BMI) [Ratio] 24.7 kg/m2 24.7 k g/m2 [facility] ([facility]) [place] body weight 100 [lb_av] 100 [lb_av] [facility] ([facility]) Body weight 51.880 kg 51.880 kg [facility] ([facility]) Diastolic blood pressure 73 mm[Hg] 73 mm[Hg] [facility] ([facility]) Body temperature 98.7 [degF] 98.7 [degF] [facility] ([facility]) Body surface area Derived from formula 1.42 m2 1.42 m2 [facility] ([facility]) Body height 57 [in_i] 57 [in_i] [facility] ([facility]) 4'9" Body weight 49.669 kg 49.669 kg [facility] ([facility]) Body surface area Derived from formula 1.39 m2 1.39 m2 [facility] ([facility]) Diastolic blood pressure 74 mm[Hg] 74 mm[Hg] [facility] ([facility]) Heart rate 76 /min 76 /min [facility] ([facility]) Body weight 109.50 [lb_av] 109.50 [lb_av] [facility] ([facility]) Body mass index (BMI) [Ratio] 23.7 kg/m2 23.7 k g/m2 [facility] ([facility]) [place] body weight 100 [lb_av] 100 [lb_av] [facility] ([facility]) Body height 57 [in_i] 57 [in_i] [facility] ([facility]) 4'9" Body weight 109.50 [lb_av] 109.50 [lb_av] [facility] ([facility]) Body mass index (BMI) [Ratio] 23.7 kg/m2 23.7 k g/m2 [facility] ([facility]) [place] body weight 100 [lb_av] 100 [lb_av] [facility] ([facility]) Body weight 49.669 kg 49.669 kg [facility] ([facility]) Body surface area Derived from formula 1.39 m2 1.39 m2 [facility] ([facility]) Systolic blood pressure 133 mm[Hg] 133 mm[Hg] M [facility] ([facility]) Body mass index (BMI) [Ratio] 23.8 kg/m2 23.8 k g/m2 [facility] ([facility]) Body surface area Derived from formula 1.40 m2 1.40 m2 [facility] ([facility]) Body height 57 [in_i] 57 [in_i] [facility] 4'9" [place] body weight 100 [lb_av] 100 [lb_av] [facility] ([facility]) Body weight 49.896 kg 49.896 kg [facility] ([facility]) Body weight 110.00 [lb_av] 110.00 [lb_av] [facility] ([facility]) Body mass index (BMI) [Ratio] 22.98 kg/m2 22.98 kg/m2 eCW1 ([facility]) Body weight 113.8 [lb_av] 113.8 [lb_av] eCW1 ([facility]) Body height 59 [in_i] 59 [in_i] eCW1 (Count includes the [facility]) Diastolic blood pressure 60 mm[Hg] 60 mm[Hg] eCW1 ([facility]) Systolic blood pressure 142 mm[Hg] 142 mm[Hg] e CW1 ([facility]) Heart rate 62 /min 62 /min eCW1 ([facility]) Respiratory rate 16 /min 16 /min eCW1 ([facility]) Body temperature 97.9 [degF] 97.9 [degF] eCW1 ( [facility]) [place] body weight 100 [lb_av] 100 [lb_av] [facility] ([facility]) Body height 57 [in_i] 57 [in_i] [facility] ([facility]) 4'9" Body weight 110.00 [lb_av] 110.00 [lb_av] [facility] ([facility]) Body mass index (BMI) [Ratio] 23.8 kg/m2 23.8 k g/m2 [facility] ([facility]) Body weight 49.896 kg 49.896 kg [facility] ([facility]) Body surface area Derived from formula 1.40 m2 1.40 m2 [facility] ([facility]) Body height 57 [in_i] 57 [in_i] [facility] ([facility]) 4'9" Body weight 110.00 [lb_av] 110.00 [lb_av] [facility] ([facility]) Body mass index (BMI) [Ratio] 23.8 kg/m2 23.8 k g/m2 [facility] ([facility]) [place] body weight 100 [lb_av] 100 [lb_av] [facility] ([facility]) Body weight 49.896 kg 49.896 kg [facility] ([facility]) Body surface area Derived from formula 1.40 m2 1.40 m2 [facility] ([facility]) Body weight 112 [lb_av] 112 [lb_av] eCW1 ([facility]) Body height 59 [in_i] 59 [in_i] eCW1 (Count includes the [facility]) Body mass index (BMI) [Ratio] 22.62 kg/m2 22.62 kg/m2 eCW1 ([facility]) Heart rate 75 /min 75 /min eCW1 ([facility]) Respiratory rate 18 /min 18 /min eCW1 ([facility]) Body temperature 98.4 [degF] 98.4 [degF] eCW1 ( [facility]) Systolic blood pressure 119 mm[Hg] 119 mm[Hg] e CW1 ([facility]) Diastolic blood pressure 64 mm[Hg] 64 mm[Hg] eCW1 ([facility]) Body weight 112 [lb_av] 112 [lb_av] eCW1 ([facility]) Body height 59 [in_i] 59 [in_i] eCW1 (Count includes the [facility]) Body mass index (BMI) [Ratio] 22.62 kg/m2 22.62 kg/m2 eCW1 ([facility]) Heart rate 75 /min 75 /min eCW1 ([facility]) Respiratory rate 18 /min 18 /min eCW1 ([facility]) Body temperature 98.4 [degF] 98.4 [degF] eCW1 ( [facility]) Systolic blood pressure 119 mm[Hg] 119 mm[Hg] e CW1 ([facility]) Diastolic blood pressure 64 mm[Hg] 64 mm[Hg] eCW1 ([facility]) Systolic blood pressure 122 mm[Hg] 122 mm[Hg] M [facility] ([facility] Diastolic blood pressure 70 mm[Hg] 70 mm[Hg] [facility] ([facility] Body temperature 98.2 [degF] 98.2 [degF] [facility] ([facility] Heart rate 78 /min 78 /min [facility] ([facility] Respiratory rate 20 /min 20 /min [facility] ( [facility] Body height 55 [in_i] 55 [in_i] [facility] 4'7" [place] body weight 100 [lb_av] 100 [lb_av] [facility] ([facility] Oxygen saturation in Arterial blood by Pulse oximetry 95 % 95 % [facility] ([facility] Body mass index (BMI) [Ratio] 27.0 kg/m2 27.0 k g/m2 [facility] ([facility] Heart rate 90 /min 90 /min [facility] ([facility] Respiratory rate 20 /min 20 /min [facility] ( [facility] Body height 55 [in_i] 55 [in_i] [facility] ([facility] 4'7" Body weight 116.00 [lb_av] 116.00 [lb_av] [facility] ([facility] [place] body weight 100 [lb_av] 100 [lb_av] [facility] ([facility] Oxygen saturation in Arterial blood by Pulse oximetry 98 % 98 % [facility] ([facility] Diastolic blood pressure 60 mm[Hg] 60 mm[Hg] [facility] ([facility] Body temperature 97.8 [degF] 97.8 [degF] [facility] ([facility] Systolic blood pressure 108 mm[Hg] 108 mm[Hg] M [facility] ([facility] [place] body weight 100 [lb_av] 100 [lb_av] [facility] ([facility], ) Body weight 51.710 kg 51.710 kg [facility] ([facility]) Systolic blood pressure 149 mm[Hg] 149 mm[Hg] [facility]) Diastolic blood pressure 84 mm[Hg] 84 mm[Hg] [facility] ([facility]) Body height 57 [in_i] 57 [in_i] [facility] ([facility]) 4'9" Body weight 114.00 [lb_av] 114.00 [lb_av] [facility] ([facility]) Body mass index (BMI) [Ratio] 24.7 kg/m2 24.7 k g/m2 [facility] ([facility]) Body surface area Derived from formula 1.42 m2 1.42 m2 [facility] ([facility]) Body temperature 97.9 [degF] 97.9 [degF] [facility] ([facility] Heart rate 72 /min 72 /min [facility] ([facility] Body mass index (BMI) [Ratio] 27.0 kg/m2 27.0 k g/m2 [facility] ([facility] Oxygen saturation in Arterial blood by Pulse oximetry 97 % 97 % [facility] ([facility] Systolic blood pressure 126 mm[Hg] 126 mm[Hg] [facility] Diastolic blood pressure 56 mm[Hg] 56 mm[Hg] [facility] ([facility] Respiratory rate 16 /min 16 /min [facility] ( [facility] Body height 55 [in_i] 55 [in_i] [facility] ([facility] 4'7" Body weight 116.00 [lb_av] 116.00 [lb_av] [facility] ([facility] [place] body weight 100 [lb_av] 100 [lb_av] [facility] ([facility] Systolic blood pressure 128 mm[Hg] 128 mm[Hg] M [facility] ([facility]) Diastolic blood pressure 73 mm[Hg] 73 mm[Hg] [facility] ([facility]) Body height 57 [in_i] 57 [in_i] [facility] ([facility]) 4'9" Body weight 117.00 [lb_av] 117.00 [lb_av] [facility] ([facility]) Body mass index (BMI) [Ratio] 25.3 kg/m2 25.3 k g/m2 [facility] ([facility]) [place] body weight 100 [lb_av] 100 [lb_av] [facility] Body weight 53.071 kg 53.071 kg [facility] ([facility]) Patient Treatment Plan of Care Planned Activity Planned Date Details Description Data Source (s) meloxicam 7.5 MG Oral Tablet 07/31/2020 12:00:00 AM EDT eCW1 ([facility]) meloxicam 7.5 MG Oral Tablet 07/31/2020 12:00:00 AM EDT eCW1 ([facility]) meloxicam 7.5 MG Oral Tablet 07/31/2020 12:00:00 AM EDT eCW1 ([facility]) meloxicam 7.5 MG Oral Tablet 07/31/2020 12:00:00 AM EDT eCW1 ([facility])
--- NOTE | 2021-04-15 19:50 | REPVR ---
PROCEDURE INFORMATION: Exam: CT Thoracic Spine Without Contrast Exam date and time: 04/15/2021 6:43 PM Age: 86 years old Clinical indication: Injury or trauma; Fall; Blunt trauma (contusions or hematomas) TECHNIQUE: Imaging protocol: Computed tomography images of the thoracic spine without contrast. Radiation optimization: All CT scans at this facility use at least one of these dose optimization techniques: automated exposure control; mA and/or kV adjustment per patient size (includes targeted exams where dose is matched to clinical indication); or iterative reconstruction. COMPARISON: PT PET/CT Skull/mid thigh 11/18/2020 3:35 PM FINDINGS: Vertebrae: No visualized acute fracture involving the thoracic spine. A moderate chronic compression fracture is again identified of the T12 vertebral level, with retropulsion. Increased kyphosis of the thoracic spine. Mild anterolisthesis of C6 on C7. The remaining lumbar vertebral bodies are normal in height, without abnormal subluxation. Dextroscoliosis of the thoracic spine. Discs/Spinal canal/Neural foramina: Degenerative changes are identified at multiple thoracic levels, with disc bulge/osteophyte complexes. Vacuum disc phenomena are seen within the lower thoracic spine. No severe spinal canal stenosis at any thoracic level. Soft tissues: No significant paravertebral swelling. Other findings: For discussion of findings within the chest, refer to the chest CT report from the same day. IMPRESSION: 1. No visualized acute fracture involving the thoracic spine. 2. A moderate chronic compression fracture is again identified of the T12 vertebral level, with retropulsion. 3. Increased kyphosis of the thoracic spine. Dextroscoliosis. 4. Degenerative changes are identified at multiple thoracic levels. 5. Additional findings described above. Electronically signed by: Rober Neri On 04/15/2021 19:49:53 PM
--- NOTE | 2021-04-15 19:52 | REPVR ---
PROCEDURE INFORMATION: Exam: CT Chest With Contrast; Diagnostic Exam date and time: 04/15/2021 6:43 PM Age: 86 years old Clinical indication: Injury or trauma; Fall; Blunt trauma (contusions or hematomas) TECHNIQUE: Imaging protocol: Diagnostic computed tomography of the chest with contrast. Radiation optimization: All CT scans at this facility use at least one of these dose optimization techniques: automated exposure control; mA and/or kV adjustment per patient size (includes targeted exams where dose is matched to clinical indication); or iterative reconstruction. Contrast material: ISO 370; Contrast volume: 100 ml; Contrast route: INTRAVENOUS (IV); COMPARISON: PT PET/CT Skull/mid thigh 11/18/2020 3:35 PM FINDINGS: Lungs: Atelectatic changes within both lower lobes as well as the right middle lobe and lingula. There are a few densities identified in the region of a peripheral right lower lobe bronchus, likely due to mucous plugging. Lung nodules are within the differential, the largest measuring 5 mm on series 201, image 62. This has mildly progressed. A small calcification or granuloma is noted within the left upper lung zone. Pleural spaces: Small right pleural effusion, which is new. Heart: No cardiomegaly. No pericardial effusion. Aorta: Artifact limits evaluation of the ascending aorta. No aneurysm or dissection of the remaining thoracic aorta. Atherosclerosis of the thoracic aorta. Lymph nodes: There is a left para-aortic enlarged lymph node or lesion. This measures 2.1 x 1.1 cm and is stable compared to the previous CT. A few additional small mediastinal lymph nodes are identified. Diaphragm: Large hiatal hernia again visualized. Bones/joints: For discussion of findings involving the thoracic spine, refer to the CT thoracic spine report from the same day. There is a moderate chronic compression fracture of the T12 vertebral body. Mild retropulsion. Advanced left glenohumeral arthropathy. There is elevation of the left humeral head. Rotator cuff injury cannot be excluded. Abnormal density involving the left 6th rib with adjacent soft tissue swelling. This is new compared to the previous CT. There is adjacent swelling of the chest wall. A nonacute fracture with callus formation is considered, although an osseous lesion cannot be excluded. Soft tissues: See "Bones/joints" finding. Other findings: For discussion of findings involving the abdomen and pelvis, refer to the abdomen/pelvis CT report from the same day. IMPRESSION: 1. Abnormal density involving the left 6th rib with adjacent soft tissue swelling. This is new compared to the previous CT. There is adjacent swelling of the chest wall. A nonacute fracture with callus formation is considered, although an osseous lesion cannot be excluded. Clinical correlation and follow-up CT recommended. 2. Large hiatal hernia again visualized. 3. There is a left para-aortic enlarged lymph node or lesion. This is stable compared to the previous CT. Continued follow-up with CT recommended. 4. Small right pleural effusion, which is new. 5. Atelectatic changes within both lower lobes as well as the right middle lobe and lingula. 6. There are a few densities identified in the region of a peripheral right lower lobe bronchus, likely due to mucous plugging. Lung nodules are within the differential. This has mildly progressed. A follow-up chest CT in 3-6 months is recommended. 7. Additional findings described above. Electronically signed by: Rober Neri On 04/15/2021 19:52:15 PM
--- NOTE | 2021-04-15 20:04 | REP ---
INDICATION: trauma. COMPARISON: None. TECHNIQUE: Four images of the right femur were obtained. FINDINGS: There is mild arthritis of the right hip. There is a hinge type right total knee prosthesis. There is no evidence of fracture or loosening. There are vascular calcifications. IMPRESSION: 1. Hinge type right total knee arthroplasty. No evidence of loosening or fracture. 2. Mild arthritis of the right hip. <Electronically signed by Rober Saravia > 04/15/211999
--- NOTE | 2021-04-15 20:05 | REP ---
INDICATION: trauma. COMPARISON: None. TECHNIQUE: Four views of the right tibia and fibula were obtained. 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 There is no evidence of fracture or loosening. There is a healed fracture of the right tibia, proximally. There is moderate arthritis of the right ankle joint. IMPRESSION: 1. Hinge type right total knee arthroplasty. 2. No evidence of fracture or loosening. 3. Arthritis of the right ankle joint. 4. Healed fracture of the tibial shaft. <Electronically signed by Rober Saravia > 04/15/21 2002
[2021-04-15 23:44] VITALS: BP 125/68
--- NOTE | 2021-04-16 14:14 | ECGEPIP ---
[facility] - ED Test Date: 2021-04-15 Pat Name: TOYA AC Department: Room: - Gender: Female [employer]: THEO : 1935 Requested By: ODILIA Harry Order Number: [id number] Reading MD: Rickie Green Measurements Intervals [place] Rate: 62 P: ND: 124 QRS: -19 QRSD: 68 T: 33 QT: 416 QTc: 422 Interpretive Statements Normal sinus rhythm Electronically Signed on 04-16-2021 14:13:46 EST by Rickie Green
== END 2021-04-16 00:02 | disposition short-term general hospital (02) ==
LOC: EDBD 15:29 → M ED 15:29
DX: S06.5X0A Traumatic subdural hemorrhage without loss of consciousness, initial encounter (principal); S32.029A Unspecified fracture of second lumbar vertebra, initial encounter for closed fracture; R10.12 Left upper quadrant pain; M79.604 Pain in right leg; R07.89 Other chest pain; W01.198A Fall on same level from slipping, tripping and stumbling with subsequent striking against other object, initial encounter; Y92.009 Unspecified place in unspecified non-institutional (private) residence as the place of occurrence of the external cause; Y93.9 Activity, unspecified; Y99.9 Unspecified external cause status; M51.34 Other intervertebral disc degeneration, thoracic region; M43.16 Spondylolisthesis, lumbar region; M48.061 Spinal stenosis, lumbar region without neurogenic claudication; S72.115D Nondisplaced fracture of greater trochanter of left femur, subsequent encounter for closed fracture with routine healing; S22.080D Wedge compression fracture of T11-T12 vertebra, subsequent encounter for fracture with routine healing; M41.9 Scoliosis, unspecified; M16.11 Unilateral primary osteoarthritis, right hip; J90 Pleural effusion, not elsewhere classified; N28.1 Cyst of kidney, acquired; K76.0 Fatty (change of) liver, not elsewhere classified; K44.9 Diaphragmatic hernia without obstruction or gangrene; Z90.5 Acquired absence of kidney; K21.9 Gastro-esophageal reflux disease without esophagitis; I10 Essential (primary) hypertension; E78.5 Hyperlipidemia, unspecified; G47.30 Sleep apnea, unspecified; E03.9 Hypothyroidism, unspecified; Z85.72 Personal history of non-Hodgkin lymphomas; J44.9 Chronic obstructive pulmonary disease, unspecified; M10.9 Gout, unspecified; F32.A Depression, unspecified; Z79.899 Other long term (current) drug therapy; Z79.890 Hormone replacement therapy
CPT/HCPCS: 36415; 70450; 71260; 72125; 72128; 72131; 73552; 73590; 74177; 80048; 80076; 82550; 82553; 84439; 84443; 84484; 85025; 87631; 93005; 93041; 94760; 99285; Q9967

== ENCOUNTER 2021-04-24 09:53 | Outpatient (RCR) | payer MEDICARE | END 2021-05-09 | LOC: M PT 09:53 | PROVIDERS: ATTEND Surgery | DX: I89.0 Lymphedema, not elsewhere classified (principal) ==

== ENCOUNTER → 2021-05-16 | Outpatient (CLI) | payer MEDICARE ==
[~2021-05-16] MED LIST changes: +DONE-1 PO; -DONETAB6 PO; -LISI-898 PO; +LISI5TAB11 PO
== END ==
LOC: M SOG 08:10
PROVIDERS: ATTEND Orthopaedic Surgery Adult Reconstructive Orthopaedic Surgery
DX: S72.102A Unspecified trochanteric fracture of left femur, initial encounter for closed fracture (principal); X58.XXXA Exposure to other specified factors, initial encounter; Y92.9 Unspecified place or not applicable

== ENCOUNTER → 2021-05-28 | Outpatient (CLI) | payer MEDICARE | LOC: M RAD 10:11 | PROVIDERS: ATTEND Family Medicine | DX: M79.604 Pain in right leg (principal) ==

== ENCOUNTER 2021-06-23 15:51 | Emergency (ER) | payer MEDICARE ==
[~2021-06-23] VITALS: Ht 144.8 cm; Wt 50.0 kg
[2021-06-23] MEDS ORDERED: DESMOPRESSIN ACETATE IV ONE (16:40)
[2021-06-23] MEDS ORDERED: NS IV ONE (16:40)
[2021-06-23] MEDS ORDERED: niCARdipine IV 40 MG in IV 1 EA IV SCH (17:10)
[2021-06-23 17:26] LABS: BASO # 0.1 10^3/uL (0.0-0.2); BASO % 0.7 % (0.0-1.0); EOS # 0.4 10^3/uL (0.0-0.5); EOS % 4.9 % (0.0-3.0); HEMATOCRIT 40.1 % (36.0-47.0); LYMPH # 1.4 10^3/uL (1.5-5.0); LYMPH % 16.6 % (24.0-44.0); MEAN CORPUSCULAR HEMOGLOBIN 30.6 pg (27.0-33.0); MEAN CORPUSCULAR HGB CONC 32.4 g/dl (32.0-36.5); MEAN CORPUSCULAR VOLUME 94.4 fl (80.0-96.0); MONO # 0.9 10^3/uL (0.0-0.8); MONO % 10.3 % (2.0-8.0); NEUTROPHILS # 5.6 10^3/uL (1.5-8.5); NEUTROPHILS % 67.1 % (36.0-66.0); PLATELET COUNT, AUTOMATED 212 10^3/uL (150-450); RED BLOOD COUNT 4.25 10^6/uL (4.00-5.40); WHITE BLOOD COUNT 8.4 10^3/uL (4.0-10.0)
[2021-06-23 17:29] LABS: INR 1.03; PROTHROMBIN TIME 13.9 SECONDS (12.7-14.5)
[2021-06-23 17:30] LABS: PARTIAL THROMBOPLASTIN TIME 30.2 SECONDS (25.9-37.0)
[2021-06-23 17:34] LABS: BLOOD UREA NITROGEN 20 MG/DL (7-18); CALCIUM LEVEL 9.9 MG/DL (8.8-10.2); CARBON DIOXIDE LEVEL 26 MEQ/L (21-32); CHLORIDE LEVEL 109 MEQ/L (98-107); CREATININE FOR GFR 0.64 MG/DL (0.55-1.30); GLOMERULAR FILTRATION RATE > 60.0 (>32); GLUCOSE, FASTING 89 MG/DL (70-100); POTASSIUM SERUM 3.9 MEQ/L (3.5-5.1); SODIUM LEVEL 143 MEQ/L (136-145)
[2021-06-23 17:38] LABS: CK-MB VALUE MASS 2.4 NG/ML (<3.6); MB/CK RELATIVE INDEX 2.86 (< OR =4)
[2021-06-23 17:39] LABS: RSV AMPLIFICATION NEGATIVE (NEGATIVE)
[2021-06-23 19:24] VITALS: BP 129/87
== END 2021-06-23 19:26 | disposition short-term general hospital (02) ==
LOC: M ED 15:51
DX: S06.5X0A Traumatic subdural hemorrhage without loss of consciousness, initial encounter (principal); S00.33XA Contusion of nose, initial encounter; W19.XXXA Unspecified fall, initial encounter; E11.9 Type 2 diabetes mellitus without complications; I10 Essential (primary) hypertension; E78.5 Hyperlipidemia, unspecified; Y92.009 Unspecified place in unspecified non-institutional (private) residence as the place of occurrence of the external cause; Y93.9 Activity, unspecified; Y99.9 Unspecified external cause status; Z91.81 History of falling
CPT/HCPCS: 70450; 71045; 80048; 82550; 82553; 84484; 85025; 85610; 85730; 86850; 86900; 86901; 87631; 93041; 94760; 96365; 99285; J2597

== ENCOUNTER → 2021-06-23 | Outpatient (CLI) | payer MEDICARE | LOC: M RAD 14:22 | PROVIDERS: ATTEND Physician Assistant | DX: S00.93XA Contusion of unspecified part of head, initial encounter (principal); S00.33XA Contusion of nose, initial encounter; W19.XXXA Unspecified fall, initial encounter; Y92.89 Other specified places as the place of occurrence of the external cause; Y93.9 Activity, unspecified; Y99.9 Unspecified external cause status; Z91.81 History of falling ==

== ENCOUNTER 2021-06-26 10:40 | Outpatient (RCR) | payer MEDICARE | END 2021-07-07 | LOC: M PT 10:40 | PROVIDERS: ATTEND Family Medicine | DX: M79.604 Pain in right leg (principal); C82.15 Follicular lymphoma grade II, lymph nodes of inguinal region and lower limb ==

== ENCOUNTER 2021-07-09 13:40 | Outpatient (RCR) | payer MEDICARE | END 2021-08-07 | LOC: M PT 13:40 | PROVIDERS: ATTEND Family Medicine | DX: M79.604 Pain in right leg (principal); C82.15 Follicular lymphoma grade II, lymph nodes of inguinal region and lower limb ==

== ENCOUNTER → 2021-07-09 | Outpatient (CLI) | payer MEDICARE ==
[2021-07-09 15:20] LABS: BLOOD UREA NITROGEN 19 MG/DL (7-18); CREATININE FOR GFR 0.62 MG/DL (0.55-1.30); GLOMERULAR FILTRATION RATE > 60.0 (>32)
== END ==
LOC: M LAB 14:15
PROVIDERS: ATTEND Otolaryngology
DX: Z01.818 Encounter for other preprocedural examination (principal)

== ENCOUNTER → 2021-07-11 | Outpatient (CLI) | payer MEDICARE ==
[~2021-07-11] MED LIST changes: +ISOVUE-370 76% 100ML VIAL As Ordered ONE
== END ==
LOC: M RAD 13:12
PROVIDERS: ATTEND Otolaryngology
DX: R49.0 Dysphonia (principal); I70.0 Atherosclerosis of aorta
CPT/HCPCS: 70491; Q9967

== ENCOUNTER → 2021-07-16 | Outpatient (CLI) | payer MEDICARE ==
[~2021-07-16] MED LIST changes: -ISOVUE-370 76% 100ML VIAL As Ordered ONE
== END ==
LOC: M PAIN 11:15
PROVIDERS: ATTEND Anesthesiology
DX: M54.50 Low back pain, unspecified (principal); M79.18 Myalgia, other site; E11.9 Type 2 diabetes mellitus without complications; G47.30 Sleep apnea, unspecified; K21.9 Gastro-esophageal reflux disease without esophagitis; J45.40 Moderate persistent asthma, uncomplicated; Z86.59 Personal history of other mental and behavioral disorders; Z79.51 Long term (current) use of inhaled steroids; Z79.82 Long term (current) use of aspirin; Z79.899 Other long term (current) drug therapy

== ENCOUNTER 2021-10-08 13:46 | Outpatient (RCR) | payer MEDICARE | END 2021-11-06 | LOC: M PT 13:46 | PROVIDERS: ATTEND Family Medicine | DX: I89.0 Lymphedema, not elsewhere classified (principal) ==

== ENCOUNTER → 2021-11-23 | Outpatient (CLI) | payer MEDICARE | LOC: M LABSMTC 11:32 | PROVIDERS: ATTEND Anesthesiology | DX: Z01.818 Encounter for other preprocedural examination (principal); Z11.52 Encounter for screening for COVID-19 ==

== ENCOUNTER → 2021-11-25 | Outpatient (CLI) | payer MEDICARE ==
[~2021-11-25] MED LIST changes: +BUPIVACAINE HCL 0.25% 10ML VIAL As Ordered ONE; +BUPIVACAINE HCL 0.25% 30ML VIAL As Ordered ONE; +TRIAMCINOLONE ACETONIDE SUSP 40 MG/ML VIAL (J3301) As Ordered ONE
== END ==
LOC: M PAIN 08:30
PROVIDERS: ATTEND Anesthesiology
DX: M79.18 Myalgia, other site (principal); G89.29 Other chronic pain; E11.9 Type 2 diabetes mellitus without complications; G47.30 Sleep apnea, unspecified; K21.9 Gastro-esophageal reflux disease without esophagitis; E03.9 Hypothyroidism, unspecified; J45.40 Moderate persistent asthma, uncomplicated; Z86.59 Personal history of other mental and behavioral disorders; Z79.51 Long term (current) use of inhaled steroids; Z79.84 Long term (current) use of oral hypoglycemic drugs; Z79.899 Other long term (current) drug therapy
CPT/HCPCS: 20552; J3301

== ENCOUNTER → 2021-12-31 | Outpatient (CLI) | payer MEDICARE ==
[~2021-12-31] MED LIST changes: -BUPIVACAINE HCL 0.25% 10ML VIAL As Ordered ONE; -BUPIVACAINE HCL 0.25% 30ML VIAL As Ordered ONE; -TRIAMCINOLONE ACETONIDE SUSP 40 MG/ML VIAL (J3301) As Ordered ONE
== END ==
LOC: M PAIN 10:45
PROVIDERS: ATTEND Nurse Practitioner Family
DX: M54.6 Pain in thoracic spine (principal); M54.50 Low back pain, unspecified; E11.9 Type 2 diabetes mellitus without complications; G47.30 Sleep apnea, unspecified; K21.9 Gastro-esophageal reflux disease without esophagitis; E03.9 Hypothyroidism, unspecified; J45.40 Moderate persistent asthma, uncomplicated; I10 Essential (primary) hypertension; Z86.59 Personal history of other mental and behavioral disorders; Z79.51 Long term (current) use of inhaled steroids; Z79.84 Long term (current) use of oral hypoglycemic drugs; Z79.890 Hormone replacement therapy; Z79.899 Other long term (current) drug therapy

== ENCOUNTER → 2022-02-06 | Outpatient (CLI) | payer MEDICARE | LOC: M PLAIMG 10:50 | PROVIDERS: ATTEND Nurse Practitioner Family | DX: M54.50 Low back pain, unspecified (principal); M54.6 Pain in thoracic spine ==

== ENCOUNTER → 2022-02-26 | Outpatient (CLI) | payer MEDICARE | LOC: M PAIN 09:15 | PROVIDERS: ATTEND Nurse Practitioner Family | DX: M79.10 Myalgia, unspecified site (principal); G89.29 Other chronic pain; E11.9 Type 2 diabetes mellitus without complications; I10 Essential (primary) hypertension; G47.30 Sleep apnea, unspecified; K21.9 Gastro-esophageal reflux disease without esophagitis; E03.9 Hypothyroidism, unspecified; J45.40 Moderate persistent asthma, uncomplicated; Z86.59 Personal history of other mental and behavioral disorders; Z79.51 Long term (current) use of inhaled steroids; Z79.84 Long term (current) use of oral hypoglycemic drugs; Z79.890 Hormone replacement therapy; Z79.899 Other long term (current) drug therapy ==

== ENCOUNTER → 2022-03-23 | Outpatient (CLI) | payer MEDICARE | LOC: M LABSMTC 11:44 | PROVIDERS: ATTEND Anesthesiology | DX: Z01.812 Encounter for preprocedural laboratory examination (principal); Z11.52 Encounter for screening for COVID-19 ==

== ENCOUNTER → 2022-03-26 | Outpatient (CLI) | payer MEDICARE | LOC: M RAD 16:26 | PROVIDERS: ATTEND Physician Assistant | DX: R06.02 Shortness of breath (principal); R05.3 Chronic cough; K44.9 Diaphragmatic hernia without obstruction or gangrene; M48.54XA Collapsed vertebra, not elsewhere classified, thoracic region, initial encounter for fracture ==

== ENCOUNTER → 2022-04-07 | Outpatient (CLI) | payer MEDICARE | LOC: M LABSMTC 11:33 | PROVIDERS: ATTEND Anesthesiology | DX: Z01.812 Encounter for preprocedural laboratory examination (principal); Z11.52 Encounter for screening for COVID-19 ==

== ENCOUNTER → 2022-04-10 | Outpatient (CLI) | payer MEDICARE ==
[~2022-04-10] MED LIST changes: +BUPIVACAINE HCL 0.25% 10ML VIAL As Ordered ONE; +BUPIVACAINE HCL 0.25% 30ML VIAL As Ordered ONE; +TRIAMCINOLONE ACETONIDE SUSP 40MG/ML 1ML VIAL As Ordered ONE
== END ==
LOC: M PAIN 13:45
PROVIDERS: ATTEND Anesthesiology
DX: M79.18 Myalgia, other site (principal); G89.29 Other chronic pain; E11.9 Type 2 diabetes mellitus without complications; I10 Essential (primary) hypertension; G47.30 Sleep apnea, unspecified; K21.9 Gastro-esophageal reflux disease without esophagitis; E03.9 Hypothyroidism, unspecified; J45.30 Mild persistent asthma, uncomplicated; Z86.59 Personal history of other mental and behavioral disorders; Z79.51 Long term (current) use of inhaled steroids; Z79.84 Long term (current) use of oral hypoglycemic drugs; Z79.899 Other long term (current) drug therapy
CPT/HCPCS: 20552; J3301

== ENCOUNTER → 2022-05-14 | Outpatient (CLI) | payer MEDICARE ==
[~2022-05-14] MED LIST changes: -BUPIVACAINE HCL 0.25% 10ML VIAL As Ordered ONE; -BUPIVACAINE HCL 0.25% 30ML VIAL As Ordered ONE; -TRIAMCINOLONE ACETONIDE SUSP 40MG/ML 1ML VIAL As Ordered ONE
== END ==
LOC: M PAIN 13:45
PROVIDERS: ATTEND Nurse Practitioner Family
DX: M79.10 Myalgia, unspecified site (principal); G89.29 Other chronic pain; E11.9 Type 2 diabetes mellitus without complications; I10 Essential (primary) hypertension; G47.30 Sleep apnea, unspecified; K21.9 Gastro-esophageal reflux disease without esophagitis; E03.9 Hypothyroidism, unspecified; J45.40 Moderate persistent asthma, uncomplicated; Z86.59 Personal history of other mental and behavioral disorders; Z79.51 Long term (current) use of inhaled steroids; Z79.84 Long term (current) use of oral hypoglycemic drugs; Z79.890 Hormone replacement therapy; Z79.899 Other long term (current) drug therapy

== ENCOUNTER → 2022-07-09 | Outpatient (CLI) | payer MEDICARE | LOC: M PAIN 14:30 | PROVIDERS: ATTEND Nurse Practitioner Family | DX: M79.10 Myalgia, unspecified site (principal); G89.29 Other chronic pain; E11.9 Type 2 diabetes mellitus without complications; I10 Essential (primary) hypertension; G47.30 Sleep apnea, unspecified; K21.9 Gastro-esophageal reflux disease without esophagitis; E03.9 Hypothyroidism, unspecified; J45.40 Moderate persistent asthma, uncomplicated; Z86.59 Personal history of other mental and behavioral disorders; Z79.51 Long term (current) use of inhaled steroids; Z79.84 Long term (current) use of oral hypoglycemic drugs; Z79.890 Hormone replacement therapy; Z79.899 Other long term (current) drug therapy ==

== ENCOUNTER → 2022-08-28 | Outpatient (CLI) | payer MEDICARE ==
[~2022-08-28] MED LIST changes: +BUPIVACAINE HCL 0.25% 10ML VIAL As Ordered ONE; +BUPIVACAINE HCL 0.25% 30ML VIAL As Ordered ONE; +TRIAMCINOLONE ACETONIDE SUSP 40MG/ML 1ML VIAL As Ordered ONE
== END ==
LOC: M PAIN 13:00
PROVIDERS: ATTEND Anesthesiology
DX: M79.18 Myalgia, other site (principal); I10 Essential (primary) hypertension; G47.30 Sleep apnea, unspecified; E78.5 Hyperlipidemia, unspecified; K21.9 Gastro-esophageal reflux disease without esophagitis; E03.9 Hypothyroidism, unspecified; J45.40 Moderate persistent asthma, uncomplicated; M10.9 Gout, unspecified; F32.A Depression, unspecified; E11.3299 Type 2 diabetes mellitus with mild nonproliferative diabetic retinopathy without macular edema, unspecified eye; Z91.048 Other nonmedicinal substance allergy status
CPT/HCPCS: 20552; J3301

== ENCOUNTER → 2022-10-08 | Outpatient (CLI) | payer MEDICARE ==
[~2022-10-08] MED LIST changes: -BUPIVACAINE HCL 0.25% 10ML VIAL As Ordered ONE; -BUPIVACAINE HCL 0.25% 30ML VIAL As Ordered ONE; +GASTROGRAFIN SOLUTION 30ML As Ordered ONE; +ISOVUE-370 76% 100ML VIAL As Ordered ONE; -TRIAMCINOLONE ACETONIDE SUSP 40MG/ML 1ML VIAL As Ordered ONE
== END ==
LOC: M RAD 08:39
PROVIDERS: ATTEND Internal Medicine Medical Oncology
DX: C85.90 Non-Hodgkin lymphoma, unspecified, unspecified site (principal)
CPT/HCPCS: 71260; 74177; Q9963; Q9967

== ENCOUNTER → 2022-12-25 | Outpatient (CLI) | payer MEDICARE ==
[~2022-12-25] MED LIST changes: -GASTROGRAFIN SOLUTION 30ML As Ordered ONE; -ISOVUE-370 76% 100ML VIAL As Ordered ONE
== END ==
LOC: M PAIN 15:00
PROVIDERS: ATTEND Nurse Practitioner Family
DX: M46.1 Sacroiliitis, not elsewhere classified (principal); G89.29 Other chronic pain; E11.9 Type 2 diabetes mellitus without complications; I10 Essential (primary) hypertension; G47.30 Sleep apnea, unspecified; E03.9 Hypothyroidism, unspecified; J45.909 Unspecified asthma, uncomplicated; Z86.59 Personal history of other mental and behavioral disorders; Z91.09 Other allergy status, other than to drugs and biological substances; Z79.84 Long term (current) use of oral hypoglycemic drugs; Z79.890 Hormone replacement therapy; Z79.899 Other long term (current) drug therapy

== ENCOUNTER → 2023-01-26 | Outpatient (CLI) | payer MEDICARE ==
[~2023-01-26] MED LIST changes: +EZET10TA58 PO; -ZETI10TA16 PO
== END ==
LOC: M PLAIMG 13:40
PROVIDERS: ATTEND Nurse Practitioner Family
DX: M46.1 Sacroiliitis, not elsewhere classified (principal)